=== PATIENT | female | born 1940 | race Hispanic/Latino ===

== ENCOUNTER 2023-05-28 09:46 | Observation (INO) | payer OTHER ==
--- OUTSIDE RECORDS SUMMARY | 2023-05-28 10:02 | XMS REPORT | Continuity of Care Document ---
:1940 Author Organization [facility] t Address [address] [place] [address] Care Team Providers Name Role Phone ALYSON SAM Primary Care Physician Unavailable RADHA TIDWELL Attending Clinician Unavailable MARTA NOBLES Attending Clinician Unavailable CONSTANCE HERRERA Attending Clinician Unavailable ERNESTO HONG Attending Clinician Unavailable ALYSON SAM Attending Clinician Unavailable Marta Bales Attending Clinician Alyson Sam MD Attending Clinician Doctor Unassigned, [place] Attending Clinician Unavailable NAMITA CLINTON Attending Clinician Unavailable Namita Clinton DO Attending Clinician Lab, Ang - Db Attending Clinician Unavailable Neto Matute MD Attending Clinician NETO MATUTE Attending Clinician Unavailable Constance Herrera MD Attending Clinician Radha Tidwell MD Attending Clinician Ernesto Hong MD Attending Clinician Alina RUCKER, Tessy Flood Attending Clinician Unavailable Only, Ang Db Test Attending Clinician Unavailable Bob FRANCISCO, Bailey Attending Clinician BAILEY ROJAS Attending Clinician Unavailable Molly RUCKER, Joyce Macdonald Attending Clinician Unavailable Jameel LEMONS, Antinoette Narayan Attending Clinician ANTIONETTE JORGENSEN Attending Clinician Unavailable EH SAVAGE Attending Clinician Unavailable Eh Savage MD Attending Clinician Christianson [facility], Sheila F Attending Clinician Unavailable Franky Stern MD Attending Clinician FRANKY STERN Attending Clinician Unavailable FRANKY STERN Attending Clinician Unavailable CIELO VILLANUEVA Attending Clinician Unavailable Lm Carrion DO Attending Clinician Cielo Villanueva MD Attending Clinician Karissa RUCKER, Yang Lester Attending Clinician Unavailable JOSE ROCK Attending Clinician Unavailable Wellington Burgos MD Attending Clinician Jose Rock MD Attending Clinician LAURA TAYLOR Attending Clinician Unavailable Laura Taylor MD Attending Clinician ROMINA GOMEZ Attending Clinician Unavailable Pcp-Lab Attending Clinician Unavailable Hay Whitehead MD Attending Clinician HAY WHITEHEAD Attending Clinician Unavailable [facility], [facility] Lab Main Attending Clinician Unavailable Maximino Mccabe DO Attending Clinician , Adc Vascular Room 1 - Attending Clinician Unavailable Susi FRANCISCO, Sendsavannah K.H. Attending Clinician DARY GOLDMAN K.H. Attending Clinician Unavailable Mega Bryant DO Attending Clinician OG ORELLANA Attending Clinician Unavailable Joyce Low Attending Clinician Gabino La MD Attending Clinician RADHA TIDWELL Admitting Clinician Unavailable WELLINGTON BURGOS Admitting Clinician Unavailable Wellington Burgos MD Admitting Clinician Payers Payer Name Policy Type Policy Number Effective Date Expiration Date Taras jimenez MEDICARE PART A [id number] 2006 \\T\\ B 00:00:00 [employer] [id number] 2023 MEDICARE ADVANTAGE 00:00:00 Problems Condition Condition Condition Status Onset Resolution Last Treating Co mments Source Name Details Category Date Date Treatment Clinician Date 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 05-27 ity of diabetes diabetes 00:00: [place] mellitus mellitus 00 Medica l with with Branch hyperglyce hyperglyce bernie bernie End-stage End-stage Disease Active Uni vers renal renal 05-24 ity of disease disease 00:00: [place] 00 Medical Branch At risk At risk Disease Active Univers for falls for falls 02-27 ity of 00:00: [place] [facility] Unspecifie Unspecifie Disease Active U rommelers d d 607 ity of abnormalit abnormalit 00:00[place] ies of ies of 00 Medical gait and gait and Branch mobility mobility Pulmonary Pulmonary Disease Active Uni vers hypertensi hypertensi 3-06 it y of on on 00:00: [place] 00 Medical Branch Chronic Chronic Disease Active Univers heart heart 5-06 ity of failure failure 00:00: [place] with with 00 Medical preserved preserved Bran ch ejection ejection fraction fraction Stroke Stroke Disease Active Univers determined determined 3-17 it y of by by 00:00: [place] clinical clinical 00 Medica l assessment assessment Br anch Proliferat Proliferat Disease Active U kerrie brittney brittney 1-15 ity of diabetic diabetic 00:00: [place] retinopath retinopath 00 Me dical y of both y of both Bran ch eyes eyes without without macular macular edema edema associated associated with with diabetes diabetes mellitus mellitus due to due to underlying underlying condition condition Cardiomyop Cardiomyop Disease Active U kerrie athy, athy, 7 ity of unspecifie unspecifie 00:00[place] d type d type 00 Medical Branch Bilateral Bilateral Disease Active Uni vers carotid carotid 7-01 ity of artery artery 00:00: [place] stenosis stenosis 00 Medica l Branch Malfunctio Malfunctio Disease Active U nivers n of n of 12-22 ity of arterioven arterioven 00:00[place] ous ous 00 Medical dialysis dialysis Branch fistula fistula Complicati Complicati Disease Active Overview : Univers on of on of 12-21 Formattin ity of arterioven arterioven 00:00: g of this ous ous 00 note Medical dialysis dialysis might be Bran ch fistula, fistula, different initial initial from the encounter encounter original. Added automatic ally from request for surgery [id number] Malfunctio Malfunctio Disease Active Overview : Univers n of n of 12-21 Formattin ity of arterioven arterioven 00:00: g of this ous ous 00 note Medical dialysis dialysis might be Bran ch fistula, fistula, different initial initial from the encounter encounter original. Added automatic ally from request for surgery [id number] Bone Bone Disease Recurre Univers disease, disease, nce 09-24 ity of metabolic metabolic 00:00[place] Hyperparat Hyperparat Disease Recurre Univers hyroidism, hyroidism, nce 09-24 it y of secondary secondary 00:[place] renal renal 00 [place] ESRD (end ESRD (end Disease Active Uni vers stage stage 1-02 ity of renal renal 00:00: [place] disease) disease) 00 Medica l Branch Obesity Obesity Disease Recurre 2015-09 Univer s (BMI (BMI nce 2-29 ity of 30-39.9) 30-39.9) 00:00: [place] 00 Medical Branch Depression Depression Disease Recurre Univers nce 6-28 ity of 00:00: [place] [facility] 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 nce 2-14 it y of athy athy 00:00: [place] [facility] Senile Senile Disease Recurre 2014-09 Univers osteoporos osteoporos nce 1-30 it y of is is 00:00: [place] [facility] 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, glaucoma, 00:00[place] left, left, 00 Medical severe severe Branch stage stage Corneal Corneal Disease Recurre Univer s scar, OS scar, OS nce 7- ity of 00:00: [place] 00 Medical Branch Pseudophak Pseudophak Disease Recurre Univers ia of both ia of both nce 7- it y of eyes eyes 00:00: [place] [facility] Dry eyes, Dry eyes, Disease Recurre Un taylor bilateral bilateral nce 6-17 ity of 00:00: [place] 00 Medical Branch Keloid Keloid Disease Recurre Univers scar scar nce 4-09 ity of 00:00: [place] [facility] Proliferat Proliferat Disease Recurre Univers brittney brittney nce 2-18 ity of diabetic diabetic 00:00: [place] retinopath retinopath 00 Me dical y of both y of both Bran ch eyes eyes Anxiety Anxiety Disease Recurre Univer s state state nce 3-17 ity of 00:00: [place] [facility] Allergic Allergic Disease Recurre 2006-09 Univ ers rhinitis rhinitis nce 1-11 ity of 00:00: [place] 00 Medical Branch Essential Essential Disease Recurre 2005-09 Un taylor hypertensi hypertensi nce 1-17 it y of on, benign on, benign 00:00: [place] [facility] [place] HLD HLD Disease Recurre 2005-09 Univers (hyperlipi (hyperlipi nce 1-17 it y of demia) demia) 00:00: [place] 00 Medical Branch Postsurgic Postsurgic Disease Recurre Overvie w: Univers al al nce 4-17 Formattin ity of aortocoron aortocoron 00:00: g of this [place] beatrice bypass beatrice bypass 00 note Me dical status status might be Branch different from the original. 2004 Diabetes Diabetes Disease Recurre 1989-09 Overview: U nivers mellitus mellitus nce -17 Formattin ity of Type 2 Type 2 00:00: g of this [place] with with 00 note Medical complicati complicati might be Branch on, with on, with different long-term long-term from the current current original. use of use of 1990 insulin insulin Diabetes Diabetes Disease Recurre 1989-09 Overview: U nivers mellitus mellitus nce 1-17 Formattin ity of Type 2 Type 2 00:00: g of this [place] with with 00 note Medical complicati complicati might be Branch on, with on, with different long-term long-term from the current current original. use of use of 1989 insulin insulin Coronary Coronary Disease Recurre Overview: U nivers artery artery nce Formattin ity of disease disease g of this [place] involving involving note Medi alo salamatof salamatof might be Branch coronary coronary different artery of artery of from the salamatof salamatof original. heart with heart with CABG angina angina Kiara pectoris pectoris 2004 Coronary Coronary Disease Recurre Overview: U nivers artery artery nce Formattin ity of disease disease g of this [place] involving involving note Medi alo salam[place] salamatof might be Branch coronary coronary different artery of artery of from the [place]am[place] salam[place]of original. heart with heart with CABG angina angina Kiara pectoris pectoris 2003 Allergies, Adverse Reactions, Alerts Allergy Allergy Status Severity Reaction(s) Onset Inactive Treating Comm ents Source Name Type Date Date Clinician BUPROPIO DRUG Active N/V Univers N INGREDI 04-15 ity of 00:00: [place] 00 Medical Branch Bupropio Propensi Active Nausea Univer s n ty to and/or 04-15 ity of adverse Vomiting 00:00: [place] reaction 00 Medical s Branch EXENATID DRUG Active Med N/V Univers E INGREDI 02-21 ity of 00:00: [place] 00 Medical Branch Exenatid Propensi Active Nausea Univer s e ty to and/or 02-21 ity of adverse Vomiting 00:00: [place] reaction 00 Medical s to Branch drug Social History Social Habit Start Date Stop Date Quantity Comments Source History [facility] o f Alcohol Frequency [facility] edical Branch History [facility] o f Alcohol Std Drinks [place] [facility] History [facility] o f Alcohol Binge [place] [facility] al [facility] Gender identity Universit y of [facility] Sexual orientation Univer sity of [facility] Alcohol intake 2023-05-24 2023-05-24 0 /d University of 00:00:00 00:00:00 [facility] History of Social 2023-05-24 2023-05-24 Univers ity of function 00:00:00 00:00:00 [facility] Exposure to 2023-02-05 2023-02-15 Not sure University of SARS-CoV-2 (event) 00:00:00 11:17:00 [facility] Tobacco use and 2022-04-09 2022-04-09 Smokeless Universit y of exposure 00:00:00 00:00:[address] tobacco non-[address] [facility] dical [place] Alcohol Comment 2016-09-24 2016-09-24 every third year Uni versity of 00:00:00 00:00:00 [facility] Sex [birth year] At [birth year] Universit y of 00:00:00 00:00:00 [facility] Smoking Status Start Date Stop Date Source Never smoked tobacco [facility] Medications Ordered Filled Start Stop Current Ordering Indication Dosage Frequency Signature Comments Components Source Medication Medication Date Date Medication? Clinician (SIG) Name Name B,C/folic/z Yes Take by Uni vers inc/selenom 05-24 mouth. ity of eth/D3/E 10:39: [place] (RENAPLEX-D 06 Medical ORAL) Branch B,C/folic/z Yes Take by Uni vers inc/selenom 05-24 mouth. ity of eth/D3/E 10:39: [place] (RENAPLEX-D 06 Medical ORAL) Branch semaglutide 0 Yes [id number] Start 0.25 Univers (OZEMPIC) 9-01 mg ity of 0.25 mg or 00:00: [place] 0.5 mg (2 00 for 4 Medical mg/3 mL) weeks. Branch PnIj Afterwards , progress to 0.5 mg injection semaglutide 2022-0 Yes [id number] Start 0.25 Univers (OZEMPIC) 9-01 mg ity of 0.25 mg or 00:00: [place] 0.5 mg (2 00 for 4 Medical mg/3 mL) weeks. Branch PnIj Afterwards , progress to 0.5 mg injection metoprolol 2022-0 Yes [id number] TAKE Uni vers tartrate 50 7-20 ONE-HALF ity of mg tablet 00:00: (2) TABLET(S) Medical BY MOUTH Branch TWICE A DAY. metoprolol 2023-0 Yes [id number] TAKE Uni vers tartrate 50 7-20 ONE-HALF ity of mg tablet 00:00: (2) TABLET(S) Medical BY MOUTH Branch TWICE A DAY. metoprolol 2023-0 Yes [id number] TAKE Uni vers tartrate 50 7-20 ONE-HALF ity of mg tablet 00:00: (2) [place] 00 TABLET(S) Medical BY MOUTH Branch TWICE A DAY. metoprolol 2023-0 Yes [id number] TAKE Uni vers tartrate 50 7-20 ONE-HALF ity of mg tablet 00:00: (2) [place] 00 TABLET(S) Medical BY MOUTH Branch TWICE A DAY. metoprolol 2023-0 Yes [id number] TAKE Uni vers tartrate 50 7-20 ONE-HALF ity of mg tablet 00:00: (2) [place] 00 TABLET(S) Medical BY MOUTH Branch TWICE A DAY. metoprolol 2023-0 Yes [id number] TAKE Uni vers tartrate 50 7-20 ONE-HALF ity of mg tablet 00:00: (2) [place] 00 TABLET(S) Medical BY MOUTH Branch TWICE A DAY. metoprolol 2023-0 Yes [id number] TAKE Uni vers tartrate 50 7-20 ONE-HALF ity of mg tablet 00:00: (09/24) 00 TABLET(S) Medical BY MOUTH Branch TWICE A DAY. metoprolol 2023-0 Yes [id number] TAKE Uni vers tartrate 50 7-20 ONE-HALF ity of mg tablet 00:00: (2) [place] 00 TABLET(S) Medical BY MOUTH Branch TWICE A DAY. metoprolol 2023-0 Yes [id number] TAKE Uni vers tartrate 50 7-20 ONE-HALF ity of mg tablet 00:00: (09/24) [place] 00 TABLET(S) Medical BY MOUTH Branch TWICE A DAY. metoprolol 2023-0 Yes [id number] TAKE Uni vers tartrate 50 7-20 ONE-HALF ity of mg tablet 00:00: (2) [place] 00 TABLET(S) Medical BY MOUTH Branch TWICE A DAY. metoprolol 2023-0 Yes [id number] TAKE Uni vers tartrate 50 7-20 ONE-HALF ity of mg tablet 00:00: (2) [place] 00 TABLET(S) Medical BY MOUTH Branch TWICE A DAY. metoprolol 2023-0 Yes [id number] TAKE Uni vers tartrate 50 7-20 ONE-HALF ity of mg tablet 00:00: (09/24) 00 TABLET(S) Medical BY MOUTH Branch TWICE A DAY. metoprolol 2023-0 Yes [id number] TAKE Uni vers tartrate 50 7-20 ONE-HALF ity of mg tablet 00:00: (09/24) [place] 00 TABLET(S) Medical BY MOUTH Branch TWICE A DAY. clopidogreL 3-0 Yes [id number] 75mg Take 1 Univers 75 mg 6-07 tablet by ity of tablet 00:00: mouth [place] 00 daily. Medical Branch clopidogreL 2023-0 Yes [id number] 75mg Take 1 Univers 75 mg 6-07 tablet by ity of tablet 00:00: mouth [place] 00 daily. Medical Branch hydrALAZINE 2022-0 Yes [id number] 25mg Take 1 U nivers 25 mg 6-07 tablet by ity of tablet 00:00: mouth [place] 00 every 8 Medical (eight) Branch hours. clopidogreL 2022-0 Yes [id number] 75mg Take 1 Univers 75 mg 6-07 tablet by ity of tablet 00:00: mouth [place] 00 daily. Medical Branch hydrALAZINE 2022-0 Yes [id number] 25mg Take 1 U nivers 25 mg 6-07 tablet by ity of tablet 00:00: mouth [place] 00 every 8 Medical (eight) Branch hours. clopidogreL 2022-0 Yes [id number] 75mg Take 1 Univers 75 mg 6-07 tablet by ity of tablet 00:00: mouth [place] 00 daily. Medical Branch hydrALAZINE 2022-0 Yes [id number] 25mg Take 1 U nivers 25 mg 6-07 tablet by ity of tablet 00:00: mouth [place] 00 every 8 Medical (eight) Branch hours. clopidogreL 3-0 Yes [id number] 75mg Take 1 Univers 75 mg 6-07 tablet by ity of tablet 00:00: mouth [place] 00 daily. Medical Branch hydrALAZINE 3-0 Yes [id number] 25mg Take 1 U nivers 25 mg 6-07 tablet by ity of tablet 00:00: mouth [place] 00 every 8 Medical (eight) Branch hours. clopidogreL 3-0 Yes [id number] 75mg Take 1 Univers 75 mg 6-07 tablet by ity of tablet 00:00: mouth [place] 00 daily. Medical Branch hydrALAZINE 3-0 Yes [id number] 25mg Take 1 U nivers 25 mg 6-07 tablet by ity of tablet 00:00: mouth [place] 00 every 8 Medical (eight) Branch hours. clopidogreL 2023-0 Yes [id number] 75mg Take 1 Univers 75 mg 6-07 tablet by ity of tablet 00:00: mouth [place] 00 daily. Medical Branch hydrALAZINE 3-0 Yes [id number] 25mg Take 1 U nivers 25 mg 6-07 tablet by ity of tablet 00:00: mouth [place] 00 every 8 Medical (eight) Branch hours. clopidogreL 2023-0 Yes [id number] 75mg Take 1 Univers 75 mg 6-07 tablet by ity of tablet 00:00: mouth [place] 00 daily. Medical Branch hydrALAZINE 3-0 Yes [id number] 25mg Take 1 U nivers 25 mg 6-07 tablet by ity of tablet 00:00: mouth [place] 00 every 8 Medical (eight) Branch hours. clopidogreL 2023-0 Yes [id number] 75mg Take 1 Univers 75 mg 6-07 tablet by ity of tablet 00:00: mouth [place] 00 daily. Medical Branch hydrALAZINE 3-0 Yes [id number] 25mg Take 1 U nivers 25 mg 6-07 tablet by ity of tablet 00:00: mouth [place] 00 every 8 Medical (eight) Branch hours. clopidogreL 3-0 Yes [id number] 75mg Take 1 Univers 75 mg 6-07 tablet by ity of tablet 00:00: mouth [place] 00 daily. Medical Branch hydrALAZINE 3-0 Yes [id number] 25mg Take 1 U nivers 25 mg 6-07 tablet by ity of tablet 00:00: mouth [place] 00 every 8 Medical (eight) Branch hours. clopidogreL 2023-0 Yes [id number] 75mg Take 1 Univers 75 mg 6-07 tablet by ity of tablet 00:00: mouth [place] 00 daily. Medical Branch hydrALAZINE 2023-0 Yes [id number] 25mg Take 1 U nivers 25 mg 6-07 tablet by ity of tablet 00:00: mouth [place] 00 every 8 Medical (eight) Branch hours. clopidogreL 2023-0 Yes [id number] 75mg Take 1 Univers 75 mg 6-07 tablet by ity of tablet 00:00: mouth [place] 00 daily. Medical Branch hydrALAZINE 2023-0 Yes [id number] 25mg Take 1 U nivers 25 mg 6-07 tablet by ity of tablet 00:00: mouth [place] 00 every 8 Medical (eight) Branch hours. clopidogreL 2023-0 Yes [id number] 75mg Take 1 Univers 75 mg 6-07 tablet by ity of tablet 00:00: mouth [place] 00 daily. Medical Branch hydrALAZINE 2023-0 Yes [id number] 25mg Take 1 U nivers 25 mg 6-07 tablet by ity of tablet 00:00: mouth [place] 00 every 8 Medical (eight) Branch hours. clopidogreL 2023-0 Yes [id number] 75mg Take 1 Univers 75 mg 6-07 tablet by ity of tablet 00:00: mouth [place] 00 daily. Medical Branch hydrALAZINE 2023-0 Yes [id number] 25mg Take 1 U nivers 25 mg 6-07 tablet by ity of tablet 00:00: mouth [place] 00 every 8 Medical (eight) Branch hours. clopidogreL 2023-0 Yes [id number] 75mg Take 1 Univers 75 mg 6-07 tablet by ity of tablet 00:00: mouth [place] 00 daily. Medical Branch hydrALAZINE 3-0 Yes [id number] 25mg Take 1 U nivers 25 mg 6-07 tablet by ity of tablet 00:00: mouth [place] 00 every 8 Medical (eight) Branch hours. clopidogreL 2023-0 Yes [id number] 75mg Take 1 Univers 75 mg 6-07 tablet by ity of tablet 00:00: mouth [place] 00 daily. Medical Branch hydrALAZINE 2023-0 Yes [id number] 25mg Take 1 U nivers 25 mg 6-07 tablet by ity of tablet 00:00: mouth [place] 00 every 8 Medical (eight) Branch hours. clopidogreL 2023-0 Yes [id number] 75mg Take 1 Univers 75 mg 6-07 tablet by ity of tablet 00:00: mouth [place] 00 daily. Medical Branch hydrALAZINE 2023-0 Yes [id number] 25mg Take 1 U nivers 25 mg 6-07 tablet by ity of tablet 00:00: mouth [place] 00 every 8 Medical (eight) Branch hours. clopidogreL 2023-0 Yes [id number] 75mg Take 1 Univers 75 mg 6-07 tablet by ity of tablet 00:00: mouth [place] 00 daily. Medical Branch hydrALAZINE 2023-0 Yes [id number] 25mg Take 1 U nivers 25 mg 6-07 tablet by ity of tablet 00:00: mouth [place] 00 every 8 Medical (eight) Branch hours. B,C/folic/z 2023-0 Yes Take by Uni vers inc/selenom 5-26 mouth. ity of eth/D3/E 12:08: [place] (RENAPLEX-D 08 Medical ORAL) Branch B,C/folic/z 3-0 Yes Take by Uni vers inc/selenom 5-26 mouth. ity of eth/D3/E 12:08: [place] (RENAPLEX-D 08 Medical ORAL) Branch B,C/folic/z 3-0 Yes Take by Uni vers inc/selenom 5-26 mouth. ity of eth/D3/E 12:08: [place] (RENAPLEX-D 08 Medical ORAL) Branch B,C/folic/z 3-0 Yes Take by Uni vers inc/selenom 5-26 mouth. ity of eth/D3/E 12:08: [place] (RENAPLEX-D 08 Medical ORAL) Branch B,C/folic/z 3-0 Yes Take by Uni vers inc/selenom 5-26 mouth. ity of eth/D3/E 12:08: [place] (RENAPLEX-D 08 Medical ORAL) Branch B,C/folic/z 3-0 Yes Take by Uni vers inc/selenom 5-26 mouth. ity of eth/D3/E 12:08: [place] (RENAPLEX-D 08 Medical ORAL) Branch B,C/folic/z 3-0 Yes Take by Uni vers inc/selenom 5-26 mouth. ity of eth/D3/E 12:08: [place] (RENAPLEX-D 08 Medical ORAL) Branch B,C/folic/z 3-0 Yes Take by Uni vers inc/selenom 5-26 mouth. ity of eth/D3/E 12:08: [place] (RENAPLEX-D 08 Medical ORAL) Branch B,C/folic/z 3-0 Yes Take by Uni vers inc/selenom 5-26 mouth. ity of eth/D3/E 12:08: [place] (RENAPLEX-D 08 Medical ORAL) Branch B,C/folic/z 3-0 Yes Take by Uni vers inc/selenom 5-26 mouth. ity of eth/D3/E 12:08: [place] (RENAPLEX-D 08 Medical ORAL) Branch B,C/folic/z 0 Yes Take by Uni vers inc/selenom 5-26 mouth. ity of eth/D3/E 12:08: [place] (RENAPLEX-D 08 Medical ORAL) Branch B,C/folic/z 0 Yes Take by Uni vers inc/selenom 5-26 mouth. ity of eth/D3/E 12:08: [place] (RENAPLEX-D 08 Medical ORAL) Branch B,C/folic/z 0 Yes Take by Uni vers inc/selenom 5-26 mouth. ity of eth/D3/E 12:08: [place] (RENAPLEX-D 08 Medical ORAL) Branch B,C/folic/z 0 Yes Take by Uni vers inc/selenom 5-26 mouth. ity of eth/D3/E 12:08: [place] (RENAPLEX-D 08 Medical ORAL) Branch B,C/folic/z 0 Yes Take by Uni vers inc/selenom 5-26 mouth. ity of eth/D3/E 12:08: [place] (RENAPLEX-D 08 Medical ORAL) Branch B,C/folic/z 0 Yes Take by Uni vers inc/selenom 5-26 mouth. ity of eth/D3/E 12:08: [place] (RENAPLEX-D 08 Medical ORAL) Branch B,C/folic/z 0 Yes Take by Uni vers inc/selenom 5-26 mouth. ity of eth/D3/E 12:08: [place] (RENAPLEX-D 08 Medical ORAL) Branch B,C/folic/z 0 Yes Take by Uni vers inc/selenom 5-26 mouth. ity of eth/D3/E 12:08: [place] (RENAPLEX-D 08 Medical ORAL) Branch B,C/folic/z 0 Yes Take by Uni vers inc/selenom 5-26 mouth. ity of eth/D3/E 12:08: [place] (RENAPLEX-D 08 Medical ORAL) Branch B,C/folic/z 0 Yes Take by Uni vers inc/selenom 5-26 mouth. ity of eth/D3/E 12:08: [place] (RENAPLEX-D 08 Medical ORAL) Branch Insulin Yes [id number] 17U inject 17 Univers Glargine 5-26 Units ity of (LANTUS 00:00: under the [place] SOLOSTAR 00 skin Medical U-100 daily. Branch INSULIN) 100 unit/mL (3 mL) injection Insulin 0 Yes [id number] 17U inject 17 Univers Glargine 5-26 Units ity of (LANTUS 00:00: under the [place] SOLOSTAR 00 skin Medical U-100 daily. Branch INSULIN) 100 unit/mL (3 mL) injection Insulin Yes [id number] 17U inject 17 Univers Glargine 5-26 Units ity of (LANTUS 00:00: under the [place] SOLOSTAR 00 skin Medical U-100 daily. Branch INSULIN) 100 unit/mL (3 mL) injection Insulin Yes [id number] 17U inject 17 Univers Glargine 5-26 Units ity of (LANTUS 00:00: under the [place] SOLOSTAR 00 skin Medical U-100 daily. Branch INSULIN) 100 unit/mL (3 mL) injection Insulin Yes [id number] 17U inject 17 Univers Glargine 5-26 Units ity of (LANTUS 00:00: under the [place] SOLOSTAR 00 skin Medical U-100 daily. Branch INSULIN) 100 unit/mL (3 mL) injection Insulin Yes [id number] 17U inject 17 Univers Glargine 5-26 Units ity of (LANTUS 00:00: under the [place] SOLOSTAR 00 skin Medical U-100 daily. Branch INSULIN) 100 unit/mL (3 mL) injection Insulin Yes [id number] 17U inject 17 Univers Glargine 5-26 Units ity of (LANTUS 00:00: under the [place] SOLOSTAR 00 skin Medical U-100 daily. Branch INSULIN) 100 unit/mL (3 mL) injection Insulin 0 Yes [id number] 17U inject 17 Univers Glargine 5-26 Units ity of (LANTUS 00:00: under the [place] SOLOSTAR 00 skin Medical U-100 daily. Branch INSULIN) 100 unit/mL (3 mL) injection Insulin 0 Yes [id number] 17U inject 17 Univers Glargine 5-26 Units ity of (LANTUS 00:00: under the [place] SOLOSTAR 00 skin Medical U-100 daily. Branch INSULIN) 100 unit/mL (3 mL) injection Insulin 2022-0 Yes [id number] 17U inject 17 Univers Glargine 5-26 Units ity of (LANTUS 00:00: under the [place] SOLOSTAR 00 skin Medical U-100 daily. Branch INSULIN) 100 unit/mL (3 mL) injection Insulin 2022-0 Yes [id number] 17U inject 17 Univers Glargine 5-26 Units ity of (LANTUS 00:00: under the [place] SOLOSTAR 00 skin Medical U-100 daily. Branch INSULIN) 100 unit/mL (3 mL) injection Insulin 2022-0 Yes [id number] 17U inject 17 Univers Glargine 5-26 Units ity of (LANTUS 00:00: under the [place] SOLOSTAR 00 skin Medical U-100 daily. Branch INSULIN) 100 unit/mL (3 mL) injection Insulin 2022-0 Yes [id number] 17U inject 17 Univers Glargine 5-26 Units ity of (LANTUS 00:00: under the [place] SOLOSTAR 00 skin Medical U-100 daily. Branch INSULIN) 100 unit/mL (3 mL) injection Insulin 2022-0 Yes [id number] 17U inject 17 Univers Glargine 5-26 Units ity of (LANTUS 00:00: under the [place] SOLOSTAR 00 skin Medical U-100 daily. Branch INSULIN) 100 unit/mL (3 mL) injection Insulin 2022-0 Yes [id number] 17U inject 17 [facility] Glargine 5-26 Units ity of ([facility]US 00:00: under the [place] SOLOSTAR 00 skin Medical U-100 daily. Branch INSULIN) 100 unit/mL (3 mL) injection Insulin 2022-0 Yes [id number] 17U inject 17 [facility] Glargine 5-26 Units ity of ([place] 00:00: under the [place] SOL[facility] 00 skin Medical U-100 daily. Branch INSULIN) 100 unit/mL (3 mL) injection Insulin 3-0 Yes [id number] 17U inject 17 [facility] Glargine 5-26 Units ity of ([place] 00:00: under the [place] SOLOST[facility] 00 skin Medical U-100 daily. Branch INSULIN) 100 unit/mL (3 mL) injection Insulin 3-0 Yes [id number] 17U inject 17 [facility] Glargine 5-26 Units ity of ([place] 00:00: under the [place] [address] skin Medical U-100 daily. Branch INSULIN) 100 unit/mL (3 mL) injection Insulin 3-0 Yes [id number] 17U inject 17 [facility] Glargine 5-26 Units ity of ([place] 00:00: under the [place] [address] skin Medical U-100 daily. Branch INSULIN) 100 unit/mL (3 mL) injection LISINOPRIL 2023-0 Yes [id number] TAKE ONE [facility] 40 mg 5-19 (1) ity of tablet 00:00: TABLET(S) [place] 00 BY MOUTH Medical ONCE A Branch DAY. LISINOPRIL 2023-0 Yes [id number] TAKE ONE [facility] 40 mg 5-19 (1) ity of tablet 00:00: TABLET(S) [place] 00 BY MOUTH Medical ONCE A Branch DAY. LISINOPRIL 2023-0 Yes [id number] TAKE ONE [facility] 40 mg 5-19 (1) ity of tablet 00:00: TABLET(S) [place] 00 BY MOUTH Medical ONCE A Branch DAY. LISINOPRIL 2023-0 Yes [id number] TAKE ONE [facility] 40 mg 5-19 (1) ity of tablet 00:00: TABLET(S) [place] 00 BY MOUTH Medical ONCE A Branch DAY. LISINOPRIL 2023-0 Yes [id number] TAKE ONE [facility] 40 mg 5-19 (1) ity of tablet 00:00: TABLET(S) [place] 00 BY MOUTH Medical ONCE A Branch DAY. LISINOPRIL 2023-0 Yes [id number] TAKE ONE [facility] 40 mg 5-19 (1) ity of tablet 00:00: TABLET(S) [place] 00 BY MOUTH Medical ONCE A Branch DAY. LISINOPRIL 2023-0 Yes [id number] TAKE ONE [facility] 40 mg 5-19 (1) ity of tablet 00:00: TABLET(S) [place] 00 BY MOUTH Medical ONCE A Branch DAY. LISINOPRIL 2023-0 Yes [id number] TAKE ONE [facility] 40 mg 5-19 (1) ity of tablet 00:00: TABLET(S) [place] 00 BY MOUTH Medical ONCE A Branch DAY. LISINOPRIL 2023-0 Yes [id number] TAKE ONE [facility] 40 mg 5-19 (1) ity of tablet 00:00: TABLET(S) [place] 00 BY MOUTH Medical ONCE A Branch DAY. LISINOPRIL 2023-0 Yes [id number] TAKE ONE [facility] 40 mg 5-19 (1) ity of tablet 00:00: TABLET(S) [place] 00 BY MOUTH Medical ONCE A Branch DAY. LISINOPRIL 2023-0 Yes [id number] TAKE ONE [facility] 40 mg 5-19 (1) ity of tablet 00:00: TABLET(S) [place] 00 BY MOUTH Medical ONCE A Branch DAY. LISINOPRIL 2023-0 Yes [id number] TAKE ONE [facility] 40 mg 5-19 (1) ity of tablet 00:00: TABLET(S) [place] 00 BY MOUTH Medical ONCE A Branch DAY. LISINOPRIL 2023-0 Yes [id number] TAKE ONE [facility] 40 mg 5-19 (1) ity of tablet 00:00: TABLET(S) [place] 00 BY MOUTH Medical ONCE A Branch DAY. LISINOPRIL 2023-0 Yes [id number] TAKE ONE [facility] 40 mg 5-19 (1) ity of tablet 00:00: TABLET(S) [place] 00 BY MOUTH Medical ONCE A Branch DAY. LISINOPRIL 2023-0 Yes [id number] TAKE ONE [facility] 40 mg 5-19 (1) ity of tablet 00:00: TABLET(S) [place] 00 BY MOUTH Medical ONCE A Branch DAY. LISINOPRIL 2023-0 Yes [id number] TAKE ONE [facility] 40 mg 5-19 (1) ity of tablet 00:00: TABLET(S) [place] 00 BY MOUTH Medical ONCE A Branch DAY. LISINOPRIL 2023-0 Yes [id number] TAKE ONE [facility] 40 mg 5-19 (1) ity of tablet 00:00: TABLET(S) [place] 00 BY MOUTH Medical ONCE A Branch DAY. LISINOPRIL 2023-0 Yes [id number] TAKE ONE [facility] 40 mg 5-19 (1) ity of tablet 00:00: TABLET(S) [place] 00 BY MOUTH Medical ONCE A Branch DAY. LISINOPRIL 2023-0 Yes [id number] TAKE ONE [facility] 40 mg 5-19 (1) ity of tablet 00:00: TABLET(S) [place] 00 BY MOUTH Medical ONCE A Branch DAY. LISINOPRIL 2023-0 Yes [id number] TAKE ONE [facility] 40 mg 5-19 (1) ity of tablet 00:00: TABLET(S) 00 BY MOUTH Medical ONCE A Branch DAY. LISINOPRIL 2023-0 Yes [id number] TAKE ONE [facility] 40 mg 5-19 (1) ity of tablet 00:00: TABLET(S) 00 BY MOUTH Medical ONCE A Branch DAY. LISINOPRIL 2023-0 Yes [id number] TAKE ONE [facility] 40 mg 5-19 (1) ity of tablet 00:00: TABLET(S) 00 BY MOUTH Medical ONCE A Branch DAY. LISINOPRIL 2023-0 Yes [id number] TAKE ONE [facility] 40 mg 5-19 (1) ity of tablet 00:00: TABLET(S) 00 BY MOUTH Medical ONCE A Branch DAY. LISINOPRIL 2023-0 Yes [id number] TAKE ONE [facility] 40 mg 5-19 (1) ity of tablet 00:00: TABLET(S) 00 BY MOUTH Medical ONCE A Branch DAY. metoprolol 3-0 Yes [id number] 25mg Take 0.5 [facility] tartrate 50 4-24 tablets by it y of mg tablet 00:00: [facility] ([facility]) Medical times Branch daily. metoprolol 2023-0 Yes [id number] 25mg Take 0.5 [facility] tartrate 50 4-24 tablets by it y of mg tablet 00:00: [facility] [place] ([facility]) Medical times Branch daily. metoprolol 2023-0 Yes [id number] 25mg Take 0.5 [facility] tartrate 50 4-24 tablets by it y of mg tablet 00:00: [facility] [place] ([facility]) Medical times Branch daily. metoprolol 2023-0 Yes [id number] 25mg Take 0.5 [facility] tartrate 50 4-24 tablets by it y of mg tablet 00:00: [facility] [place] ([facility]) Medical times Branch daily. metoprolol 2023-0 Yes [id number] 25mg Take 0.5 [facility] tartrate 50 4-24 tablets by it y of mg tablet 00:00: [facility] [place] (two) Medical times Branch daily. metoprolol 2023-0 Yes [id number] 25mg Take 0.5 [facility] tartrate 50 4-24 tablets by it y of mg tablet 00:00: [facility] [place] ([facility]) Medical times Branch daily. metoprolol 2023-0 Yes [id number] 25mg Take 0.5 [facility] tartrate 50 4-24 tablets by it y of mg tablet 00:00: mouth (two) Medical times Branch daily. metoprolol 2022-0 Yes [id number] 25mg Take 0.5 [facility] tartrate 50 4-24 tablets by it y of mg tablet 00:00: mouth (two) Medical times Branch daily. metoprolol 2022-0 Yes [id number] 25mg Take 0.5 [facility] tartrate 50 4-24 tablets by it y of mg tablet 00:00: mouth (two) Medical times Branch daily. metoprolol 2022-0 Yes [id number] 25mg Take 0.5 [facility] tartrate 50 4-24 tablets by it y of mg tablet 00:00: mouth (two) Medical times Branch daily. metoprolol 2022-0 Yes [id number] 25mg Take 0.5 [facility] tartrate 50 4-24 tablets by it y of mg tablet 00:00: mouth (two) Medical times Branch daily. metoprolol 2022-0 Yes [id number] 25mg Take 0.5 [facility] tartrate 50 4-24 tablets by it y of mg tablet 00:00: mouth (two) Medical times Branch daily. metoprolol 0 Yes [id number] 25mg Take 0.5 [facility] tartrate 50 4-24 tablets by it y of mg tablet 00:00: mouth (two) Medical times Branch daily. metoprolol 0 2022- No [id number] 25mg Take 0.5 [facility] tartrate 50 4-24 07-20 tablets by i ty of mg tablet 00:00: [place] Medical times Branch daily. atorvastati 2022-0 Yes [id number] 40mg Take 1 [facility] n 40 mg 4-07 tablet by ity of tablet 00:00: mouth at [place] [address] bedtime. Medical Branch atorvastati 2022-0 Yes [id number] 40mg Take 1 [facility] n 40 mg 4-07 tablet by ity of tablet 00:00: mouth at [place] [address] bedtime. Medical Branch atorvastati 2022-0 Yes [id number] 40mg Take 1 [facility] n 40 mg 4-07 tablet by ity of tablet 00:00: mouth at [place] bedtime. Medical Branch atorvastati 2022-0 Yes [id number] 40mg Take 1 [facility] n 40 mg 4-07 tablet by ity of tablet 00:00: mouth at [place] bedtime. Medical Branch atorvastati 2022-0 Yes [id number] 40mg Take 1 [facility] n 40 mg 4-07 tablet by ity of tablet 00:00: mouth at [place] bedtime. Medical Branch atorvastati 2022-0 Yes [id number] 40mg Take 1 [facility] n 40 mg 4-07 tablet by ity of tablet 00:00: mouth at [place] bedtime. Medical Branch atorvasta 2022-0 Yes [id number] 40mg Take 1 [facility] n 40 mg 4-07 tablet by ity of tablet 00:00: mouth at [place] bedtime. Medical Branch atorvasta 2022-0 Yes [id number] 40mg Take 1 [facility] n 40 mg 4-07 tablet by ity of tablet 00:00: mouth at [place] [address] bedtime. Medical Branch atorvasta 0 Yes [id number] 40mg Take 1 [facility] n 40 mg 4-07 tablet by ity of tablet 00:00: mouth at [place] bedtime. Medical Branch atorvasta 0 Yes [id number] 40mg Take 1 [facility] n 40 mg 4-07 tablet by ity of tablet 00:00: mouth at [place] [address] bedtime. Medical Branch atorvasta 0 Yes [id number] 40mg Take 1 [facility] n 40 mg 4-07 tablet by ity of tablet 00:00: mouth at [place] [address] bedtime. Medical Branch atorvastati 2022-0 Yes [id number] 40mg Take 1 [facility] n 40 mg 4-07 tablet by ity of tablet 00:00: mouth at [place] [address] bedtime. Medical Branch atorvastati 2022-0 Yes [id number] 40mg Take 1 Univers n 40 mg 4-07 tablet by ity of tablet 00:00: mouth at [place] [address] bedtime. Medical Branch atorvastati 2022-0 Yes [id number] 40mg Take 1 Univers n 40 mg 4-07 tablet by ity of tablet 00:00: mouth at [place] [address] bedtime. Medical Branch atorvasta 2022-0 Yes [id number] 40mg Take 1 Univers n 40 mg 4-07 tablet by ity of tablet 00:00: mouth at [place] [address] bedtime. Medical Branch atorvasta 2022-0 Yes [id number] 40mg Take 1 Univers n 40 mg 4-07 tablet by ity of tablet 00:00: mouth at [place] [address] bedtime. Medical Branch atorvastati 0 Yes [id number] 40mg Take 1 Univers n 40 mg 4-07 tablet by ity of tablet 00:00: mouth at [place] [address] bedtime. Medical Branch atorvasta 2022-0 Yes [id number] 40mg Take 1 [facility] n 40 mg 4-07 tablet by ity of tablet 00:00: mouth at [place] [address] bedtime. Medical Branch atorvasta 0 Yes [id number] 40mg Take 1 [facility] n 40 mg 4-07 tablet by ity of tablet 00:00: mouth at [place] [address] bedtime. Medical Branch atorvasta 0 Yes [id number] 40mg Take 1 [facility] n 40 mg 4-07 tablet by ity of tablet 00:00: mouth at [place] [address] bedtime. Medical Branch atorvasta 0 Yes [id number] 40mg Take 1 [facility] n 40 mg 4-07 tablet by ity of tablet 00:00: mouth at [place] [address] bedtime. Medical Branch atorvasta 0 Yes [id number] 40mg Take 1 [facility] n 40 mg 4-07 tablet by ity of tablet 00:00: mouth at [place] [address] bedtime. Medical Branch atorvasta 2022-0 Yes [id number] 40mg Take 1 [facility] n 40 mg 4-07 tablet by ity of tablet 00:00: mouth at [place] [address] bedtime. Medical Branch atorvasta 2022-0 Yes [id number] 40mg Take 1 [facility] n 40 mg 4-07 tablet by ity of tablet 00:00: mouth at [place] [address] bedtime. Medical Branch atorvasta 2022-0 Yes [id number] 40mg Take 1 [facility] n 40 mg 4-07 tablet by ity of tablet 00:00: mouth at [place] [address] bedtime. Medical Branch atorvasta 0 Yes [id number] 40mg Take 1 [facility] n 40 mg 4-07 tablet by ity of tablet 00:00: mouth at [place] [address] bedtime. Medical Branch atorvasta 2022-0 Yes [id number] 40mg Take 1 [facility] n 40 mg 4-07 tablet by ity of tablet 00:00: mouth at [place] 00 bedtime. Medical Branch atorvastati 2022-0 Yes [id number] 40mg Take 1 [facility] n 40 mg 4-07 tablet by ity of tablet 00:00: mouth at [place] 00 bedtime. Medical Branch atorvastati 2022-0 Yes [id number] 40mg Take 1 [facility] n 40 mg 4-07 tablet by ity of tablet 00:00: mouth at [place] 00 bedtime. Medical Branch atorvastati 2022-0 Yes [id number] 40mg Take 1 [facility] n 40 mg 4-07 tablet by ity of tablet 00:00: mouth at [place] 00 bedtime. Medical Branch atorvastati 0 Yes [id number] 40mg Take 1 [facility] n 40 mg 4-07 tablet by ity of tablet 00:00: mouth at [place] 00 bedtime. Medical Branch B,C/folic/z 0 Yes Take by Uni vers inc/selenom 3-06 mouth. ity of eth/D3/E 11:03: [place] (RENAPLEX-D 01 Medical ORAL) Branch B,C/folic/z 0 Yes Take by Uni vers inc/selenom 3-06 mouth. ity of eth/D3/E 11:03: [place] (RENAPLEX-D 01 Medical ORAL) Branch B,C/folic/z 0 Yes Take by [facility] vers inc/selenom 3-06 mouth. ity of eth/D3/E 11:03: [place] (RENAPLEX-D 01 Medical ORAL) Branch B,C/folic/z 0 Yes Take by [facility] vers inc/selenom 3-06 mouth. ity of eth/D3/E 11:03: [place] (RENAPLEX-D 01 Medical ORAL) Branch B,C/folic/z 0 Yes Take by [facility] vers inc/selenom 3-06 mouth. ity of eth/D3/E 11:03: [place] (RENAPLEX-D 01 Medical ORAL) Branch B,C/folic/z Yes Take by [facility] vers inc/selenom 3-06 mouth. ity of eth/D3/E 11:03: [place] (RENAPLEX-D 01 Medical ORAL) Branch B,C/folic/z 2023-0 Yes Take by [facility] vers inc/selenom 3-06 mouth. ity of eth/D3/E 11:03: [place] (RENAPLEX-D 01 Medical ORAL) Branch B,C/folic/z 2022-0 Yes Take by Uni vers inc/selenom 3-06 mouth. ity of eth/D3/E 11:03: [place] (RENAPLEX-D 01 Medical ORAL) Branch B,C/folic/z 2022-0 Yes Take by [facility] vers inc/selenom 3-06 mouth. ity of eth/D3/E 11:03: [place] (RENAPLEX-D 01 Medical ORAL) Branch B,C/folic/z 2022-0 Yes Take by [facility] vers inc/selenom 3-06 mouth. ity of eth/D3/E 11:03: [place] (RENAPLEX-D 01 Medical ORAL) Branch B,C/folic/z 2022-0 Yes Take by [facility] vers inc/selenom 3-06 mouth. ity of eth/D3/E 11:03: [place] (RENAPLEX-D 01 Medical ORAL) Branch B,C/folic/z 2022-0 Yes Take by [facility] vers inc/selenom 3-06 mouth. ity of eth/D3/E 11:03: [place] (RENAPLEX-D 01 Medical ORAL) Branch B,C/folic/z 2022-0 Yes Take by [facility] vers inc/selenom 3-06 mouth. ity of eth/D3/E 11:03: [place] (RENAPLEX-D 01 Medical ORAL) Branch B,C/folic/z 2022-0 Yes Take by [facility] vers inc/selenom 3-06 mouth. ity of eth/D3/E 11:03: [place] (RENAPLEX-D 01 Medical ORAL) Branch B,C/folic/z 2022-0 Yes Take by [facility] vers inc/selenom 3-06 mouth. ity of eth/D3/E 11:03: [place] (RENAPLEX-D 01 Medical ORAL) Branch B,C/folic/z 2022-0 Yes Take by Uni vers inc/selenom 3-06 mouth. ity of eth/D3/E 11:03: [place] (RENAPLEX-D 01 Medical ORAL) Branch B,C/folic/z 2022-0 Yes Take by [facility] vers inc/selenom 3-06 mouth. ity of eth/D3/E 11:03: [place] (RENAPLEX-D 01 Medical ORAL) Branch B,C/folic/z Yes Take by Uni vers inc/selenom 3-06 mouth. ity of eth/D3/E 11:03: [place] (RENAPLEX-D 01 Medical ORAL) Branch FUROSEMIDE 2021-09 Yes [id number] TAKE TWO Univers 20 mg 2-19 (2) ity of tablet 00:00: TABLET(S) [place] 00 BY MOUTH Medical EVERY Branch MORNING AND ONE (1) TABLET BY MOUTH EVERY EVENING. FUROSEMIDE 2021-09 Yes [id number] TAKE TWO [facility] 20 mg 2-19 (2) ity of tablet 00:00: TABLET(S) [place] 00 BY MOUTH Medical EVERY Branch MORNING AND ONE (1) TABLET BY MOUTH EVERY EVENING. FUROSEMIDE 2021-09 Yes [id number] TAKE TWO [facility] 20 mg 2-19 (2) ity of tablet 00:00: TABLET(S) [place] 00 BY MOUTH Medical EVERY Branch MORNING AND ONE (1) TABLET BY MOUTH EVERY EVENING. FUROSEMIDE 2021-09 Yes [id number] TAKE TWO [facility] 20 mg 2-19 (2) ity of tablet 00:00: TABLET(S) [place] 00 BY MOUTH Medical EVERY Branch MORNING AND ONE (1) TABLET BY MOUTH EVERY EVENING. FUROSEMIDE 2021-09 Yes [id number] TAKE TWO [facility] 20 mg 2-19 (2) ity of tablet 00:00: TABLET(S) [place] 00 BY MOUTH Medical EVERY Branch MORNING AND ONE (1) TABLET BY MOUTH EVERY EVENING. FUROSEMIDE 2021-09 Yes [id number] TAKE TWO [facility] 20 mg 2-19 (2) ity of tablet 00:00: TABLET(S) [place] 00 BY MOUTH Medical EVERY Branch MORNING AND ONE (1) TABLET BY MOUTH EVERY EVENING. FUROSEMIDE 2021-09 Yes [id number] TAKE TWO [facility] 20 mg 2-19 (2) ity of tablet 00:00: TABLET(S) [place] 00 BY MOUTH Medical EVERY Branch MORNING AND ONE (1) TABLET BY MOUTH EVERY EVENING. FUROSEMIDE 2021-09 Yes [id number] TAKE TWO [facility] 20 mg 2-19 (2) ity of tablet 00:00: TABLET(S) [place] 00 BY MOUTH Medical EVERY Branch MORNING AND ONE (1) TABLET BY MOUTH EVERY EVENING. FUROSEMIDE 2021-09 Yes [id number] TAKE TWO [facility] 20 mg 2-19 (2) ity of tablet 00:00: TABLET(S) [place] 00 BY MOUTH Medical EVERY Branch MORNING AND ONE (1) TABLET BY MOUTH EVERY EVENING. FUROSEMIDE 2021-09 Yes [id number] TAKE TWO [facility] 20 mg 2-19 (2) ity of tablet 00:00: TABLET(S) [place] 00 BY MOUTH Medical EVERY Branch MORNING AND ONE (1) TABLET BY MOUTH EVERY EVENING. FUROSEMIDE 2021-09 Yes [id number] TAKE TWO [facility] 20 mg 2-19 (2) ity of tablet 00:00: TABLET(S) [place] 00 BY MOUTH Medical EVERY Branch MORNING AND ONE (1) TABLET BY MOUTH EVERY EVENING. FUROSEMIDE 2021-09 Yes [id number] TAKE TWO [facility] 20 mg 2-19 (2) ity of tablet 00:00: TABLET(S) [place] 00 BY MOUTH Medical EVERY Branch MORNING AND ONE (1) TABLET BY MOUTH EVERY EVENING. FUROSEMIDE 2021-09 Yes [id number] TAKE TWO [facility] 20 mg 2-19 (2) ity of tablet 00:00: TABLET(S) [place] 00 BY MOUTH Medical EVERY Branch MORNING AND ONE (1) TABLET BY MOUTH EVERY EVENING. FUROSEMIDE 2021-09 Yes [id number] TAKE TWO [facility] 20 mg 2-19 (2) ity of tablet 00:00: TABLET(S) [place] 00 BY MOUTH Medical EVERY Branch MORNING AND ONE (1) TABLET BY MOUTH EVERY EVENING. FUROSEMIDE 2021-09 Yes [id number] TAKE TWO [facility] 20 mg 2-19 (2) ity of tablet 00:00: TABLET(S) [place] 00 BY MOUTH Medical EVERY Branch MORNING AND ONE (1) TABLET BY MOUTH EVERY EVENING. FUROSEMIDE 2021-09 Yes [id number] TAKE TWO [facility] 20 mg 2-19 (2) ity of tablet 00:00: TABLET(S) [place] 00 BY MOUTH Medical EVERY Branch MORNING AND ONE (1) TABLET BY MOUTH EVERY EVENING. FUROSEMIDE 2021-09 Yes [id number] TAKE TWO [facility] 20 mg 2-19 (2) ity of tablet 00:00: TABLET(S) [place] 00 BY MOUTH Medical EVERY Branch MORNING AND ONE (1) TABLET BY MOUTH EVERY EVENING. FUROSEMIDE 2021-09 Yes [id number] TAKE TWO [facility] 20 mg 2-19 (2) ity of tablet 00:00: TABLET(S) [place] 00 BY MOUTH Medical EVERY Branch MORNING AND ONE (1) TABLET BY MOUTH EVERY EVENING. FUROSEMIDE 2021-09 Yes [id number] TAKE TWO [facility] 20 mg 2-19 (2) ity of tablet 00:00: TABLET(S) [place] 00 BY MOUTH Medical EVERY Branch MORNING AND ONE (1) TABLET BY MOUTH EVERY EVENING. FUROSEMIDE 2021-09 Yes [id number] TAKE TWO [facility] 20 mg 2-19 (2) ity of tablet 00:00: TABLET(S) [place] 00 BY MOUTH Medical EVERY Branch MORNING AND ONE (1) TABLET BY MOUTH EVERY EVENING. FUROSEMIDE 2021-09 Yes [id number] TAKE TWO [facility] 20 mg 2-19 (2) ity of tablet 00:00: TABLET(S) [place] 00 BY MOUTH Medical EVERY Branch MORNING AND ONE (1) TABLET BY MOUTH EVERY EVENING. FUROSEMIDE 2021-09 Yes [id number] TAKE TWO [facility] 20 mg 2-19 (2) ity of tablet 00:00: TABLET(S) [place] 00 BY MOUTH Medical EVERY Branch MORNING AND ONE (1) TABLET BY MOUTH EVERY EVENING. FUROSEMIDE 2021-09 Yes [id number] TAKE TWO [facility] 20 mg 2-19 (2) ity of tablet 00:00: TABLET(S) [place] 00 BY MOUTH Medical EVERY Branch MORNING AND ONE (1) TABLET BY MOUTH EVERY EVENING. FUROSEMIDE 2021-09 Yes [id number] TAKE TWO [facility] 20 mg 2-19 (2) ity of tablet 00:00: TABLET(S) [place] 00 BY MOUTH Medical EVERY Branch MORNING AND ONE (1) TABLET BY MOUTH EVERY EVENING. FUROSEMIDE 2021-09 Yes [id number] TAKE TWO [facility] 20 mg 2-19 (2) ity of tablet 00:00: TABLET(S) [place] 00 BY MOUTH Medical EVERY Branch MORNING AND ONE (1) TABLET BY MOUTH EVERY EVENING. FUROSEMIDE 2021-09 Yes [id number] TAKE TWO [facility] 20 mg 2-19 (2) ity of tablet 00:00: TABLET(S) [place] 00 BY MOUTH Medical EVERY Branch MORNING AND ONE (1) TABLET BY MOUTH EVERY EVENING. FUROSEMIDE 2021-09 Yes [id number] TAKE TWO [facility] 20 mg 2-19 (2) ity of tablet 00:00: TABLET(S) [place] 00 BY MOUTH Medical EVERY Branch MORNING AND ONE (1) TABLET BY MOUTH EVERY EVENING. FUROSEMIDE 2021-09 Yes [id number] TAKE TWO [facility] 20 mg 2-19 (2) ity of tablet 00:00: TABLET(S) [place] 00 BY MOUTH Medical EVERY Branch MORNING AND ONE (1) TABLET BY MOUTH EVERY EVENING. FUROSEMIDE 2021-09 Yes [id number] TAKE TWO [facility] 20 mg 2-19 (2) ity of tablet 00:00: TABLET(S) [place] 00 BY MOUTH Medical EVERY Branch MORNING AND ONE (1) TABLET BY MOUTH EVERY EVENING. FUROSEMIDE 2021-09 Yes [id number] TAKE TWO [facility] 20 mg 2-19 (2) ity of tablet 00:00: TABLET(S) [place] 00 BY MOUTH Medical EVERY Branch MORNING AND ONE (1) TABLET BY MOUTH EVERY EVENING. FUROSEMIDE 2021-09 Yes [id number] TAKE TWO [facility] 20 mg 2-19 (2) ity of tablet 00:00: TABLET(S) [place] 00 BY MOUTH Medical EVERY Branch MORNING AND ONE (1) TABLET BY MOUTH EVERY EVENING. FUROSEMIDE 2021-09 Yes [id number] TAKE TWO [facility] 20 mg 2-19 (2) ity of tablet 00:00: TABLET(S) [place] 00 BY MOUTH Medical EVERY Branch MORNING AND ONE (1) TABLET BY MOUTH EVERY EVENING. FUROSEMIDE 2021-09 Yes [id number] TAKE TWO [facility] 20 mg 2-19 (2) ity of tablet 00:00: TABLET(S) [place] 00 BY MOUTH Medical EVERY Branch MORNING AND ONE (1) TABLET BY MOUTH EVERY EVENING. FUROSEMIDE 2021-09 Yes [id number] TAKE TWO [facility] 20 mg 2-19 (2) ity of tablet 00:00: TABLET(S) [place] 00 BY MOUTH Medical EVERY Branch MORNING AND ONE (1) TABLET BY MOUTH EVERY EVENING. FUROSEMIDE 2021-09 Yes [id number] TAKE TWO [facility] 20 mg 2-19 (2) ity of tablet 00:00: TABLET(S) [place] 00 BY MOUTH Medical EVERY Branch MORNING AND ONE (1) TABLET BY MOUTH EVERY EVENING. FUROSEMIDE 2021-09 Yes [id number] TAKE TWO [facility] 20 mg 2-19 (2) ity of tablet 00:00: TABLET(S) [place] 00 BY MOUTH Medical EVERY Branch MORNING AND ONE (1) TABLET BY MOUTH EVERY EVENING. FUROSEMIDE 2021-09 Yes [id number] TAKE TWO [facility] 20 mg 2-19 (2) ity of tablet 00:00: TABLET(S) [place] 00 BY MOUTH Medical EVERY Branch MORNING AND ONE (1) TABLET BY MOUTH EVERY EVENING. FUROSEMIDE 2021-09 Yes [id number] TAKE TWO [facility] 20 mg 2-19 (2) ity of tablet 00:00: TABLET(S) [place] 00 BY MOUTH Medical EVERY Branch MORNING AND ONE (1) TABLET BY MOUTH EVERY EVENING. FUROSEMIDE 2021-09 Yes [id number] TAKE TWO [facility] 20 mg 2-19 (2) ity of tablet 00:00: TABLET(S) [place] 00 BY MOUTH Medical EVERY Branch MORNING AND ONE (1) TABLET BY MOUTH EVERY EVENING. FUROSEMIDE 2021-09 Yes [id number] TAKE TWO [facility] 20 mg 2-19 (2) ity of tablet 00:00: TABLET(S) [place] 00 BY MOUTH Medical EVERY Branch MORNING AND ONE (1) TABLET BY MOUTH EVERY EVENING. FUROSEMIDE 2021-09 Yes [id number] TAKE TWO [facility] 20 mg 2-19 (2) ity of tablet 00:00: TABLET(S) [place] 00 BY MOUTH Medical EVERY Branch MORNING AND ONE (1) TABLET BY MOUTH EVERY EVENING. FUROSEMIDE 2021-09 Yes [id number] TAKE TWO [facility] 20 mg 2-19 (2) ity of tablet 00:00: TABLET(S) [place] 00 BY MOUTH Medical EVERY Branch MORNING AND ONE (1) TABLET BY MOUTH EVERY EVENING. FUROSEMIDE 2021-09 Yes [id number] TAKE TWO [facility] 20 mg 2-19 (2) ity of tablet 00:00: TABLET(S) [place] 00 BY MOUTH Medical EVERY Branch MORNING AND ONE (1) TABLET BY MOUTH EVERY EVENING. FUROSEMIDE 2021-09 Yes [id number] TAKE TWO [facility] 20 mg 2-19 (2) ity of tablet 00:00: TABLET(S) [place] 00 BY MOUTH Medical EVERY Branch MORNING AND ONE (1) TABLET BY MOUTH EVERY EVENING. FUROSEMIDE 2021-09 Yes [id number] TAKE TWO [facility] 20 mg 2-19 (2) ity of tablet 00:00: TABLET(S) [place] 00 BY MOUTH Medical EVERY Branch MORNING AND ONE (1) TABLET BY MOUTH EVERY EVENING. FUROSEMIDE 2021-09 Yes [id number] TAKE TWO [facility] 20 mg 2-19 (2) ity of tablet 00:00: TABLET(S) [place] 00 BY MOUTH Medical EVERY Branch MORNING AND ONE (1) TABLET BY MOUTH EVERY EVENING. FUROSEMIDE 2021-09 Yes [id number] TAKE TWO [facility] 20 mg 2-19 (2) ity of tablet 00:00: TABLET(S) [place] 00 BY MOUTH Medical EVERY Branch MORNING AND ONE (1) TABLET BY MOUTH EVERY EVENING. FUROSEMIDE 2021-09 Yes [id number] TAKE TWO [facility] 20 mg 2-19 (2) ity of tablet 00:00: TABLET(S) [place] 00 BY MOUTH Medical EVERY Branch MORNING AND ONE (1) TABLET BY MOUTH EVERY EVENING. FUROSEMIDE 2021-09 Yes [id number] TAKE TWO Univers 20 mg 2-19 (2) ity of tablet 00:00: TABLET(S) [place] 00 BY MOUTH Medical EVERY Branch MORNING AND ONE (1) TABLET BY MOUTH EVERY EVENING. lisinopriL 2021-09 Yes [id number] 40mg Take 1 U nivers 40 mg 1-04 tablet by ity of tablet 00:00: mouth [place] 00 daily. [facility] Branch lisinopriL 2021-09 Yes [id number] 40mg Take 1 U nivers 40 mg 1-04 tablet by ity of tablet 00:00: mouth [place] 00 daily. [facility] Branch lisinopriL 2021-09 Yes [id number] 40mg Take 1 U nivers 40 mg 1-04 tablet by ity of tablet 00:00: mouth [place] 00 daily. [facility] Branch lisinopriL 2021-09 Yes [id number] 40mg Take 1 U nivers 40 mg 1-04 tablet by ity of tablet 00:00: mouth [place] 00 daily. [facility] Branch lisinopriL 2021-09 Yes [id number] 40mg Take 1 U nivers 40 mg 1-04 tablet by ity of tablet 00:00: mouth [place] 00 daily. [facility] Branch lisinopriL 2021-09 Yes [id number] 40mg Take 1 U nivers 40 mg 1-04 tablet by ity of tablet 00:00: mouth [place] 00 daily. [facility] Branch lisinopriL 2021-09 Yes [id number] 40mg Take 1 U nivers 40 mg 1-04 tablet by ity of tablet 00:00: mouth [place] 00 daily. [facility] Branch lisinopriL 2021-09 Yes [id number] 40mg Take 1 [facility] nivers 40 mg 1-04 tablet by [facility] of tablet 00:00: mouth [place] 00 daily. [facility] lisinopriL 2021-09 Yes [id number] 40mg Take 1 [facility] nivers 40 mg 1-04 tablet by [facility] of tablet 00:00: mouth [place] 00 daily. [facility] lisinopriL 2021-09 Yes [id number] 40mg Take 1 [facility] nivers 40 mg 1-04 tablet by [facility] of tablet 00:00: mouth [place] 00 daily. [facility] lisinopriL 2021-09 Yes [id number] 40mg Take 1 U nivers 40 mg 1-04 tablet by [facility] of tablet 00:00: mouth [place] 00 daily. [facility]L 2021-09 Yes [id number] 40mg Take 1 [facility] 40 mg 1-04 tablet by [facility] tablet 00:00: mouth [place] 00 daily. [facility] lisinopriL 2021-09 Yes [id number] 40mg Take 1 [facility] 40 mg 1-04 tablet by [facility] of tablet 00:00: mouth [place] 00 daily. [facility] lisinopriL 2021-09 Yes [id number] 40mg Take 1 [facility] 40 mg 1-04 tablet by [facility] tablet 00:00: mouth [place] 00 daily. [facility] lisinopriL 2021-09 Yes [id number] 40mg Take 1 [facility] 40 mg 1-04 tablet by [facility] tablet 00:00: mouth [place] 00 daily. [facility] lisinopriL 2021-09 Yes [id number] 40mg Take 1 [facility] 40 mg 1-04 tablet by [facility] of tablet 00:00: mouth [place] 00 daily. [facility] lisinopriL 2021-09 Yes [id number] 40mg Take 1 [facility] 40 mg 1-04 tablet by [facility] tablet 00:00: mouth [place] 00 daily. [facility] lisinopriL 2021-09 Yes [id number] 40mg Take 1 [facility] 40 mg 1-04 tablet by [facility] of tablet 00:00: mouth [place] 00 daily. [facility] lisinopriL 2021-09 Yes [id number] 40mg Take 1 [facility] 40 mg 1-04 tablet by [facility] of tablet 00:00: mouth [place] 00 daily. [facility] lisinopriL 2021-09 Yes [id number] 40mg Take 1 [facility] 40 mg 1-04 tablet by [facility] tablet 00:00: mouth [place] 00 daily. [facility] lisinopriL 2021-09 Yes [id number] 40mg Take 1 [facility] 40 mg 1-04 tablet by [facility] tablet 00:00: mouth [place] 00 daily. [facility] lisinopriL 2021-09 Yes [id number] 40mg Take 1 [facility] 40 mg 1-04 tablet by [facility] of tablet 00:00: mouth [place] 00 daily. [facility] lisinopriL 2021-09 Yes [id number] 40mg Take 1 [facility] 40 mg 1-04 tablet by [facility] of tablet 00:00: mouth [place] 00 daily. [facility] lisinopriL 2021-09 Yes [id number] 40mg Take 1 [facility] 40 mg 1-04 tablet by [facility] of tablet 00:00: mouth [place] 00 daily. [facility] lisinopriL 2021-09 Yes [id number] 40mg Take 1 [facility] 40 mg 1-04 tablet by [facility] tablet 00:00: mouth [place] 00 daily. [facility] lisinopriL 2021-09 Yes [id number] 40mg Take 1 [facility] 40 mg 1-04 tablet by [facility] of tablet 00:00: mouth [place] 00 daily. [facility] lisinopriL 2021-09 Yes [id number] 40mg Take 1 [facility] 40 mg 1-04 tablet by [facility] of tablet 00:00: mouth [place] 00 daily. [facility] lisinopriL 2021-09 Yes [id number] 40mg Take 1 [facility] 40 mg 1-04 tablet by [facility] of tablet 00:00: mouth [place] 00 daily. [facility] lisinopriL 2021-09 Yes [id number] 40mg Take 1 [facility] 40 mg 1-04 tablet by [facility] of tablet 00:00: mouth [place] 00 daily. [facility] lisinopriL 2021-09 Yes [id number] 40mg Take 1 [facility] 40 mg 1-04 tablet by [facility] tablet 00:00: mouth [place] 00 daily. [facility] lisinopriL 2021-09 Yes [id number] 40mg Take 1 [facility] 40 mg 1-04 tablet by [facility] of tablet 00:00: mouth [place] 00 daily. [facility] lisinopriL 2021-09 Yes [id number] 40mg Take 1 [facility] 40 mg 1-04 tablet by [facility] of tablet 00:00: mouth [place] 00 daily. [facility] lisinopriL 2021-09 Yes [id number] 40mg Take 1 [facility] 40 mg 1-04 tablet by [facility] of tablet 00:00: mouth [place] 00 daily. [facility] lisinopriL 2021-09 Yes [id number] 40mg Take 1 [facility] 40 mg 1-04 tablet by [facility] of tablet 00:00: mouth [place] 00 daily. [facility] lisinopriL 2021-09 Yes [id number] 40mg Take 1 [facility] 40 mg 1-04 tablet by [facility] of tablet 00:00: mouth [place] 00 daily. [facility] lisinopriL 2021-09 Yes [id number] 40mg Take 1 [facility] 40 mg 1-04 tablet by [facility] of tablet 00:00: mouth [place] 00 daily. [facility] lisinopriL 2021-09 Yes [id number] 40mg Take 1 [facility] 40 mg 1-04 tablet by [facility] of tablet 00:00: mouth [place] 00 daily. [facility] lisinopriL 2021-093- No [id number] 40mg Take 1 [facility] 40 mg 1-04 05-19 tablet by [facility] tablet 00:00: 00:00 mouth [place] 00 :00 daily. [facility] pioglitazon Yes [id number] 15mg Take 1 [facility] (ACTOS) 9-12 tablet by ity o f 15 mg 00:00: mouth [place] tablet 00 daily. [facility] Insulin Yes [id number] 20U inject 20 U nivers Glargine 9-12 Units ity of (LANTUS 00:00: under the [place] SOL[facility] 00 skin Medical U-100 daily. Branch INSULIN) 100 unit/mL (3 mL) injection pioglitazon Yes [id number] 15mg Take 1 [facility] e (ACTOS) 9-12 tablet by ity o f 15 mg 00:00: mouth [place] tablet 00 daily. [facility] Insulin Yes [id number] 20U inject 20 [facility] n[facility] Glargine 9-12 Units ity of (LANTUS 00:00: under the [place] [facility] 00 skin Medical U-100 daily. Branch INSULIN) 100 unit/mL (3 mL) injection pioglitazon Yes [id number] 15mg Take 1 [facility] e (ACTOS) 9-12 tablet by ity o f 15 mg 00:00: mouth [place] tablet 00 daily. [facility] Insulin Yes [id number] 20U inject 20 [facility] n[facility] Glargine 9-12 Units ity of (LANTUS 00:00: under the [place] [facility] 00 skin Medical U-100 daily. Branch INSULIN) 100 unit/mL (3 mL) injection pioglitazon Yes [id number] 15mg Take 1 [facility] e (ACTOS) 9-12 tablet by ity o f 15 mg 00:00: mouth [place] tablet 00 daily. [facility] Insulin Yes [id number] 20U inject 20 [facility] n[facility] Glargine 9-12 Units ity of (LANTUS 00:00: under the [place] [facility] 00 skin Medical U-100 daily. Branch INSULIN) 100 unit/mL (3 mL) injection pioglitazon 0 Yes [id number] 15mg Take 1 [facility] e (ACTOS) 9-12 tablet by ity o f 15 mg 00:00: mouth [place] tablet 00 daily. [facility] Insulin Yes [id number] 20U inject 20 U n[facility] Glargine 9-12 Units ity of (LANTUS 00:00: under the [place] [facility] 00 skin Medical U-100 daily. Branch INSULIN) 100 unit/mL (3 mL) injection pioglitazon 0 Yes [id number] 15mg Take 1 [facility] e (ACTOS) 9-12 tablet by ity o f 15 mg 00:00: mouth [place] tablet 00 daily. [facility] Insulin Yes [id number] 20U inject 20 [facility] n[facility] Glargine 9-12 Units ity of (LANTUS 00:00: under the [place] [facility] 00 skin Medical U-100 daily. Branch INSULIN) 100 unit/mL (3 mL) injection pioglitazon Yes [id number] 15mg Take 1 [facility] e (ACTOS) 9-12 tablet by ity o f 15 mg 00:00: mouth [place] tablet 00 daily. [facility] Insulin Yes [id number] 20U inject 20 U nivers Glargine 9-12 Units ity of (LANTUS 00:00: under the [place] [facility] 00 skin Medical U-100 daily. Branch INSULIN) 100 unit/mL (3 mL) injection pioglitazon 0 Yes [id number] 15mg Take 1 [facility] e (ACTOS) 9-12 tablet by ity o f 15 mg 00:00: mouth [place] tablet 00 daily. [facility] Insulin 0 Yes [id number] 20U inject 20 U nivers Glargine 9-12 Units ity of (LANTUS 00:00: under the [place] [facility] 00 skin Medical U-100 daily. Branch INSULIN) 100 unit/mL (3 mL) injection pioglitazon Yes [id number] 15mg Take 1 [facility] e (ACTOS) 9-12 tablet by ity o f 15 mg 00:00: mouth [place] tablet 00 daily. [facility] Insulin Yes [id number] 20U inject 20 U nivers Glargine 9-12 Units ity of (LANTUS 00:00: under the [place] [facility] 00 skin Medical U-100 daily. Branch INSULIN) 100 unit/mL (3 mL) injection pioglitazon Yes [id number] 15mg Take 1 [facility] e (ACTOS) 9-12 tablet by ity o f 15 mg 00:00: mouth [place] tablet 00 daily. [facility] Insulin Yes [id number] 20U inject 20 [facility] nivers Glargine 9-12 Units ity of (LANTUS 00:00: under the [place] [facility] 00 skin Medical U-100 daily. Branch INSULIN) 100 unit/mL (3 mL) injection pioglitazon Yes [id number] 15mg Take 1 [facility] e (ACTOS) 9-12 tablet by ity o f 15 mg 00:00: mouth [place] tablet 00 daily. [facility] pioglitazon Yes [id number] 15mg Take 1 [facility] e (ACTOS) 9-12 tablet by ity o f 15 mg 00:00: mouth [place] tablet 00 daily. [facility] pioglitazon Yes [id number] 15mg Take 1 [facility] e (ACTOS) 9-12 tablet by ity o f 15 mg 00:00: mouth [place] tablet 00 daily. [facility] pioglitazon Yes [id number] 15mg Take 1 [facility] e (ACTOS) 9-12 tablet by ity o f 15 mg 00:00: mouth [place] tablet 00 daily. [facility] pioglitazon Yes [id number] 15mg Take 1 [facility] e (ACTOS) 9-12 tablet by ity o f 15 mg 00:00: mouth [place] tablet 00 daily. [facility] pioglitazon Yes [id number] 15mg Take 1 [facility] e (ACTOS) 9-12 tablet by ity o f 15 mg 00:00: mouth [place] tablet 00 daily. [facility] pioglitazon Yes [id number] 15mg Take 1 [facility] e (ACTOS) 9-12 tablet by ity o f 15 mg 00:00: mouth [place] tablet 00 daily. [facility] pioglitazon Yes [id number] 15mg Take 1 [facility] e (ACTOS) 9-12 tablet by ity o f 15 mg 00:00: mouth [place] tablet 00 daily. [facility] pioglitazon Yes [id number] 15mg Take 1 Univers e (ACTOS) 9-12 tablet by ity o f 15 mg 00:00: mouth [place] tablet 00 daily. [facility] pioglitazon Yes [id number] 15mg Take 1 [facility] e (ACTOS) 9-12 tablet by ity o f 15 mg 00:00: mouth [place] tablet 00 daily. [facility] pioglitazon Yes [id number] 15mg Take 1 [facility] e (ACTOS) 9-12 tablet by ity o f 15 mg 00:00: mouth [place] tablet 00 daily. [facility] pioglitazon Yes [id number] 15mg Take 1 [facility] e (ACTOS) 9-12 tablet by ity o f 15 mg 00:00: mouth [place] tablet 00 daily. [facility] pioglitazon Yes [id number] 15mg Take 1 [facility] e (ACTOS) 9-12 tablet by ity o f 15 mg 00:00: mouth [place] tablet 00 daily. [facility] pioglitazon Yes [id number] 15mg Take 1 [facility] e (ACTOS) 9-12 tablet by ity o f 15 mg 00:00: mouth [place] tablet 00 daily. [facility] pioglitazon Yes [id number] 15mg Take 1 [facility] e (ACTOS) 9-12 tablet by ity o f 15 mg 00:00: mouth [place] tablet 00 daily. [facility] pioglitazon Yes [id number] 15mg Take 1 [facility] e (ACTOS) 9-12 tablet by ity o f 15 mg 00:00: mouth [place] tablet 00 daily. [facility] pioglitazon Yes [id number] 15mg Take 1 [facility] e (ACTOS) 9-12 tablet by ity o f 15 mg 00:00: mouth [place] tablet 00 daily. [facility] pioglitazon Yes [id number] 15mg Take 1 [facility] e (ACTOS) 9-12 tablet by ity o f 15 mg 00:00: mouth [place] tablet 00 daily. [facility] pioglitazon Yes [id number] 15mg Take 1 [facility] e (ACTOS) 9-12 tablet by ity o f 15 mg 00:00: mouth [place] tablet 00 daily. [facility] pioglitazon Yes [id number] 15mg Take 1 [facility] e (ACTOS) 9-12 tablet by ity o f 15 mg 00:00: mouth [place] tablet 00 daily. [facility] pioglitazon Yes [id number] 15mg Take 1 [facility] e (ACTOS) 9-12 tablet by ity o f 15 mg 00:00: mouth [place] tablet 00 daily. [facility] pioglitazon Yes [id number] 15mg Take 1 [facility] e (ACTOS) 9-12 tablet by ity o f 15 mg 00:00: mouth [place] tablet 00 daily. [facility] pioglitazon Yes [id number] 15mg Take 1 [facility] e (ACTOS) 9-12 tablet by ity o f 15 mg 00:00: mouth [place] tablet 00 daily. [facility] Insulin Yes [id number] 20U inject 20 U nivers Glargine 9-12 Units ity of (LANTUS 00:00: under the [place] [facility] 00 skin Medical U-100 daily. Branch INSULIN) 100 unit/mL (3 mL) injection pioglitazon Yes [id number] 15mg Take 1 [facility] e (ACTOS) 9-12 tablet by ity o f 15 mg 00:00: mouth [place] tablet 00 daily. [facility] Insulin Yes [id number] 20U inject 20 U nivers Glargine 9-12 Units ity of (LANTUS 00:00: under the [place] [facility] 00 skin Medical U-100 daily. Branch INSULIN) 100 unit/mL (3 mL) injection pioglitazon Yes [id number] 15mg Take 1 [facility] e (ACTOS) 9-12 tablet by ity o f 15 mg 00:00: mouth [place] tablet 00 daily. [facility] Insulin Yes [id number] 20U inject 20 U nivers Glargine 9-12 Units ity of (LANTUS 00:00: under the [place] [facility] 00 skin Medical U-100 daily. Branch INSULIN) 100 unit/mL (3 mL) injection pioglitazon Yes [id number] 15mg Take 1 [facility] e (ACTOS) 9-12 tablet by ity o f 15 mg 00:00: mouth [place] tablet 00 daily. [facility] Insulin Yes [id number] 20U inject 20 U nivers Glargine 9-12 Units ity of (LANTUS 00:00: under the [place] [facility] 00 skin Medical U-100 daily. Branch INSULIN) 100 unit/mL (3 mL) injection pioglitazon Yes [id number] 15mg Take 1 [facility] e (ACTOS) 9-12 tablet by ity o f 15 mg 00:00: mouth [place] tablet 00 daily. [facility] Insulin Yes [id number] 20U inject 20 U nivers Glargine 9-12 Units ity of (LANTUS 00:00: under the [place] [facility] 00 skin Medical U-100 daily. Branch INSULIN) 100 unit/mL (3 mL) injection pioglitazon Yes [id number] 15mg Take 1 [facility] e (ACTOS) 9-12 tablet by ity o f 15 mg 00:00: mouth [place] tablet 00 daily. [facility] Insulin Yes [id number] 20U inject 20 U nivers Glargine 9-12 Units ity of (LANTUS 00:00: under the [place] [facility] 00 skin Medical U-100 daily. Branch INSULIN) 100 unit/mL (3 mL) injection pioglitazon Yes [id number] 15mg Take 1 [facility] e (ACTOS) 9-12 tablet by ity o f 15 mg 00:00: mouth [place] tablet 00 daily. [facility] Insulin Yes [id number] 20U inject 20 U nivers Glargine 9-12 Units ity of (LANTUS 00:00: under the [place] [facility] 00 skin Medical U-100 daily. Branch INSULIN) 100 unit/mL (3 mL) injection pioglitazon Yes [id number] 15mg Take 1 [facility] e (ACTOS) 9-12 tablet by ity o f 15 mg 00:00: mouth [place] tablet 00 daily. [facility] Insulin Yes [id number] 20U inject 20 U nivers Glargine 9-12 Units ity of (LANTUS 00:00: under the [place] [facility] 00 skin Medical U-100 daily. Branch INSULIN) 100 unit/mL (3 mL) injection pioglitazon Yes [id number] 15mg Take 1 [facility] e (ACTOS) 9-12 tablet by ity o f 15 mg 00:00: mouth [place] tablet 00 daily. [facility] Insulin Yes [id number] 20U inject 20 U nivers Glargine 9-12 Units ity of (LANTUS 00:00: under the [place] [facility] 00 skin Medical U-100 daily. Branch INSULIN) 100 unit/mL (3 mL) injection pioglitazon Yes [id number] 15mg Take 1 [facility] e (ACTOS) 9-12 tablet by ity o f 15 mg 00:00: mouth [place] tablet 00 daily. [facility] Insulin Yes [id number] 20U inject 20 U nivers Glargine 9-12 Units ity of (LANTUS 00:00: under the [place] [facility] 00 skin Medical U-100 daily. Branch INSULIN) 100 unit/mL (3 mL) injection pioglitazon Yes [id number] 15mg Take 1 [facility] e (ACTOS) 9-12 tablet by ity o f 15 mg 00:00: mouth [place] tablet 00 daily. [facility] Insulin Yes [id number] 20U inject 20 U nivers Glargine 9-12 Units ity of (LANTUS 00:00: under the [place] [facility] 00 skin Medical U-100 daily. Branch INSULIN) 100 unit/mL (3 mL) injection pioglitazon 0 Yes [id number] 15mg Take 1 [facility] e (ACTOS) 9-12 tablet by ity o f 15 mg 00:00: mouth [place] tablet 00 daily. [facility] Insulin Yes [id number] 20U inject 20 U nivers Glargine 9-12 Units ity of (LANTUS 00:00: under the [place] [facility] 00 skin Medical U-100 daily. Branch INSULIN) 100 unit/mL (3 mL) injection pioglitazon Yes [id number] 15mg Take 1 [facility] e (ACTOS) 9-12 tablet by ity o f 15 mg 00:00: mouth [place] tablet 00 daily. [facility] Insulin Yes [id number] 20U inject 20 U nivers Glargine 9-12 Units ity of (LANTUS 00:00: under the [place] [facility] 00 skin Medical U-100 daily. Branch INSULIN) 100 unit/mL (3 mL) injection pioglitazon Yes [id number] 15mg Take 1 [facility] e (ACTOS) 9-12 tablet by ity o f 15 mg 00:00: mouth [place] tablet 00 daily. [facility] Insulin Yes [id number] 20U inject 20 U nivers Glargine 9-12 Units ity of (LANTUS 00:00: under the [place] [facility] 00 skin Medical U-100 daily. Branch INSULIN) 100 unit/mL (3 mL) injection pioglitazon Yes [id number] 15mg Take 1 [facility] e (ACTOS) 9-12 tablet by ity o f 15 mg 00:00: mouth [place] tablet 00 daily. [facility] Insulin Yes [id number] 20U inject 20 U nivers Glargine 9-12 Units ity of (LANTUS 00:00: under the [place] [facility] 00 skin Medical U-100 daily. Branch INSULIN) 100 unit/mL (3 mL) injection pioglitazon Yes [id number] 15mg Take 1 [facility] e (ACTOS) 9-12 tablet by ity o f 15 mg 00:00: mouth [place] tablet 00 daily. [facility] Insulin Yes [id number] 20U inject 20 U nivers Glargine 9-12 Units ity of (LANTUS 00:00: under the [place] [facility] 00 skin Medical U-100 daily. Branch INSULIN) 100 unit/mL (3 mL) injection pioglitazon Yes [id number] 15mg Take 1 [facility] e (ACTOS) 9-12 tablet by ity o f 15 mg 00:00: mouth [place] tablet 00 daily. [facility] Insulin Yes [id number] 20U inject 20 U nivers Glargine 9-12 Units ity of (LANTUS 00:00: under the [place] [facility] 00 skin Medical U-100 daily. Branch INSULIN) 100 unit/mL (3 mL) injection pioglitazon Yes [id number] 15mg Take 1 [facility] e (ACTOS) 9-12 tablet by ity o f 15 mg 00:00: mouth [place] tablet 00 daily. [facility] Insulin Yes [id number] 20U inject 20 U nivers Glargine 9-12 Units ity of (LANTUS 00:00: under the [place] [facility] 00 skin Medical U-100 daily. Branch INSULIN) 100 unit/mL (3 mL) injection pioglitazon Yes [id number] 15mg Take 1 [facility] e (ACTOS) 9-12 tablet by ity o f 15 mg 00:00: mouth [place] tablet 00 daily. [facility] Insulin Yes [id number] 20U inject 20 U nivers Glargine 9-12 Units ity of (LANTUS 00:00: under the [place] [facility] 00 skin Medical U-100 daily. Branch INSULIN) 100 unit/mL (3 mL) injection pioglitazon Yes [id number] 15mg Take 1 [facility] e (ACTOS) 9-12 tablet by ity o f 15 mg 00:00: mouth [place] tablet 00 daily. [facility] Insulin Yes [id number] 20U inject 20 U nivers Glargine 9-12 Units ity of (LANTUS 00:00: under the [place] [facility] 00 skin Medical U-100 daily. Branch INSULIN) 100 unit/mL (3 mL) injection pioglitazon Yes [id number] 15mg Take 1 [facility] e (ACTOS) 9-12 tablet by ity o f 15 mg 00:00: mouth [place] tablet 00 daily. [facility] Insulin Yes [id number] 20U inject 20 U nivers Glargine 9-12 Units ity of (LANTUS 00:00: under the [place] [facility] 00 skin Medical U-100 daily. Branch INSULIN) 100 unit/mL (3 mL) injection pioglitazon Yes [id number] 15mg Take 1 [facility] e (ACTOS) 9-12 tablet by ity o f 15 mg 00:00: mouth [place] tablet 00 daily. [facility] Insulin Yes [id number] 20U inject 20 U nivers Glargine 9-12 Units ity of (LANTUS 00:00: under the [place] [facility] 00 skin Medical U-100 daily. Branch INSULIN) 100 unit/mL (3 mL) injection pioglitazon Yes [id number] 15mg Take 1 [facility] e (ACTOS) 9-12 tablet by ity o f 15 mg 00:00: mouth [place] tablet 00 daily. [facility] Branch Insulin Yes [id number] 20U inject 20 U nivers Glargine 9-12 Units ity of (LANTUS 00:00: under the [place] [facility] 00 skin Medical U-100 daily. Branch INSULIN) 100 unit/mL (3 mL) injection pioglitazon Yes [id number] 15mg Take 1 [facility] e (ACTOS) 9-12 tablet by ity o f 15 mg 00:00: mouth [place] tablet 00 daily. [facility] Insulin Yes [id number] 20U inject 20 U nivers Glargine 9-12 Units ity of (LANTUS 00:00: under the [place] [facility] 00 skin Medical U-100 daily. Branch INSULIN) 100 unit/mL (3 mL) injection pioglitazon Yes [id number] 15mg Take 1 [facility] e (ACTOS) 9-12 tablet by ity o f 15 mg 00:00: mouth [place] tablet 00 daily. [facility] Insulin Yes [id number] 20U inject 20 U nivers Glargine 9-12 Units ity of (LANTUS 00:00: under the [place] [facility] 00 skin Medical U-100 daily. Branch INSULIN) 100 unit/mL (3 mL) injection pioglitazon 0 Yes [id number] 15mg Take 1 [facility] e (ACTOS) 9-12 tablet by ity o f 15 mg 00:00: mouth [place] tablet 00 daily. [facility] Insulin Yes [id number] 20U inject 20 U nivers Glargine 9-12 Units ity of (LANTUS 00:00: under the [place] [facility] 00 skin Medical U-100 daily. Branch INSULIN) 100 unit/mL (3 mL) injection pioglitazon Yes [id number] 15mg Take 1 [facility] e (ACTOS) 9-12 tablet by ity o f 15 mg 00:00: mouth [place] tablet 00 daily. [facility] Insulin Yes [id number] 20U inject 20 U nivers Glargine 9-12 Units ity of (LANTUS 00:00: under the [place] [facility] 00 skin Medical U-100 daily. Branch INSULIN) 100 unit/mL (3 mL) injection pioglitazon Yes [id number] 15mg Take 1 [facility] e (ACTOS) 9-12 tablet by ity o f 15 mg 00:00: mouth [place] tablet 00 daily. [facility] Branch Insulin Yes [id number] 20U inject 20 U nivers Glargine 9-12 Units ity of (LANTUS 00:00: under the [place] [facility] 00 skin Medical U-100 daily. Branch INSULIN) 100 unit/mL (3 mL) injection pioglitazon Yes [id number] 15mg Take 1 [facility] e (ACTOS) 9-12 tablet by ity o f 15 mg 00:00: mouth [place] tablet 00 daily. [facility] Branch Insulin Yes [id number] 20U inject 20 U nivers Glargine 9-12 Units ity of (LANTUS 00:00: under the [place] [facility] 00 skin Medical U-100 daily. Branch INSULIN) 100 unit/mL (3 mL) injection pioglitazon Yes [id number] 15mg Take 1 [facility] e (ACTOS) 9-12 tablet by ity o f 15 mg 00:00: mouth [place] tablet 00 daily. [facility] Insulin Yes [id number] 20U inject 20 U nivers Glargine 9-12 Units ity of (LANTUS 00:00: under the [place] [facility] 00 skin Medical U-100 daily. Branch INSULIN) 100 unit/mL (3 mL) injection pioglitazon Yes [id number] 15mg Take 1 [facility] e (ACTOS) 9-12 tablet by ity o f 15 mg 00:00: mouth [place] tablet 00 daily. [facility] Branch Insulin Yes [id number] 20U inject 20 U nivers Glargine 9-12 Units ity of (LANTUS 00:00: under the [place] [facility] 00 skin Medical U-100 daily. Branch INSULIN) 100 unit/mL (3 mL) injection pioglitazon Yes [id number] 15mg Take 1 [facility] e (ACTOS) 9-12 tablet by ity o f 15 mg 00:00: mouth [place] tablet 00 daily. [facility] Insulin Yes [id number] 20U inject 20 U nivers Glargine 9-12 Units ity of (LANTUS 00:00: under the [place] [facility] 00 skin Medical U-100 daily. Branch INSULIN) 100 unit/mL (3 mL) injection pioglitazon Yes [id number] 15mg Take 1 [facility] e (ACTOS) 9-12 tablet by ity o f 15 mg 00:00: mouth [place] tablet 00 daily. [facility] Branch Insulin Yes [id number] 20U inject 20 U nivers Glargine 9-12 Units ity of (LANTUS 00:00: under the [place] [facility] 00 skin Medical U-100 daily. Branch INSULIN) 100 unit/mL (3 mL) injection pioglitazon Yes [id number] 15mg Take 1 [facility] e (ACTOS) 9-12 tablet by ity o f 15 mg 00:00: mouth [place] tablet 00 daily. [facility] Branch Insulin Yes [id number] 20U inject 20 U nivers Glargine 9-12 Units ity of (LANTUS 00:00: under the [place] [facility]OST[facility] 00 skin Medical U-100 daily. Branch INSULIN) 100 unit/mL (3 mL) injection pioglitazon Yes [id number] 15mg Take 1 [facility] e (ACTOS) 9-12 tablet by ity o f 15 mg 00:00: mouth [place] tablet 00 daily. [facility] Branch Insulin Yes [id number] 20U inject 20 U nivers Glargine 9-12 Units ity of (LANTUS 00:00: under the [place] [facility]OST[facility] 00 skin Medical U-100 daily. Branch INSULIN) 100 unit/mL (3 mL) injection pioglitazon 0 Yes [id number] 15mg Take 1 [facility] e (ACTOS) 9-12 tablet by ity o f 15 mg 00:00: mouth [place] tablet 00 daily. [facility] Branch Insulin Yes [id number] 20U inject 20 U nivers Glargine 9-12 Units ity of (LANTUS 00:00: under the [place] SOLOSTAR 00 skin Medical U-100 daily. Branch INSULIN) 100 unit/mL (3 mL) injection Insulin 2022- No [id number] 20U inject 20 [facility] Glargine 9 05-26 Units [facility] Branch INSULIN) 100 unit/mL (3 mL) injection Insulin 2022- No [id number] 20U inject 20 [facility] Glargine 9 05-26 Units ity of (LANTUS 00:00: 00:00 under the [place] [facility] 00 :00 skin Medical U-100 daily. Branch INSULIN) 100 unit/mL (3 mL) injection latanoprost Yes [id number] 1[drp] Place 1 [facility] 0.005 % 5-18 Drop in ity of ophthalmic 00:00: both eyes [place] drops 00 at Medical bedtime. Branch latanoprost Yes [id number] 1[drp] Place 1 [facility] 0.005 % 5-18 Drop in [facility]y of ophthalmic 00:00: both eyes [place] drops 00 at Medical bedtime. Branch latanoprost Yes [id number] 1[drp] Place 1 [facility] 0.005 % 5-18 Drop in [facility]y of ophthalmic 00:00: both eyes [place] drops 00 at Medical bedtime. Branch latanoprost Yes [id number] 1[drp] Place 1 [facility] 0.005 % 5-18 Drop in ity of ophthalmic 00:00: both eyes [place] drops 00 at Medical bedtime. Branch latanoprost Yes [id number] 1[drp] Place 1 [facility] 0.005 % 5-18 Drop in ity of ophthalmic 00:00: both eyes [place] drops 00 at Medical bedtime. Branch latanoprost Yes [id number] 1[drp] Place 1 [facility] 0.005 % 5-18 Drop in [facility]y of ophthalmic 00:00: both eyes [place] drops 00 at Medical bedtime. Branch latanoprost Yes [id number] 1[drp] Place 1 [facility] 0.005 % 5-18 Drop in ity of ophthalmic 00:00: both eyes [place] drops 00 at Medical bedtime. Branch latanoprost Yes [id number] 1[drp] Place 1 [facility] 0.005 % 5-18 Drop in ity of ophthalmic 00:00: both eyes [place] drops 00 at Medical bedtime. Branch latanoprost Yes [id number] 1[drp] Place 1 [facility] 0.005 % 5-18 Drop in [facility]y of ophthalmic 00:00: both eyes [place] drops 00 at Medical bedtime. Branch latanoprost Yes [id number] 1[drp] Place 1 [facility] 0.005 % 5-18 Drop in ity of ophthalmic 00:00: both eyes [place] drops 00 at Medical bedtime. Branch latanoprost Yes [id number] 1[drp] Place 1 [facility] 0.005 % 5-18 Drop in ity of ophthalmic 00:00: both eyes [place] drops 00 at Medical bedtime. Branch latanoprost Yes [id number] 1[drp] Place 1 [facility] 0.005 % 5-18 Drop in [facility]y of ophthalmic 00:00: both eyes [place] drops 00 at Medical bedtime. Branch latanoprost Yes [id number] 1[drp] Place 1 [facility] 0.005 % 5-18 Drop in [facility]y of ophthalmic 00:00: both eyes [place] drops 00 at Medical bedtime. Branch latanoprost Yes [id number] 1[drp] Place 1 [facility] 0.005 % 5-18 Drop in ity of ophthalmic 00:00: both eyes [place] drops 00 at Medical bedtime. Branch latanoprost Yes [id number] 1[drp] Place 1 [facility] 0.005 % 5-18 Drop in ity of ophthalmic 00:00: both eyes [place] drops 00 at Medical bedtime. Branch latanoprost Yes [id number] 1[drp] Place 1 [facility] 0.005 % 5-18 Drop in [facility] of ophthalmic 00:00: both eyes [place] drops 00 at Medical bedtime. Branch latanoprost Yes [id number] 1[drp] Place 1 [facility] 0.005 % 5-18 Drop in [facility] of ophthalmic 00:00: both eyes [place] drops 00 at Medical bedtime. Branch latanoprost Yes [id number] 1[drp] Place 1 [facility] 0.005 % 5-18 Drop in [facility] of ophthalmic 00:00: both eyes [place] drops 00 at Medical bedtime. Branch latanoprost Yes [id number] 1[drp] Place 1 [facility] 0.005 % 5-18 Drop in [facility] of ophthalmic 00:00: both eyes [place] drops 00 at Medical bedtime. Branch latanoprost Yes [id number] 1[drp] Place 1 [facility] 0.005 % 5-18 Drop in [facility] of ophthalmic 00:00: both eyes [place] drops 00 at Medical bedtime. Branch latanoprost Yes [id number] 1[drp] Place 1 [facility] 0.005 % 5-18 Drop in [facility] of ophthalmic 00:00: both eyes [place] drops 00 at Medical bedtime. Branch latanoprost Yes [id number] 1[drp] Place 1 [facility] 0.005 % 5-18 Drop in [facility] of ophthalmic 00:00: both eyes [place] drops 00 at Medical bedtime. Branch latanoprost Yes [id number] 1[drp] Place 1 [facility] 0.005 % 5-18 Drop in [facility] of ophthalmic 00:00: both eyes [place] drops 00 at Medical bedtime. Branch latanoprost Yes [id number] 1[drp] Place 1 [facility] 0.005 % 5-18 Drop in [facility] of ophthalmic 00:00: both eyes [place] drops 00 at Medical bedtime. Branch latanoprost Yes [id number] 1[drp] Place 1 [facility] 0.005 % 5-18 Drop in [facility] of ophthalmic 00:00: both eyes [place] drops 00 at Medical bedtime. Branch latanoprost Yes [id number] 1[drp] Place 1 [facility] 0.005 % 5-18 Drop in [facility] of ophthalmic 00:00: both eyes [place] drops 00 at Medical bedtime. Branch latanoprost Yes [id number] 1[drp] Place 1 [facility] 0.005 % 5-18 Drop in [facility] of ophthalmic 00:00: both eyes [place] drops 00 at Medical bedtime. Branch latanoprost Yes [id number] 1[drp] Place 1 [facility] 0.005 % 5-18 Drop in [facility] of ophthalmic 00:00: both eyes [place] drops 00 at Medical bedtime. Branch latanoprost Yes [id number] 1[drp] Place 1 [facility] 0.005 % 5-18 Drop in [facility] of ophthalmic 00:00: both eyes [place] drops 00 at Medical bedtime. Branch latanoprost Yes [id number] 1[drp] Place 1 [facility] 0.005 % 5-18 Drop in [facility] of ophthalmic 00:00: both eyes [place] drops 00 at Medical bedtime. Branch latanoprost Yes [id number] 1[drp] Place 1 [facility] 0.005 % 5-18 Drop in [facility] of ophthalmic 00:00: both eyes [place] drops 00 at Medical bedtime. Branch latanoprost Yes [id number] 1[drp] Place 1 [facility] 0.005 % 5-18 Drop in [facility] of ophthalmic 00:00: both eyes [place] drops 00 at Medical bedtime. Branch latanoprost Yes [id number] 1[drp] Place 1 [facility] 0.005 % 5-18 Drop in [facility] of ophthalmic 00:00: both eyes [place] drops 00 at Medical bedtime. Branch latanoprost Yes [id number] 1[drp] Place 1 [facility] 0.005 % 5-18 Drop in [facility] of ophthalmic 00:00: both eyes [place] drops 00 at Medical bedtime. Branch latanoprost Yes [id number] 1[drp] Place 1 [facility] 0.005 % 5-18 Drop in [facility] of ophthalmic 00:00: both eyes [place] drops 00 at Medical bedtime. Branch latanoprost Yes [id number] 1[drp] Place 1 [facility] 0.005 % 5-18 Drop in [facility] of ophthalmic 00:00: both eyes [place] drops 00 at Medical bedtime. Branch latanoprost Yes [id number] 1[drp] Place 1 [facility] 0.005 % 5-18 Drop in [facility] of ophthalmic 00:00: both eyes [place] drops 00 at Medical bedtime. Branch latanoprost Yes [id number] 1[drp] Place 1 [facility] 0.005 % 5-18 Drop in [facility] of ophthalmic 00:00: both eyes [place] drops 00 at Medical bedtime. Branch latanoprost Yes [id number] 1[drp] Place 1 [facility] 0.005 % 5-18 Drop in [facility] of ophthalmic 00:00: both eyes [place] drops 00 at Medical bedtime. Branch latanoprost Yes [id number] 1[drp] Place 1 [facility] 0.005 % 5-18 Drop in [facility] of ophthalmic 00:00: both eyes [place] drops 00 at Medical bedtime. Branch latanoprost Yes [id number] 1[drp] Place 1 [facility] 0.005 % 5-18 Drop in [facility] of ophthalmic 00:00: both eyes [place] drops 00 at Medical bedtime. Branch latanoprost Yes [id number] 1[drp] Place 1 [facility] 0.005 % 5-18 Drop in [facility] of ophthalmic 00:00: both eyes [place] drops 00 at Medical bedtime. Branch latanoprost Yes [id number] 1[drp] Place 1 [facility] 0.005 % 5-18 Drop in [facility] of ophthalmic 00:00: both eyes [place] drops 00 at Medical bedtime. Branch latanoprost Yes [id number] 1[drp] Place 1 [facility] 0.005 % 5-18 Drop in [facility] of ophthalmic 00:00: both eyes [place] drops 00 at Medical bedtime. Branch latanoprost Yes [id number] 1[drp] Place 1 [facility] 0.005 % 5-18 Drop in [facility] of ophthalmic 00:00: both eyes [place] drops 00 at Medical bedtime. Branch latanoprost Yes [id number] 1[drp] Place 1 [facility] 0.005 % 5-18 Drop in [facility] of ophthalmic 00:00: both eyes [place] drops 00 at Medical bedtime. Branch latanoprost 2022- No [id number] 1[drp] Place 1 [facility] 0.005 % 5-18 05-26 Drop in ity of ophthalmic 00:00: 00:00 both eyes [place] drops 00 :00 at Medical bedtime. Branch latanoprost 2022- No [id number] 1[drp] Place 1 [facility] 0.005 % 5-18 05-26 Drop in ity of ophthalmic 00:00: 00:00 both eyes [place] drops 00 :00 at Medical bedtime. Branch metoprolol Yes [id number] 25mg Take 0.5 [facility] tartrate 50 4-25 tablets by it y of mg tablet 00:00: mouth [place] (two) Medical times Branch daily. metoprolol 0 Yes [id number] 25mg Take 0.5 [facility] tartrate 50 4-25 tablets by it y of mg tablet 00:00: mouth [place] (two) Medical times Branch daily. metoprolol 0 Yes [id number] 25mg Take 0.5 [facility] tartrate 50 4-25 tablets by it y of mg tablet 00:00: mouth [place] (two) Medical times Branch daily. metoprolol 0 Yes [id number] 25mg Take 0.5 [facility] tartrate 50 4-25 tablets by it y of mg tablet 00:00: mouth [place] (two) Medical times Branch daily. metoprolol 2021-0 Yes [id number] 25mg Take 0.5 [facility] tartrate 50 4-25 tablets by it y of mg tablet 00:00: mouth [place] (two) Medical times Branch daily. metoprolol 2021-0 Yes [id number] 25mg Take 0.5 [facility] tartrate 50 4-25 tablets by it y of mg tablet 00:00: mouth [place] (two) Medical times Branch daily. metoprolol 2021-0 Yes [id number] 25mg Take 0.5 [facility] tartrate 50 4-25 tablets by it y of mg tablet 00:00: mouth (two) Medical times Branch daily. metoprolol 2-0 Yes [id number] 25mg Take 0.5 [facility] tartrate 50 4-25 tablets by it y of mg tablet 00:00: mouth (two) Medical times Branch daily. metoprolol 2021-0 Yes [id number] 25mg Take 0.5 [facility] tartrate 50 4-25 tablets by it y of mg tablet 00:00: mouth (two) Medical times Branch daily. metoprolol 2021-0 Yes [id number] 25mg Take 0.5 [facility] tartrate 50 4-25 tablets by it y of mg tablet 00:00: mouth (two) Medical times Branch daily. metoprolol 2021-0 Yes [id number] 25mg Take 0.5 [facility] tartrate 50 4-25 tablets by it y of mg tablet 00:00: mouth (two) Medical times Branch daily. metoprolol 2021-0 Yes [id number] 25mg Take 0.5 [facility] tartrate 50 4-25 tablets by it y of mg tablet 00:00: mouth (two) Medical times Branch daily. metoprolol 2021-0 Yes [id number] 25mg Take 0.5 [facility] tartrate 50 4-25 tablets by it y of mg tablet 00:00: [facility] (two) Medical times Branch daily. metoprolol 2021-0 Yes [id number] 25mg Take 0.5 [facility] tartrate 50 4-25 tablets by it y of mg tablet 00:00: mouth (two) Medical times Branch daily. metoprolol 2021-0 Yes [id number] 25mg Take 0.5 [facility] tartrate 50 4-25 tablets by it y of mg tablet 00:00: mouth (two) Medical times Branch daily. metoprolol 2-0 Yes [id number] 25mg Take 0.5 [facility] tartrate 50 4-25 tablets by it y of mg tablet 00:00: mouth (two) Medical times Branch daily. metoprolol 2-0 Yes [id number] 25mg Take 0.5 [facility] tartrate 50 4-25 tablets by it y of mg tablet 00:00: mouth (two) Medical times Branch daily. metoprolol 2-0 Yes [id number] 25mg Take 0.5 [facility] tartrate 50 4-25 tablets by it y of mg tablet 00:00: [facility] (two) Medical times Branch daily. metoprolol 2021-0 Yes [id number] 25mg Take 0.5 [facility] tartrate 50 4-25 tablets by it y of mg tablet 00:00: [facility] (two) Medical times Branch daily. metoprolol 2021-0 Yes [id number] 25mg Take 0.5 [facility] tartrate 50 4-25 tablets by it y of mg tablet 00:00: mouth (two) Medical times Branch daily. metoprolol 2021-0 Yes [id number] 25mg Take 0.5 [facility] tartrate 50 4-25 tablets by it y of mg tablet 00:00: [facility] (two) Medical times Branch daily. metoprolol 2021-0 Yes [id number] 25mg Take 0.5 [facility] tartrate 50 4-25 tablets by it y of mg tablet 00:00: [facility] (two) Medical times Branch daily. metoprolol 2021-0 Yes [id number] 25mg Take 0.5 [facility] tartrate 50 4-25 tablets by it y of mg tablet 00:00: [facility] (two) Medical times Branch daily. metoprolol 2021-0 Yes [id number] 25mg Take 0.5 [facility] tartrate 50 4-25 tablets by it y of mg tablet 00:00: [facility] (two) Medical times Branch daily. metoprolol 2021-0 Yes [id number] 25mg Take 0.5 [facility] tartrate 50 4-25 tablets by it y of mg tablet 00:00: [facility] (two) Medical times Branch daily. metoprolol 2-0 Yes [id number] 25mg Take 0.5 [facility] tartrate 50 4-25 tablets by it y of mg tablet 00:00: [facility] [place] (two) Medical times Branch daily. metoprolol 2-0 Yes [id number] 25mg Take 0.5 [facility] tartrate 50 4-25 tablets by it y of mg tablet 00:00: [facility] [place] (two) Medical times Branch daily. metoprolol 2-0 Yes [id number] 25mg Take 0.5 [facility] tartrate 50 4-25 tablets by it y of mg tablet 00:00: mouth (two) Medical times Branch daily. metoprolol 2021-0 Yes [id number] 25mg Take 0.5 [facility] tartrate 50 4-25 tablets by it y of mg tablet 00:00: mouth (two) Medical times Branch daily. metoprolol 2021-0 Yes [id number] 25mg Take 0.5 [facility] tartrate 50 4-25 tablets by it y of mg tablet 00:00: mouth (two) Medical times Branch daily. metoprolol 2021-0 Yes [id number] 25mg Take 0.5 [facility] tartrate 50 4-25 tablets by it y of mg tablet 00:00: [facility] (two) Medical times Branch daily. metoprolol 2021-0 Yes [id number] 25mg Take 0.5 [facility] tartrate 50 4-25 tablets by it y of mg tablet 00:00: [facility] (two) Medical times Branch daily. metoprolol 2021-0 Yes [id number] 25mg Take 0.5 [facility] tartrate 50 4-25 tablets by it y of mg tablet 00:00: mouth (two) Medical times Branch daily. metoprolol 2021-0 Yes [id number] 25mg Take 0.5 [facility] tartrate 50 4-25 tablets by it y of mg tablet 00:00: [facility] (two) Medical times Branch daily. metoprolol 2021-0 Yes [id number] 25mg Take 0.5 [facility] tartrate 50 4-25 tablets by it y of mg tablet 00:00: mouth (two) Medical times Branch daily. metoprolol 2021-0 Yes [id number] 25mg Take 0.5 [facility] tartrate 50 4-25 tablets by it y of mg tablet 00:00: mouth (two) Medical times Branch daily. metoprolol 2-0 Yes [id number] 25mg Take 0.5 [facility] tartrate 50 4-25 tablets by it y of mg tablet 00:00: mouth (two) Medical times Branch daily. metoprolol 2-0 Yes [id number] 25mg Take 0.5 [facility] tartrate 50 4-25 tablets by it y of mg tablet 00:00: mouth (two) Medical times Branch daily. metoprolol 2-0 Yes [id number] 25mg Take 0.5 [facility] tartrate 50 4-25 tablets by it y of mg tablet 00:00: mouth 2 (two) Medical times Branch daily. metoprolol 2-0 Yes [id number] 25mg Take 0.5 [facility] tartrate 50 4-25 tablets by it y of mg tablet 00:00: mouth 2 (two) Medical times Branch daily. metoprolol 2-0 Yes [id number] 25mg Take 0.5 [facility] tartrate 50 4-25 tablets by it y of mg tablet 00:00: mouth 2 [place] (two) Medical times Branch daily. metoprolol 2021-0 2023- No [id number] 25mg Take 0.5 [facility] tartrate 50 4-25 04-22 tablets by i ty of mg tablet 00:00: 00:[place] mouth [place]two) Medical times Branch daily. B,C/folic/z 0 Yes Take by [facility] inc/selenom 3-25 mouth. ity of eth/D3/E 10:29: [place] (RENAPLEX-D 12 Medical ORAL) Branch B,C/folic/z 2021-0 Yes Take by [facility] vers inc/selenom 3-25 mouth. ity of eth/D3/E 10:29: [place] (RENAPLEX-D 12 Medical ORAL) Branch B,C/folic/z 2021-0 Yes Take by [facility] inc/selenom 3-25 mouth. ity of eth/D3/E 10:29: [place] (RENAPLEX-D 12 Medical ORAL) Branch B,C/folic/z 2021-0 Yes Take by [facility] inc/selenom 3-25 mouth. ity of eth/D3/E 10:29: [place] (RENAPLEX-D 12 Medical ORAL) Branch B,C/folic/z 2021-0 Yes Take by [facility] inc/selenom 3-25 mouth. ity of eth/D3/E 10:29: [place] (RENAPLEX-D 12 Medical ORAL) Branch B,C/folic/z 2021-0 Yes Take by [facility] inc/selenom 3-25 mouth. ity of eth/D3/E 10:29: [place] (RENAPLEX-D 12 Medical ORAL) Branch B,C/folic/z 2021-0 Yes Take by [facility] inc/selenom 3-25 mouth. ity of eth/D3/E 10:29: [place] (RENAPLEX-D 12 Medical ORAL) Branch B,C/folic/z 2021-0 Yes Take by [facility] inc/selenom 3-25 mouth. ity of eth/D3/E 10:29: [place] (RENAPLEX-D 12 Medical ORAL) Branch B,C/folic/z 2021-0 Yes Take by [facility] inc/selenom 3-25 mouth. ity of eth/D3/E 10:29: [place] (RENAPLEX-D 12 Medical ORAL) Branch B,C/folic/z 2021-0 Yes Take by [facility] inc/selenom 3-25 mouth. ity of eth/D3/E 10:29: [place] (RENAPLEX-D 12 Medical ORAL) Branch B,C/folic/z 2021-0 Yes Take by [facility] inc/selenom 3-25 mouth. ity of eth/D3/E 10:29: [place] (RENAPLEX-D 12 Medical ORAL) Branch B,C/folic/z 2021-0 Yes Take by [facility] vers inc/selenom 3-25 mouth. ity of eth/D3/E 10:29: [place] (RENAPLEX-D 12 Medical ORAL) Branch B,C/folic/z 2021-0 Yes Take by [facility] inc/selenom 3-25 mouth. ity of eth/D3/E 10:29: [place] (RENAPLEX-D 12 Medical ORAL) Branch B,C/folic/z 2021-0 Yes Take by [facility] inc/selenom 3-25 mouth. ity of eth/D3/E 10:29: [place] (RENAPLEX-D 12 Medical ORAL) Branch B,C/folic/z 2021-0 Yes Take by [facility] inc/selenom 3-25 mouth. ity of eth/D3/E 10:29: [place] (RENAPLEX-D 12 Medical ORAL) Branch B,C/folic/z 2021-0 Yes Take by [facility] inc/selenom 3-25 mouth. ity of eth/D3/E 10:29: [place] (RENAPLEX-D 12 Medical ORAL) Branch B,C/folic/z 2021-0 Yes Take by [facility] inc/selenom 3-25 mouth. ity of eth/D3/E 10:29: [place] (RENAPLEX-D 12 Medical ORAL) Branch B,C/folic/z 2021-0 Yes Take by [facility] inc/selenom 3-25 mouth. ity of eth/D3/E 10:29: [place] (RENAPLEX-D 12 Medical ORAL) Branch B,C/folic/z 2021-0 Yes Take by [facility] vers inc/selenom 3-25 mouth. ity of eth/D3/E 10:29: [place] (RENAPLEX-D 12 Medical ORAL) Branch B,C/folic/z 2021-0 Yes Take by [facility] vers inc/selenom 3-25 mouth. ity of eth/D3/E 10:29: [place] (RENAPLEX-D 12 Medical ORAL) Branch B,C/folic/z 0 Yes Take by [facility] inc/selenom 3-25 mouth. ity of eth/D3/E 10:29: [place] (RENAPLEX-D 12 Medical ORAL) Branch B,C/folic/z 2021-0 Yes Take by [facility] vers inc/selenom 3-25 mouth. ity of eth/D3/E 10:29: [place] (RENAPLEX-D 12 Medical ORAL) Branch B,C/folic/z 2021-0 Yes Take by [facility] vers inc/selenom 3-25 mouth. ity of eth/D3/E 10:29: [place] (RENAPLEX-D 12 Medical ORAL) Branch B,C/folic/z 2021-0 Yes Take by [facility] vers inc/selenom 3-25 mouth. ity of eth/D3/E 10:29: [place] (RENAPLEX-D 12 Medical ORAL) Branch B,C/folic/z 2021-0 Yes Take by [facility] vers inc/selenom 3-25 mouth. ity of eth/D3/E 10:29: [place] (RENAPLEX-D 12 Medical ORAL) Branch B,C/folic/z 2021-0 Yes Take by [facility] vers inc/selenom 3-25 mouth. ity of eth/D3/E 10:29: [place] (RENAPLEX-D 12 Medical ORAL) Branch B,C/folic/z Yes Take by [facility] vers inc/selenom 3-25 mouth. ity of eth/D3/E 10:29: [place] (RENAPLEX-D 12 Medical ORAL) Branch B,C/folic/z Yes Take by [facility] vers inc/selenom 3-25 mouth. ity of eth/D3/E 10:29: [place] (RENAPLEX-D 12 Medical ORAL) Branch lisinopriL Yes [id number] 40mg Take 1 U nivers 40 mg 3-20 tablet by ity of tablet 00:00: mouth [place] 00 daily. Medical Branch lisinopriL Yes [id number] 40mg Take 1 U nivers 40 mg 3-20 tablet by ity of tablet 00:00: mouth [place] 00 daily. Medical Branch lisinopriL Yes [id number] 40mg Take 1 U nivers 40 mg 3-20 tablet by ity of tablet 00:00: mouth [place] 00 daily. Medical Branch lisinopriL Yes [id number] 40mg Take 1 U nivers 40 mg 3-20 tablet by ity of tablet 00:00: mouth [place] 00 daily. Medical Branch lisinopriL Yes [id number] 40mg Take 1 U nivers 40 mg 3-20 tablet by ity of tablet 00:00: mouth [place] 00 daily. Medical Branch lisinopriL 2021- No [id number] 40mg Take 1 [facility] 40 mg 3-20 10-31 tablet by ity of tablet 00:00: 00:00 mouth [place] 00 :00 daily. Medical Branch lisinopriL 2021- No [id number] 40mg Take 1 [facility] 40 mg 3-20 10-31 tablet by ity of tablet 00:00: 00:00 mouth [place] 00 :00 daily. Medical Branch aspirin 81 0 Yes [id number] 81mg Take 1 U nivers mg chewable 3-19 tablet by ity of tablet 00:00: mouth [place] 00 daily. Medical Branch clopidogreL 0 Yes [id number] 75mg Take 1 [facility] 75 mg 3-19 tablet by ity of tablet 00:00: mouth [place] 00 daily. Medical Branch atorvastati 0 Yes [id number] 40mg Take 1 [facility] n 40 mg 3-19 tablet by ity of tablet 00:00: mouth at [place] 00 bedtime. Medical Branch aspirin 81 2021-0 Yes [id number] 81mg Take 1 U nivers mg chewable 3-19 tablet by ity of tablet 00:00: mouth [place] 00 daily. Medical Branch clopidogreL 2021-0 Yes [id number] 75mg Take 1 [facility] 75 mg 3-19 tablet by ity of tablet 00:00: mouth [place] 00 daily. Medical Branch atorvastati 0 Yes [id number] 40mg Take 1 [facility] n 40 mg 3-19 tablet by ity of tablet 00:00: mouth at [place] 00 bedtime. Medical Branch aspirin 81 2021-0 Yes [id number] 81mg Take 1 U nivers mg chewable 3-19 tablet by ity of tablet 00:00: mouth [place] 00 daily. Medical Branch clopidogreL 2021-0 Yes [id number] 75mg Take 1 [facility] 75 mg 3-19 tablet by ity of tablet 00:00: mouth [place] 00 daily. Medical Branch atorvastati 0 Yes [id number] 40mg Take 1 [facility] n 40 mg 3-19 tablet by ity of tablet 00:00: mouth at [place] 00 bedtime. Medical Branch aspirin 81 0 Yes [id number] 81mg Take 1 U nivers mg chewable 3-19 tablet by ity of tablet 00:00: mouth [place] 00 daily. Medical Branch clopidogreL 2021-0 Yes [id number] 75mg Take 1 [facility] 75 mg 3-19 tablet by ity of tablet 00:00: mouth [place] 00 daily. Medical Branch atorvastati 2021-0 Yes [id number] 40mg Take 1 [facility] n 40 mg 3-19 tablet by ity of tablet 00:00: mouth at [place] 00 bedtime. Medical Branch aspirin 81 2021-0 Yes [id number] 81mg Take 1 U nivers mg chewable 3-19 tablet by ity of tablet 00:00: mouth [place] 00 daily. Medical Branch clopidogreL 2021-0 Yes [id number] 75mg Take 1 [facility] 75 mg 3-19 tablet by ity of tablet 00:00: mouth [place] 00 daily. Medical Branch atorvastati 2021-0 Yes [id number] 40mg Take 1 [facility] n 40 mg 3-19 tablet by ity of tablet 00:00: mouth at [place] 00 bedtime. Medical Branch aspirin 81 2021-0 Yes [id number] 81mg Take 1 U nivers mg chewable 3-19 tablet by ity of tablet 00:00: mouth [place] 00 daily. Medical Branch clopidogreL 2021-0 Yes [id number] 75mg Take 1 [facility] 75 mg 3-19 tablet by ity of tablet 00:00: mouth [place] 00 daily. Medical Branch atorvastati 2021-0 Yes [id number] 40mg Take 1 [facility] n 40 mg 3-19 tablet by ity of tablet 00:00: mouth at [place] 00 bedtime. Medical Branch aspirin 81 2021-0 Yes [id number] 81mg Take 1 U nivers mg chewable 3-19 tablet by ity of tablet 00:00: mouth [place] 00 daily. Medical Branch clopidogreL 2021-0 Yes [id number] 75mg Take 1 [facility] 75 mg 3-19 tablet by ity of tablet 00:00: mouth [place] 00 daily. Medical Branch atorvastati 2021-0 Yes [id number] 40mg Take 1 [facility] n 40 mg 3-19 tablet by ity of tablet 00:00: mouth at [place] 00 bedtime. Medical Branch aspirin 81 2021-0 Yes [id number] 81mg Take 1 U nivers mg chewable 3-19 tablet by ity of tablet 00:00: mouth [place] 00 daily. Medical Branch clopidogreL 2021-0 Yes [id number] 75mg Take 1 [facility] 75 mg 3-19 tablet by ity of tablet 00:00: mouth [place] 00 daily. Medical Branch atorvastati 2021-0 Yes [id number] 40mg Take 1 [facility] n 40 mg 3-19 tablet by ity of tablet 00:00: mouth at [place] 00 bedtime. Medical Branch aspirin 81 2021-0 Yes [id number] 81mg Take 1 U nivers mg chewable 3-19 tablet by ity of tablet 00:00: mouth [place] 00 daily. Medical Branch clopidogreL 2021-0 Yes [id number] 75mg Take 1 [facility] 75 mg 3-19 tablet by ity of tablet 00:00: mouth [place] 00 daily. Medical Branch atorvastati 2021-0 Yes [id number] 40mg Take 1 [facility] n 40 mg 3-19 tablet by ity of tablet 00:00: mouth at [place] 00 bedtime. Medical Branch aspirin 81 2021-0 Yes [id number] 81mg Take 1 U nivers mg chewable 3-19 tablet by ity of tablet 00:00: mouth [place] 00 daily. Medical Branch clopidogreL 2022-0 Yes [id number] 75mg Take 1 [facility] 75 mg 3-19 tablet by ity of tablet 00:00: mouth [place] 00 daily. Medical Branch atorvastati 2021-0 Yes [id number] 40mg Take 1 [facility] n 40 mg 3-19 tablet by ity of tablet 00:00: mouth at [place] 00 bedtime. Medical Branch aspirin 81 2021-0 Yes [id number] 81mg Take 1 U nivers mg chewable 3-19 tablet by ity of tablet 00:00: mouth [place] 00 daily. Medical Branch clopidogreL 2021-0 Yes [id number] 75mg Take 1 [facility] 75 mg 3-19 tablet by ity of tablet 00:00: mouth [place] 00 daily. Medical Branch atorvastati 0 Yes [id number] 40mg Take 1 [facility] n 40 mg 3-19 tablet by ity of tablet 00:00: mouth at [place] 00 bedtime. Medical Branch aspirin 81 2021-0 Yes [id number] 81mg Take 1 U nivers mg chewable 3-19 tablet by ity of tablet 00:00: mouth [place] 00 daily. Medical Branch clopidogreL 2021-0 Yes [id number] 75mg Take 1 [facility] 75 mg 3-19 tablet by ity of tablet 00:00: mouth [place] 00 daily. Medical Branch atorvastati 0 Yes [id number] 40mg Take 1 [facility] n 40 mg 3-19 tablet by ity of tablet 00:00: mouth at [place] 00 bedtime. Medical Branch aspirin 81 2021-0 Yes [id number] 81mg Take 1 [facility] nivers mg chewable 3-19 tablet by ity of tablet 00:00: mouth [place] 00 daily. Medical Branch clopidogreL 2021-0 Yes [id number] 75mg Take 1 [facility] 75 mg 3-19 tablet by ity of tablet 00:00: mouth [place] 00 daily. Medical Branch atorvastati 2021-0 Yes [id number] 40mg Take 1 [facility] n 40 mg 3-19 tablet by ity of tablet 00:00: mouth at [place] 00 bedtime. Medical Branch aspirin 81 2021-0 Yes [id number] 81mg Take 1 [facility] nivers mg chewable 3-19 tablet by ity of tablet 00:00: mouth [place] 00 daily. Medical Branch clopidogreL 2021-0 Yes [id number] 75mg Take 1 [facility] 75 mg 3-19 tablet by ity of tablet 00:00: mouth [place] 00 daily. Medical Branch atorvastati 0 Yes [id number] 40mg Take 1 [facility] n 40 mg 3-19 tablet by ity of tablet 00:00: mouth at [place] 00 bedtime. Medical Branch aspirin 81 2021-0 Yes [id number] 81mg Take 1 [facility] nivers mg chewable 3-19 tablet by ity of tablet 00:00: mouth [place] 00 daily. Medical Branch clopidogreL 2021-0 Yes [id number] 75mg Take 1 [facility] 75 mg 3-19 tablet by ity of tablet 00:00: mouth [place] 00 daily. Medical Branch atorvastati 0 Yes [id number] 40mg Take 1 [facility] n 40 mg 3-19 tablet by ity of tablet 00:00: mouth at [place] 00 bedtime. Medical Branch aspirin 81 0 Yes [id number] 81mg Take 1 [facility] nivers mg chewable 3-19 tablet by ity of tablet 00:00: mouth [place] 00 daily. Medical Branch clopidogreL 2021-0 Yes [id number] 75mg Take 1 [facility] 75 mg 3-19 tablet by ity of tablet 00:00: mouth [place] 00 daily. Medical Branch atorvastati 0 Yes [id number] 40mg Take 1 [facility] n 40 mg 3-19 tablet by ity of tablet 00:00: mouth at [place] 00 bedtime. Medical Branch aspirin 81 2021-0 Yes [id number] 81mg Take 1 [facility] nivers mg chewable 3-19 tablet by ity of tablet 00:00: mouth [place] 00 daily. Medical Branch clopidogreL 2021-0 Yes [id number] 75mg Take 1 [facility] 75 mg 3-19 tablet by ity of tablet 00:00: mouth [place] 00 daily. Medical Branch atorvastati 2021-0 Yes [id number] 40mg Take 1 [facility] n 40 mg 3-19 tablet by ity of tablet 00:00: mouth at [place] 00 bedtime. Medical Branch aspirin 81 2021-0 Yes [id number] 81mg Take 1 [facility] nivers mg chewable 3-19 tablet by ity of tablet 00:00: mouth [place] 00 daily. Medical Branch clopidogreL 2021-0 Yes [id number] 75mg Take 1 [facility] 75 mg 3-19 tablet by ity of tablet 00:00: mouth [place] 00 daily. Medical Branch atorvastati 2021-0 Yes [id number] 40mg Take 1 [facility] n 40 mg 3-19 tablet by ity of tablet 00:00: mouth at [place] 00 bedtime. Medical Branch aspirin 81 2021-0 Yes [id number] 81mg Take 1 [facility] nivers mg chewable 3-19 tablet by ity of tablet 00:00: mouth [place] 00 daily. Medical Branch clopidogreL 2021-0 Yes [id number] 75mg Take 1 [facility] 75 mg 3-19 tablet by ity of tablet 00:00: mouth [place] 00 daily. Medical Branch atorvastati 0 Yes [id number] 40mg Take 1 [facility] n 40 mg 3-19 tablet by ity of tablet 00:00: mouth at [place] 00 bedtime. Medical Branch aspirin 81 2021-0 Yes [id number] 81mg Take 1 [facility] nivers mg chewable 3-19 tablet by ity of tablet 00:00: mouth [place] 00 daily. Medical Branch clopidogreL 2021-0 Yes [id number] 75mg Take 1 [facility] 75 mg 3-19 tablet by ity of tablet 00:00: mouth [place] 00 daily. Medical Branch atorvastati 0 Yes [id number] 40mg Take 1 [facility] n 40 mg 3-19 tablet by [facility] tablet 00:00: mouth at [place] 00 bedtime. [facility] aspirin 81 0 Yes [id number] 81mg Take 1 [facility] mg chewable 3-19 tablet by [facility] tablet 00:00: mouth [place] 00 daily. [facility] clopidogreL 2021-0 Yes [id number] 75mg Take 1 [facility] 75 mg 3-19 tablet by [facility] tablet 00:00: mouth [place] 00 daily. [facility] atorvastati 2021-0 Yes [id number] 40mg Take 1 [facility] n 40 mg 3-19 tablet by [facility] tablet 00:00: mouth at [place] 00 bedtime. [facility] aspirin 81 2021-0 Yes [id number] 81mg Take 1 [facility] mg chewable 3-19 tablet by [facility] tablet 00:00: mouth [place] 00 daily. [facility] clopidogreL 2021-0 Yes [id number] 75mg Take 1 [facility] 75 mg 3-19 tablet by [facility] tablet 00:00: mouth [place] 00 daily. [facility] atorvastati 2021-0 Yes [id number] 40mg Take 1 [facility] n 40 mg 3-19 tablet by [facility] tablet 00:00: mouth at [place] 00 bedtime. [facility] aspirin 81 2021-0 Yes [id number] 81mg Take 1 [facility] mg chewable 3-19 tablet by [facility] tablet 00:00: mouth [place] 00 daily. [facility] clopidogreL 2021-0 Yes [id number] 75mg Take 1 [facility] 75 mg 3-19 tablet by [facility] tablet 00:00: mouth [place] 00 daily. [facility] atorvastati 2021-0 Yes [id number] 40mg Take 1 [facility] n 40 mg 3-19 tablet by [facility] tablet 00:00: mouth at [place] 00 bedtime. [facility] aspirin 81 2021-0 Yes [id number] 81mg Take 1 [facility] mg chewable 3-19 tablet by [facility] tablet 00:00: mouth [place] 00 daily. [facility] clopidogreL 2021-0 Yes [id number] 75mg Take 1 [facility] 75 mg 3-19 tablet by [facility] tablet 00:00: mouth [place] 00 daily. [facility] atorvastati 0 Yes [id number] 40mg Take 1 [facility] n 40 mg 3-19 tablet by [facility] tablet 00:00: mouth at [place] 00 bedtime. [facility] aspirin 81 2021-0 Yes [id number] 81mg Take 1 [facility] mg chewable 3-19 tablet by [facility] tablet 00:00: mouth [place] 00 daily. [facility] clopidogreL 2021-0 Yes [id number] 75mg Take 1 [facility] 75 mg 3-19 tablet by [facility] tablet 00:00: mouth [place] 00 daily. [facility] atorvastati 0 Yes [id number] 40mg Take 1 [facility] n 40 mg 3-19 tablet by [facility] tablet 00:00: mouth at [place] 00 bedtime. [facility] aspirin 81 2021-0 Yes [id number] 81mg Take 1 [facility] mg chewable 3-19 tablet by [facility] tablet 00:00: mouth [place] 00 daily. [facility] clopidogreL 2021-0 Yes [id number] 75mg Take 1 [facility] 75 mg 3-19 tablet by [facility] tablet 00:00: mouth [place] 00 daily. [facility] atorvastati 2021-0 Yes [id number] 40mg Take 1 [facility] n 40 mg 3-19 tablet by [facility] tablet 00:00: mouth at [place] 00 bedtime. [facility] aspirin 81 2021-0 Yes [id number] 81mg Take 1 [facility] mg chewable 3-19 tablet by [facility] tablet 00:00: mouth [place] 00 daily. [facility] clopidogreL 2021-0 Yes [id number] 75mg Take 1 [facility] 75 mg 3-19 tablet by [facility] tablet 00:00: mouth [place] 00 daily. [facility] atorvastati 2021-0 Yes [id number] 40mg Take 1 [facility] n 40 mg 3-19 tablet by [facility] tablet 00:00: mouth at [place] 00 bedtime. [facility] aspirin 81 2021-0 Yes [id number] 81mg Take 1 [facility] mg chewable 3-19 tablet by [facility] tablet 00:00: mouth [place] 00 daily. [facility] clopidogreL 2021-0 Yes [id number] 75mg Take 1 [facility] 75 mg 3-19 tablet by [facility] tablet 00:00: mouth [place] 00 daily. [facility] atorvastati 2021-0 Yes [id number] 40mg Take 1 [facility] n 40 mg 3-19 tablet by [facility] tablet 00:00: mouth at [place] 00 bedtime. [facility] aspirin 81 2021-0 Yes [id number] 81mg Take 1 [facility] mg chewable 3-19 tablet by [facility] tablet 00:00: mouth [place] 00 daily. [facility] clopidogreL 2021-0 Yes [id number] 75mg Take 1 [facility] 75 mg 3-19 tablet by [facility] tablet 00:00: mouth [place] 00 daily. [facility] atorvastati 2021-0 Yes [id number] 40mg Take 1 [facility] n 40 mg 3-19 tablet by [facility] tablet 00:00: mouth at [place] 00 bedtime. [facility] aspirin 81 2021-0 Yes [id number] 81mg Take 1 [facility] mg chewable 3-19 tablet by [facility] tablet 00:00: mouth [place] 00 daily. [facility] clopidogreL 2021-0 Yes [id number] 75mg Take 1 [facility] 75 mg 3-19 tablet by [facility] tablet 00:00: mouth [place] 00 daily. [facility] atorvastati 2021-0 Yes [id number] 40mg Take 1 [facility] n 40 mg 3-19 tablet by [facility] tablet 00:00: mouth at [place] 00 bedtime. [facility] aspirin 81 2021-0 Yes [id number] 81mg Take 1 [facility] mg chewable 3-19 tablet by [facility] tablet 00:00: mouth [place] 00 daily. [facility] clopidogreL 2021-0 Yes [id number] 75mg Take 1 [facility] 75 mg 3-19 tablet by [facility] tablet 00:00: mouth [place] 00 daily. [facility] atorvastati 2021-0 Yes [id number] 40mg Take 1 [facility] n 40 mg 3-19 tablet by [facility] tablet 00:00: mouth at [place] 00 bedtime. [facility] aspirin 81 2021-0 Yes [id number] 81mg Take 1 [facility] mg chewable 3-19 tablet by [facility] tablet 00:00: mouth [place] 00 daily. [facility] clopidogreL 2021-0 Yes [id number] 75mg Take 1 [facility] 75 mg 3-19 tablet by [facility] tablet 00:00: mouth [place] 00 daily. [facility] atorvastati 2021-0 Yes [id number] 40mg Take 1 [facility] n 40 mg 3-19 tablet by [facility] tablet 00:00: mouth at [place] 00 bedtime. [facility] aspirin 81 2021-0 Yes [id number] 81mg Take 1 [facility] mg chewable 3-19 tablet by [facility] tablet 00:00: mouth [place] 00 daily. [facility] clopidogreL 2021-0 Yes [id number] 75mg Take 1 [facility] 75 mg 3-19 tablet by [facility] tablet 00:00: mouth [place] 00 daily. [facility] atorvastati 0 Yes [id number] 40mg Take 1 [facility] n 40 mg 3-19 tablet by [facility] tablet 00:00: mouth at [place] 00 bedtime. [facility] aspirin 81 2021-0 Yes [id number] 81mg Take 1 [facility] mg chewable 3-19 tablet by [facility] tablet 00:00: mouth [place] 00 daily. [facility] clopidogreL 2021-0 Yes [id number] 75mg Take 1 [facility] 75 mg 3-19 tablet by [facility] tablet 00:00: mouth [place] 00 daily. [facility] atorvastati 2021-0 Yes [id number] 40mg Take 1 [facility] n 40 mg 3-19 tablet by [facility] tablet 00:00: mouth at [place] 00 bedtime. [facility] aspirin 81 2021-0 Yes [id number] 81mg Take 1 [facility] mg chewable 3-19 tablet by [facility] tablet 00:00: mouth [place] 00 daily. [facility] clopidogreL 2021-0 Yes [id number] 75mg Take 1 [facility] 75 mg 3-19 tablet by [facility] tablet 00:00: mouth [place] 00 daily. [facility] atorvastati 2021-0 Yes [id number] 40mg Take 1 [facility] n 40 mg 3-19 tablet by [facility] tablet 00:00: mouth at [place] 00 bedtime. [facility] aspirin 81 2021-0 Yes [id number] 81mg Take 1 [facility] mg chewable 3-19 tablet by [facility] tablet 00:00: mouth [place] 00 daily. [facility] clopidogreL 2021-0 Yes [id number] 75mg Take 1 [facility] 75 mg 3-19 tablet by [facility] tablet 00:00: mouth [place] 00 daily. [facility] atorvastati 2021-0 Yes [id number] 40mg Take 1 [facility] n 40 mg 3-19 tablet by [facility] tablet 00:00: mouth at [place] 00 bedtime. [facility] aspirin 81 2021-0 Yes [id number] 81mg Take 1 [facility] mg chewable 3-19 tablet by [facility] tablet 00:00: mouth [place] 00 daily. [facility] clopidogreL 2021-0 Yes [id number] 75mg Take 1 [facility] 75 mg 3-19 tablet by [facility] tablet 00:00: mouth [place] 00 daily. [facility] aspirin 81 2021-0 Yes [id number] 81mg Take 1 [facility] mg chewable 3-19 tablet by [facility] tablet 00:00: mouth [place] 00 daily. [facility] clopidogreL 2021-0 Yes [id number] 75mg Take 1 [facility] 75 mg 3-19 tablet by [facility] tablet 00:00: mouth [place] 00 daily. [facility] aspirin 81 2021-0 Yes [id number] 81mg Take 1 [facility] mg chewable 3-19 tablet by [facility] tablet 00:00: mouth [place] 00 daily. [facility] clopidogreL 2021-0 Yes [id number] 75mg Take 1 [facility] 75 mg 3-19 tablet by [facility] tablet 00:00: mouth [place] 00 daily. [facility] aspirin 81 2021-0 Yes [id number] 81mg Take 1 [facility] mg chewable 3-19 tablet by [facility] tablet 00:00: mouth [place] 00 daily. [facility] clopidogreL 2-0 Yes [id number] 75mg Take 1 [facility] 75 mg 3-19 tablet by [facility] tablet 00:00: mouth [place] 00 daily. [facility] aspirin 81 2021-0 Yes [id number] 81mg Take 1 [facility] mg chewable 3-19 tablet by [facility] tablet 00:00: mouth [place] 00 daily. [facility] clopidogreL 2021-0 Yes [id number] 75mg Take 1 [facility] 75 mg 3-19 tablet by [facility] tablet 00:00: mouth [place] 00 daily. [facility] aspirin 81 2-0 Yes [id number] 81mg Take 1 [facility] mg chewable 3-19 tablet by [facility] tablet 00:00: mouth [place] 00 daily. [facility] clopidogreL 2022-0 Yes [id number] 75mg Take 1 [facility] 75 mg 3-19 tablet by [facility] tablet 00:00: mouth [place] 00 daily. [facility] aspirin 81 2-0 Yes [id number] 81mg Take 1 [facility] mg chewable 3-19 tablet by [facility] tablet 00:00: mouth [place] 00 daily. [facility] clopidogreL 2022-0 Yes [id number] 75mg Take 1 [facility] 75 mg 3-19 tablet by [facility] tablet 00:00: mouth [place] 00 daily. [facility] aspirin 81 2021-0 Yes [id number] 81mg Take 1 [facility] mg chewable 3-19 tablet by [facility] tablet 00:00: mouth [place] 00 daily. [facility] clopidogreL 2-0 Yes [id number] 75mg Take 1 [facility] 75 mg 3-19 tablet by [facility] tablet 00:00: mouth [place] 00 daily. [facility] aspirin 81 2021-0 Yes [id number] 81mg Take 1 [facility] mg chewable 3-19 tablet by [facility] tablet 00:00: mouth [place] 00 daily. [facility] clopidogreL 2-0 Yes [id number] 75mg Take 1 [facility] 75 mg 3-19 tablet by [facility] tablet 00:00: mouth [place] 00 daily. [facility] aspirin 81 2-0 Yes [id number] 81mg Take 1 [facility] mg chewable 3-19 tablet by [facility] tablet 00:00: mouth [place] 00 daily. [facility] clopidogreL 2022-0 Yes [id number] 75mg Take 1 [facility] 75 mg 3-19 tablet by [facility] tablet 00:00: mouth [place] 00 daily. [facility] aspirin 81 2-0 Yes [id number] 81mg Take 1 [facility] mg chewable 3-19 tablet by [facility] tablet 00:00: mouth [place] 00 daily. [facility] clopidogreL 2022-0 Yes [id number] 75mg Take 1 [facility] 75 mg 3-19 tablet by [facility] tablet 00:00: mouth [place] 00 daily. [facility] aspirin 81 2-0 Yes [id number] 81mg Take 1 [facility] mg chewable 3-19 tablet by [facility] tablet 00:00: mouth [place] 00 daily. [facility] clopidogreL 2-0 Yes [id number] 75mg Take 1 [facility] 75 mg 3-19 tablet by [facility] tablet 00:00: mouth [place] 00 daily. [facility] aspirin 81 2021-0 Yes [id number] 81mg Take 1 [facility] mg chewable 3-19 tablet by [facility] tablet 00:00: mouth [place] 00 daily. [facility] clopidogreL 2-0 Yes [id number] 75mg Take 1 [facility] 75 mg 3-19 tablet by [facility] tablet 00:00: mouth [place] 00 daily. [facility] aspirin 81 2021-0 Yes [id number] 81mg Take 1 [facility] mg chewable 3-19 tablet by [facility] tablet 00:00: mouth [place] 00 daily. [facility] clopidogreL 2-0 Yes [id number] 75mg Take 1 [facility] 75 mg 3-19 tablet by [facility] tablet 00:00: mouth [place] 00 daily. [facility] aspirin 81 2021-0 Yes [id number] 81mg Take 1 [facility] mg chewable 3-19 tablet by [facility] tablet 00:00: mouth [place] 00 daily. [facility] aspirin 81 2021-0 Yes [id number] 81mg Take 1 [facility] mg chewable 3-19 tablet by [facility] tablet 00:00: mouth [place] 00 daily. [facility] aspirin 81 2021-0 Yes [id number] 81mg Take 1 [facility] mg chewable 3-19 tablet by [facility] tablet 00:00: mouth [place] 00 daily. [facility] aspirin 81 2021-0 Yes [id number] 81mg Take 1 [facility] mg chewable 3-19 tablet by [facility] tablet 00:00: mouth [place] 00 daily. [facility] aspirin 81 2021-0 Yes [id number] 81mg Take 1 [facility] mg chewable 3-19 tablet by [facility] tablet 00:00: mouth [place] 00 daily. [facility] aspirin 81 2-0 Yes [id number] 81mg Take 1 [facility] mg chewable 3-19 tablet by [facility] tablet 00:00: mouth [place] 00 daily. [facility] aspirin 81 2-0 Yes [id number] 81mg Take 1 [facility] mg chewable 3-19 tablet by [facility] tablet 00:00: mouth [place] 00 daily. [facility] aspirin 81 2021-0 Yes [id number] 81mg Take 1 [facility] mg chewable 3-19 tablet by [facility] tablet 00:00: mouth [place] 00 daily. [facility] aspirin 81 2021-0 Yes [id number] 81mg Take 1 [facility] mg chewable 3-19 tablet by [facility] tablet 00:00: mouth [place] 00 daily. [facility] aspirin 81 2021-0 Yes [id number] 81mg Take 1 [facility] mg chewable 3-19 tablet by [facility] tablet 00:00: mouth [place] 00 daily. [facility] aspirin 81 2021-0 Yes [id number] 81mg Take 1 [facility] mg chewable 3-19 tablet by [facility] tablet 00:00: mouth [place] 00 daily. [facility] aspirin 81 2021-0 Yes [id number] 81mg Take 1 [facility] mg chewable 3-19 tablet by [facility] tablet 00:00: mouth [place] 00 daily. [facility] aspirin 81 2021-0 Yes [id number] 81mg Take 1 [facility] mg chewable 3-19 tablet by [facility] tablet 00:00: mouth [place] 00 daily. [facility] aspirin 81 0 Yes [id number] 81mg Take 1 [facility] mg chewable 3-19 tablet by [facility] tablet 00:00: mouth [place] 00 daily. [facility] aspirin 81 2021-0 Yes [id number] 81mg Take 1 [facility] mg chewable 3-19 tablet by [facility] tablet 00:00: mouth [place] 00 daily. [facility] aspirin 81 2021-0 Yes [id number] 81mg Take 1 [facility] mg chewable 3-19 tablet by [facility] tablet 00:00: mouth [place] 00 daily. [facility] aspirin 81 2021-0 Yes [id number] 81mg Take 1 [facility] mg chewable 3-19 tablet by [facility] tablet 00:00: mouth [place] 00 daily. [facility] aspirin 81 2021-0 Yes [id number] 81mg Take 1 [facility] mg chewable 3-19 tablet by [facility] tablet 00:00: mouth [place] 00 daily. [facility] clopidogreL 2021-0 2022- No [id number] 75mg Take 1 [facility] 75 mg 3-19 - tablet by [facility] tablet 00:00: 00:00 mouth [place] 00 :00 daily. [facility] atorvastati 2021-0 2022- No [id number] 40mg Take 1 [facility] n 40 mg 3-19 -05 tablet by [facility] tablet 00:00: 00:00 mouth at [place] 00 :00 bedtime. [facility] Insulin 2021- No [id number] 5U inject 5 [facility] Regular 12-09-12 Units [facility] Human 100 00:00: 00:00 under the [place] unit/mL (3 00 :00 skin 3 Medical mL) InPn (three) Branch times daily before meals. Take 3 units prior to meal if eating small meal, if eating large meal take 4 units prior to meal instead Insulin 2021- No [id number] 15U inject 15 [facility] Glargine 12-09-12 Units [facility] of (LANTUS 00:00: 00:[place] [facility] [place] SOLOSTAR 00 :00 skin Medical U-100 daily. Branch INSULIN) 100 unit/mL (3 mL) injection nitroglycer 2020- Yes .4mg Place 1 [facility] vers in 0.4 mg 0-14 tablet [facility] of sublingual 00:00: under the [place] tablet 00 tongue Medical every 5 Branch (five) minutes as needed for Chest pain. nitroglycer 2020-[address] 1 [facility] vers in 0.4 mg 0-14 tablet [facility] of sublingual 00:00: under the [place] tablet 00 tongue Medical every 5 Branch (five) minutes as needed for Chest pain. nitroglycer 2020-[address] 1 [facility] vers in 0.4 mg 0-14 tablet [facility] of sublingual 00:00: under the [place] tablet 00 tongue Medical every 5 Branch (five) minutes as needed for Chest pain. nitroglycer 2020-[address] 1 [facility] vers in 0.4 mg 0-14 tablet [facility] of sublingual 00:00: under the [place] tablet 00 tongue Medical every 5 Branch (five) minutes as needed for Chest pain. nitroglycer 2020-[address] 1 [facility] vers in 0.4 mg 0-14 tablet [facility] of sublingual 00:00: under the [place] tablet 00 tongue Medical every 5 Branch (five) minutes as needed for Chest pain. nitroglycer 2020-[address] 1 [facility] vers in 0.4 mg 0-14 tablet [facility] of sublingual 00:00: under the [place] tablet 00 tongue Medical every 5 Branch (five) minutes as needed for Chest pain. nitroglycer 2020-[address] 1 [facility] vers in 0.4 mg 0-14 tablet [facility] of sublingual 00:00: under the [place] tablet 00 tongue Medical every 5 Branch (five) minutes as needed for Chest pain. nitroglycer 2020-[address] 1 [facility] vers in 0.4 mg 0-14 tablet [facility] of sublingual 00:00: under the [place] tablet 00 tongue Medical every 5 Branch (five) minutes as needed for Chest pain. nitroglycer 2020-[address] 1 [facility] vers in 0.4 mg 0-14 tablet [facility] of sublingual 00:00: under the [place] tablet 00 tongue Medical every 5 Branch (five) minutes as needed for Chest pain. nitroglycer 2020-[address] 1 [facility] vers in 0.4 mg 0-14 tablet [facility] of sublingual 00:00: under the [place] tablet 00 tongue Medical every 5 Branch (five) minutes as needed for Chest pain. nitroglycer 2020-[address] 1 [facility] vers in 0.4 mg 0-14 tablet [facility] of sublingual 00:00: under the [place] tablet 00 tongue Medical every 5 Branch (five) minutes as needed for Chest pain. nitroglycer 2020-[address] 1 [facility] vers in 0.4 mg 0-14 tablet [facility] of sublingual 00:00: under the [place] tablet 00 tongue Medical every 5 Branch (five) minutes as needed for Chest pain. nitroglycer 2020-[address] 1 [facility] vers in 0.4 mg 0-14 tablet [facility] of sublingual 00:00: under the [place] tablet 00 tongue Medical every 5 Branch (five) minutes as needed for Chest pain. nitroglycer 2020-[address] 1 [facility] vers in 0.4 mg 0-14 tablet [facility] of sublingual 00:00: under the [place] tablet 00 tongue Medical every 5 Branch (five) minutes as needed for Chest pain. nitroglycer 2020-[address] 1 [facility] vers in 0.4 mg 0-14 tablet [facility] of sublingual 00:00: under the [place] tablet 00 tongue Medical every 5 Branch (five) minutes as needed for Chest pain. nitroglycer 2020-[address] 1 [facility] vers in 0.4 mg 0-14 tablet [facility] of sublingual 00:00: under the [place] tablet 00 tongue Medical every 5 Branch (five) minutes as needed for Chest pain. nitroglycer 2020-[address] 1 [facility] vers in 0.4 mg 0-14 tablet [facility] of sublingual 00:00: under the [place] tablet 00 tongue Medical every 5 Branch (five) minutes as needed for Chest pain. nitroglycer 2020-[address] 1 [facility] vers in 0.4 mg 0-14 tablet [facility] of sublingual 00:00: under the [place] tablet 00 tongue Medical every 5 Branch (five) minutes as needed for Chest pain. nitroglycer 2020-[address] 1 [facility] vers in 0.4 mg 0-14 tablet [facility] of sublingual 00:00: under the [place] tablet 00 tongue Medical every 5 Branch (five) minutes as needed for Chest pain. nitroglycer 2020-[address] 1 [facility] vers in 0.4 mg 0-14 tablet [facility] of sublingual 00:00: under the [place] tablet 00 tongue Medical every 5 Branch (five) minutes as needed for Chest pain. nitroglycer 2020-[address] 1 [facility] vers in 0.4 mg 0-14 tablet [facility] of sublingual 00:00: under the [place] tablet 00 tongue Medical every 5 Branch (five) minutes as needed for Chest pain. nitroglycer 2020-[address] 1 [facility] vers in 0.4 mg 0-14 tablet [facility] of sublingual 00:00: under the [place] tablet 00 tongue Medical every 5 Branch (five) minutes as needed for Chest pain. nitroglycer 2020-[address] 1 [facility] vers in 0.4 mg 0-14 tablet [facility] of sublingual 00:00: under the [place] tablet 00 tongue Medical every 5 Branch (five) minutes as needed for Chest pain. nitroglycer 2020-[address] 1 [facility] vers in 0.4 mg 0-14 tablet [facility] of sublingual 00:00: under the [place] tablet 00 tongue Medical every 5 Branch (five) minutes as needed for Chest pain. nitroglycer 2020-[address] 1 [facility] vers in 0.4 mg 0-14 tablet [facility] of sublingual 00:00: under the [place] tablet 00 tongue Medical every 5 Branch (five) minutes as needed for Chest pain. nitroglycer 2020-[address] 1 [facility] vers in 0.4 mg 0-14 tablet [facility] of sublingual 00:00: under the [place] tablet 00 tongue Medical every 5 Branch (five) minutes as needed for Chest pain. nitroglycer 2020-[address] 1 [facility] vers in 0.4 mg 0-14 tablet [facility] of sublingual 00:00: under the [place] tablet 00 tongue Medical every 5 Branch (five) minutes as needed for Chest pain. nitroglycer 2020-[address] 1 [facility] vers in 0.4 mg 0-14 tablet [facility] of sublingual 00:00: under the [place] tablet 00 tongue Medical every 5 Branch (five) minutes as needed for Chest pain. nitroglycer 2020-[address] 1 [facility] vers in 0.4 mg 0-14 tablet [facility] of sublingual 00:00: under the [place] tablet 00 tongue Medical every 5 Branch (five) minutes as needed for Chest pain. nitroglycer 2020-[address] 1 [facility] vers in 0.4 mg 0-14 tablet [facility] of sublingual 00:00: under the [place] tablet 00 tongue Medical every 5 Branch (five) minutes as needed for Chest pain. nitroglycer 2020-[address] 1 [facility] vers in 0.4 mg 0-14 tablet [facility] of sublingual 00:00: under the [place] tablet 00 tongue Medical every 5 Branch (five) minutes as needed for Chest pain. nitroglycer 2020-[address] 1 [facility] vers in 0.4 mg 0-14 tablet [facility] of sublingual 00:00: under the [place] tablet 00 tongue Medical every 5 Branch (five) minutes as needed for Chest pain. nitroglycer 2020-[address] 1 [facility] vers in 0.4 mg 0-14 tablet [facility] of sublingual 00:00: under the [place] tablet 00 tongue Medical every 5 Branch (five) minutes as needed for Chest pain. nitroglycer 2020-[address] 1 [facility] vers in 0.4 mg 0-14 tablet [facility] of sublingual 00:00: under the [place] tablet 00 tongue Medical every 5 Branch (five) minutes as needed for Chest pain. nitroglycer 2020-[address] 1 [facility] vers in 0.4 mg 0-14 tablet [facility] of sublingual 00:00: under the [place] tablet 00 tongue Medical every 5 Branch (five) minutes as needed for Chest pain. nitroglycer 2020-[address] 1 [facility] vers in 0.4 mg 0-14 tablet [facility] of sublingual 00:00: under the [place] tablet 00 tongue Medical every 5 Branch (five) minutes as needed for Chest pain. nitroglycer 2020-[address] 1 [facility] vers in 0.4 mg 0-14 tablet [facility] of sublingual 00:00: under the [place] tablet 00 tongue Medical every 5 Branch (five) minutes as needed for Chest pain. nitroglycer 2020-[address] 1 [facility] vers in 0.4 mg 0-14 tablet [facility] of sublingual 00:00: under the [place] tablet 00 tongue Medical every 5 Branch (five) minutes as needed for Chest pain. nitroglycer 2020-[address] 1 [facility] vers in 0.4 mg 0-14 tablet [facility] of sublingual 00:00: under the [place] tablet 00 tongue Medical every 5 Branch (five) minutes as needed for Chest pain. nitroglycer 2020-[address] 1 [facility] vers in 0.4 mg 0-14 tablet [facility] of sublingual 00:00: under the [place] tablet 00 tongue Medical every 5 Branch (five) minutes as needed for Chest pain. nitroglycer 2020-[address] 1 [facility] vers in 0.4 mg 0-14 tablet [facility] of sublingual 00:00: under the [place] tablet 00 tongue Medical every 5 Branch (five) minutes as needed for Chest pain. nitroglycer 2020-[address] 1 [facility] vers in 0.4 mg 0-14 tablet ity of sublingual 00:00: under the [place] tablet 00 tongue Medical every 5 Branch (five) minutes as needed for Chest pain. nitroglycer 2020-[address] 1 [facility] vers in 0.4 mg 0-14 tablet ity of sublingual 00:00: under the [place] tablet 00 tongue Medical every 5 Branch (five) minutes as needed for Chest pain. nitroglycer 2020-[address] 1 [facility] vers in 0.4 mg 0-14 tablet ity of sublingual 00:00: under the [place] tablet 00 tongue Medical every 5 Branch (five) minutes as needed for Chest pain. nitroglycer 2020-[address] 1 [facility] vers in 0.4 mg 0-14 tablet [facility]y of sublingual 00:00: under the [place] tablet 00 tongue Medical every 5 Branch (five) minutes as needed for Chest pain. nitroglycer 2020-[address] 1 [facility] vers in 0.4 mg 0-14 tablet ity of sublingual 00:00: under the [place] tablet 00 tongue Medical every 5 Branch (five) minutes as needed for Chest pain. nitroglycer 2020-[address] 1 [facility] vers in 0.4 mg 0-14 tablet ity of sublingual 00:00: under the [place] tablet 00 tongue Medical every 5 Branch (five) minutes as needed for Chest pain. nitroglycer 2020-[address] 1 [facility] vers in 0.4 mg 0-14 tablet ity of sublingual 00:00: under the [place] tablet 00 tongue Medical every 5 Branch (five) minutes as needed for Chest pain. nitroglycer 2020-[address] 1 [facility] vers in 0.4 mg 0-14 tablet ity of sublingual 00:00: under the [place] tablet 00 tongue Medical every 5 Branch (five) minutes as needed for Chest pain. nitroglycer 2020-[address] 1 [facility] vers in 0.4 mg 0-14 tablet ity of sublingual 00:00: under the [place] tablet 00 tongue Medical every 5 Branch (five) minutes as needed for Chest pain. nitroglycer 2020-[address] 1 [facility] vers in 0.4 mg 0-14 tablet [facility]y of sublingual 00:00: under the [place] tablet 00 tongue Medical every 5 Branch (five) minutes as needed for Chest pain. nitroglycer 2020-[address] 1 [facility] vers in 0.4 mg 0-14 tablet [facility]y of sublingual 00:00: under the [place] tablet 00 tongue Medical every 5 Branch (five) minutes as needed for Chest pain. nitroglycer 2020-[address] 1 [facility] vers in 0.4 mg 0-14 tablet ity of sublingual 00:00: under the [place] tablet 00 tongue Medical every 5 Branch (five) minutes as needed for Chest pain. nitroglycer 2020-[address] 1 [facility] vers in 0.4 mg 0-14 tablet [facility]y of sublingual 00:00: under the [place] tablet 00 tongue Medical every 5 Branch (five) minutes as needed for Chest pain. nitroglycer 2020-[address] 1 [facility] vers in 0.4 mg 0-14 tablet [facility] of sublingual 00:00: under the [place] tablet 00 tongue Medical every 5 Branch (five) minutes as needed for Chest pain. nitroglycer 2020-[address] 1 [facility] in 0.4 mg 0-14 tablet ity of sublingual 00:00: [facility] [place] tablet 00 tongue Medical every 5 Branch (five) minutes as needed for Chest pain. nitroglycer 2020-[address] 1 [facility] vers in 0.4 mg 0-14 tablet ity of sublingual 00:00: [facility] [place] tablet 00 tongue Medical every 5 Branch (five) minutes as needed for Chest pain. nitroglycer 2020-[address] 1 Uni vers in 0.4 mg 0-14 tablet ity of sublingual 00:00: [facility] [place] tablet 00 tongue Medical every 5 Branch (five) minutes as needed for Chest pain. nitroglycer 2020-[address] 1 Uni vers in 0.4 mg 0-14 tablet ity of sublingual 00:00: [facility] [place] tablet 00 tongue Medical every 5 Branch (five) minutes as needed for Chest pain. nitroglycer 2020-[address] 1 Uni vers in 0.4 mg 0-14 tablet ity of sublingual 00:00: [facility] [place] tablet 00 tongue Medical every 5 Branch (five) minutes as needed for Chest pain. nitroglycer 2020-[address] 1 Uni vers in 0.4 mg 0-14 tablet ity of sublingual 00:00: [facility] [place] tablet 00 tongue Medical every 5 Branch (five) minutes as needed for Chest pain. nitroglycer 2020-[address] 1 Uni vers in 0.4 mg 0-14 tablet ity of sublingual 00:00: [facility] [place] tablet 00 tongue Medical every 5 Branch (five) minutes as needed for Chest pain. nitroglycer 2020-[address] 1 Uni vers in 0.4 mg 0-14 tablet ity of sublingual 00:00: [facility] [place] tablet 00 tongue Medical every 5 Branch (five) minutes as needed for Chest pain. nitroglycer 2019-[address] 1 Uni vers in 0.4 mg 0-14 tablet ity of sublingual 00:00: [facility] [place] tablet 00 tongue Medical every 5 Branch (five) minutes as needed for Chest pain. nitroglycer 2019-[address] 1 Uni vers in 0.4 mg 0-14 tablet ity of sublingual 00:00: [facility] [place] tablet 00 tongue Medical every 5 Branch (five) minutes as needed for Chest pain. nitroglycer 2019- Yes .4mg Place 1 Uni vers in 0.4 mg 0-14 tablet ity of sublingual 00:00: [facility] [place] tablet 00 tongue Medical every 5 Branch (five) minutes as needed for Chest pain. nitroglycer 2019-09- No .4mg Place 1 [facility] [place] in 0.4 mg 0-14 09- tablet ity of sublingual 00:00: 00:00 [facility] [place] tablet 00 :00 tongue Medical every 5 Branch (five) minutes as needed for Chest pain. nitroglycer 2019-09- No .4mg Place 1 [facility] [place] in 0.4 mg 0-14 09-01 tablet ity of sublingual 00:00: 00:00 [facility] [place] tablet 00 :00 tongue Medical every 5 Branch (five) minutes as needed for Chest pain. Immunizations Ordered Filled Immunization Date Status Comments [facility] e Immunization Name Name SARS-COV-2 COVID-2022-07-25 Completed Unive rsity of VACCINE 12 YRS+, 00:00:00 [place] [facility] BIVALENT 0.5ML, IM, Branc h (MODERNA BOOSTER) SARS-COV-2 COVID-19 2022-07-25 Completed Unive rsity of VACCINE 12 YRS+, 00:00:00 [place] [facility] BIVALENT 0.5ML, IM, Branc h (MODERNA BOOSTER) SARS-COV-2 COVID-19 2022-07-25 Completed Unive rsity of VACCINE 12 YRS+, 00:00:00 [place] [facility] BIVALENT 0.5ML, IM, Branc h (MODERNA BOOSTER) SARS-COV-2 COVID-19 2022-07-25 Completed Unive rsity of VACCINE 12 YRS+, 00:00:00 [place] [facility] BIVALENT 0.5ML, IM, Branc h (MODERNA BOOSTER) SARS-COV-2 COVID-19 2022-07-25 Completed Unive rsity of VACCINE 12 YRS+, 00:00:00 [place] [facility] BIVALENT 0.5ML, IM, Branc h (MODERNA BOOSTER) SARS-COV-2 COVID-19 2022-07-25 Completed Unive rsity of VACCINE 12 YRS+, 00:00:00 [place] [facility] BIVALENT 0.5ML, IM, Branc h (MODERNA BOOSTER) SARS-COV-2 COVID-19 2022-07-25 Completed Unive rsity of VACCINE 12 YRS+, 00:00:00 [place] [facility] BIVALENT 0.5ML, IM, Branc h (MODERNA BOOSTER) SARS-COV-2 COVID-19 2022-07-25 Completed Unive rsity of VACCINE 12 YRS+, 00:00:00 [place] [facility] BIVALENT 0.5ML, IM, Branc h (MODERNA BOOSTER) SARS-COV-2 COVID-19 2022-07-25 Completed Unive rsity of VACCINE 12 YRS+, 00:00:00 [place] [facility] BIVALENT 0.5ML, IM, Branc h (MODERNA BOOSTER) SARS-COV-2 COVID-19 2022-07-25 Completed Unive rsity of VACCINE 12 YRS+, 00:00:00 [place] [facility] BIVALENT 0.5ML, IM, Branc h (MODERNA BOOSTER) SARS-COV-2 COVID-19 2022-07-25 Completed Unive rsity of VACCINE 12 YRS+, 00:00:00 [place] [facility] BIVALENT 0.5ML, IM, Branc h (MODERNA BOOSTER) SARS-COV-2 COVID-19 2022-07-25 Completed Unive rsity of VACCINE 12 YRS+, 00:00:00 [place] [facility] BIVALENT 0.5ML, IM, Branc h (MODERNA BOOSTER) SARS-COV-2 COVID-19 2022-07-25 Completed Unive rsity of VACCINE 12 YRS+, 00:00:00 [place] [facility] BIVALENT 0.5ML, IM, Branc h (MODERNA BOOSTER) SARS-COV-2 COVID-19 2022-07-25 Completed Unive rsity of VACCINE 12 YRS+, 00:00:00 [place] [facility] BIVALENT 0.5ML, IM, Branc h (MODERNA BOOSTER) SARS-COV-2 COVID-19 2022-07-25 Completed Unive rsity of VACCINE 12 YRS+, 00:00:00 [place] [facility] BIVALENT 0.5ML, IM, Branc h (MODERNA BOOSTER) SARS-COV-2 COVID-19 2022-07-25 Completed Unive rsity of VACCINE 12 YRS+, 00:00:00 [place] [facility] BIVALENT 0.5ML, IM, Branc h (MODERNA BOOSTER) SARS-COV-2 COVID-19 2022-07-25 Completed Unive rsity of VACCINE 12 YRS+, 00:00:00 [place] [facility] BIVALENT 0.5ML, IM, Branc h (MODERNA BOOSTER) SARS-COV-2 COVID-19 2022-07-25 Completed Unive rsity of VACCINE 12 YRS+, 00:00:00 [place] [facility] BIVALENT 0.5ML, IM, Branc h (MODERNA BOOSTER) SARS-COV-2 COVID-19 2022-07-25 Completed Unive rsity of VACCINE 12 YRS+, 00:00:00 [place] [facility] BIVALENT 0.5ML, IM, Branc h (MODERNA BOOSTER) SARS-COV-2 COVID-19 2022-07-25 Completed Unive rsity of VACCINE 12 YRS+, 00:00:00 [place] [facility] BIVALENT 0.5ML, IM, Branc h (MODERNA BOOSTER) SARS-COV-2 COVID-19 2022-07-25 Completed Unive rsity of VACCINE 12 YRS+, 00:00:00 [place] [facility] BIVALENT 0.5ML, IM, Branc h (MODERNA BOOSTER) SARS-COV-2 COVID-19 2022-07-25 Completed Unive rsity of VACCINE 12 YRS+, 00:00:00 [place] [facility] BIVALENT 0.5ML, IM, Branc h (MODERNA BOOSTER) SARS-COV-2 COVID-19 2022-07-25 Completed Unive rsity of VACCINE 12 YRS+, 00:00:00 [place] [facility] BIVALENT 0.5ML, IM, Branc h (MODERNA BOOSTER) SARS-COV-2 COVID-19 2022-07-25 Completed Unive rsity of VACCINE 12 YRS+, 00:00:00 [place] [facility] BIVALENT 0.5ML, IM, Branc h (MODERNA BOOSTER) SARS-COV-2 COVID-19 2022-07-25 Completed Unive rsity of VACCINE 12 YRS+, 00:00:00 [place] [facility] BIVALENT 0.5ML, IM, Branc h (MODERNA BOOSTER) SARS-COV-2 COVID-19 2022-07-25 Completed Unive rsity of VACCINE 12 YRS+, 00:00:00 [place] [facility] BIVALENT 0.5ML, IM, Branc h (MODERNA BOOSTER) SARS-COV-2 COVID-19 2022-07-25 Completed Unive rsity of VACCINE 12 YRS+, 00:00:00 [place] [facility] BIVALENT 0.5ML, IM, Branc h (MODERNA BOOSTER) SARS-COV-2 COVID-19 2022-07-25 Completed Unive rsity of VACCINE 12 YRS+, 00:00:00 [place] [facility] BIVALENT 0.5ML, IM, Branc h (MODERNA BOOSTER) SARS-COV-2 COVID-19 2022-07-25 Completed Unive rsity of VACCINE 12 YRS+, 00:00:00 [place] [facility] BIVALENT 0.5ML, IM, Branc h (MODERNA BOOSTER) SARS-COV-2 COVID-19 2022-07-25 Completed Unive rsity of VACCINE 12 YRS+, 00:00:00 [place] [facility] BIVALENT 0.5ML, IM, Branc h (MODERNA BOOSTER) SARS-COV-2 COVID-19 2022-07-25 Completed Unive rsity of VACCINE 12 YRS+, 00:00:00 [place] [facility] BIVALENT 0.5ML, IM, Branc h (MODERNA BOOSTER) SARS-COV-2 COVID-19 2022-07-25 Completed Unive rsity of VACCINE 12 YRS+, 00:00:00 [place] [facility] BIVALENT 0.5ML, IM, Branc h (MODERNA BOOSTER) SARS-COV-2 COVID-19 2022-07-25 Completed Unive rsity of VACCINE 12 YRS+, 00:00:00 [place] [facility] BIVALENT 0.5ML, IM, Branc h (MODERNA BOOSTER) SARS-COV-2 COVID-19 2022-07-25 Completed Unive rsity of VACCINE 12 YRS+, 00:00:00 [place] [facility] BIVALENT 0.5ML, IM, Branc h (MODERNA BOOSTER) SARS-COV-2 COVID-19 2022-07-25 Completed Unive rsity of VACCINE 12 YRS+, 00:00:00 [place] [facility] BIVALENT 0.5ML, IM, Branc h (MODERNA BOOSTER) SARS-COV-2 COVID-19 2022-07-25 Completed Unive rsity of VACCINE 12 YRS+, 00:00:00 [place] [facility] BIVALENT 0.5ML, IM, Branc h (MODERNA BOOSTER) SARS-COV-2 COVID-19 2022-07-25 Completed Unive rsity of VACCINE 12 YRS+, 00:00:00 [place] [facility] BIVALENT 0.5ML, IM, Branc h (MODERNA BOOSTER) SARS-COV-2 COVID-19 2022-07-25 Completed Unive rsity of VACCINE 12 YRS+, 00:00:00 [place] [facility] BIVALENT 0.5ML, IM, Branc h (MODERNA) SARS-COV-2 COVID-19 2022-07-25 Completed Unive rsity of VACCINE 12 YRS+, 00:00:00 [place] [facility] BIVALENT 0.5ML, IM, Branc h (MODERNA) SARS-COV-2 COVID-19 2022-07-25 Completed Unive rsity of VACCINE 12 YRS+, 00:00:00 [place] [facility] BIVALENT 0.5ML, IM, Branc h (MODERNA-BLUE TOP) SARS-COV-2 COVID-19 2022-07-25 Completed Unive rsity of VACCINE 12 YRS+, 00:00:00 [place] [facility] BIVALENT 0.5ML, IM, Branc h (MODERNA-BLUE TOP) SARS-COV-2 COVID-19 2022-07-25 Completed Unive rsity of VACCINE 12 YRS+, 00:00:00 [place] [facility] BIVALENT 0.5ML, IM, Branc h (MODERNA-BLUE TOP) SARS-COV-2 COVID-19 2022-07-25 Completed Unive rsity of VACCINE 12 YRS+, 00:00:00 [place] [facility] BIVALENT 0.5ML, IM, Branc h (MODERNA-BLUE TOP) SARS-COV-2 COVID-19 2022-07-25 Completed Unive rsity of VACCINE 12 YRS+, 00:00:00 [place] [facility] BIVALENT 0.5ML, IM, Branc h (MODERNA-BLUE TOP) SARS-COV-2 COVID-19 2022-07-25 Completed Unive rsity of VACCINE 12 YRS+, 00:00:00 [place] [facility] BIVALENT 0.5ML, IM, Branc h (MODERNA-BLUE TOP) SARS-COV-2 COVID-19 2022-07-25 Completed Unive rsity of VACCINE 12 YRS+, 00:00:00 [place] [facility] BIVALENT 0.5ML, IM, Branc h (MODERNA-BLUE TOP) SARS-COV-2 COVID-19 2022-07-25 Completed Unive rsity of VACCINE 12 YRS+, 00:00:00 [place] [facility] BIVALENT 0.5ML, IM, Branc h (MODERNA-BLUE TOP) SARS-COV-2 COVID-19 2022-07-25 Completed Unive rsity of VACCINE 12 YRS+, 00:00:00 [place] [facility] BIVALENT 0.5ML, IM, Branc h (MODERNA-BLUE TOP) SARS-COV-2 COVID-19 2022-07-25 Completed Unive rsity of VACCINE 12 YRS+, 00:00:00 [place] [facility] BIVALENT 0.5ML, IM, Branc h (MODERNA-BLUE TOP) SARS-COV-2 COVID-19 2022-07-25 Completed Unive rsity of VACCINE 12 YRS+, 00:00:00 [place] [facility] BIVALENT 0.5ML, IM, Branc h (MODERNA-BLUE TOP) SARS-COV-2 COVID-19 2022-07-25 Completed Unive rsity of VACCINE 12 YRS+, 00:00:00 [place] [facility] BIVALENT 0.5ML, IM, Branc h (MODERNA-BLUE TOP) SARS-COV-2 COVID-19 2022-07-25 Completed Unive rsity of VACCINE 12 YRS+, 00:00:00 [place] [facility] BIVALENT 0.5ML, IM, Branc h (MODERNA-BLUE TOP) SARS-COV-2 COVID-19 2022-07-25 Completed Unive rsity of VACCINE 12 YRS+, 00:00:00 [place] [facility] BIVALENT 0.5ML, IM, Branc h (MODERNA-BLUE TOP) SARS-COV-2 COVID-19 2022-07-25 Completed Unive rsity of VACCINE 12 YRS+, 00:00:00 [place] [facility] BIVALENT 0.5ML, IM, Branc h (MODERNA-BLUE TOP) SARS-COV-2 COVID-19 2022-07-25 Completed Unive rsity of VACCINE 12 YRS+, 00:00:00 [place] [facility] BIVALENT 0.5ML, IM, Branc h (MODERNA-BLUE TOP) SARS-COV-2 COVID-19 2022-07-25 Completed Unive rsity of VACCINE 12 YRS+, 00:00:00 [place] [facility] BIVALENT 0.5ML, IM, Branc h (MODERNA-BLUE TOP) SARS-COV-2 COVID-19 2022-07-25 Completed Unive rsity of VACCINE 12 YRS+, 00:00:00 [place] [facility] BIVALENT 0.5ML, IM, Branc h (MODERNA-BLUE TOP) SARS-COV-2 COVID-19 2022-07-25 Completed Unive rsity of VACCINE 12 YRS+, 00:00:00 [place] [facility] BIVALENT 0.5ML, IM, Branc h (MODERNA-BLUE TOP) SARS-COV-2 COVID-19 2022-07-25 Completed Unive rsity of VACCINE 12 YRS+, 00:00:00 [place] [facility] BIVALENT 0.5ML, IM, Branc h (MODERNA-BLUE TOP) SARS-COV-2 COVID-19 2022-07-25 Completed Unive rsity of VACCINE 12 YRS+, 00:00:00 [place] [facility] BIVALENT 0.5ML, IM, Branc h (MODERNA-BLUE TOP) SARS-COV-2 COVID-19 2022-07-25 Completed Unive rsity of VACCINE 12 YRS+, 00:00:00 [place] [facility] BIVALENT 0.5ML, IM, Branc h (MODERNA-BLUE TOP) SARS-COV-2 COVID-19 2022-07-25 Completed Unive rsity of VACCINE 12 YRS+, 00:00:00 [place] [facility] BIVALENT 0.5ML, IM, Branc h (MODERNA-BLUE TOP) SARS-COV-2 COVID-19 2022-07-25 Completed Unive rsity of VACCINE 12 YRS+, 00:00:00 [place] [facility] BIVALENT 0.5ML, IM, Branc h (MODERNA-BLUE TOP) PPD (TB) 2021-10-21 Completed [facility] 00:00:00 [facility] PPD (TB) 2021-10-21 Completed University of 00:00:00 [facility] PPD (TB) 2021-10-21 Completed University of 00:00:00 [facility] PPD (TB) 2021-10-21 Completed [facility] of 00:00:00 [facility] PPD (TB) 2021-10-21 Completed University of 00:00:00 [facility] PPD (TB) 2021-10-21 Completed [facility] of 00:00:00 [facility] PPD (TB) 2021-10-21 Completed [facility] of 00:00:00 [facility] PPD (TB) 2021-10-21 Completed University of 00:00:00 [facility] PPD (TB) 2021-10-21 Completed University of 00:00:00 [facility] PPD (TB) 2021-10-21 Completed University of 00:00:00 [facility] PPD (TB) 2021-10-21 Completed [facility] of 00:00:00 [facility] PPD (TB) 2021-10-21 Completed University of 00:00:00 [facility] PPD (TB) 2021-10-21 Completed University of 00:00:00 [facility] PPD (TB) 2021-10-21 Completed University of 00:00:00 [facility] PPD (TB) 2021-10-21 Completed University of 00:00:00 [facility] PPD (TB) 2021-10-21 Completed University of 00:00:00 [facility] PPD (TB) 2021-10-21 Completed University of 00:00:00 [facility] PPD (TB) 2021-10-21 Completed University of 00:00:00 [facility] PPD (TB) 2021-10-21 Completed University of 00:00:00 [facility] PPD (TB) 2021-10-21 Completed University of 00:00:00 [facility] PPD (TB) 2021-10-21 Completed [facility] 00:00:00 [facility] PPD (TB) 2021-10-21 Completed [facility] 00:00:00 [facility] PPD (TB) 2021-10-21 Completed [facility] of 00:00:00 [facility] PPD (TB) 2021-10-21 Completed University of 00:00:00 [facility] PPD (TB) 2021-10-21 Completed [facility] 00:00:00 [facility] PPD (TB) 2021-10-21 Completed [facility] of 00:00:00 [facility] PPD (TB) 2021-10-21 Completed University of 00:00:00 [facility] PPD (TB) 2021-10-21 Completed University of 00:00:00 [facility] PPD (TB) 2021-10-21 Completed University of 00:00:00 [facility] PPD (TB) 2021-10-21 Completed University of 00:00:00 [facility] PPD (TB) 2021-10-21 Completed [facility] of 00:00:00 [facility] PPD (TB) 2021-10-21 Completed [facility] of 00:00:00 [facility] PPD (TB) 2021-10-21 Completed [facility] of 00:00:00 [facility] PPD (TB) 2021-10-21 Completed University of 00:00:00 [facility] PPD (TB) 2021-10-21 Completed [facility] of 00:00:00 [facility] PPD (TB) 2021-10-21 Completed [facility] of 00:00:00 [facility] PPD (TB) 2021-10-21 Completed [facility] 00:00:00 [facility] PPD (TB) 2021-10-21 Completed [facility] of 00:00:00 [facility] PPD (TB) 2021-10-21 Completed [facility] of 00:00:00 [facility] PPD (TB) 2021-10-21 Completed [facility] of 00:00:00 [facility] PPD (TB) 2021-10-21 Completed [facility] of 00:00:00 [facility] PPD (TB) 2021-10-21 Completed [facility] of 00:00:00 [facility] PPD (TB) 2021-10-21 Completed [facility] of 00:00:00 [facility] PPD (TB) 2021-10-21 Completed [facility] of 00:00:00 [facility] PPD (TB) 2021-10-21 Completed [facility] 00:00:00 [facility] PPD (TB) 2021-10-21 Completed [facility] 00:00:00 [facility] PPD (TB) 2021-10-21 Completed [facility] 00:00:00 [facility] PPD (TB) 2021-10-21 Completed [facility] of 00:00:00 [facility] PPD (TB) 2021-10-21 Completed [facility] 00:00:00 [facility] PPD (TB) 2021-10-21 Completed [facility] of 00:00:00 [facility] PPD (TB) 2021-10-21 Completed [facility] of 00:00:00 [facility] PPD (TB) 2021-10-21 Completed [facility] of 00:00:00 [facility] PPD (TB) 2021-10-21 Completed [facility] of 00:00:00 [facility] PPD (TB) 2021-10-21 Completed [facility] of 00:00:00 [facility] PPD (TB) 2021-10-21 Completed [facility] of 00:00:00 [facility] PPD (TB) 2021-10-21 Completed University of 00:00:00 [facility] PPD (TB) 2021-10-21 Completed University of 00:00:00 [facility] PPD (TB) 2021-10-21 Completed [facility] of 00:00:00 [facility] PPD (TB) 2021-10-21 Completed [facility] of 00:00:00 [facility] PPD (TB) 2021-10-21 Completed [facility] of 00:00:00 [facility] PPD (TB) 2021-10-21 Completed [facility] of 00:00:00 [facility] PPD (TB) 2021-10-21 Completed [facility] of 00:00:00 [facility] PPD (TB) 2021-10-21 Completed [facility] of 00:00:00 [facility] PPD (TB) 2021-10-21 Completed [facility] of 00:00:00 [facility] PPD (TB) 2021-10-21 Completed [facility] of 00:00:00 [facility] PPD (TB) 2021-10-21 Completed [facility] of 00:00:00 [facility] PPD (TB) 2021-10-21 Completed [facility] of 00:00:00 [facility] PPD (TB) 2021-10-21 Completed University of 00:00:00 [facility] SARS-COV-2 COVID-19 2021-09-08 Completed Unive rsity of MODERNA 12+ YRS 00:00:00 [place] [facility] VACCINE [facility] SARS-COV-2 COVID-19 2021-09-08 Completed Unive rsity of MODERNA 12+ YRS 00:00:00 [place] [facility] VACCINE [facility] SARS-COV-2 COVID-19 2021-09-08 Completed Unive rsity of MODERNA 12+ YRS 00:00:00 [place] [facility] VACCINE [facility] SARS-COV-2 COVID-19 2021-09-08 Completed Unive rsity of MODERNA 12+ YRS 00:00:00 [place] [facility] VACCINE [facility] SARS-COV-2 COVID-19 2021-09-08 Completed Unive rsity of MODERNA 12+ YRS 00:00:00 [place] [facility] VACCINE [facility] SARS-COV-2 COVID-19 2021-09-08 Completed Unive rsity of MODERNA 12+ YRS 00:00:00 [place] [facility] VACCINE [facility] SARS-COV-2 COVID-19 2021-09-08 Completed Unive rsity of MODERNA 12+ YRS 00:00:00 [place] [facility] VACCINE [facility] SARS-COV-2 COVID-19 2021-09-08 Completed Unive rsity of MODERNA 12+ YRS 00:00:00 [place] [facility] VACCINE [facility] SARS-COV-2 COVID-19 2021-09-08 Completed Unive rsity of MODERNA 12+ YRS 00:00:00 [place] [facility] VACCINE [facility] SARS-COV-2 COVID-19 2021-09-08 Completed Unive rsity of MODERNA 12+ YRS 00:00:00 [place] [facility] VACCINE [facility] SARS-COV-2 COVID-19 2021-09-08 Completed Unive rsity of MODERNA 12+ YRS 00:00:00 [place] [facility] VACCINE [facility] SARS-COV-2 COVID-19 2021-09-08 Completed Unive rsity of MODERNA 12+ YRS 00:00:00 [place] [facility] VACCINE [facility] SARS-COV-2 COVID-19 2021-09-08 Completed Unive rsity of MODERNA 12+ YRS 00:00:00 [place] [facility] VACCINE [facility] SARS-COV-2 COVID-19 2021-09-08 Completed Unive rsity of MODERNA 12+ YRS 00:00:00 [place] [facility] VACCINE [facility] SARS-COV-2 COVID-19 2021-09-08 Completed Unive rsity of MODERNA 12+ YRS 00:00:00 [place] [facility] VACCINE [facility] SARS-COV-2 COVID-19 2021-09-08 Completed Unive rsity of MODERNA 12+ YRS 00:00:00 [place] [facility] VACCINE [facility] SARS-COV-2 COVID-19 2021-09-08 Completed Unive rsity of MODERNA 12+ YRS 00:00:00 [place] [facility] VACCINE [facility] SARS-COV-2 COVID-19 2021-09-08 Completed Unive rsity of MODERNA 12+ YRS 00:00:00 [place] [facility] VACCINE [facility] SARS-COV-2 COVID-19 2021-09-08 Completed Unive rsity of MODERNA 12+ YRS 00:00:00 [place] [facility] VACCINE [facility] SARS-COV-2 COVID-19 2021-09-08 Completed Unive rsity of MODERNA 12+ YRS 00:00:00 [place] [facility] VACCINE [facility] SARS-COV-2 COVID-19 2021-09-08 Completed Unive rsity of MODERNA 12+ YRS 00:00:00 [place] [facility] VACCINE [facility] SARS-COV-2 COVID-19 2021-09-08 Completed Unive rsity of MODERNA 12+ YRS 00:00:00 [place] [facility] VACCINE [facility] SARS-COV-2 COVID-19 2021-09-08 Completed Unive rsity of MODERNA 12+ YRS 00:00:00 [place] [facility] VACCINE [facility] SARS-COV-2 COVID-19 2021-09-08 Completed Unive rsity of MODERNA 12+ YRS 00:00:00 [place] [facility] VACCINE [facility] SARS-COV-2 COVID-19 2021-09-08 Completed Unive rsity of MODERNA 12+ YRS 00:00:00 [place] [facility] VACCINE [facility] SARS-COV-2 COVID-19 2021-09-08 Completed Unive rsity of MODERNA 12+ YRS 00:00:00 [place] [facility] VACCINE [facility] SARS-COV-2 COVID-19 2021-09-08 Completed Unive rsity of MODERNA 12+ YRS 00:00:00 [place] [facility] VACCINE [facility] SARS-COV-2 COVID-19 2021-09-08 Completed Unive rsity of MODERNA 12+ YRS 00:00:00 [place] [facility] VACCINE [facility] SARS-COV-2 COVID-19 2021-09-08 Completed Unive rsity of MODERNA 12+ YRS 00:00:00 [place] [facility] VACCINE [facility] SARS-COV-2 COVID-19 2021-09-08 Completed Unive rsity of MODERNA 12+ YRS 00:00:00 [place] [facility] VACCINE [facility] SARS-COV-2 COVID-19 2021-09-08 Completed Unive rsity of MODERNA 12+ YRS 00:00:00 [place] [facility] VACCINE [facility] SARS-COV-2 COVID-19 2021-09-08 Completed Unive rsity of MODERNA 12+ YRS 00:00:00 [place] [facility] VACCINE [facility] SARS-COV-2 COVID-19 2021-09-08 Completed Unive rsity of MODERNA 12+ YRS 00:00:00 [place] [facility] VACCINE [facility] SARS-COV-2 COVID-19 2021-09-08 Completed Unive rsity of MODERNA 12+ YRS 00:00:00 [place] [facility] VACCINE [facility] SARS-COV-2 COVID-19 2021-09-08 Completed Unive rsity of MODERNA 12+ YRS 00:00:00 [place] [facility] VACCINE [facility] SARS-COV-2 COVID-19 2021-09-08 Completed Unive rsity of MODERNA 12+ YRS 00:00:00 [place] [facility] VACCINE [facility] SARS-COV-2 COVID-19 2021-09-08 Completed Unive rsity of MODERNA 12+ YRS 00:00:00 [place] [facility] VACCINE [facility] SARS-COV-2 COVID-19 2021-09-08 Completed Unive rsity of MODERNA 12+ YRS 00:00:00 [place] [facility] VACCINE [facility] SARS-COV-2 COVID-19 2021-09-08 Completed Unive rsity of MODERNA 12+ YRS 00:00:00 [place] [facility] VACCINE [facility] SARS-COV-2 COVID-19 2021-09-08 Completed Unive rsity of MODERNA 12+ YRS 00:00:00 [place] [facility] VACCINE [facility] SARS-COV-2 COVID-19 2021-09-08 Completed Unive rsity of MODERNA 12+ YRS 00:00:00 [place] [facility] VACCINE [facility] SARS-COV-2 COVID-19 2021-09-08 Completed Unive rsity of MODERNA 12+ YRS 00:00:00 [place] [facility] VACCINE [facility] SARS-COV-2 COVID-19 2021-09-08 Completed Unive rsity of MODERNA 12+ YRS 00:00:00 [place] [facility] VACCINE [facility] SARS-COV-2 COVID-19 2021-09-08 Completed Unive rsity of MODERNA 12+ YRS 00:00:00 [place] [facility] VACCINE [facility] SARS-COV-2 COVID-19 2021-09-08 Completed Unive rsity of MODERNA 12+ YRS 00:00:00 [place] [facility] VACC[facility] SARS-COV-2 COVID-19 2021-09-08 Completed Unive rsity of MODERNA 12+ YRS 00:00:00 [place] [facility] SARS-COV-2 COVID-19 2021-09-08 Completed [facility] 12+ YRS 00:00:00 [place] [facility] SARS-COV-2 COVID-19 2021-09-08 Completed [facility] 12+ YRS 00:00:00 [place] [facility] SARS-COV-2 COVID-19 2021-09-08 Completed [facility] 12+ YRS 00:00:00 [place] [facility] SARS-COV-2 COVID-19 2021-09-08 Completed [facility] 12+ YRS 00:00:00 [place] [facility] SARS-COV-2 COVID-19 2021-09-08 Completed [facility] 12+ YRS 00:00:00 [place] [facility] SARS-COV-2 COVID-19 2021-09-08 Completed [facility] 12+ YRS 00:00:00 [place] [facility] SARS-COV-2 COVID-19 2021-09-08 Completed [facility] 12+ YRS 00:00:00 [place] [facility] SARS-COV-2 COVID-19 2021-09-08 Completed [facility] 12+ YRS 00:00:00 [place] [facility] SARS-COV-2 COVID-19 2021-09-08 Completed [facility] 12+ YRS 00:00:00 [place] [facility] SARS-COV-2 COVID-19 2021-09-08 Completed [facility] 12+ YRS 00:00:00 [place] [facility] SARS-COV-2 COVID-19 2021-09-08 Completed [facility] 12+ YRS 00:00:00 [place] [facility] SARS-COV-2 COVID-19 2021-09-08 Completed [facility] 12+ YRS 00:00:00 [place] [facility] SARS-COV-2 COVID-19 2021-09-08 Completed [facility] 12+ YRS 00:00:00 [facility] SARS-COV-2 COVID-19 2021-09-08 Completed [facility] 12+ YRS 00:00:00 [facility] SARS-COV-2 COVID-19 2021-09-08 Completed [facility] 12+ YRS 00:00:00 [facility] SARS-COV-2 COVID-19 2021-09-08 Completed [facility] 12+ YRS 00:00:00 [facility] SARS-COV-2 COVID-19 2021-09-08 Completed [facility] 12+ YRS 00:00:00 [facility] SARS-COV-2 COVID-19 2021-09-08 Completed [facility] 12+ YRS 00:00:00 [facility] SARS-COV-2 COVID-19 2021-09-08 Completed [facility] 12+ YRS 00:00:00 [facility] SARS-COV-2 COVID-19 2021-09-08 Completed [facility] 12+ YRS 00:00:00 [facility] SARS-COV-2 COVID-19 2021-09-08 Completed [facility] 12+ YRS 00:00:00 [facility] SARS-COV-2 COVID-19 2021-09-08 Completed [facility] 12+ YRS 00:00:00 [facility] Influenza High Dose 2021-07-04 Completed [facility] 00:00:00 [facility] Influenza High Dose 2021-07-04 Completed [facility] 00:00:00 [facility] Influenza High Dose 2021-07-04 Completed [facility] 00:00:00 [facility] Influenza High Dose 2021-07-04 Completed [facility] 00:00:00 [facility] Influenza High Dose 2021-07-04 Completed [facility] 00:00:00 [facility] Influenza High Dose 2021-07-04 Completed [facility] 00:00:00 [facility] Influenza High Dose 2021-07-04 Completed [facility] 00:00:00 [facility] Influenza High Dose 2021-07-04 Completed [facility] 00:00:00 [facility] Influenza High Dose 2021-07-04 Completed [facility] 00:00:00 [facility] Influenza High Dose 2021-07-04 Completed [facility] 00:00:00 [facility] Influenza High Dose 2021-07-04 Completed [facility] 00:00:00 [facility] Influenza High Dose 2021-07-04 Completed [facility] 00:00:00 [facility] Influenza High Dose 2021-07-04 Completed [facility] 00:00:00 [facility] Influenza High Dose 2021-07-04 Completed [facility] 00:00:00 [facility] Influenza High Dose 2021-07-04 Completed [facility] 00:00:00 [facility] Influenza High Dose 2021-07-04 Completed [facility] 00:00:00 [facility] Influenza High Dose 2021-07-04 Completed [facility] 00:00:00 [facility] Influenza High Dose 2021-07-04 Completed [facility] 00:00:00 [facility] Influenza High Dose 2021-07-04 Completed [facility] 00:00:00 [facility] Influenza High Dose 2021-07-04 Completed [facility] 00:00:00 [facility] Influenza High Dose 2021-07-04 Completed [facility] 00:00:00 [facility] Influenza High Dose 2021-07-04 Completed [facility] 00:00:00 [facility] Influenza High Dose 2021-07-04 Completed [facility] 00:00:00 [facility] Influenza High Dose 2021-07-04 Completed [facility] 00:00:00 [facility] Influenza High Dose 2021-07-04 Completed [facility] 00:00:00 [facility] Influenza High Dose 2021-07-04 Completed [facility] 00:00:00 [facility] Influenza High Dose 2021-07-04 Completed [facility] 00:00:00 [facility] Influenza High Dose 2021-07-04 Completed [facility] 00:00:00 [facility] Influenza High Dose 2021-07-04 Completed [facility] 00:00:00 [facility] Influenza High Dose 2021-07-04 Completed [facility] 00:00:00 [facility] Influenza High Dose 2021-07-04 Completed [facility] 00:00:00 [facility] Influenza High Dose 2021-07-04 Completed [facility] 00:00:00 [facility] Influenza High Dose 2021-07-04 Completed [facility] 00:00:00 [facility] Influenza High Dose 2021-07-04 Completed [facility] 00:00:00 [facility] Influenza High Dose 2021-07-04 Completed [facility] 00:00:00 [facility] Influenza High Dose 2021-07-04 Completed [facility] 00:00:00 [facility] Influenza High Dose 2021-07-04 Completed [facility] 00:00:00 [facility] Influenza High Dose 2021-07-04 Completed [facility] 00:00:00 [facility] Influenza High Dose 2021-07-04 Completed [facility] 00:00:00 [facility] Influenza High Dose 2021-07-04 Completed [facility] 00:00:00 [facility] Influenza High Dose 2021-07-04 Completed [facility] 00:00:00 [facility] Influenza High Dose 2021-07-04 Completed [facility] 00:00:00 [facility] Influenza High Dose 2021-07-04 Completed [facility] 00:00:00 [facility] Influenza High Dose 2021-07-04 Completed [facility] 00:00:00 [facility] Influenza High Dose 2021-07-04 Completed [facility] 00:00:00 [facility] Influenza High Dose 2021-07-04 Completed [facility] 00:00:00 [facility] Influenza High Dose 2021-07-04 Completed [facility] 00:00:00 [facility] Influenza High Dose 2021-07-04 Completed [facility] 00:00:00 [facility] Influenza High Dose 2021-07-04 Completed [facility] 00:00:00 [facility] Influenza High Dose 2021-07-04 Completed [facility] 00:00:00 [facility] Influenza High Dose 2021-07-04 Completed [facility] 00:00:00 [facility] Influenza High Dose 2021-07-04 Completed [facility] 00:00:00 [facility] Influenza High Dose 2021-07-04 Completed [facility] 00:00:00 [facility] Influenza High Dose 2021-07-04 Completed [facility] 00:00:00 [facility] Influenza High Dose 2021-07-04 Completed [facility] 00:00:00 [facility] Influenza High Dose 2021-07-04 Completed [facility] 00:00:00 [facility] Influenza High Dose 2021-07-04 Completed [facility] 00:00:00 [facility] Influenza High Dose 2021-07-04 Completed [facility] 00:00:00 [facility] Influenza High Dose 2021-07-04 Completed [facility] 00:00:00 [facility] Influenza High Dose 2021-07-04 Completed [facility] 00:00:00 [facility] Influenza High Dose 2021-07-04 Completed [facility] 00:00:00 [facility] Influenza High Dose 2021-07-04 Completed [facility] 00:00:00 [facility] Influenza High Dose 2021-07-04 Completed [facility] 00:00:00 [facility] Influenza High Dose 2021-07-04 Completed [facility] 00:00:00 [facility] Influenza High Dose 2021-07-04 Completed [facility] of 00:00:00 [facility] Influenza High Dose 2021-07-04 Completed [facility] of 00:00:00 [facility] Influenza High Dose 2021-07-04 Completed [facility] 00:00:00 [facility] Influenza High Dose 2021-07-04 Completed [facility] of 00:00:00 [facility] SARS-COV-2 COVID-19 2020-11-23 Completed [facility] 12+ YRS 00:00:00 [facility] SARS-COV-2 COVID-19 2020-11-23 Completed [facility] 12+ YRS 00:00:00 [facility] SARS-COV-2 COVID-19 2020-11-23 Completed [facility] 12+ YRS 00:00:00 [facility] SARS-COV-2 COVID-19 2020-11-23 Completed [facility] 12+ YRS 00:00:00 [facility] SARS-COV-2 COVID-19 2020-11-23 Completed [facility] 12+ YRS 00:00:00 [facility] SARS-COV-2 COVID-19 2020-11-23 Completed [facility] 12+ YRS 00:00:00 [facility] SARS-COV-2 COVID-19 2020-11-23 Completed [facility] 12+ YRS 00:00:00 [facility] SARS-COV-2 COVID-19 2020-11-23 Completed [facility] 12+ YRS 00:00:00 [facility] SARS-COV-2 COVID-19 2020-11-23 Completed [facility] 12+ YRS 00:00:00 [facility] SARS-COV-2 COVID-19 2020-11-23 Completed [facility] 12+ YRS 00:00:00 [facility] SARS-COV-2 COVID-19 2020-11-23 Completed [facility] 12+ YRS 00:00:00 [facility] SARS-COV-2 COVID-19 2020-11-23 Completed [facility] 12+ YRS 00:00:00 [facility] SARS-COV-2 COVID-19 2020-11-23 Completed [facility] 12+ YRS 00:00:00 [facility] SARS-COV-2 COVID-19 2020-11-23 Completed [facility] 12+ YRS 00:00:00 [facility] SARS-COV-2 COVID-19 2020-11-23 Completed [facility] 12+ YRS 00:00:00 [facility] SARS-COV-2 COVID-19 2020-11-23 Completed [facility]ER[facility] 12+ YRS 00:00:00 [facility] SARS-COV-2 COVID-19 2020-11-23 Completed [facility] 12+ YRS 00:00:00 [facility] SARS-COV-2 COVID-19 2020-11-23 Completed [facility]ERNA 12+ YRS 00:00:00 [place] [facility] SARS-COV-2 COVID-19 2020-11-23 Completed [facility] 12+ YRS 00:00:00 [facility] SARS-COV-2 COVID-19 2020-11-23 Completed [facility] 12+ YRS 00:00:00 [facility] SARS-COV-2 COVID-19 2020-11-23 Completed [facility] 12+ YRS 00:00:00 [facility] SARS-COV-2 COVID-19 2020-11-23 Completed [facility]ER[facility] 12+ YRS 00:00:00 [facility] SARS-COV-2 COVID-19 2020-11-23 Completed [facility]ERNA 12+ YRS 00:00:00 [place] [facility] SARS-COV-2 COVID-19 2020-11-23 Completed [facility]ERNA 12+ YRS 00:00:00 [place] [facility] SARS-COV-2 COVID-19 2020-11-23 Completed [facility]ERNA 12+ YRS 00:00:00 [place] [facility] SARS-COV-2 COVID-19 2020-11-23 Completed [facility]ERNA 12+ YRS 00:00:00 [facility] SARS-COV-2 COVID-19 2020-11-23 Completed [facility]ER[facility] 12+ YRS 00:00:00 [place] [facility] SARS-COV-2 COVID-19 2020-11-23 Completed [facility]ERNA 12+ YRS 00:00:00 [place] [facility] SARS-COV-2 COVID-19 2020-11-23 Completed [facility]ERNA 12+ YRS 00:00:00 [place] [facility] SARS-COV-2 COVID-19 2020-11-23 Completed [facility]ER[facility] 12+ YRS 00:00:00 [place] [facility] SARS-COV-2 COVID-19 2020-11-23 Completed [facility]ERNA 12+ YRS 00:00:00 [place] [facility] SARS-COV-2 COVID-19 2020-11-23 Completed [facility]ER[facility] 12+ YRS 00:00:00 [facility] SARS-COV-2 COVID-19 2020-11-23 Completed [facility]ERNA 12+ YRS 00:00:00 [facility] SARS-COV-2 COVID-19 2020-11-23 Completed [facility]ER[facility] 12+ YRS 00:00:00 [facility] SARS-COV-2 COVID-19 2020-11-23 Completed [facility]ERNA 12+ YRS 00:00:00 [facility] SARS-COV-2 COVID-19 2020-11-23 Completed [facility]ERNA 12+ YRS 00:00:00 [facility] SARS-COV-2 COVID-19 2020-11-23 Completed [facility] MODERNA 12+ YRS 00:00:00 [facility] SARS-COV-2 COVID-19 2020-11-23 Completed [facility] MODERNA 12+ YRS 00:00:00 [facility] SARS-COV-2 COVID-19 2020-11-23 Completed [facility]ERNA 12+ YRS 00:00:00 [facility] SARS-COV-2 COVID-19 2020-11-23 Completed [facility]ERNA 12+ YRS 00:00:00 [facility] SARS-COV-2 COVID-19 2020-11-23 Completed [facility] MODERNA 12+ YRS 00:00:00 [facility] SARS-COV-2 COVID-19 2020-11-23 Completed [facility]ERNA 12+ YRS 00:00:00 [facility] SARS-COV-2 COVID-19 2020-11-23 Completed [facility] MODERNA 12+ YRS 00:00:00 [facility] SARS-COV-2 COVID-19 2020-11-23 Completed [facility] MODERNA 12+ YRS 00:00:00 [place] [facility] SARS-COV-2 COVID-19 2020-11-23 Completed [facility] MODERNA 12+ YRS 00:00:00 [facility] SARS-COV-2 COVID-19 2020-11-23 Completed [facility] MODERNA 12+ YRS 00:00:00 [place] [facility] SARS-COV-2 COVID-19 2020-11-23 Completed [facility] MODERNA 12+ YRS 00:00:00 [facility] SARS-COV-2 COVID-19 2020-11-23 Completed [facility] MODERNA 12+ YRS 00:00:00 [place] [facility] SARS-COV-2 COVID-19 2020-11-23 Completed [facility] MODERNA 12+ YRS 00:00:00 [place] [facility] SARS-COV-2 COVID-19 2020-11-23 Completed [facility] MODERNA 12+ YRS 00:00:00 [place] [facility] SARS-COV-2 COVID-19 2020-11-23 Completed [facility] MODERNA 12+ YRS 00:00:00 [place] [facility] SARS-COV-2 COVID-19 2020-11-23 Completed [facility] MODERNA 12+ YRS 00:00:00 [place] [facility] SARS-COV-2 COVID-19 2020-11-23 Completed [facility] MODERNA 12+ YRS 00:00:00 [place] [facility] SARS-COV-2 COVID-19 2020-11-23 Completed [facility] MODERNA 12+ YRS 00:00:00 [place] [facility] SARS-COV-2 COVID-19 2020-11-23 Completed [facility] MODERNA 12+ YRS 00:00:00 [place] [facility] SARS-COV-2 COVID-19 2020-11-23 Completed [facility] MODERNA 12+ YRS 00:00:00 [place] [facility] SARS-COV-2 COVID-19 2020-11-23 Completed [facility]ERNA 12+ YRS 00:00:00 [place] [facility] SARS-COV-2 COVID-19 2020-11-23 Completed [facility] MODERNA 12+ YRS 00:00:00 [facility] SARS-COV-2 COVID-19 2020-11-23 Completed [facility]ERNA 12+ YRS 00:00:00 [facility] SARS-COV-2 COVID-19 2020-11-23 Completed [facility] MODERNA 12+ YRS 00:00:00 [facility] SARS-COV-2 COVID-19 2020-11-23 Completed [facility] MODERNA 12+ YRS 00:00:00 [facility] SARS-COV-2 COVID-19 2020-11-23 Completed [facility] MODERNA 12+ YRS 00:00:00 [facility] SARS-COV-2 COVID-19 2020-11-23 Completed [facility]ERNA 12+ YRS 00:00:00 [place] [facility] SARS-COV-2 COVID-19 2020-11-23 Completed [facility] MODERNA 12+ YRS 00:00:00 [place] [facility] SARS-COV-2 COVID-19 2020-11-23 Completed [facility]ERNA 12+ YRS 00:00:00 [facility] SARS-COV-2 COVID-19 2020-11-23 Completed [facility]ERNA 12+ YRS 00:00:00 [place] [facility] SARS-COV-2 COVID-19 2020-11-23 Completed [facility]ERNA 12+ YRS 00:00:00 [place] [facility] SARS-COV-2 COVID-19 2020-11-23 Completed [facility] MODERNA 12+ YRS 00:00:00 [facility] SARS-COV-2 COVID-19 2020-10-26 Completed [facility] MODERNA 12+ YRS 00:00:00 [place] [facility] SARS-COV-2 COVID-19 2020-10-26 Completed [facility] MODERNA 12+ YRS 00:00:00 [place] [facility] SARS-COV-2 COVID-19 2020-10-26 Completed [facility]ERNA 12+ YRS 00:00:00 [place] [facility] SARS-COV-2 COVID-19 2020-10-26 Completed [facility]ERNA 12+ YRS 00:00:00 [place] [facility] SARS-COV-2 COVID-19 2020-10-26 Completed [facility]ERNA 12+ YRS 00:00:00 [place] [facility] SARS-COV-2 COVID-19 2020-10-26 Completed [facility]ERNA 12+ YRS 00:00:00 [place] [facility] SARS-COV-2 COVID-19 2020-10-26 Completed [facility] MODERNA 12+ YRS 00:00:00 [place] [facility] SARS-COV-2 COVID-19 2020-10-26 Completed [facility]ERNA 12+ YRS 00:00:00 [place] [facility] SARS-COV-2 COVID-19 2020-10-26 Completed [facility]ERNA 12+ YRS 00:00:00 [place] [facility] SARS-COV-2 COVID-19 2020-10-26 Completed [facility] 12+ YRS 00:00:00 [place] [facility] SARS-COV-2 COVID-19 2020-10-26 Completed [facility]ERNA 12+ YRS 00:00:00 [place] [facility] SARS-COV-2 COVID-19 2020-10-26 Completed [facility]NA 12+ YRS 00:00:00 [place] [facility] SARS-COV-2 COVID-19 2020-10-26 Completed [facility]ERNA 12+ YRS 00:00:00 [place] [facility] SARS-COV-2 COVID-19 2020-10-26 Completed [facility]ERNA 12+ YRS 00:00:00 [place] [facility] SARS-COV-2 COVID-19 2020-10-26 Completed [facility] MODERNA 12+ YRS 00:00:00 [place] [facility] SARS-COV-2 COVID-19 2020-10-26 Completed [facility]ERNA 12+ YRS 00:00:00 [place] [facility] SARS-COV-2 COVID-19 2020-10-26 Completed [facility]ERNA 12+ YRS 00:00:00 [place] [facility] SARS-COV-2 COVID-19 2020-10-26 Completed [facility]ERNA 12+ YRS 00:00:00 [place] [facility] SARS-COV-2 COVID-19 2020-10-26 Completed [facility]ER[facility] 12+ YRS 00:00:00 [place] [facility] SARS-COV-2 COVID-19 2020-10-26 Completed [facility] 12+ YRS 00:00:00 [place] [facility] SARS-COV-2 COVID-19 2020-10-26 Completed [facility]ER[facility] 12+ YRS 00:00:00 [place] [facility] SARS-COV-2 COVID-19 2020-10-26 Completed [facility]NA 12+ YRS 00:00:00 [place] [facility] SARS-COV-2 COVID-19 2020-10-26 Completed [facility] 12+ YRS 00:00:00 [place] [facility] SARS-COV-2 COVID-19 2020-10-26 Completed [facility]ERNA 12+ YRS 00:00:00 [place] [facility] SARS-COV-2 COVID-19 2020-10-26 Completed [facility]ERNA 12+ YRS 00:00:00 [place] [facility] SARS-COV-2 COVID-19 2020-10-26 Completed [facility]ERNA 12+ YRS 00:00:00 [facility] SARS-COV-2 COVID-19 2020-10-26 Completed [facility]ERNA 12+ YRS 00:00:00 [facility] SARS-COV-2 COVID-19 2020-10-26 Completed [facility]ERNA 12+ YRS 00:00:00 [facility] SARS-COV-2 COVID-19 2020-10-26 Completed [facility] 12+ YRS 00:00:00 [facility] SARS-COV-2 COVID-19 2020-10-26 Completed [facility] 12+ YRS 00:00:00 [facility] SARS-COV-2 COVID-19 2020-10-26 Completed [facility]NA 12+ YRS 00:00:00 [facility] SARS-COV-2 COVID-19 2020-10-26 Completed [facility]ERNA 12+ YRS 00:00:00 [facility] SARS-COV-2 COVID-19 2020-10-26 Completed [facility]ERNA 12+ YRS 00:00:00 [facility] SARS-COV-2 COVID-19 2020-10-26 Completed [facility]ERNA 12+ YRS 00:00:00 [facility] SARS-COV-2 COVID-19 2020-10-26 Completed [facility]NA 12+ YRS 00:00:00 [facility] SARS-COV-2 COVID-19 2020-10-26 Completed [facility]NA 12+ YRS 00:00:00 [place] [facility] SARS-COV-2 COVID-19 2020-10-26 Completed [facility] 12+ YRS 00:00:00 [facility] SARS-COV-2 COVID-19 2020-10-26 Completed [facility]ERNA 12+ YRS 00:00:00 [place] [facility] SARS-COV-2 COVID-19 2020-10-26 Completed [facility]ERNA 12+ YRS 00:00:00 [place] [facility] SARS-COV-2 COVID-19 2020-10-26 Completed [facility]ERNA 12+ YRS 00:00:00 [place] [facility] SARS-COV-2 COVID-19 2020-10-26 Completed [facility]ERNA 12+ YRS 00:00:00 [place] [facility] SARS-COV-2 COVID-19 2020-10-26 Completed [facility]ERNA 12+ YRS 00:00:00 [place] [facility] SARS-COV-2 COVID-19 2020-10-26 Completed [facility]NA 12+ YRS 00:00:00 [place] [facility] SARS-COV-2 COVID-19 2020-10-26 Completed [facility]NA 12+ YRS 00:00:00 [place] [facility] SARS-COV-2 COVID-19 2020-10-26 Completed [facility]ERNA 12+ YRS 00:00:00 [place] [facility] SARS-COV-2 COVID-19 2020-10-26 Completed [facility]NA 12+ YRS 00:00:00 [place] [facility] SARS-COV-2 COVID-19 2020-10-26 Completed [facility]NA 12+ YRS 00:00:00 [facility] SARS-COV-2 COVID-19 2020-10-26 Completed [facility]ERNA 12+ YRS 00:00:00 [place] [facility] SARS-COV-2 COVID-19 2020-10-26 Completed [facility]ERNA 12+ YRS 00:00:00 [facility] SARS-COV-2 COVID-19 2020-10-26 Completed [facility]ERNA 12+ YRS 00:00:00 [facility] SARS-COV-2 COVID-19 2020-10-26 Completed [facility]ERNA 12+ YRS 00:00:00 [place] [facility] SARS-COV-2 COVID-19 2020-10-26 Completed [facility]ERNA 12+ YRS 00:00:00 [place] [facility] SARS-COV-2 COVID-19 2020-10-26 Completed [facility] MODERNA 12+ YRS 00:00:00 [facility] SARS-COV-2 COVID-19 2020-10-26 Completed [facility]ERNA 12+ YRS 00:00:00 [facility] SARS-COV-2 COVID-19 2020-10-26 Completed [facility]ERNA 12+ YRS 00:00:00 [facility] SARS-COV-2 COVID-19 2020-10-26 Completed [facility]NA 12+ YRS 00:00:00 [facility] SARS-COV-2 COVID-19 2020-10-26 Completed [facility]ERNA 12+ YRS 00:00:00 [facility] SARS-COV-2 COVID-19 2020-10-26 Completed [facility] MODERNA 12+ YRS 00:00:00 [facility] SARS-COV-2 COVID-19 2020-10-26 Completed [facility]ERNA 12+ YRS 00:00:00 [facility] SARS-COV-2 COVID-19 2020-10-26 Completed [facility]ERNA 12+ YRS 00:00:00 [place] [facility] SARS-COV-2 COVID-19 2020-10-26 Completed [facility]NA 12+ YRS 00:00:00 [place] [facility] SARS-COV-2 COVID-19 2020-10-26 Completed [facility]ERNA 12+ YRS 00:00:00 [facility] SARS-COV-2 COVID-19 2020-10-26 Completed [facility] 12+ YRS 00:00:00 [place] [facility] SARS-COV-2 COVID-19 2020-10-26 Completed [facility]ERNA 12+ YRS 00:00:00 [facility] SARS-COV-2 COVID-19 2020-10-26 Completed [facility]ERNA 12+ YRS 00:00:00 [facility] ical VACCINE Branch SARS-COV-2 COVID-19 2020-10-26 Completed [facility] MODERNA 12+ YRS 00:00:00 [facility] ical VACCINE Branch SARS-COV-2 COVID-19 2020-10-26 Completed [facility]ERNA 12+ YRS 00:00:00 [facility] ical VACCINE Branch SARS-COV-2 COVID-19 2020-10-26 Completed [facility]ERNA 12+ YRS 00:00:00 [facility] VACCINE Branch PPD (TB) 2020-10-18 Completed [facility] 00:00:00 [facility] PPD (TB) 2020-10-18 Completed [facility] 00:00:00 [facility] PPD (TB) 2020-10-18 Completed [facility] 00:00:00 [facility] PPD (TB) 2020-10-18 Completed [facility] 00:00:00 [facility] PPD (TB) 2020-10-18 Completed [facility] 00:00:00 [facility] PPD (TB) 2020-10-18 Completed [facility] 00:00:00 [facility] PPD (TB) 2020-10-18 Completed [facility] 00:00:00 [facility] PPD (TB) 2020-10-18 Completed [facility] 00:00:00 [facility] PPD (TB) 2020-10-18 Completed [facility] 00:00:00 [facility] PPD (TB) 2020-10-18 Completed [facility] 00:00:00 [facility] PPD (TB) 2020-10-18 Completed [facility] 00:00:00 [facility] PPD (TB) 2020-10-18 Completed [facility] 00:00:00 [facility] PPD (TB) 2020-10-18 Completed [facility] 00:00:00 [facility] PPD (TB) 2020-10-18 Completed [facility] 00:00:00 [facility] PPD (TB) 2020-10-18 Completed [facility] 00:00:00 [facility] PPD (TB) 2020-10-18 Completed [facility] 00:00:00 [facility] PPD (TB) 2020-10-18 Completed [facility] 00:00:00 [facility] PPD (TB) 2020-10-18 Completed [facility] 00:00:00 [facility] PPD (TB) 2020-10-18 Completed [facility] 00:00:00 [facility] PPD (TB) 2020-10-18 Completed [facility] 00:00:00 [facility] PPD (TB) 2020-10-18 Completed [facility]:00 [facility] PPD (TB) 2020-10-18 Completed [facility] 00[facility]00:00 [facility] PPD (TB) 2020-10-18 Completed [facility] 00[facility]00:00 [facility] PPD (TB) 2020-10-18 Completed [facility] 00:00:00 [facility] PPD (TB) 2020-10-18 Completed [facility] 00:00:00 [facility] PPD (TB) 2020-10-18 Completed [facility] 00:00:00 [facility] PPD (TB) 2020-10-18 Completed [facility] 00:00:00 [facility] PPD (TB) 2020-10-18 Completed [facility] 00:00:00 [facility] PPD (TB) 2020-10-18 Completed [facility] 00:00:00 [facility] PPD (TB) 2020-10-18 Completed [facility] 00:00:00 [facility] PPD (TB) 2020-10-18 Completed [facility] 00:00:00 [facility] PPD (TB) 2020-10-18 Completed [facility] 00:00:00 [facility] PPD (TB) 2020-10-18 Completed [facility] 00:00:00 [facility] PPD (TB) 2020-10-18 Completed [facility] 00:00:00 [facility] PPD (TB) 2020-10-18 Completed [facility] 00:00:00 [facility] PPD (TB) 2020-10-18 Completed [facility] 00:00:00 [facility] PPD (TB) 2020-10-18 Completed [facility] 00[facility]00:00 [facility] PPD (TB) 2020-10-18 Completed [facility] 00:00:00 [facility] PPD (TB) 2020-10-18 Completed [facility] 00:00:00 [facility] PPD (TB) 2020-10-18 Completed [facility] 00:00:00 [facility] PPD (TB) 2020-10-18 Completed [facility] 00:00:00 [facility] PPD (TB) 2020-10-18 Completed [facility] 00:00:00 [facility] PPD (TB) 2020-10-18 Completed [facility] 00:00:00 [facility] PPD (TB) 2020-10-18 Completed [facility] 00:00:00 [facility] PPD (TB) 2020-10-18 Completed [facility] 00:00:00 [facility] PPD (TB) 2020-10-18 Completed [facility] 00:00:00 [facility] PPD (TB) 2020-10-18 Completed [facility] 00:00:00 [facility] PPD (TB) 2020-10-18 Completed [facility] 00:00:00 [facility] PPD (TB) 2020-10-18 Completed [facility] 00:00:00 [facility] PPD (TB) 2020-10-18 Completed [facility] 00:00:00 [facility] PPD (TB) 2020-10-18 Completed [facility] 00:00:00 [facility] PPD (TB) 2020-10-18 Completed [facility] 00:00:00 [facility] PPD (TB) 2020-10-18 Completed [facility] 00:00:00 [facility] PPD (TB) 2020-10-18 Completed [facility] 00:00:00 [facility] PPD (TB) 2020-10-18 Completed [facility] 00:00:00 [facility] PPD (TB) 2020-10-18 Completed [facility] 00:00:00 [facility] PPD (TB) 2020-10-18 Completed [facility] 00:00:00 [facility] PPD (TB) 2020-10-18 Completed [facility] 00:00:00 [facility] PPD (TB) 2020-10-18 Completed [facility] 00:00:00 [facility] PPD (TB) 2020-10-18 Completed [facility] 00:00:00 [facility] PPD (TB) 2020-10-18 Completed [facility] 00:00:00 [facility] PPD (TB) 2020-10-18 Completed [facility] 00:00:00 [facility] PPD (TB) 2020-10-18 Completed [facility] 00:00:00 [facility] PPD (TB) 2020-10-18 Completed [facility] 00:00:00 [facility] PPD (TB) 2020-10-18 Completed [facility] 00:00:00 [facility] PPD (TB) 2020-10-18 Completed [facility] 00:00:00 [facility] PPD (TB) 2020-10-18 Completed [facility] 00:00:00 [facility] PPD (TB) 2020-10-18 Completed [facility] 00:00:00 [facility] Influenza High Dose 2020-06-09 Completed [facility] 00:00:00 [facility] Influenza High Dose 2020-06-09 Completed [facility] 00:00:00 [facility] Influenza High Dose 2020-06-09 Completed [facility] 00:00:00 [facility] Influenza High Dose 2020-06-09 Completed [facility] 00:00:00 [facility] Influenza High Dose 2020-06-09 Completed [facility] 00:00:00 [facility] Influenza High Dose 2020-06-09 Completed [facility] 00:00:00 [facility] Influenza High Dose 2020-06-09 Completed [facility] 00:00:00 [facility] Influenza High Dose 2020-06-09 Completed [facility] 00:00:00 [facility] Influenza High Dose 2020-06-09 Completed [facility] 00:00:00 [facility] Influenza High Dose 2020-06-09 Completed [facility] 00:00:00 [facility] Influenza High Dose 2020-06-09 Completed [facility] 00:00:00 [facility] Influenza High Dose 2020-06-09 Completed [facility] 00:00:00 [facility] Influenza High Dose 2020-06-09 Completed [facility] 00:00:00 [facility] Influenza High Dose 2020-06-09 Completed [facility] 00:00:00 [facility] Influenza High Dose 2020-06-09 Completed [facility] 00:00:00 [facility] Influenza High Dose 2020-06-09 Completed [facility] 00:00:00 [facility] Influenza High Dose 2020-06-09 Completed [facility] 00:00:00 [facility] Influenza High Dose 2020-06-09 Completed [facility] 00:00:00 [facility] Influenza High Dose 2020-06-09 Completed [facility] 00:00:00 [facility] Influenza High Dose 2020-06-09 Completed [facility] 00:00:00 [facility] Influenza High Dose 2020-06-09 Completed [facility] 00:00:00 [facility] Influenza High Dose 2020-06-09 Completed [facility] 00:00:00 [facility] Influenza High Dose 2020-06-09 Completed [facility] 00:00:00 [facility] Influenza High Dose 2020-06-09 Completed [facility] 00:00:00 [facility] Influenza High Dose 2020-06-09 Completed [facility] 00:00:00 [facility] Influenza High Dose 2020-06-09 Completed [facility] 00:00:00 [facility] Influenza High Dose 2020-06-09 Completed [facility] 00:00:00 [facility] Influenza High Dose 2020-06-09 Completed [facility] 00:00:00 [facility] Influenza High Dose 2020-06-09 Completed [facility] 00:00:00 [facility] Influenza High Dose 2020-06-09 Completed [facility] 00:00:00 [facility] Influenza High Dose 2020-06-09 Completed [facility] 00:00:00 [facility] Influenza High Dose 2020-06-09 Completed [facility] 00:00:00 [facility] Influenza High Dose 2020-06-09 Completed [facility] 00:00:00 [facility] Influenza High Dose 2020-06-09 Completed [facility] 00:00:00 [facility] Influenza High Dose 2020-06-09 Completed [facility] 00:00:00 [facility] Influenza High Dose 2020-06-09 Completed [facility] 00:00:00 [facility] Influenza High Dose 2020-06-09 Completed [facility] 00:00:00 [facility] Influenza High Dose 2020-06-09 Completed [facility] 00:00:00 [facility] Influenza High Dose 2020-06-09 Completed [facility] 00:00:00 [facility] Influenza High Dose 2020-06-09 Completed [facility] 00:00:00 [facility] Influenza High Dose 2020-06-09 Completed [facility] 00:00:00 [facility] Influenza High Dose 2020-06-09 Completed [facility] 00:00:00 [facility] Influenza High Dose 2020-06-09 Completed [facility] 00:00:00 [facility] Influenza High Dose 2020-06-09 Completed [facility] 00:00:00 [facility] Influenza High Dose 2020-06-09 Completed [facility] 00:00:00 [facility] Influenza High Dose 2020-06-09 Completed [facility] 00:00:00 [facility] Influenza High Dose 2020-06-09 Completed [facility] 00:00:00 [facility] Influenza High Dose 2020-06-09 Completed [facility] 00:00:00 [facility] Influenza High Dose 2020-06-09 Completed [facility] 00:00:00 [facility] Influenza High Dose 2020-06-09 Completed [facility] 00:00:00 [facility] Influenza High Dose 2020-06-09 Completed [facility] 00:00:00 [facility] Influenza High Dose 2020-06-09 Completed [facility] 00:00:00 [facility] Influenza High Dose 2020-06-09 Completed [facility] 00:00:00 [facility] Influenza High Dose 2020-06-09 Completed [facility] 00:00:00 [facility] Influenza High Dose 2020-06-09 Completed [facility] 00:00:00 [facility] Influenza High Dose 2020-06-09 Completed [facility] 00:00:00 [facility] Influenza High Dose 2020-06-09 Completed [facility] 00:00:00 [facility] Influenza High Dose 2020-06-09 Completed [facility] 00:00:00 [facility] Influenza High Dose 2020-06-09 Completed [facility] 00:00:00 [facility] Influenza High Dose 2020-06-09 Completed [facility] 00:00:00 [facility] Influenza High Dose 2020-06-09 Completed [facility] 00:00:00 [facility] Influenza High Dose 2020-06-09 Completed [facility] 00:00:00 [facility] Influenza High Dose 2020-06-09 Completed [facility] 00:00:00 [facility] Influenza High Dose 2020-06-09 Completed [facility] 00:00:00 [facility] Influenza High Dose 2020-06-09 Completed [facility] 00:00:00 [facility] Influenza High Dose 2020-06-09 Completed [facility] 00:00:00 [facility] Influenza High Dose 2020-06-09 Completed [facility] 00:00:00 [facility] Influenza High Dose 2020-06-09 Completed [facility] 00:00:00 [facility] PPD (TB) 2019-10-15 Completed [facility] 00:00:00 [facility] PPD (TB) 2019-10-15 Completed [facility] 00:00:00 [facility] PPD (TB) 2019-10-15 Completed [facility] 00:00:00 [facility] PPD (TB) 2019-10-15 Completed [facility] 00:00:00 [facility] PPD (TB) 2019-10-15 Completed [facility] 00:00:00 [facility] PPD (TB) 2019-10-15 Completed [facility] 00:00:00 [facility] PPD (TB) 2019-10-15 Completed [facility] 00:00:00 [facility] PPD (TB) 2019-10-15 Completed [facility] 00:00:00 [facility] PPD (TB) 2019-10-15 Completed [facility] 00:00:00 [facility] PPD (TB) 2019-10-15 Completed [facility] 00:00:00 [facility] PPD (TB) 2019-10-15 Completed [facility] 00:00:00 [facility] PPD (TB) 2019-10-15 Completed [facility] 00:00:00 [facility] PPD (TB) 2019-10-15 Completed [facility] 00:00:00 [facility] PPD (TB) 2019-10-15 Completed [facility] 00:00:00 [facility] PPD (TB) 2019-10-15 Completed [facility] 00:00:00 [facility] PPD (TB) 2019-10-15 Completed [facility] 00:00:00 [facility] PPD (TB) 2019-10-15 Completed [facility] 00:00:00 [facility] PPD (TB) 2019-10-15 Completed [facility] 00:00:00 [facility] PPD (TB) 2019-10-15 Completed [facility] 00:00:00 [facility] PPD (TB) 2019-10-15 Completed [facility] 00:00:00 [facility] PPD (TB) 2019-10-15 Completed [facility] 00:00:00 [facility] PPD (TB) 2019-10-15 Completed [facility] 00:00:00 [facility] PPD (TB) 2019-10-15 Completed [facility] 00:00:00 [facility] PPD (TB) 2019-10-15 Completed [facility] 00:00:00 [facility] PPD (TB) 2019-10-15 Completed [facility] 00:00:00 [facility] PPD (TB) 2019-10-15 Completed [facility] 00:00:00 [facility] PPD (TB) 2019-10-15 Completed [facility] 00:00:00 [facility] PPD (TB) 2019-10-15 Completed [facility] 00:00:00 [facility] PPD (TB) 2019-10-15 Completed [facility] 00:00:00 [facility] PPD (TB) 2019-10-15 Completed [facility] 00:00:00 [facility] PPD (TB) 2019-10-15 Completed [facility] 00:00:00 [facility] PPD (TB) 2019-10-15 Completed [facility] 00:00:00 [facility] PPD (TB) 2019-10-15 Completed [facility] 00:00:00 [facility] PPD (TB) 2019-10-15 Completed [facility] 00:00:00 [facility] PPD (TB) 2019-10-15 Completed [facility] 00:00:00 [facility] PPD (TB) 2019-10-15 Completed [facility] 00:00:00 [facility] PPD (TB) 2019-10-15 Completed [facility] 00:00:00 [facility] PPD (TB) 2019-10-15 Completed [facility] 00:00:00 [facility] PPD (TB) 2019-10-15 Completed [facility] 00:00:00 [facility] PPD (TB) 2019-10-15 Completed [facility] 00:00:00 [facility] PPD (TB) 2019-10-15 Completed [facility] 00:00:00 [facility] PPD (TB) 2019-10-15 Completed [facility] 00:00:00 [facility] PPD (TB) 2019-10-15 Completed [facility] 00:00:00 [facility] PPD (TB) 2019-10-15 Completed [facility] 00:00:00 [facility] PPD (TB) 2019-10-15 Completed [facility] 00:00:00 [facility] PPD (TB) 2019-10-15 Completed [facility] 00:00:00 [facility] PPD (TB) 2019-10-15 Completed [facility] 00:00:00 [facility] PPD (TB) 2019-10-15 Completed [facility] 00:00:00 [facility] PPD (TB) 2019-10-15 Completed [facility] 00:00:00 [facility] PPD (TB) 2019-10-15 Completed [facility] 00:00:00 [facility] PPD (TB) 2019-10-15 Completed [facility] 00:00:00 [facility] PPD (TB) 2019-10-15 Completed [facility] 00:00:00 [facility] PPD (TB) 2019-10-15 Completed [facility] 00:00:00 [facility] PPD (TB) 2019-10-15 Completed [facility] 00:00:00 [facility] PPD (TB) 2019-10-15 Completed [facility] 00:00:00 [facility] PPD (TB) 2019-10-15 Completed [facility] 00:00:00 [facility] PPD (TB) 2019-10-15 Completed [facility] 00:00:00 [facility] PPD (TB) 2019-10-15 Completed [facility] 00:00:00 [facility] PPD (TB) 2019-10-15 Completed [facility] 00:00:00 [facility] PPD (TB) 2019-10-15 Completed [facility] 00:00:00 [facility] PPD (TB) 2019-10-15 Completed [facility] 00:00:00 [facility] PPD (TB) 2019-10-15 Completed [facility] 00:00:00 [facility] PPD (TB) 2019-10-15 Completed [facility] 00:00:00 [facility] PPD (TB) 2019-10-15 Completed [facility] 00:00:00 [facility] PPD (TB) 2019-10-15 Completed [facility] 00:00:00 [facility] PPD (TB) 2019-10-15 Completed [facility] 00:00:00 [facility] PPD (TB) 2019-10-15 Completed [facility] 00:00:00 [facility] PPD (TB) 2019-10-15 Completed [facility] 00:00:00 [facility] Influenza High Dose 2019-06-09 Completed [facility] 00:00:00 [facility] Influenza High Dose 2019-06-09 Completed [facility] 00:00:00 [facility] Influenza High Dose 2019-06-09 Completed [facility] 00:00:00 [facility] Influenza High Dose 2019-06-09 Completed [facility] 00:00:00 [facility] Influenza High Dose 2019-06-09 Completed [facility] 00:00:00 [facility] Influenza High Dose 2019-06-09 Completed [facility] 00:00:00 [facility] Influenza High Dose 2019-06-09 Completed [facility] 00:00:00 [facility] Influenza High Dose 2019-06-09 Completed [facility] 00:00:00 [facility] Influenza High Dose 2019-06-09 Completed [facility] 00:00:00 [facility] Influenza High Dose 2019-06-09 Completed [facility] 00:00:00 [facility] Influenza High Dose 2019-06-09 Completed [facility] 00:00:00 [facility] Influenza High Dose 2019-06-09 Completed [facility] 00:00:00 [facility] Influenza High Dose 2019-06-09 Completed [facility] 00:00:00 [facility] Influenza High Dose 2019-06-09 Completed [facility] 00:00:00 [facility] Influenza High Dose 2019-06-09 Completed [facility] 00:00:00 [facility] Influenza High Dose 2019-06-09 Completed [facility] 00:00:00 [facility] Influenza High Dose 2019-06-09 Completed [facility] 00:00:00 [facility] Influenza High Dose 2019-06-09 Completed [facility] 00:00:00 [facility] Influenza High Dose 2019-06-09 Completed [facility] 00:00:00 [facility] Influenza High Dose 2019-06-09 Completed [facility] 00:00:00 [facility] Influenza High Dose 2019-06-09 Completed [facility] 00:00:00 [facility] Influenza High Dose 2019-06-09 Completed [facility] 00:00:00 [facility] Influenza High Dose 2019-06-09 Completed [facility] 00:00:00 [facility] Influenza High Dose 2019-06-09 Completed [facility] 00:00:00 [facility] Influenza High Dose 2019-06-09 Completed [facility] 00:00:00 [facility] Influenza High Dose 2019-06-09 Completed [facility] 00:00:00 [facility] Influenza High Dose 2019-06-09 Completed [facility] 00:00:00 [facility] Influenza High Dose 2019-06-09 Completed [facility] 00:00:00 [facility] Influenza High Dose 2019-06-09 Completed [facility] 00:00:00 [facility] Influenza High Dose 2019-06-09 Completed [facility] 00:00:00 [facility] Influenza High Dose 2019-06-09 Completed [facility] 00:00:00 [facility] Influenza High Dose 2019-06-09 Completed [facility] 00:00:00 [facility] Influenza High Dose 2019-06-09 Completed [facility] 00:00:00 [facility] Influenza High Dose 2019-06-09 Completed [facility] 00:00:00 [facility] Influenza High Dose 2019-06-09 Completed [facility] 00:00:00 [facility] Influenza High Dose 2019-06-09 Completed [facility] 00:00:00 [facility] Influenza High Dose 2019-06-09 Completed [facility] 00:00:00 [facility] Influenza High Dose 2019-06-09 Completed [facility] 00:00:00 [facility] Influenza High Dose 2019-06-09 Completed [facility] 00:00:00 [facility] Influenza High Dose 2019-06-09 Completed [facility] 00:00:00 [facility] Influenza High Dose 2019-06-09 Completed [facility] 00:00:00 [facility] Influenza High Dose 2019-06-09 Completed [facility] 00:00:00 [facility] Influenza High Dose 2019-06-09 Completed [facility] 00:00:00 [facility] Influenza High Dose 2019-06-09 Completed [facility] 00:00:00 [facility] Influenza High Dose 2019-06-09 Completed [facility] 00:00:00 [facility] Influenza High Dose 2019-06-09 Completed [facility] 00:00:00 [facility] Influenza High Dose 2019-06-09 Completed [facility] 00:00:00 [facility] Influenza High Dose 2019-06-09 Completed [facility] 00:00:00 [facility] Influenza High Dose 2019-06-09 Completed [facility] 00:00:00 [facility] Influenza High Dose 2019-06-09 Completed [facility] 00:00:00 [facility] Influenza High Dose 2019-06-09 Completed [facility] 00:00:00 [facility] Influenza High Dose 2019-06-09 Completed [facility] 00:00:00 [facility] Influenza High Dose 2019-06-09 Completed [facility] 00:00:00 [facility] Influenza High Dose 2019-06-09 Completed [facility] 00:00:00 [facility] Influenza High Dose 2019-06-09 Completed [facility] 00:00:00 [facility] Influenza High Dose 2019-06-09 Completed [facility] 00:00:00 [facility] Influenza High Dose 2019-06-09 Completed [facility] 00:00:00 [facility] Influenza High Dose 2019-06-09 Completed [facility] 00:00:00 [facility] Influenza High Dose 2019-06-09 Completed [facility] 00:00:00 [facility] Influenza High Dose 2019-06-09 Completed [facility] 00:00:00 [facility] Influenza High Dose 2019-06-09 Completed [facility] 00:00:00 [facility] Influenza High Dose 2019-06-09 Completed [facility] 00:00:00 [facility] Influenza High Dose 2019-06-09 Completed [facility] 00:00:00 [facility] Influenza High Dose 2019-06-09 Completed [facility] 00:00:00 [facility] Influenza High Dose 2019-06-09 Completed [facility] 00:00:00 [facility] Influenza High Dose 2019-06-09 Completed [facility] 00:00:00 [facility] Influenza High Dose 2019-06-09 Completed [facility] 00:00:00 [facility] Influenza High Dose 2019-06-09 Completed [facility] 00:00:00 [facility] PPD (TB) 2018-10-07 Completed [facility] 00:00:00 [facility] PPD (TB) 2018-10-07 Completed [facility] 00:00:00 [facility] PPD (TB) 2018-10-07 Completed [facility] 00:00:00 [facility] PPD (TB) 2018-10-07 Completed [facility] 00:00:00 [facility] PPD (TB) 2018-10-07 Completed [facility] 00:00:00 [facility] PPD (TB) 2018-10-07 Completed [facility] 00:00:00 [facility] PPD (TB) 2018-10-07 Completed [facility] 00:00:00 [facility] PPD (TB) 2018-10-07 Completed [facility] 00:00:00 [facility] PPD (TB) 2018-10-07 Completed [facility] 00:00:00 [facility] PPD (TB) 2018-10-07 Completed [facility] 00:00:00 [facility] PPD (TB) 2018-10-07 Completed [facility] 00:00:00 [facility] PPD (TB) 2018-10-07 Completed [facility] 00:00:00 [facility] PPD (TB) 2018-10-07 Completed [facility] 00:00:00 [facility] PPD (TB) 2018-10-07 Completed [facility] 00:00:00 [facility] PPD (TB) 2018-10-07 Completed [facility] 00:00:00 [facility] PPD (TB) 2018-10-07 Completed [facility] 00:00:00 [facility] PPD (TB) 2018-10-07 Completed [facility] 00:00:00 [facility] PPD (TB) 2018-10-07 Completed [facility] 00:00:00 [facility] PPD (TB) 2018-10-07 Completed [facility] 00:00:00 [facility] PPD (TB) 2018-10-07 Completed [facility] 00:00:00 [facility] [facility] PPD (TB) 2018-10-07 Completed [facility]00 [facility] PPD (TB) 2018-10-07 Completed [facility] 00:00:00 [facility] PPD (TB) 2018-10-07 Completed [facility] 00:00:00 [facility] PPD (TB) 2018-10-07 Completed [facility] 00:00:00 [facility] PPD (TB) 2018-10-07 Completed [facility] 00:00:00 [facility] PPD (TB) 2018-10-07 Completed [facility] 00[facility]00:00 [facility] PPD (TB) 2018-10-07 Completed [facility] 00:00:00 [facility] PPD (TB) 2018-10-07 Completed [facility] 00[facility]00:00 [facility] PPD (TB) 2018-10-07 Completed [facility] 00:00:00 [facility] PPD (TB) 2018-10-07 Completed [facility] 00:00:00 [facility] PPD (TB) 2018-10-07 Completed [facility] 00:00:00 [facility] PPD (TB) 2018-10-07 Completed [facility] 00:00:00 [facility] PPD (TB) 2018-10-07 Completed [facility] 00:00:00 [facility] PPD (TB) 2018-10-07 Completed [facility] 00:00:00 [facility] PPD (TB) 2018-10-07 Completed [facility] 00:00:00 [facility] PPD (TB) 2018-10-07 Completed [facility] 00:00:00 [facility] PPD (TB) 2018-10-07 Completed [facility] 00:00:00 [facility] PPD (TB) 2018-10-07 Completed [facility] 00:00:00 [facility] PPD (TB) 2018-10-07 Completed [facility] 00:00:00 [facility] PPD (TB) 2018-10-07 Completed [facility] 00:00:00 [facility] PPD (TB) 2018-10-07 Completed [facility] 00:00:00 [facility] PPD (TB) 2018-10-07 Completed [facility] 00:00:00 [facility] PPD (TB) 2018-10-07 Completed [facility] 00:00:00 [facility] PPD (TB) 2018-10-07 Completed [facility] 00:00:00 [facility] PPD (TB) 2018-10-07 Completed [facility] 00:00:00 [facility] PPD (TB) 2018-10-07 Completed [facility] 00:00:00 [facility] PPD (TB) 2018-10-07 Completed [facility] 00:00:00 [facility] PPD (TB) 2018-10-07 Completed [facility] 00:00:00 [facility] PPD (TB) 2018-10-07 Completed [facility] 00:00:00 [facility] PPD (TB) 2018-10-07 Completed [facility] 00:00:00 [facility] PPD (TB) 2018-10-07 Completed [facility] 00:00:00 [facility] PPD (TB) 2018-10-07 Completed [facility] 00:00:00 [facility] PPD (TB) 2018-10-07 Completed [facility] 00:00:00 [facility] PPD (TB) 2018-10-07 Completed [facility] 00:00:00 [facility] PPD (TB) 2018-10-07 Completed [facility] 00:00:00 [facility] PPD (TB) 2018-10-07 Completed [facility] 00:00:00 [facility] PPD (TB) 2018-10-07 Completed [facility] 00:00:00 [facility] PPD (TB) 2018-10-07 Completed [facility] 00:00:00 [facility] PPD (TB) 2018-10-07 Completed [facility] 00:00:00 [facility] PPD (TB) 2018-10-07 Completed [facility] 00:00:00 [facility] PPD (TB) 2018-10-07 Completed [facility] 00:00:00 [facility] PPD (TB) 2018-10-07 Completed [facility] 00:00:00 [facility] PPD (TB) 2018-10-07 Completed [facility] 00:00:00 [facility] PPD (TB) 2018-10-07 Completed [facility] 00:00:00 [facility] PPD (TB) 2018-10-07 Completed [facility] 00:00:00 [facility] PPD (TB) 2018-10-07 Completed [facility] 00:00:00 [facility] PPD (TB) 2018-10-07 Completed [facility] 00:00:00 [facility] PPD (TB) 2018-10-07 Completed [facility] 00:00:00 [facility] Influenza High Dose 2018-05-22 Completed [facility] 00:00:00 [facility] Influenza High Dose 2018-05-22 Completed [facility] 00:00:00 [facility] Influenza High Dose 2018-05-22 Completed [facility] 00:00:00 [facility] Influenza High Dose 2018-05-22 Completed [facility] 00:00:00 [facility] Influenza High Dose 2018-05-22 Completed [facility] 00:00:00 [facility] Influenza High Dose 2018-05-22 Completed [facility] 00:00:00 [facility] Influenza High Dose 2018-05-22 Completed [facility] 00:00:00 [facility] Influenza High Dose 2018-05-22 Completed [facility] 00:00:00 [facility] Influenza High Dose 2018-05-22 Completed [facility] 00:00:00 [facility] Influenza High Dose 2018-05-22 Completed [facility] 00:00:00 [facility] Influenza High Dose 2018-05-22 Completed [facility] 00:00:00 [facility] Influenza High Dose 2018-05-22 Completed [facility] 00:00:00 [facility] Influenza High Dose 2018-05-22 Completed [facility] 00:00:00 [facility] Influenza High Dose 2018-05-22 Completed [facility] 00:00:00 [facility] Influenza High Dose 2018-05-22 Completed [facility] 00:00:00 [facility] Influenza High Dose 2018-05-22 Completed [facility] 00:00:00 [facility] Influenza High Dose 2018-05-22 Completed [facility] 00:00:00 [facility] Influenza High Dose 2018-05-22 Completed [facility] 00:00:00 [facility] Influenza High Dose 2018-05-22 Completed [facility] 00:00:00 [facility] Influenza High Dose 2018-05-22 Completed [facility] 00:00:00 [facility] Influenza High Dose 2018-05-22 Completed [facility] 00:00:00 [facility] Influenza High Dose 2018-05-22 Completed [facility] 00:00:00 [facility] Influenza High Dose 2018-05-22 Completed [facility] 00:00:00 [facility] Influenza High Dose 2018-05-22 Completed [facility] 00:00:00 [facility] Influenza High Dose 2018-05-22 Completed [facility] 00:00:00 [facility] Influenza High Dose 2018-05-22 Completed [facility] 00:00:00 [facility] Influenza High Dose 2018-05-22 Completed [facility] 00:00:00 [facility] Influenza High Dose 2018-05-22 Completed [facility] 00:00:00 [facility] Influenza High Dose 2018-05-22 Completed [facility] 00:00:00 [facility] Influenza High Dose 2018-05-22 Completed [facility] 00:00:00 [facility] Influenza High Dose 2018-05-22 Completed [facility] 00:00:00 [facility] Influenza High Dose 2018-05-22 Completed [facility] 00:00:00 [facility] Influenza High Dose 2018-05-22 Completed [facility] 00:00:00 [facility] Influenza High Dose 2018-05-22 Completed [facility] 00:00:00 [facility] Influenza High Dose 2018-05-22 Completed [facility] 00:00:00 [facility] Influenza High Dose 2018-05-22 Completed [facility] 00:00:00 [facility] Influenza High Dose 2018-05-22 Completed [facility] 00:00:00 [facility] Influenza High Dose 2018-05-22 Completed [facility] 00:00:00 [facility] Influenza High Dose 2018-05-22 Completed [facility] 00:00:00 [facility] Influenza High Dose 2018-05-22 Completed [facility] 00:00:00 [facility] Influenza High Dose 2018-05-22 Completed [facility] 00:00:00 [facility] Influenza High Dose 2018-05-22 Completed [facility] 00:00:00 [facility] Influenza High Dose 2018-05-22 Completed [facility] 00:00:00 [facility] Influenza High Dose 2018-05-22 Completed [facility] 00:00:00 [facility] Influenza High Dose 2018-05-22 Completed [facility] 00:00:00 [facility] Influenza High Dose 2018-05-22 Completed [facility] 00:00:00 [facility] Influenza High Dose 2018-05-22 Completed [facility] 00:00:00 [facility] Influenza High Dose 2018-05-22 Completed [facility] 00:00:00 [facility] Influenza High Dose 2018-05-22 Completed [facility] 00:00:00 [facility] Influenza High Dose 2018-05-22 Completed [facility] 00:00:00 [facility] Influenza High Dose 2018-05-22 Completed [facility] 00:00:00 [facility] Influenza High Dose 2018-05-22 Completed [facility] 00:00:00 [facility] Influenza High Dose 2018-05-22 Completed [facility] 00:00:00 [facility] Influenza High Dose 2018-05-22 Completed [facility] 00:00:00 [facility] Influenza High Dose 2018-05-22 Completed [facility] 00:00:00 [facility] Influenza High Dose 2018-05-22 Completed [facility] 00:00:00 [facility] Influenza High Dose 2018-05-22 Completed [facility] 00:00:00 [facility] Influenza High Dose 2018-05-22 Completed [facility] 00:00:00 [facility] Influenza High Dose 2018-05-22 Completed [facility] 00:00:00 [facility] Influenza High Dose 2018-05-22 Completed [facility] 00:00:00 [facility] Influenza High Dose 2018-05-22 Completed [facility] 00:00:00 [facility] Influenza High Dose 2018-05-22 Completed [facility] 00:00:00 [facility] Influenza High Dose 2018-05-22 Completed [facility] 00:00:00 [facility] Influenza High Dose 2018-05-22 Completed [facility] 00:00:00 [facility] Influenza High Dose 2018-05-22 Completed [facility] 00:00:00 [facility] Influenza High Dose 2018-05-22 Completed [facility] 00:00:00 [facility] Influenza High Dose 2018-05-22 Completed [facility] 00:00:00 [facility] Influenza High Dose 2018-05-22 Completed [facility] 00:00:00 [facility] PPD (TB) 2017-10-15 Completed [facility] 00:00:00 [facility] PPD (TB) 2017-10-15 Completed [facility] 00:00:00 [facility] PPD (TB) 2017-10-15 Completed [facility] 00:00:00 [facility] PPD (TB) 2017-10-15 Completed [facility] 00:00:00 [facility] PPD (TB) 2017-10-15 Completed [facility] 00:00:00 [facility] PPD (TB) 2017-10-15 Completed [facility] 00:00:00 [facility] PPD (TB) 2017-10-15 Completed [facility] 00:00:00 [facility] PPD (TB) 2017-10-15 Completed [facility] 00:00:00 [facility] PPD (TB) 2017-10-15 Completed [facility] 00:00:00 [facility] PPD (TB) 2017-10-15 Completed [facility] 00:00:00 [facility] PPD (TB) 2017-10-15 Completed [facility] 00:00:00 [facility] PPD (TB) 2017-10-15 Completed [facility] 00:00:00 [facility] PPD (TB) 2017-10-15 Completed [facility] 00:00:00 [facility] PPD (TB) 2017-10-15 Completed [facility] 00:00:00 [facility] PPD (TB) 2017-10-15 Completed [facility] 00:00:00 [facility] PPD (TB) 2017-10-15 Completed [facility] 00:00:00 [facility] PPD (TB) 2017-10-15 Completed [facility] 00:00:00 [facility] PPD (TB) 2017-10-15 Completed [facility] 00:00:00 [facility] PPD (TB) 2017-10-15 Completed [facility] 00:00:00 [facility] PPD (TB) 2017-10-15 Completed [facility] 00:00:00 [facility] PPD (TB) 2017-10-15 Completed [facility] 00:00:00 [facility] PPD (TB) 2017-10-15 Completed [facility] 00:00:00 [facility] PPD (TB) 2017-10-15 Completed [facility] 00:00:00 [facility] PPD (TB) 2017-10-15 Completed [facility] 00:00:00 [facility] PPD (TB) 2017-10-15 Completed [facility] 00:00:00 [facility] PPD (TB) 2017-10-15 Completed [facility] 00:00:00 [facility] PPD (TB) 2017-10-15 Completed [facility] 00:00:00 [facility] PPD (TB) 2017-10-15 Completed [facility] 00:00:00 [facility] PPD (TB) 2017-10-15 Completed [facility] 00:00:00 [facility] PPD (TB) 2017-10-15 Completed [facility] 00:00:00 [facility] PPD (TB) 2017-10-15 Completed [facility] 00:00:00 [facility] PPD (TB) 2017-10-15 Completed [facility] 00:00:00 [facility] PPD (TB) 2017-10-15 Completed [facility] 00:00:00 [facility] PPD (TB) 2017-10-15 Completed [facility] 00:00:00 [facility] PPD (TB) 2017-10-15 Completed [facility] 00:00:00 [facility] PPD (TB) 2017-10-15 Completed [facility] 00:00:00 [facility] PPD (TB) 2017-10-15 Completed [facility] 00:00:00 [facility] PPD (TB) 2017-10-15 Completed [facility] 00:00:00 [facility] PPD (TB) 2017-10-15 Completed [facility] 00:00:00 [facility] PPD (TB) 2017-10-15 Completed [facility] 00:00:00 [facility] PPD (TB) 2017-10-15 Completed [facility] 00:00:00 [facility] PPD (TB) 2017-10-15 Completed [facility] 00:00:00 [facility] PPD (TB) 2017-10-15 Completed [facility] 00:00:00 [facility] PPD (TB) 2017-10-15 Completed [facility] 00[facility]00:00 [facility] PPD (TB) 2017-10-15 Completed [facility] 00:00:00 [facility] PPD (TB) 2017-10-15 Completed [facility] 00:00:00 [facility] PPD (TB) 2017-10-15 Completed [facility] 00:00:00 [facility] PPD (TB) 2017-10-15 Completed [facility] 00:00:00 [facility] PPD (TB) 2017-10-15 Completed [facility] 00:00:00 [facility] PPD (TB) 2017-10-15 Completed [facility] 00:00:00 [facility] PPD (TB) 2017-10-15 Completed [facility] 00:00:00 [facility] PPD (TB) 2017-10-15 Completed [facility] 00:00:00 [facility] PPD (TB) 2017-10-15 Completed [facility] 00:00:00 [facility] PPD (TB) 2017-10-15 Completed [facility] 00:00:00 [facility] PPD (TB) 2017-10-15 Completed [facility] 00:00:00 [facility] PPD (TB) 2017-10-15 Completed [facility] 00:00:00 [facility] PPD (TB) 2017-10-15 Completed [facility] 00:00:00 [facility] PPD (TB) 2017-10-15 Completed [facility] 00:00:00 [facility] PPD (TB) 2017-10-15 Completed [facility] 00:00:00 [facility] PPD (TB) 2017-10-15 Completed [facility] 00:00:00 [facility] PPD (TB) 2017-10-15 Completed [facility] 00:00:00 [facility] PPD (TB) 2017-10-15 Completed [facility] 00[facility]00:00 [facility] PPD (TB) 2017-10-15 Completed [facility] 00:00:00 [facility] PPD (TB) 2017-10-15 Completed [facility] 00:00:00 [facility] PPD (TB) 2017-10-15 Completed [facility] 00:00:00 [facility] PPD (TB) 2017-10-15 Completed [facility] 00:00:00 [facility] PPD (TB) 2017-10-15 Completed [facility] 00:00:00 [facility] PPD (TB) 2017-10-15 Completed [facility] 00:00:00 [facility] Influenza High Dose 2017-05-23 Completed [facility] 00:00:00 [facility] Influenza High Dose 2017-05-23 Completed [facility] 00:00:00 [facility] Influenza High Dose 2017-05-23 Completed [facility] 00:00:00 [facility] Influenza High Dose 2017-05-23 Completed [facility] 00:00:00 [facility] Influenza High Dose 2017-05-23 Completed [facility] 00:00:00 [facility] Influenza High Dose 2017-05-23 Completed [facility] 00:00:00 [facility] Influenza High Dose 2017-05-23 Completed [facility] 00:00:00 [facility] Influenza High Dose 2017-05-23 Completed [facility] 00:00:00 [facility] Influenza High Dose 2017-05-23 Completed [facility] 00:00:00 [facility] Influenza High Dose 2017-05-23 Completed [facility] 00:00:00 [facility] Influenza High Dose 2017-05-23 Completed [facility] 00:00:00 [facility] Influenza High Dose 2017-05-23 Completed [facility] 00:00:00 [facility] Influenza High Dose 2017-05-23 Completed [facility] 00:00:00 [facility] Influenza High Dose 2017-05-23 Completed [facility] 00:00:00 [facility] Influenza High Dose 2017-05-23 Completed [facility] 00:00:00 [facility] Influenza High Dose 2017-05-23 Completed [facility] 00:00:00 [facility] Influenza High Dose 2017-05-23 Completed [facility] 00:00:00 [facility] Influenza High Dose 2017-05-23 Completed [facility] 00:00:00 [facility] Influenza High Dose 2017-05-23 Completed [facility] 00:00:00 [facility] Influenza High Dose 2017-05-23 Completed [facility] 00:00:00 [facility] Influenza High Dose 2017-05-23 Completed [facility] 00:00:00 [facility] Influenza High Dose 2017-05-23 Completed [facility] 00:00:00 [facility] Influenza High Dose 2017-05-23 Completed [facility] 00:00:00 [facility] Influenza High Dose 2017-05-23 Completed [facility] 00:00:00 [facility] Influenza High Dose 2017-05-23 Completed [facility] 00:00:00 [facility] Influenza High Dose 2017-05-23 Completed [facility] 00:00:00 [facility] Influenza High Dose 2017-05-23 Completed [facility] 00:00:00 [facility] Influenza High Dose 2017-05-23 Completed [facility] 00:00:00 [facility] Influenza High Dose 2017-05-23 Completed [facility] 00:00:00 [facility] Influenza High Dose 2017-05-23 Completed [facility] 00:00:00 [facility] Influenza High Dose 2017-05-23 Completed [facility] 00:00:00 [facility] Influenza High Dose 2017-05-23 Completed [facility] 00:00:00 [facility] Influenza High Dose 2017-05-23 Completed [facility] 00:00:00 [facility] Influenza High Dose 2017-05-23 Completed [facility] 00:00:00 [facility] Influenza High Dose 2017-05-23 Completed [facility] 00:00:00 [facility] Influenza High Dose 2017-05-23 Completed [facility] 00:00:00 [facility] Influenza High Dose 2017-05-23 Completed [facility] 00:00:00 [facility] Influenza High Dose 2017-05-23 Completed [facility] 00:00:00 [facility] Influenza High Dose 2017-05-23 Completed [facility] 00:00:00 [facility] Influenza High Dose 2017-05-23 Completed [facility] 00:00:00 [facility] Influenza High Dose 2017-05-23 Completed [facility] 00:00:00 [facility] Influenza High Dose 2017-05-23 Completed [facility] 00:00:00 [facility] Influenza High Dose 2017-05-23 Completed [facility] 00:00:00 [facility] Influenza High Dose 2017-05-23 Completed [facility] 00:00:00 [facility] Influenza High Dose 2017-05-23 Completed [facility] 00:00:00 [facility] Influenza High Dose 2017-05-23 Completed [facility] 00:00:00 [facility] Influenza High Dose 2017-05-23 Completed [facility] 00:00:00 [facility] Influenza High Dose 2017-05-23 Completed [facility] 00:00:00 [facility] Influenza High Dose 2017-05-23 Completed [facility] 00:00:00 [facility] Influenza High Dose 2017-05-23 Completed [facility] 00:00:00 [facility] Influenza High Dose 2017-05-23 Completed [facility] 00:00:00 [facility] Influenza High Dose 2017-05-23 Completed [facility] 00:00:00 [facility] Influenza High Dose 2017-05-23 Completed [facility] 00:00:00 [facility] Influenza High Dose 2017-05-23 Completed [facility] 00:00:00 [facility] Influenza High Dose 2017-05-23 Completed [facility] 00:00:00 [facility] Influenza High Dose 2017-05-23 Completed [facility] 00:00:00 [facility] Influenza High Dose 2017-05-23 Completed [facility] 00:00:00 [facility] Influenza High Dose 2017-05-23 Completed [facility] 00:00:00 [facility] Influenza High Dose 2017-05-23 Completed [facility] 00:00:00 [facility] Influenza High Dose 2017-05-23 Completed [facility] 00:00:00 [facility] Influenza High Dose 2017-05-23 Completed [facility] 00:00:00 [facility] Influenza High Dose 2017-05-23 Completed [facility] 00:00:00 [facility] Influenza High Dose 2017-05-23 Completed [facility] 00:00:00 [facility] Influenza High Dose 2017-05-23 Completed [facility] 00:00:00 [facility] Influenza High Dose 2017-05-23 Completed [facility] 00:00:00 [facility] Influenza High Dose 2017-05-23 Completed [facility] 00:00:00 [facility] Influenza High Dose 2017-05-23 Completed [facility] 00:00:00 [facility] Influenza High Dose 2017-05-23 Completed [facility] 00:00:00 [facility] HEP B, Adult Dosage 2017-04-15 Completed [facility] 00:00:00 [facility] HEP B, Adult Dosage 2017-04-15 Completed [facility] 00:00:00 [facility] HEP B, Adult Dosage 2017-04-15 Completed [facility] 00:00:00 [facility] HEP B, Adult Dosage 2017-04-15 Completed [facility] 00:00:00 [facility] HEP B, Adult Dosage 2017-04-15 Completed [facility] 00:00:00 [facility] HEP B, Adult Dosage 2017-04-15 Completed [facility] 00:00:00 [facility] HEP B, Adult Dosage 2017-04-15 Completed [facility] 00:00:00 [facility] HEP B, Adult Dosage 2017-04-15 Completed [facility] 00:00:00 [facility] HEP B, Adult Dosage 2017-04-15 Completed [facility] 00:00:00 [facility] HEP B, Adult Dosage 2017-04-15 Completed [facility] 00:00:00 [facility] HEP B, Adult Dosage 2017-04-15 Completed [facility] 00:00:00 [facility] HEP B, Adult Dosage 2017-04-15 Completed [facility] 00:00:00 [facility] HEP B, Adult Dosage 2017-04-15 Completed [facility] 00:00:00 [facility] HEP B, Adult Dosage 2017-04-15 Completed [facility] 00:00:00 [facility] HEP B, Adult Dosage 2017-04-15 Completed [facility] 00:00:00 [facility] HEP B, Adult Dosage 2017-04-15 Completed [facility] 00:00:00 [facility] HEP B, Adult Dosage 2017-04-15 Completed [facility] 00:00:00 [facility] HEP B, Adult Dosage 2017-04-15 Completed [facility] 00:00:00 [facility] HEP B, Adult Dosage 2017-04-15 Completed [facility] 00:00:00 [facility] HEP B, Adult Dosage 2017-04-15 Completed [facility] 00:[facility]:00 [facility] HEP B, Adult Dosage 2017-04-15 Completed [facility] 00:00:00 [facility] HEP B, Adult Dosage 2017-04-15 Completed [facility] 00:00:00 [facility] HEP B, Adult Dosage 2017-04-15 Completed [facility] 00:00:00 [facility] HEP B, Adult Dosage 2017-04-15 Completed [facility] 00:00:00 [facility] HEP B, Adult Dosage 2017-04-15 Completed [facility] 00:00:00 [facility] HEP B, Adult Dosage 2017-04-15 Completed [facility] 00:00:00 [facility] HEP B, Adult Dosage 2017-04-15 Completed [facility] 00:00:00 [facility] HEP B, Adult Dosage 2017-04-15 Completed [facility] 00:00:00 [facility] HEP B, Adult Dosage 2017-04-15 Completed [facility] 00:00:00 [facility] HEP B, Adult Dosage 2017-04-15 Completed [facility] 00:00:00 [facility] HEP B, Adult Dosage 2017-04-15 Completed [facility] 00:00:00 [facility] HEP B, Adult Dosage 2017-04-15 Completed [facility] 00:00:00 [facility] HEP B, Adult Dosage 2017-04-15 Completed [facility] 00:00:00 [facility] HEP B, Adult Dosage 2017-04-15 Completed [facility] 00:00:00 [facility] HEP B, Adult Dosage 2017-04-15 Completed [facility] 00:00:00 [facility] HEP B, Adult Dosage 2017-04-15 Completed [facility] 00:00:00 [facility] HEP B, Adult Dosage 2017-04-15 Completed [facility] 00:00:00 [facility] HEP B, Adult Dosage 2017-04-15 Completed [facility] 00:00:00 [facility] HEP B, Adult Dosage 2017-04-15 Completed [facility] 00:00:00 [facility] HEP B, Adult Dosage 2017-04-15 Completed [facility] 00:00:00 [facility] HEP B, Adult Dosage 2017-04-15 Completed [facility] 00:00:00 [facility] HEP B, Adult Dosage 2017-04-15 Completed [facility] 00:00:00 [facility] HEP B, Adult Dosage 2017-04-15 Completed [facility] 00:00:00 [facility] HEP B, Adult Dosage 2017-04-15 Completed [facility] 00:00:00 [facility] HEP B, Adult Dosage 2017-04-15 Completed [facility] 00:00:00 [facility] HEP B, Adult Dosage 2017-04-15 Completed [facility] 00:00:00 [facility] HEP B, Adult Dosage 2017-04-15 Completed [facility] 00:00:00 [facility] HEP B, Adult Dosage 2017-04-15 Completed [facility] 00:00:00 [facility] HEP B, Adult Dosage 2017-04-15 Completed [facility] 00:00:00 [facility] HEP B, Adult Dosage 2017-04-15 Completed [facility] 00:00:00 [facility] HEP B, Adult Dosage 2017-04-15 Completed [facility] 00:00:00 [facility] HEP B, Adult Dosage 2017-04-15 Completed [facility] 00:00:00 [facility] HEP B, Adult Dosage 2017-04-15 Completed [facility] 00:00:00 [facility] HEP B, Adult Dosage 2017-04-15 Completed [facility] 00:00:00 [facility] HEP B, Adult Dosage 2017-04-15 Completed [facility] 00:00:00 [facility] HEP B, Adult Dosage 2017-04-15 Completed [facility] 00:00:00 [facility] HEP B, Adult Dosage 2017-04-15 Completed [facility] 00:00:00 [facility] HEP B, Adult Dosage 2017-04-15 Completed [facility] 00:00:00 [facility] HEP B, Adult Dosage 2017-04-15 Completed [facility] 00:00:00 [facility] HEP B, Adult Dosage 2017-04-15 Completed [facility] 00:00:00 [facility] HEP B, Adult Dosage 2017-04-15 Completed [facility] 00:00:00 [facility] HEP B, Adult Dosage 2017-04-15 Completed [facility] 00:00:00 [facility] HEP B, Adult Dosage 2017-04-15 Completed [facility] 00:00:00 [facility] HEP B, Adult Dosage 2017-04-15 Completed [facility] 00:00:00 [facility] HEP B, Adult Dosage 2017-04-15 Completed [facility] 00:00:00 [facility] HEP B, Adult Dosage 2017-04-15 Completed [facility] 00:00:00 [facility] HEP B, Adult Dosage 2017-04-15 Completed [facility] 00:00:00 [facility] HEP B, Adult Dosage 2017-04-15 Completed [facility] 00:00:00 [facility] HEP B, Adult Dosage 2016-12-18 Completed [facility] 00:00:00 [facility] HEP B, Adult Dosage 2016-12-18 Completed [facility] 00:00:00 [facility] HEP B, Adult Dosage 2016-12-18 Completed [facility] 00:00:00 [facility] HEP B, Adult Dosage 2016-12-18 Completed [facility] 00:00:00 [facility] HEP B, Adult Dosage 2016-12-18 Completed [facility] 00:00:00 [facility] HEP B, Adult Dosage 2016-12-18 Completed [facility] 00:00:00 [facility] HEP B, Adult Dosage 2016-12-18 Completed [facility] 00:00:00 [facility] HEP B, Adult Dosage 2016-12-18 Completed [facility] 00:00:00 [facility] HEP B, Adult Dosage 2016-12-18 Completed [facility] 00:00:00 [facility] HEP B, Adult Dosage 2016-12-18 Completed [facility] 00:00:00 [facility] HEP B, Adult Dosage 2016-12-18 Completed [facility] 00:00:00 [facility] HEP B, Adult Dosage 2016-12-18 Completed [facility] 00:00:00 [facility] HEP B, Adult Dosage 2016-12-18 Completed [facility] 00:00:00 [facility] HEP B, Adult Dosage 2016-12-18 Completed [facility] 00:00:00 [facility] HEP B, Adult Dosage 2016-12-18 Completed [facility] 00:00:00 [facility] HEP B, Adult Dosage 2016-12-18 Completed [facility] 00:00:00 [facility] HEP B, Adult Dosage 2016-12-18 Completed [facility] 00:00:00 [facility] HEP B, Adult Dosage 2016-12-18 Completed [facility] 00:00:00 [facility] HEP B, Adult Dosage 2016-12-18 Completed [facility] 00:00:00 [facility] HEP B, Adult Dosage 2016-12-18 Completed [facility] 00:00:00 [facility] HEP B, Adult Dosage 2016-12-18 Completed [facility] 00:00:00 [facility] HEP B, Adult Dosage 2016-12-18 Completed [facility] 00:00:00 [facility] HEP B, Adult Dosage 2016-12-18 Completed [facility] 00:00:00 [facility] HEP B, Adult Dosage 2016-12-18 Completed [facility] 00:00:00 [facility] HEP B, Adult Dosage 2016-12-18 Completed [facility] 00:00:00 [facility] HEP B, Adult Dosage 2016-12-18 Completed [facility] 00:00:00 [facility] HEP B, Adult Dosage 2016-12-18 Completed [facility] 00:00:00 [facility] HEP B, Adult Dosage 2016-12-18 Completed [facility] 00:00:00 [facility] HEP B, Adult Dosage 2016-12-18 Completed [facility] 00:00:00 [facility] HEP B, Adult Dosage 2016-12-18 Completed [facility] 00:00:00 [facility] HEP B, Adult Dosage 2016-12-18 Completed [facility] 00:00:00 [facility] HEP B, Adult Dosage 2016-12-18 Completed [facility] 00:00:00 [facility] HEP B, Adult Dosage 2016-12-18 Completed [facility] 00:00:00 [facility] HEP B, Adult Dosage 2016-12-18 Completed [facility] 00:00:00 [facility] HEP B, Adult Dosage 2016-12-18 Completed [facility] 00:00:00 [facility] HEP B, Adult Dosage 2016-12-18 Completed [facility] 00:00:00 [facility] HEP B, Adult Dosage 2016-12-18 Completed [facility] 00:00:00 [facility] HEP B, Adult Dosage 2016-12-18 Completed [facility] 00:00:00 [facility] HEP B, Adult Dosage 2016-12-18 Completed [facility] 00:00:00 [facility] HEP B, Adult Dosage 2016-12-18 Completed [facility] 00:00:00 [facility] HEP B, Adult Dosage 2016-12-18 Completed [facility] 00:00:00 [facility] HEP B, Adult Dosage 2016-12-18 Completed [facility] 00:00:00 [facility] HEP B, Adult Dosage 2016-12-18 Completed [facility] 00:00:00 [facility] HEP B, Adult Dosage 2016-12-18 Completed [facility] 00:00:00 [facility] HEP B, Adult Dosage 2016-12-18 Completed [facility] 00:00:00 [facility] HEP B, Adult Dosage 2016-12-18 Completed [facility] 00:00:00 [facility] HEP B, Adult Dosage 2016-12-18 Completed [facility] 00:00:00 [facility] HEP B, Adult Dosage 2016-12-18 Completed [facility] 00:00:00 [facility] HEP B, Adult Dosage 2016-12-18 Completed [facility] 00:00:00 [facility] HEP B, Adult Dosage 2016-12-18 Completed [facility] 00:00:00 [facility] HEP B, Adult Dosage 2016-12-18 Completed [facility] 00:00:00 [facility] HEP B, Adult Dosage 2016-12-18 Completed [facility] 00:00:00 [facility] HEP B, Adult Dosage 2016-12-18 Completed [facility] 00:00:00 [facility] HEP B, Adult Dosage 2016-12-18 Completed [facility] 00:00:00 [facility] HEP B, Adult Dosage 2016-12-18 Completed [facility] 00:00:00 [facility] HEP B, Adult Dosage 2016-12-18 Completed [facility] 00:00:00 [facility] HEP B, Adult Dosage 2016-12-18 Completed [facility] 00:00:00 [facility] HEP B, Adult Dosage 2016-12-18 Completed [facility] 00:00:00 [facility] HEP B, Adult Dosage 2016-12-18 Completed [facility] 00:00:00 [facility] HEP B, Adult Dosage 2016-12-18 Completed [facility] 00:00:00 [facility] HEP B, Adult Dosage 2016-12-18 Completed [facility] 00:00:00 [facility] HEP B, Adult Dosage 2016-12-18 Completed [facility] 00:00:00 [facility] HEP B, Adult Dosage 2016-12-18 Completed [facility] 00:00:00 [facility] HEP B, Adult Dosage 2016-12-18 Completed [facility] 00:00:00 [facility] HEP B, Adult Dosage 2016-12-18 Completed [facility] 00:00:00 [facility] HEP B, Adult Dosage 2016-12-18 Completed [facility] 00:00:00 [facility] HEP B, Adult Dosage 2016-12-18 Completed [facility] 00:00:00 [facility] HEP B, Adult Dosage 2016-12-18 Completed [facility] 00:00:00 [facility] HEP B, Adult Dosage 2016-11-20 Completed [facility] 00:00:00 [facility] HEP B, Adult Dosage 2016-11-20 Completed [facility] 00:00:00 [facility] HEP B, Adult Dosage 2016-11-20 Completed [facility] 00:00:00 [facility] HEP B, Adult Dosage 2016-11-20 Completed [facility] 00:00:00 [facility] HEP B, Adult Dosage 2016-11-20 Completed [facility] 00:00:00 [facility] HEP B, Adult Dosage 2016-11-20 Completed [facility] 00:00:00 [facility] HEP B, Adult Dosage 2016-11-20 Completed [facility] 00:00:00 [facility] HEP B, Adult Dosage 2016-11-20 Completed [facility] 00:00:00 [facility] HEP B, Adult Dosage 2016-11-20 Completed [facility] 00:00:00 [facility] HEP B, Adult Dosage 2016-11-20 Completed [facility] 00:00:00 [facility] HEP B, Adult Dosage 2016-11-20 Completed [facility] 00:00:00 [facility] HEP B, Adult Dosage 2016-11-20 Completed [facility] 00:00:00 [facility] HEP B, Adult Dosage 2016-11-20 Completed [facility] 00:00:00 [facility] HEP B, Adult Dosage 2016-11-20 Completed [facility] 00:00:00 [facility] HEP B, Adult Dosage 2016-11-20 Completed [facility] 00:00:00 [facility] HEP B, Adult Dosage 2016-11-20 Completed [facility] 00:00:00 [facility] HEP B, Adult Dosage 2016-11-20 Completed [facility] 00:00:00 [facility] HEP B, Adult Dosage 2016-11-20 Completed [facility] 00:00:00 [facility] HEP B, Adult Dosage 2016-11-20 Completed [facility] 00:00:00 [facility] HEP B, Adult Dosage 2016-11-20 Completed [facility] 00:00:00 [facility] HEP B, Adult Dosage 2016-11-20 Completed [facility] 00:00:00 [facility] HEP B, Adult Dosage 2016-11-20 Completed [facility] 00:00:00 [facility] HEP B, Adult Dosage 2016-11-20 Completed [facility] 00:00:00 [facility] HEP B, Adult Dosage 2016-11-20 Completed [facility] 00:00:00 [facility] HEP B, Adult Dosage 2016-11-20 Completed [facility] 00:00:00 [facility] HEP B, Adult Dosage 2016-11-20 Completed [facility] 00:00:00 [facility] HEP B, Adult Dosage 2016-11-20 Completed [facility] 00:00:00 [facility] HEP B, Adult Dosage 2016-11-20 Completed [facility] 00:00:00 [facility] HEP B, Adult Dosage 2016-11-20 Completed [facility] 00:00:00 [facility] HEP B, Adult Dosage 2016-11-20 Completed [facility] 00:00:00 [facility] HEP B, Adult Dosage 2016-11-20 Completed [facility] 00:00:00 [facility] HEP B, Adult Dosage 2016-11-20 Completed [facility] 00:00:00 [facility] HEP B, Adult Dosage 2016-11-20 Completed [facility] 00:00:00 [facility] HEP B, Adult Dosage 2016-11-20 Completed [facility] 00:00:00 [facility] HEP B, Adult Dosage 2016-11-20 Completed [facility] 00:00:00 [facility] HEP B, Adult Dosage 2016-11-20 Completed [facility] 00:00:00 [facility] HEP B, Adult Dosage 2016-11-20 Completed [facility] 00:00:00 [facility] HEP B, Adult Dosage 2016-11-20 Completed [facility] 00:00:00 [facility] HEP B, Adult Dosage 2016-11-20 Completed [facility] 00:00:00 [facility] HEP B, Adult Dosage 2016-11-20 Completed [facility] 00:00:00 [facility] HEP B, Adult Dosage 2016-11-20 Completed [facility] 00:00:00 [facility] HEP B, Adult Dosage 2016-11-20 Completed [facility] 00:00:00 [facility] HEP B, Adult Dosage 2016-11-20 Completed [facility] 00:00:00 [facility] HEP B, Adult Dosage 2016-11-20 Completed [facility] 00:00:00 [facility] HEP B, Adult Dosage 2016-11-20 Completed [facility] 00:00:00 [facility] HEP B, Adult Dosage 2016-11-20 Completed [facility] 00:00:00 [facility] HEP B, Adult Dosage 2016-11-20 Completed [facility] 00:00:00 [facility] HEP B, Adult Dosage 2016-11-20 Completed [facility] 00:00:00 [facility] HEP B, Adult Dosage 2016-11-20 Completed [facility] 00:00:00 [facility] HEP B, Adult Dosage 2016-11-20 Completed [facility] 00:00:00 [facility] HEP B, Adult Dosage 2016-11-20 Completed [facility] 00:00:00 [facility] HEP B, Adult Dosage 2016-11-20 Completed [facility] 00:00:00 [facility] HEP B, Adult Dosage 2016-11-20 Completed [facility] 00:00:00 [facility] HEP B, Adult Dosage 2016-11-20 Completed [facility] 00:00:00 [facility] HEP B, Adult Dosage 2016-11-20 Completed [facility] 00:00:00 [facility] HEP B, Adult Dosage 2016-11-20 Completed [facility] 00:00:00 [facility] HEP B, Adult Dosage 2016-11-20 Completed [facility] 00:00:00 [facility] HEP B, Adult Dosage 2016-11-20 Completed [facility] 00:00:00 [facility] HEP B, Adult Dosage 2016-11-20 Completed [facility] 00:00:00 [facility] HEP B, Adult Dosage 2016-11-20 Completed [facility] 00:00:00 [facility] HEP B, Adult Dosage 2016-11-20 Completed [facility] 00:00:00 [facility] HEP B, Adult Dosage 2016-11-20 Completed [facility] 00:00:00 [facility] HEP B, Adult Dosage 2016-11-20 Completed [facility] 00:00:00 [facility] HEP B, Adult Dosage 2016-11-20 Completed [facility] 00:00:00 [facility] HEP B, Adult Dosage 2016-11-20 Completed [facility] 00:00:00 [facility] HEP B, Adult Dosage 2016-11-20 Completed [facility] 00:00:00 [facility] HEP B, Adult Dosage 2016-11-20 Completed [facility] 00:00:00 [facility] HEP B, Adult Dosage 2016-11-20 Completed [facility] 00:00:00 [facility] HEP B, Adult Dosage 2016-10-15 Completed [facility] 00:00:00 [facility] PPD (TB) 2016-10-15 Completed [facility] 00:00:00 [facility] HEP B, Adult Dosage 2016-10-15 Completed [facility] 00:00:00 [facility] PPD (TB) 2016-10-15 Completed [facility] 00:00:00 [facility] HEP B, Adult Dosage 2016-10-15 Completed [facility] 00:00:00 [facility] PPD (TB) 2016-10-15 Completed [facility] 00:00:00 [facility] HEP B, Adult Dosage 2016-10-15 Completed [facility] 00:00:00 [facility] PPD (TB) 2016-10-15 Completed [facility] 00:00:00 [facility] HEP B, Adult Dosage 2016-10-15 Completed [facility] 00:00:00 [facility] PPD (TB) 2016-10-15 Completed [facility] 00:00:00 [facility] HEP B, Adult Dosage 2016-10-15 Completed [facility] 00:00:00 [facility] PPD (TB) 2016-10-15 Completed [facility] 00:00:00 [facility] HEP B, Adult Dosage 2016-10-15 Completed [facility] 00:00:00 [facility] PPD (TB) 2016-10-15 Completed [facility] 00:00:00 [facility] HEP B, Adult Dosage 2016-10-15 Completed [facility] 00:00:00 [facility] PPD (TB) 2016-10-15 Completed [facility] 00:00:00 [facility] HEP B, Adult Dosage 2016-10-15 Completed [facility] 00:00:00 [facility] PPD (TB) 2016-10-15 Completed [facility] 00:00:00 [facility] HEP B, Adult Dosage 2016-10-15 Completed [facility] 00:00:00 [facility] PPD (TB) 2016-10-15 Completed [facility] 00:00:00 [facility] HEP B, Adult Dosage 2016-10-15 Completed [facility] 00:00:00 [facility] PPD (TB) 2016-10-15 Completed [facility] 00:00:00 [facility] HEP B, Adult Dosage 2016-10-15 Completed [facility] 00:00:00 [facility] PPD (TB) 2016-10-15 Completed [facility] 00:00:00 [facility] HEP B, Adult Dosage 2016-10-15 Completed [facility] 00:00:00 [facility] PPD (TB) 2016-10-15 Completed [facility] 00:00:00 [facility] HEP B, Adult Dosage 2016-10-15 Completed [facility] 00:00:00 [facility] PPD (TB) 2016-10-15 Completed [facility] 00:00:00 [facility] HEP B, Adult Dosage 2016-10-15 Completed [facility] 00:00:00 [facility] PPD (TB) 2016-10-15 Completed [facility] 00:00:00 [facility] HEP B, Adult Dosage 2016-10-15 Completed [facility] 00:00:00 [facility] PPD (TB) 2016-10-15 Completed [facility] 00:00:00 [facility] HEP B, Adult Dosage 2016-10-15 Completed [facility] 00:00:00 [facility] PPD (TB) 2016-10-15 Completed [facility] 00:00:00 [facility] HEP B, Adult Dosage 2016-10-15 Completed [facility] 00:00:00 [facility] PPD (TB) 2016-10-15 Completed [facility] 00:00:00 [facility] HEP B, Adult Dosage 2016-10-15 Completed [facility] 00:00:00 [facility] PPD (TB) 2016-10-15 Completed [facility] 00:00:00 [facility] HEP B, Adult Dosage 2016-10-15 Completed [facility] 00:00:00 [facility] PPD (TB) 2016-10-15 Completed [facility] 00:00:00 [facility] HEP B, Adult Dosage 2016-10-15 Completed [facility] 00:00:00 [facility] PPD (TB) 2016-10-15 Completed [facility] 00:00:00 [facility] HEP B, Adult Dosage 2016-10-15 Completed [facility] 00:00:00 [facility] PPD (TB) 2016-10-15 Completed [facility] 00:00:00 [facility] HEP B, Adult Dosage 2016-10-15 Completed [facility] 00:00:00 [facility] PPD (TB) 2016-10-15 Completed [facility] 00:00:00 [facility] HEP B, Adult Dosage 2016-10-15 Completed [facility] 00:00:00 [facility] PPD (TB) 2016-10-15 Completed [facility] 00:00:00 [facility] HEP B, Adult Dosage 2016-10-15 Completed [facility] 00:00:00 [facility] PPD (TB) 2016-10-15 Completed [facility] 00:00:00 [facility] HEP B, Adult Dosage 2016-10-15 Completed [facility] 00:00:00 [facility] PPD (TB) 2016-10-15 Completed [facility] 00:00:00 [facility] HEP B, Adult Dosage 2016-10-15 Completed [facility] 00:00:00 [facility] PPD (TB) 2016-10-15 Completed [facility] 00:00:00 [facility] HEP B, Adult Dosage 2016-10-15 Completed [facility] 00:00:00 [facility] PPD (TB) 2016-10-15 Completed [facility] 00:00:00 [facility] HEP B, Adult Dosage 2016-10-15 Completed [facility] 00:00:00 [facility] PPD (TB) 2016-10-15 Completed [facility] 00:00:00 [facility] HEP B, Adult Dosage 2016-10-15 Completed [facility] 00:00:00 [facility] PPD (TB) 2016-10-15 Completed [facility] 00:00:00 [facility] HEP B, Adult Dosage 2016-10-15 Completed [facility] 00:00:00 [facility] PPD (TB) 2016-10-15 Completed [facility] 00:00:00 [facility] HEP B, Adult Dosage 2016-10-15 Completed [facility] 00:00:00 [facility] PPD (TB) 2016-10-15 Completed [facility] 00:00:00 [facility] HEP B, Adult Dosage 2016-10-15 Completed [facility] 00:00:00 [facility] PPD (TB) 2016-10-15 Completed [facility] 00:00:00 [facility] HEP B, Adult Dosage 2016-10-15 Completed [facility] 00:00:00 [facility] PPD (TB) 2016-10-15 Completed [facility] 00:00:00 [facility] HEP B, Adult Dosage 2016-10-15 Completed [facility] 00:00:00 [facility] PPD (TB) 2016-10-15 Completed [facility] 00:00:00 [facility] HEP B, Adult Dosage 2016-10-15 Completed [facility] 00:00:00 [facility] PPD (TB) 2016-10-15 Completed [facility] 00:00:00 [facility] HEP B, Adult Dosage 2016-10-15 Completed [facility] 00:00:00 [facility] PPD (TB) 2016-10-15 Completed [facility] 00:00:00 [facility] HEP B, Adult Dosage 2016-10-15 Completed [facility] 00:00:00 [facility] PPD (TB) 2016-10-15 Completed [facility] 00:00:00 [facility] HEP B, Adult Dosage 2016-10-15 Completed [facility] 00:00:00 [facility] PPD (TB) 2016-10-15 Completed [facility] 00:00:00 [facility] HEP B, Adult Dosage 2016-10-15 Completed [facility] 00:00:00 [facility] PPD (TB) 2016-10-15 Completed [facility] 00:00:00 [facility] HEP B, Adult Dosage 2016-10-15 Completed [facility] 00:00:00 [facility] PPD (TB) 2016-10-15 Completed [facility] 00:00:00 [facility] HEP B, Adult Dosage 2016-10-15 Completed [facility] 00:00:00 [facility] PPD (TB) 2016-10-15 Completed [facility] 00:00:00 [facility] HEP B, Adult Dosage 2016-10-15 Completed [facility] 00:00:00 [facility] PPD (TB) 2016-10-15 Completed [facility] 00:00:00 [facility] HEP B, Adult Dosage 2016-10-15 Completed [facility] 00:00:00 [facility] PPD (TB) 2016-10-15 Completed [facility] 00:00:00 [facility] HEP B, Adult Dosage 2016-10-15 Completed [facility] 00:00:00 [facility] PPD (TB) 2016-10-15 Completed [facility] 00:00:00 [facility] HEP B, Adult Dosage 2016-10-15 Completed [facility] 00:00:00 [facility] PPD (TB) 2016-10-15 Completed [facility] 00:00:00 [facility] HEP B, Adult Dosage 2016-10-15 Completed [facility] 00:00:00 [facility] PPD (TB) 2016-10-15 Completed [facility] 00:00:00 [facility] HEP B, Adult Dosage 2016-10-15 Completed [facility] 00:00:00 [facility] PPD (TB) 2016-10-15 Completed [facility] 00:[facility]:00 [facility] HEP B, Adult Dosage 2016-10-15 Completed [facility] 00:00:00 [facility] PPD (TB) 2016-10-15 Completed [facility] 00:00:00 [facility] HEP B, Adult Dosage 2016-10-15 Completed [facility] 00:00:00 [facility] PPD (TB) 2016-10-15 Completed [facility] 00:00:00 [facility] HEP B, Adult Dosage 2016-10-15 Completed [facility] 00:00:00 [facility] PPD (TB) 2016-10-15 Completed [facility] 00:00:00 [facility] HEP B, Adult Dosage 2016-10-15 Completed [facility] 00:00:00 [facility] PPD (TB) 2016-10-15 Completed [facility] 00:00:00 [facility] HEP B, Adult Dosage 2016-10-15 Completed [facility] 00:00:00 [facility] PPD (TB) 2016-10-15 Completed [facility] 00:00:00 [facility] HEP B, Adult Dosage 2016-10-15 Completed [facility] 00:00:00 [facility] PPD (TB) 2016-10-15 Completed [facility] 00:00:00 [facility] HEP B, Adult Dosage 2016-10-15 Completed [facility] 00:00:00 [facility] PPD (TB) 2016-10-15 Completed [facility] 00:00:00 [facility] HEP B, Adult Dosage 2016-10-15 Completed [facility] 00:00:00 [facility] PPD (TB) 2016-10-15 Completed [facility] 00:00:00 [facility] HEP B, Adult Dosage 2016-10-15 Completed [facility] 00:00:00 [facility] PPD (TB) 2016-10-15 Completed [facility] 00:00:00 [facility] HEP B, Adult Dosage 2016-10-15 Completed [facility] 00:00:00 [facility] PPD (TB) 2016-10-15 Completed [facility] 00:00:00 [facility] HEP B, Adult Dosage 2016-10-15 Completed [facility] 00:00:00 [facility] PPD (TB) 2016-10-15 Completed [facility] 00:00:00 [facility] HEP B, Adult Dosage 2016-10-15 Completed [facility] 00:00:00 [facility] PPD (TB) 2016-10-15 Completed [facility] 00:00:00 [facility] HEP B, Adult Dosage 2016-10-15 Completed [facility] 00:00:00 [facility] PPD (TB) 2016-10-15 Completed [facility] 00:00:00 [facility] HEP B, Adult Dosage 2016-10-15 Completed [facility] 00:00:00 [facility] PPD (TB) 2016-10-15 Completed [facility] 00:00:00 [facility] HEP B, Adult Dosage 2016-10-15 Completed [facility] 00:00:00 [facility] PPD (TB) 2016-10-15 Completed [facility] 00:00:00 [facility] HEP B, Adult Dosage 2016-10-15 Completed [facility] 00:00:00 [facility] PPD (TB) 2016-10-15 Completed [facility] 00:00:00 [facility] HEP B, Adult Dosage 2016-10-15 Completed [facility] 00:00:00 [facility] PPD (TB) 2016-10-15 Completed [facility] 00:00:00 [facility] HEP B, Adult Dosage 2016-10-15 Completed [facility] 00:00:00 [facility] PPD (TB) 2016-10-15 Completed [facility] 00:00:00 [facility] HEP B, Adult Dosage 2016-10-15 Completed [facility] 00:00:00 [facility] PPD (TB) 2016-10-15 Completed [facility] 00:00:00 [facility] HEP B, Adult Dosage 2016-10-15 Completed [facility] 00:00:00 [facility] PPD (TB) 2016-10-15 Completed [facility] 00:00:00 [facility] Pneumococcal 2016-10-03 Completed [facility] o f Polysaccharide, 00:00:00 [place] [facility] PPSV23 (PNEUMOVAX) Branch Pneumococcal 2016-10-03 Completed [facility] o f Polysaccharide, 00:00:00 [place] [facility] PPSV23 (PNEUMOVAX) Branch Pneumococcal 2016-10-03 Completed [facility] Polysaccharide, 00:00:00 [place] [facility] PPSV23 (PNEUMOVAX) Branch Pneumococcal 2016-10-03 Completed [facility] Polysaccharide, 00:00:00 [place] [facility] PPSV23 (PNEUMOVAX) Branch Pneumococcal 2016-10-03 Completed [facility] Polysaccharide, 00:00:00 [place] [facility] PPSV23 (PNEUMOVAX) Branch Pneumococcal 2016-10-03 Completed [facility] Polysaccharide, 00:00:00 [place] [facility] PPSV23 (PNEUMOVAX) Branch Pneumococcal 2016-10-03 Completed [facility] Polysaccharide, 00:00:00 [place] [facility] PPSV23 (PNEUMOVAX) Branch Pneumococcal 2016-10-03 Completed [facility] f Polysaccharide, 00:00:00 [place] [facility] PPSV23 (PNEUMOVAX) Branch Pneumococcal 2016-10-03 Completed [facility] f Polysaccharide, 00:00:00 [place] [facility] PPSV23 (PNEUMOVAX) Branch Pneumococcal 2016-10-03 Completed [facility] Polysaccharide, 00:00:00 [place] [facility] PPSV23 (PNEUMOVAX) Branch Pneumococcal 2016-10-03 Completed [facility] f Polysaccharide, 00:00:00 [place] [facility] PPSV23 (PNEUMOVAX) Branch Pneumococcal 2016-10-03 Completed [facility] f Polysaccharide, 00:00:00 [place] [facility] PPSV23 (PNEUMOVAX) Branch Pneumococcal 2016-10-03 Completed [facility] f Polysaccharide, 00:00:00 [place] [facility] PPSV23 (PNEUMOVAX) Branch Pneumococcal 2016-10-03 Completed [facility] f Polysaccharide, 00:00:00 [place] [facility] PPSV23 (PNEUMOVAX) Branch Pneumococcal 2016-10-03 Completed [facility] f Polysaccharide, 00:00:00 [place] [facility] PPSV23 (PNEUMOVAX) Branch Pneumococcal 2016-10-03 Completed [facility] Polysaccharide, 00:00:00 [place] [facility] PPSV23 (PNEUMOVAX) Branch Pneumococcal 2016-10-03 Completed [facility] f Polysaccharide, 00:00:00 [place] [facility] PPSV23 (PNEUMOVAX) Branch Pneumococcal 2016-10-03 Completed [facility] Polysaccharide, 00:00:00 [place] [facility] PPSV23 (PNEUMOVAX) Branch Pneumococcal 2016-10-03 Completed [facility] f Polysaccharide, 00:00:00 [place] [facility] PPSV23 (PNEUMOVAX) Branch Pneumococcal 2016-10-03 Completed [facility] Polysaccharide, 00:00:00 [place] [facility] PPSV23 (PNEUMOVAX) Branch Pneumococcal 2016-10-03 Completed [facility] f Polysaccharide, 00:00:00 [place] [facility] PPSV23 (PNEUMOVAX) Branch Pneumococcal 2016-10-03 Completed [facility] f Polysaccharide, 00:00:00 [place] [facility] PPSV23 (PNEUMOVAX) Branch Pneumococcal 2016-10-03 Completed [facility] f Polysaccharide, 00:00:00 [place] [facility] PPSV23 (PNEUMOVAX) Branch Pneumococcal 2016-10-03 Completed [facility] f Polysaccharide, 00:00:00 [place] [facility] PPSV23 (PNEUMOVAX) Branch Pneumococcal 2016-10-03 Completed [facility] f Polysaccharide, 00:00:00 [place] [facility] PPSV23 (PNEUMOVAX) Branch Pneumococcal 2016-10-03 Completed [facility] f Polysaccharide, 00:00:00 [place] [facility] PPSV23 (PNEUMOVAX) Branch Pneumococcal 2016-10-03 Completed [facility] f Polysaccharide, 00:00:00 [place] [facility] PPSV23 (PNEUMOVAX) Branch Pneumococcal 2016-10-03 Completed [facility] f Polysaccharide, 00:00:00 [place] [facility] PPSV23 (PNEUMOVAX) Branch Pneumococcal 2016-10-03 Completed [facility] Polysaccharide, 00:00:00 [place] [facility] PPSV23 (PNEUMOVAX) Branch Pneumococcal 2016-10-03 Completed [facility] f Polysaccharide, 00:00:00 [place] [facility] PPSV23 (PNEUMOVAX) Branch Pneumococcal 2016-10-03 Completed [facility] f Polysaccharide, 00:00:00 [place] [facility] PPSV23 (PNEUMOVAX) Branch Pneumococcal 2016-10-03 Completed [facility] f Polysaccharide, 00:00:00 [place] [facility] PPSV23 (PNEUMOVAX) Branch Pneumococcal 2016-10-03 Completed [facility] f Polysaccharide, 00:00:00 [place] [facility] PPSV23 (PNEUMOVAX) Branch Pneumococcal 2016-10-03 Completed [facility] Polysaccharide, 00:00:00 [place] [facility] PPSV23 (PNEUMOVAX) Branch Pneumococcal 2016-10-03 Completed [facility] f Polysaccharide, 00:00:00 [place] [facility] PPSV23 (PNEUMOVAX) Branch Pneumococcal 2016-10-03 Completed [facility] f Polysaccharide, 00:00:00 [place] [facility] PPSV23 (PNEUMOVAX) Branch Pneumococcal 2016-10-03 Completed [facility] f Polysaccharide, 00:00:00 [place] [facility] PPSV23 (PNEUMOVAX) Branch Pneumococcal 2016-10-03 Completed [facility] f Polysaccharide, 00:00:00 [place] [facility] PPSV23 (PNEUMOVAX) Branch Pneumococcal 2016-10-03 Completed [facility] f Polysaccharide, 00:00:00 [place] [facility] PPSV23 (PNEUMOVAX) Branch Pneumococcal 2016-10-03 Completed [facility] f Polysaccharide, 00:00:00 [place] [facility] PPSV23 (PNEUMOVAX) Branch Pneumococcal 2016-10-03 Completed [facility] f Polysaccharide, 00:00:00 [place] [facility] PPSV23 (PNEUMOVAX) Branch Pneumococcal 2016-10-03 Completed [facility] f Polysaccharide, 00:00:00 [place] [facility] PPSV23 (PNEUMOVAX) Branch Pneumococcal 2016-10-03 Completed [facility] f Polysaccharide, 00:00:00 [place] [facility] PPSV23 (PNEUMOVAX) Branch Pneumococcal 2016-10-03 Completed [facility] f Polysaccharide, 00:00:00 [place] [facility] PPSV23 (PNEUMOVAX) Branch Pneumococcal 2016-10-03 Completed [facility] f Polysaccharide, 00:00:00 [place] [facility] PPSV23 (PNEUMOVAX) Branch Pneumococcal 2016-10-03 Completed [facility] f Polysaccharide, 00:00:00 [place] [facility] PPSV23 (PNEUMOVAX) Branch Pneumococcal 2016-10-03 Completed [facility] o f Polysaccharide, 00:00:00 [place] [facility] PPSV23 (PNEUMOVAX) Branch Pneumococcal 2016-10-03 Completed [facility] f Polysaccharide, 00:00:00 [place] [facility] PPSV23 (PNEUMOVAX) Branch Pneumococcal 2016-10-03 Completed [facility] f Polysaccharide, 00:00:00 [place] [facility] PPSV23 (PNEUMOVAX) Branch Pneumococcal 2016-10-03 Completed [facility] f Polysaccharide, 00:00:00 [place] [facility] PPSV23 (PNEUMOVAX) Branch Pneumococcal 2016-10-03 Completed [facility] f Polysaccharide, 00:00:00 [place] [facility] PPSV23 (PNEUMOVAX) Branch Pneumococcal 2016-10-03 Completed [facility] f Polysaccharide, 00:00:00 [place] [facility] PPSV23 (PNEUMOVAX) Branch Pneumococcal 2016-10-03 Completed [facility] f Polysaccharide, 00:00:00 [place] [facility] PPSV23 (PNEUMOVAX) Branch Pneumococcal 2016-10-03 Completed [facility] f Polysaccharide, 00:00:00 [place] [facility] PPSV23 (PNEUMOVAX) Branch Pneumococcal 2016-10-03 Completed [facility] f Polysaccharide, 00:00:00 [place] [facility] PPSV23 (PNEUMOVAX) Branch Pneumococcal 2016-10-03 Completed [facility] o f Polysaccharide, 00:00:00 [place] [facility] PPSV23 (PNEUMOVAX) Branch Pneumococcal 2016-10-03 Completed [facility] o f Polysaccharide, 00:00:00 [place] [facility] PPSV23 (PNEUMOVAX) Branch Pneumococcal 2016-10-03 Completed [facility] f Polysaccharide, 00:00:00 [place] [facility] PPSV23 (PNEUMOVAX) Branch Pneumococcal 2016-10-03 Completed [facility] o f Polysaccharide, 00:00:00 [place] [facility] PPSV23 (PNEUMOVAX) Branch Pneumococcal 2016-10-03 Completed [facility] f Polysaccharide, 00:00:00 [place] [facility] PPSV23 (PNEUMOVAX) Branch Pneumococcal 2016-10-03 Completed [facility] o f Polysaccharide, 00:00:00 [place] [facility] PPSV23 (PNEUMOVAX) Branch Pneumococcal 2016-10-03 Completed [facility] f Polysaccharide, 00:00:00 [place] [facility] PPSV23 (PNEUMOVAX) Branch Pneumococcal 2016-10-03 Completed [facility] o f Polysaccharide, 00:00:00 [place] [facility] PPSV23 (PNEUMOVAX) Branch Pneumococcal 2016-10-03 Completed [facility] o f Polysaccharide, 00:00:00 [place] [facility] PPSV23 (PNEUMOVAX) Branch Pneumococcal 2016-10-03 Completed [facility] o f Polysaccharide, 00:00:00 [place] [facility] PPSV23 (PNEUMOVAX) Branch Pneumococcal 2016-10-03 Completed [facility] o f Polysaccharide, 00:00:00 [place] [facility] PPSV23 (PNEUMOVAX) Branch Pneumococcal 2016-10-03 Completed [facility] o f Polysaccharide, 00:00:00 [place] [facility] PPSV23 (PNEUMOVAX) Branch Pneumococcal 2016-10-03 Completed [facility] o f Polysaccharide, 00:00:00 [place] [facility] PPSV23 (PNEUMOVAX) Branch PPD (TB) 2016-10-01 Completed [facility] 00:00:00 [facility] PPD (TB) 2016-10-01 Completed [facility] 00:00:00 [facility] PPD (TB) 2016-10-01 Completed [facility] 00:00:00 [facility] PPD (TB) 2016-10-01 Completed [facility] 00:00:00 [facility] PPD (TB) 2016-10-01 Completed [facility] 00:00:00 [facility] PPD (TB) 2016-10-01 Completed [facility] 00:00:00 [facility] PPD (TB) 2016-10-01 Completed [facility] 00:00:00 [facility] PPD (TB) 2016-10-01 Completed [facility] 00:00:00 [facility] PPD (TB) 2016-10-01 Completed [facility] 00:00:00 [facility] PPD (TB) 2016-10-01 Completed [facility] 00:00:00 [facility] PPD (TB) 2016-10-01 Completed [facility] 00:00:00 [facility] PPD (TB) 2016-10-01 Completed [facility] 00:00:00 [facility] PPD (TB) 2016-10-01 Completed [facility] 00:00:00 [facility] PPD (TB) 2016-10-01 Completed [facility] 00:00:00 [facility] PPD (TB) 2016-10-01 Completed [facility] 00:00:00 [facility] PPD (TB) 2016-10-01 Completed [facility] 00:00:00 [facility] PPD (TB) 2016-10-01 Completed [facility] 00:00:00 [facility] PPD (TB) 2016-10-01 Completed [facility] 00:00:00 [facility] PPD (TB) 2016-10-01 Completed [facility] 00:00:00 [facility] PPD (TB) 2016-10-01 Completed [facility] 00:00:00 [facility] PPD (TB) 2016-10-01 Completed [facility] 00:00:00 [facility] PPD (TB) 2016-10-01 Completed [facility] 00:00:00 [facility] PPD (TB) 2016-10-01 Completed [facility] 00:00:00 [facility] PPD (TB) 2016-10-01 Completed [facility] of 00:00:00 [facility] PPD (TB) 2016-10-01 Completed [facility] 00:00:00 [facility] PPD (TB) 2016-10-01 Completed [facility] of 00:00:00 [facility] PPD (TB) 2016-10-01 Completed [facility] of 00:00:00 [facility] PPD (TB) 2016-10-01 Completed [facility] of 00:00:00 [facility] PPD (TB) 2016-10-01 Completed [facility] 00:00:00 [facility] PPD (TB) 2016-10-01 Completed [facility] 00:00:00 [facility] PPD (TB) 2016-10-01 Completed [facility] 00:00:00 [facility] PPD (TB) 2016-10-01 Completed [facility] 00:00:00 [facility] PPD (TB) 2016-10-01 Completed [facility] 00:00:00 [facility] PPD (TB) 2016-10-01 Completed [facility] of 00:00:00 [facility] PPD (TB) 2016-10-01 Completed [facility] of 00:00:00 [facility] PPD (TB) 2016-10-01 Completed [facility] 00:00:00 [facility] PPD (TB) 2016-10-01 Completed [facility] of 00:00:00 [facility] PPD (TB) 2016-10-01 Completed [facility] of 00:00:00 [facility] PPD (TB) 2016-10-01 Completed [facility] of 00:00:00 [facility] PPD (TB) 2016-10-01 Completed [facility] 00:00:00 [facility] PPD (TB) 2016-10-01 Completed [facility] 00:00:00 [facility] PPD (TB) 2016-10-01 Completed [facility] 00:00:00 [facility] PPD (TB) 2016-10-01 Completed [facility] 00:00:00 [facility] PPD (TB) 2016-10-01 Completed [facility] 00:00:00 [facility] PPD (TB) 2016-10-01 Completed [facility] 00:00:00 [facility] PPD (TB) 2016-10-01 Completed [facility] 00:00:00 [facility] PPD (TB) 2016-10-01 Completed [facility] 00:00:00 [facility] PPD (TB) 2016-10-01 Completed [facility] 00:00:00 [facility] PPD (TB) 2016-10-01 Completed [facility] 00:00:00 [facility] PPD (TB) 2016-10-01 Completed [facility] 00:00:00 [facility] PPD (TB) 2016-10-01 Completed [facility] 00:00:00 [facility] PPD (TB) 2016-10-01 Completed [facility] 00:00:00 [facility] PPD (TB) 2016-10-01 Completed [facility] 00:00:00 [facility] PPD (TB) 2016-10-01 Completed [facility] 00:00:00 [facility] PPD (TB) 2016-10-01 Completed [facility] 00:00:00 [facility] PPD (TB) 2016-10-01 Completed [facility] 00:00:00 [facility] PPD (TB) 2016-10-01 Completed [facility] 00:00:00 [facility] PPD (TB) 2016-10-01 Completed [facility] 00:00:00 [facility] PPD (TB) 2016-10-01 Completed [facility] 00:00:00 [facility] PPD (TB) 2016-10-01 Completed [facility] 00:00:00 [facility] PPD (TB) 2016-10-01 Completed [facility] of 00:00:00 [facility] PPD (TB) 2016-10-01 Completed [facility] 00:00:00 [facility] PPD (TB) 2016-10-01 Completed [facility] 00:00:00 [facility] PPD (TB) 2016-10-01 Completed [facility] 00:00:00 [facility] PPD (TB) 2016-10-01 Completed [facility] 00:00:00 [facility] PPD (TB) 2016-10-01 Completed [facility] 00:00:00 [facility] PPD (TB) 2016-10-01 Completed [facility] 00:00:00 [facility] PPD (TB) 2016-10-01 Completed [facility] 00:00:00 [facility] Influenza High Dose 2016-07-11 Completed [facility] 00:00:00 [facility] Influenza High Dose 2016-07-11 Completed [facility] 00:00:00 [facility] Influenza High Dose 2016-07-11 Completed [facility] 00:00:00 [facility] Influenza High Dose 2016-07-11 Completed [facility] 00:00:00 [facility] Influenza High Dose 2016-07-11 Completed [facility] 00:00:00 [facility] Influenza High Dose 2016-07-11 Completed [facility] 00:00:00 [facility] Influenza High Dose 2016-07-11 Completed [facility] 00:00:00 [facility] Influenza High Dose 2016-07-11 Completed [facility] 00:00:00 [facility] Influenza High Dose 2016-07-11 Completed [facility] 00:00:00 [facility] Influenza High Dose 2016-07-11 Completed [facility] 00:00:00 [facility] Influenza High Dose 2016-07-11 Completed [facility] 00:00:00 [facility] Influenza High Dose 2016-07-11 Completed [facility] 00:00:00 [facility] Influenza High Dose 2016-07-11 Completed [facility] 00:00:00 [facility] Influenza High Dose 2016-07-11 Completed [facility] 00:00:00 [facility] Influenza High Dose 2016-07-11 Completed [facility] 00:00:00 [facility] Influenza High Dose 2016-07-11 Completed [facility] 00:00:00 [facility] Influenza High Dose 2016-07-11 Completed [facility] 00:00:00 [facility] Influenza High Dose 2016-07-11 Completed [facility] 00:00:00 [facility] Influenza High Dose 2016-07-11 Completed [facility] 00:00:00 [facility] Influenza High Dose 2016-07-11 Completed [facility] 00:00:00 [facility] Influenza High Dose 2016-07-11 Completed [facility] 00:00:00 [facility] Influenza High Dose 2016-07-11 Completed [facility] 00:00:00 [facility] Influenza High Dose 2016-07-11 Completed [facility] 00:00:00 [facility] Influenza High Dose 2016-07-11 Completed [facility] 00:00:00 [facility] Influenza High Dose 2016-07-11 Completed [facility] 00:00:00 [facility] Influenza High Dose 2016-07-11 Completed [facility] 00:00:00 [facility] Influenza High Dose 2016-07-11 Completed [facility] 00:00:00 [facility] Influenza High Dose 2016-07-11 Completed [facility] 00:00:00 [facility] Influenza High Dose 2016-07-11 Completed [facility] 00:00:00 [facility] Influenza High Dose 2016-07-11 Completed [facility] 00:00:00 [facility] Influenza High Dose 2016-07-11 Completed [facility] 00:00:00 [facility] Influenza High Dose 2016-07-11 Completed [facility] 00:00:00 [facility] Influenza High Dose 2016-07-11 Completed [facility] 00:00:00 [facility] Influenza High Dose 2016-07-11 Completed [facility] 00:00:00 [facility] Influenza High Dose 2016-07-11 Completed [facility] 00:00:00 [facility] Influenza High Dose 2016-07-11 Completed [facility] 00:00:00 [facility] Influenza High Dose 2016-07-11 Completed [facility] 00:00:00 [facility] Influenza High Dose 2016-07-11 Completed [facility] 00:00:00 [facility] Influenza High Dose 2016-07-11 Completed [facility] 00:00:00 [facility] Influenza High Dose 2016-07-11 Completed [facility] 00:00:00 [facility] Influenza High Dose 2016-07-11 Completed [facility] 00:00:00 [facility] Influenza High Dose 2016-07-11 Completed [facility] 00:00:00 [facility] Influenza High Dose 2016-07-11 Completed [facility] 00:00:00 [facility] Influenza High Dose 2016-07-11 Completed [facility] 00:00:00 [facility] Influenza High Dose 2016-07-11 Completed [facility] 00:00:00 [facility] Influenza High Dose 2016-07-11 Completed [facility] 00:00:00 [facility] Influenza High Dose 2016-07-11 Completed [facility] 00:00:00 [facility] Influenza High Dose 2016-07-11 Completed [facility] 00:00:00 [facility] Influenza High Dose 2016-07-11 Completed [facility] 00:00:00 [facility] Influenza High Dose 2016-07-11 Completed [facility] 00:00:00 [facility] Influenza High Dose 2016-07-11 Completed [facility] 00:00:00 [facility] Influenza High Dose 2016-07-11 Completed [facility] 00:00:00 [facility] Influenza High Dose 2016-07-11 Completed [facility] 00:00:00 [facility] Influenza High Dose 2016-07-11 Completed [facility] 00:00:00 [facility] Influenza High Dose 2016-07-11 Completed [facility] 00:00:00 [facility] Influenza High Dose 2016-07-11 Completed [facility] 00:00:00 [facility] Influenza High Dose 2016-07-11 Completed [facility] 00:00:00 [facility] Influenza High Dose 2016-07-11 Completed [facility] 00:00:00 [facility] Influenza High Dose 2016-07-11 Completed [facility] 00:00:00 [facility] Influenza High Dose 2016-07-11 Completed [facility] 00:00:00 [facility] Influenza High Dose 2016-07-11 Completed [facility] 00:00:00 [facility] Influenza High Dose 2016-07-11 Completed [facility] 00:00:00 [facility] Influenza High Dose 2016-07-11 Completed [facility] 00:00:00 [facility] Influenza High Dose 2016-07-11 Completed [facility] 00:00:00 [facility] Influenza High Dose 2016-07-11 Completed [facility] 00:00:00 [facility] Influenza High Dose 2016-07-11 Completed [facility] 00:00:00 [facility] Influenza High Dose 2016-07-11 Completed [facility] 00:00:00 [facility] Influenza High Dose 2016-07-11 Completed [facility] 00:00:00 [facility] Influenza High Dose 2015-07-20 Completed [facility] 00:00:00 [facility] Pneumococcal 13 2015-07-20 Completed [facility] Conjugate, PCV13 00:00:00 [facility] (Prevnar 13) [place] Influenza High Dose 2015-07-20 Completed [facility] 00:00:00 [facility] Pneumococcal 13 2015-07-20 Completed [facility] Conjugate, PCV13 00:00:00 [place] [facility] (Prevnar 13) Branch Influenza High Dose 2015-07-20 Completed [facility] 00:00:00 [facility] Pneumococcal 13 2015-07-20 Completed [facility] Conjugate, PCV13 00:00:00 [place] [facility] (Prevnar 13) Branch Influenza High Dose 2015-07-20 Completed [facility] 00:00:00 [facility] Pneumococcal 13 2015-07-20 Completed [facility] Conjugate, PCV13 00:00:00 [place] [facility] (Prevnar 13) [facility] Influenza High Dose 2015-07-20 Completed [facility] 00:00:00 [facility] Pneumococcal 13 2015-07-20 Completed [facility] Conjugate, PCV13 00:00:00 [place] [facility] (Prevnar 13) [facility] Influenza High Dose 2015-07-20 Completed [facility] 00:00:00 [facility] Pneumococcal 13 2015-07-20 Completed [facility] Conjugate, PCV13 00:00:00 [place] [facility] (Prevnar 13) [facility] Influenza High Dose 2015-07-20 Completed [facility] 00:00:00 [facility] Pneumococcal 13 2015-07-20 Completed [facility] Conjugate, PCV13 00:00:00 [place] [facility] (Prevnar 13) [facility] Influenza High Dose 2015-07-20 Completed [facility] 00:00:00 [facility] Pneumococcal 13 2015-07-20 Completed [facility] Conjugate, PCV13 00:00:00 [place] [facility] (Prevnar 13) Branch Influenza High Dose 2015-07-20 Completed [facility] 00:00:00 [facility] Pneumococcal 13 2015-07-20 Completed [facility] Conjugate, PCV13 00:00:00 [place] [facility] (Prevnar 13) [facility] Influenza High Dose 2015-07-20 Completed [facility] 00:00:00 [facility] Pneumococcal 13 2015-07-20 Completed [facility] Conjugate, PCV13 00:00:00 [place] [facility] (Prevnar 13) Branch Influenza High Dose 2015-07-20 Completed [facility] 00:00:00 [facility] Pneumococcal 13 2015-07-20 Completed [facility] Conjugate, PCV13 00:00:00 [place] [facility] (Prevnar 13) Branch Influenza High Dose 2015-07-20 Completed [facility] 00:00:00 [facility] Pneumococcal 13 2015-07-20 Completed [facility] Conjugate, PCV13 00:00:00 [place] [facility] (Prevnar 13) Branch Influenza High Dose 2015-07-20 Completed [facility] 00:00:00 [facility] Pneumococcal 13 2015-07-20 Completed [facility] Conjugate, PCV13 00:00:00 [place] [facility] (Prevnar 13) Branch Influenza High Dose 2015-07-20 Completed [facility] 00:00:00 [facility] Pneumococcal 13 2015-07-20 Completed [facility] Conjugate, PCV13 00:00:00 [place] [facility] (Prevnar 13) Branch Influenza High Dose 2015-07-20 Completed [facility] 00:00:00 [facility] Pneumococcal 13 2015-07-20 Completed [facility] Conjugate, PCV13 00:00:00 [place] [facility] (Prevnar 13) Branch Influenza High Dose 2015-07-20 Completed [facility] 00:00:00 [facility] Pneumococcal 13 2015-07-20 Completed [facility] Conjugate, PCV13 00:00:00 [place] [facility] (Prevnar 13) Branch Influenza High Dose 2015-07-20 Completed [facility] 00:00:00 [facility] Pneumococcal 13 2015-07-20 Completed [facility] Conjugate, PCV13 00:00:00 [place] [facility] (Prevnar 13) Branch Influenza High Dose 2015-07-20 Completed [facility] 00:00:00 [facility] Pneumococcal 13 2015-07-20 Completed [facility] Conjugate, PCV13 00:00:00 [place] [facility] (Prevnar 13) Branch Influenza High Dose 2015-07-20 Completed [facility] 00:00:00 [facility] Pneumococcal 13 2015-07-20 Completed [facility] Conjugate, PCV13 00:00:00 [place] [facility] (Prevnar 13) Branch Influenza High Dose 2015-07-20 Completed [facility] 00:00:00 [facility] Pneumococcal 13 2015-07-20 Completed [facility] Conjugate, PCV13 00:00:00 [place] [facility] (Prevnar 13) Branch Influenza High Dose 2015-07-20 Completed [facility] 00:00:00 [facility] Pneumococcal 13 2015-07-20 Completed [facility] Conjugate, PCV13 00:00:00 [place] [facility] (Prevnar 13) Branch Influenza High Dose 2015-07-20 Completed [facility] 00:00:00 [facility] Pneumococcal 13 2015-07-20 Completed [facility] Conjugate, PCV13 00:00:00 [place] [facility] (Prevnar 13) Branch Influenza High Dose 2015-07-20 Completed [facility] 00:00:00 [facility] Pneumococcal 13 2015-07-20 Completed [facility] Conjugate, PCV13 00:00:00 [place] [facility] (Prevnar 13) Branch Influenza High Dose 2015-07-20 Completed [facility] 00:00:00 [facility] Pneumococcal 13 2015-07-20 Completed [facility] Conjugate, PCV13 00:00:00 [place] [facility] (Prevnar 13) Branch Influenza High Dose 2015-07-20 Completed [facility] 00:00:00 [facility] Pneumococcal 13 2015-07-20 Completed [facility] Conjugate, PCV13 00:00:00 [place] [facility] (Prevnar 13) Branch Influenza High Dose 2015-07-20 Completed [facility] 00:00:00 [facility] Pneumococcal 13 2015-07-20 Completed [facility] Conjugate, PCV13 00:00:00 [place] [facility] (Prevnar 13) Branch Influenza High Dose 2015-07-20 Completed [facility] 00:00:00 [facility] Pneumococcal 13 2015-07-20 Completed [facility] Conjugate, PCV13 00:00:00 [place] [facility] (Prevnar 13) Branch Influenza High Dose 2015-07-20 Completed [facility] 00:00:00 [facility] Pneumococcal 13 2015-07-20 Completed [facility] Conjugate, PCV13 00:00:00 [place] [facility] (Prevnar 13) Branch Influenza High Dose 2015-07-20 Completed [facility] 00:00:00 [facility] Pneumococcal 13 2015-07-20 Completed [facility] Conjugate, PCV13 00:00:00 [place] [facility] (Prevnar 13) Branch Influenza High Dose 2015-07-20 Completed [facility] 00:00:00 [facility] Pneumococcal 13 2015-07-20 Completed [facility] Conjugate, PCV13 00:00:00 [place] [facility] (Prevnar 13) Branch Influenza High Dose 2015-07-20 Completed [facility] 00:00:00 [facility] Pneumococcal 13 2015-07-20 Completed [facility] Conjugate, PCV13 00:00:00 [place] [facility] (Prevnar 13) Branch Influenza High Dose 2015-07-20 Completed [facility] 00:00:00 [facility] Pneumococcal 13 2015-07-20 Completed [facility] Conjugate, PCV13 00:00:00 [place] [facility] (Prevnar 13) Branch Influenza High Dose 2015-07-20 Completed [facility] 00:00:00 [facility] Pneumococcal 13 2015-07-20 Completed [facility] Conjugate, PCV13 00:00:00 [place] [facility] (Prevnar 13) Branch Influenza High Dose 2015-07-20 Completed [facility] 00:00:00 [facility] Pneumococcal 13 2015-07-20 Completed [facility] Conjugate, PCV13 00:00:00 [place] [facility] (Prevnar 13) Branch Influenza High Dose 2015-07-20 Completed [facility] 00:00:00 [facility] Pneumococcal 13 2015-07-20 Completed [facility] Conjugate, PCV13 00:00:00 [place] [facility] (Prevnar 13) Branch Influenza High Dose 2015-07-20 Completed [facility] 00:00:00 [facility] Pneumococcal 13 2015-07-20 Completed [facility] Conjugate, PCV13 00:00:00 [place] [facility] (Prevnar 13) Branch Influenza High Dose 2015-07-20 Completed [facility] 00:00:00 [facility] Pneumococcal 13 2015-07-20 Completed [facility] Conjugate, PCV13 00:00:00 [place] [facility] (Prevnar 13) Branch Influenza High Dose 2015-07-20 Completed [facility] 00:00:00 [facility] Pneumococcal 13 2015-07-20 Completed [facility] Conjugate, PCV13 00:00:00 [place] [facility] (Prevnar 13) Branch Influenza High Dose 2015-07-20 Completed [facility] 00:00:00 [facility] Pneumococcal 13 2015-07-20 Completed [facility] Conjugate, PCV13 00:00:00 [place] [facility] (Prevnar 13) Branch Influenza High Dose 2015-07-20 Completed [facility] 00:00:00 [facility] Pneumococcal 13 2015-07-20 Completed [facility] Conjugate, PCV13 00:00:00 [place] [facility] (Prevnar 13) Branch Influenza High Dose 2015-07-20 Completed [facility] 00:00:00 [facility] Pneumococcal 13 2015-07-20 Completed [facility] Conjugate, PCV13 00:00:00 [place] [facility] (Prevnar 13) Branch Influenza High Dose 2015-07-20 Completed [facility] 00:00:00 [facility] Pneumococcal 13 2015-07-20 Completed [facility] Conjugate, PCV13 00:00:00 [place] [facility] (Prevnar 13) Branch Influenza High Dose 2015-07-20 Completed [facility] 00:00:00 [facility] Pneumococcal 13 2015-07-20 Completed [facility] Conjugate, PCV13 00:00:00 [place] [facility] (Prevnar 13) Branch Influenza High Dose 2015-07-20 Completed [facility] 00:00:00 [facility] Pneumococcal 13 2015-07-20 Completed [facility] Conjugate, PCV13 00:00:00 [place] [facility] (Prevnar 13) Branch Influenza High Dose 2015-07-20 Completed [facility] 00:00:00 [facility] Pneumococcal 13 2015-07-20 Completed [facility] Conjugate, PCV13 00:00:00 [place] [facility] (Prevnar 13) Branch Influenza High Dose 2015-07-20 Completed [facility] 00:00:00 [facility] Pneumococcal 13 2015-07-20 Completed [facility] Conjugate, PCV13 00:00:00 [place] [facility] (Prevnar 13) Branch Influenza High Dose 2015-07-20 Completed [facility] 00:00:00 [facility] Pneumococcal 13 2015-07-20 Completed [facility] Conjugate, PCV13 00:00:00 [place] [facility] (Prevnar 13) Branch Influenza High Dose 2015-07-20 Completed [facility] 00:00:00 [facility] Pneumococcal 13 2015-07-20 Completed [facility] Conjugate, PCV13 00:00:00 [place] [facility] (Prevnar 13) Branch Influenza High Dose 2015-07-20 Completed [facility] 00:00:00 [facility] Pneumococcal 13 2015-07-20 Completed [facility] Conjugate, PCV13 00:00:00 [place] [facility] (Prevnar 13) Branch Influenza High Dose 2015-07-20 Completed [facility] 00:00:00 [facility] Pneumococcal 13 2015-07-20 Completed [facility] Conjugate, PCV13 00:00:00 [place] [facility] (Prevnar 13) Branch Influenza High Dose 2015-07-20 Completed [facility] 00:00:00 [facility] Pneumococcal 13 2015-07-20 Completed [facility] Conjugate, PCV13 00:00:00 [place] [facility] (Prevnar 13) Branch Influenza High Dose 2015-07-20 Completed [facility] 00:00:00 [facility] Pneumococcal 13 2015-07-20 Completed [facility] Conjugate, PCV13 00:00:00 [place] [facility] (Prevnar 13) Branch Influenza High Dose 2015-07-20 Completed [facility] 00:00:00 [facility] Pneumococcal 13 2015-07-20 Completed [facility] Conjugate, PCV13 00:00:00 [place] [facility] (Prevnar 13) Branch Influenza High Dose 2015-07-20 Completed [facility] 00:00:00 [facility] Pneumococcal 13 2015-07-20 Completed [facility] Conjugate, PCV13 00:00:00 [place] [facility] (Prevnar 13) Branch Influenza High Dose 2015-07-20 Completed [facility] 00:00:00 [facility] Pneumococcal 13 2015-07-20 Completed [facility] Conjugate, PCV13 00:00:00 [place] [facility] (Prevnar 13) Branch Influenza High Dose 2015-07-20 Completed [facility] 00:00:00 [facility] Pneumococcal 13 2015-07-20 Completed [facility] Conjugate, PCV13 00:00:00 [place] [facility] (Prevnar 13) Branch Influenza High Dose 2015-07-20 Completed [facility] 00:00:00 [facility] Pneumococcal 13 2015-07-20 Completed [facility] Conjugate, PCV13 00:00:00 [place] [facility] (Prevnar 13) Branch Influenza High Dose 2015-07-20 Completed [facility] 00:00:00 [facility] Pneumococcal 13 2015-07-20 Completed [facility] Conjugate, PCV13 00:00:00 [place] [facility] (Prevnar 13) Branch Influenza High Dose 2015-07-20 Completed [facility] 00:00:00 [facility] Pneumococcal 13 2015-07-20 Completed [facility] Conjugate, PCV13 00:00:00 [place] [facility] (Prevnar 13) Branch Influenza High Dose 2015-07-20 Completed [facility] 00:00:00 [facility] Pneumococcal 13 2015-07-20 Completed [facility] Conjugate, PCV13 00:00:00 [place] [facility] (Prevnar 13) Branch Influenza High Dose 2015-07-20 Completed [facility] 00:00:00 [facility] Pneumococcal 13 2015-07-20 Completed [facility] Conjugate, PCV13 00:00:00 [place] [facility] (Prevnar 13) Branch Influenza High Dose 2015-07-20 Completed [facility] 00:00:00 [facility] Pneumococcal 13 2015-07-20 Completed [facility] Conjugate, PCV13 00:00:00 [place] [facility] (Prevnar 13) Branch Influenza High Dose 2015-07-20 Completed [facility] 00:00:00 [facility] Pneumococcal 13 2015-07-20 Completed [facility] Conjugate, PCV13 00:00:00 [place] [facility] (Prevnar 13) Branch Influenza High Dose 2015-07-20 Completed [facility] 00:00:00 [facility] Pneumococcal 13 2015-07-20 Completed [facility] Conjugate, PCV13 00:00:00 [place] [facility] (Prevnar 13) Branch Influenza High Dose 2015-07-20 Completed [facility] 00:00:00 [facility] Pneumococcal 13 2015-07-20 Completed [facility] Conjugate, PCV13 00:00:00 [place] [facility] (Prevnar 13) Branch Influenza High Dose 2015-07-20 Completed [facility] 00:00:00 [facility] Pneumococcal 13 2015-07-20 Completed [facility] Conjugate, PCV13 00:00:00 [place] [facility] (Prevnar 13) Branch Influenza High Dose 2015-07-20 Completed [facility] 00:00:00 [facility] Pneumococcal 13 2015-07-20 Completed [facility] Conjugate, PCV13 00:00:00 [place] [facility] (Prevnar 13) Branch Influenza High Dose 2015-07-20 Completed [facility] 00:00:00 [facility] Pneumococcal 13 2015-07-20 Completed [facility] Conjugate, PCV13 00:00:00 [place] [facility] (Prevnar 13) [place] Influenza High Dose 2014-08-18 Completed [facility] 00:00:00 [facility] Influenza High Dose 2014-08-18 Completed [facility] 00:00:00 [facility] Influenza High Dose 2014-08-18 Completed [facility] 00:00:00 [facility] Influenza High Dose 2014-08-18 Completed [facility] 00:00:00 [facility] Influenza High Dose 2014-08-18 Completed [facility] 00:00:00 [facility] Influenza High Dose 2014-08-18 Completed [facility] 00:00:00 [facility] Influenza High Dose 2014-08-18 Completed [facility] 00:00:00 [facility] Influenza High Dose 2014-08-18 Completed [facility] 00:00:00 [facility] Influenza High Dose 2014-08-18 Completed [facility] 00:00:00 [facility] Influenza High Dose 2014-08-18 Completed [facility] 00:00:00 [facility] Influenza High Dose 2014-08-18 Completed [facility] 00:00:00 [facility] Influenza High Dose 2014-08-18 Completed [facility] 00:00:00 [facility] Influenza High Dose 2014-08-18 Completed [facility] 00:00:00 [facility] Influenza High Dose 2014-08-18 Completed [facility] 00:00:00 [facility] Influenza High Dose 2014-08-18 Completed [facility] 00:00:00 [facility] Influenza High Dose 2014-08-18 Completed [facility] 00:00:00 [facility] Influenza High Dose 2014-08-18 Completed [facility] 00:00:00 [facility] Influenza High Dose 2014-08-18 Completed [facility] 00:00:00 [facility] Influenza High Dose 2014-08-18 Completed [facility] 00:00:00 [facility] Influenza High Dose 2014-08-18 Completed [facility] 00:00:00 [facility] Influenza High Dose 2014-08-18 Completed [facility] 00:00:00 [facility] Influenza High Dose 2014-08-18 Completed [facility] 00:00:00 [facility] Influenza High Dose 2014-08-18 Completed [facility] 00:00:00 [facility] Influenza High Dose 2014-08-18 Completed [facility] 00:00:00 [facility] Influenza High Dose 2014-08-18 Completed [facility] 00:00:00 [facility] Influenza High Dose 2014-08-18 Completed [facility] 00:00:00 [facility] Influenza High Dose 2014-08-18 Completed [facility] 00:00:00 [facility] Influenza High Dose 2014-08-18 Completed [facility] 00:00:00 [facility] Influenza High Dose 2014-08-18 Completed [facility] 00:00:00 [facility] Influenza High Dose 2014-08-18 Completed [facility] 00:00:00 [facility] Influenza High Dose 2014-08-18 Completed [facility] 00:00:00 [facility] Influenza High Dose 2014-08-18 Completed [facility] 00:00:00 [facility] Influenza High Dose 2014-08-18 Completed [facility] 00:00:00 [facility] Influenza High Dose 2014-08-18 Completed [facility] 00:00:00 [facility] Influenza High Dose 2014-08-18 Completed [facility] 00:00:00 [facility] Influenza High Dose 2014-08-18 Completed [facility] 00:00:00 [facility] Influenza High Dose 2014-08-18 Completed [facility] 00:00:00 [facility] Influenza High Dose 2014-08-18 Completed [facility] 00:00:00 [facility] Influenza High Dose 2014-08-18 Completed [facility] 00:00:00 [facility] Influenza High Dose 2014-08-18 Completed [facility] 00:00:00 [facility] Influenza High Dose 2014-08-18 Completed [facility] 00:00:00 [facility] Influenza High Dose 2014-08-18 Completed [facility] 00:00:00 [facility] Influenza High Dose 2014-08-18 Completed [facility] 00:00:00 [facility] Influenza High Dose 2014-08-18 Completed [facility] 00:00:00 [facility] Influenza High Dose 2014-08-18 Completed [facility] 00:00:00 [facility] Influenza High Dose 2014-08-18 Completed [facility] 00:00:00 [facility] Influenza High Dose 2014-08-18 Completed [facility] 00:00:00 [facility] Influenza High Dose 2014-08-18 Completed [facility] 00:00:00 [facility] Influenza High Dose 2014-08-18 Completed [facility] 00:00:00 [facility] Influenza High Dose 2014-08-18 Completed [facility] 00:00:00 [facility] Influenza High Dose 2014-08-18 Completed [facility] 00:00:00 [facility] Influenza High Dose 2014-08-18 Completed [facility] 00:00:00 [facility] Influenza High Dose 2014-08-18 Completed [facility] 00:00:00 [facility] Influenza High Dose 2014-08-18 Completed [facility] 00:00:00 [facility] Influenza High Dose 2014-08-18 Completed [facility] 00:00:00 [facility] Influenza High Dose 2014-08-18 Completed [facility] 00:00:00 [facility] Influenza High Dose 2014-08-18 Completed [facility] 00:00:00 [facility] Influenza High Dose 2014-08-18 Completed [facility] 00:00:00 [facility] Influenza High Dose 2014-08-18 Completed [facility] 00:00:00 [facility] Influenza High Dose 2014-08-18 Completed [facility] 00:00:00 [facility] Influenza High Dose 2014-08-18 Completed [facility] 00:00:00 [facility] Influenza High Dose 2014-08-18 Completed [facility] 00:00:00 [facility] Influenza High Dose 2014-08-18 Completed [facility] 00:00:00 [facility] Influenza High Dose 2014-08-18 Completed [facility] 00:00:00 [facility] Influenza High Dose 2014-08-18 Completed [facility] 00:00:00 [facility] Influenza High Dose 2014-08-18 Completed [facility] 00:00:00 [facility] Influenza High Dose 2014-08-18 Completed [facility] 00:00:00 [facility] Influenza High Dose 2014-08-18 Completed [facility] 00:00:00 [facility] Influenza High Dose 2013-07-29 Completed [facility] 00:00:00 [facility] Influenza High Dose 2013-07-29 Completed [facility] 00:00:00 [facility] Influenza High Dose 2013-07-29 Completed [facility] 00:00:00 [facility] Influenza High Dose 2013-07-29 Completed [facility] 00:00:00 [facility] Influenza High Dose 2013-07-29 Completed [facility] 00:00:00 [facility] Influenza High Dose 2013-07-29 Completed [facility] 00:00:00 [facility] Influenza High Dose 2013-07-29 Completed [facility] 00:00:00 [facility] Influenza High Dose 2013-07-29 Completed [facility] 00:00:00 [facility] Influenza High Dose 2013-07-29 Completed [facility] 00:00:00 [facility] Influenza High Dose 2013-07-29 Completed [facility] 00:00:00 [facility] Influenza High Dose 2013-07-29 Completed [facility] 00:00:00 [facility] Influenza High Dose 2013-07-29 Completed [facility] 00:00:00 [facility] Influenza High Dose 2013-07-29 Completed [facility] 00:00:00 [facility] Influenza High Dose 2013-07-29 Completed [facility] 00:00:00 [facility] Influenza High Dose 2013-07-29 Completed [facility] 00:00:00 [facility] Influenza High Dose 2013-07-29 Completed [facility] 00:00:00 [facility] Influenza High Dose 2013-07-29 Completed [facility] 00:00:00 [facility] Influenza High Dose 2013-07-29 Completed [facility] 00:00:00 [facility] Influenza High Dose 2013-07-29 Completed [facility] 00:00:00 [facility] Influenza High Dose 2013-07-29 Completed [facility] 00:00:00 [facility] Influenza High Dose 2013-07-29 Completed [facility] 00:00:00 [facility] Influenza High Dose 2013-07-29 Completed [facility] 00:00:00 [facility] Influenza High Dose 2013-07-29 Completed [facility] 00:00:00 [facility] Influenza High Dose 2013-07-29 Completed [facility] 00:00:00 [facility] Influenza High Dose 2013-07-29 Completed [facility] 00:00:00 [facility] Influenza High Dose 2013-07-29 Completed [facility] 00:00:00 [facility] Influenza High Dose 2013-07-29 Completed [facility] 00:00:00 [facility] Influenza High Dose 2013-07-29 Completed [facility] 00:00:00 [facility] Influenza High Dose 2013-07-29 Completed [facility] 00:00:00 [facility] Influenza High Dose 2013-07-29 Completed [facility] 00:00:00 [facility] Influenza High Dose 2013-07-29 Completed [facility] 00:00:00 [facility] Influenza High Dose 2013-07-29 Completed [facility] 00:00:00 [facility] Influenza High Dose 2013-07-29 Completed [facility] 00:00:00 [facility] Influenza High Dose 2013-07-29 Completed [facility] 00:00:00 [facility] Influenza High Dose 2013-07-29 Completed [facility] 00:00:00 [facility] Influenza High Dose 2013-07-29 Completed [facility] 00:00:00 [facility] Influenza High Dose 2013-07-29 Completed [facility] 00:00:00 [facility] Influenza High Dose 2013-07-29 Completed [facility] 00:00:00 [facility] Influenza High Dose 2013-07-29 Completed [facility] 00:00:00 [facility] Influenza High Dose 2013-07-29 Completed [facility] 00:00:00 [facility] Influenza High Dose 2013-07-29 Completed [facility] 00:00:00 [facility] Influenza High Dose 2013-07-29 Completed [facility] 00:00:00 [facility] Influenza High Dose 2013-07-29 Completed [facility] of 00:00:00 [facility] Influenza High Dose 2013-07-29 Completed [facility] 00:00:00 [facility] Influenza High Dose 2013-07-29 Completed [facility] 00:00:00 [facility] Influenza High Dose 2013-07-29 Completed [facility] of 00:00:00 [facility] Influenza High Dose 2013-07-29 Completed [facility] of 00:00:00 [facility] Influenza High Dose 2013-07-29 Completed [facility] of 00:00:00 [facility] Influenza High Dose 2013-07-29 Completed [facility] of 00:00:00 [facility] Influenza High Dose 2013-07-29 Completed [facility] 00:00:00 [facility] Influenza High Dose 2013-07-29 Completed [facility] of 00:00:00 [facility] Influenza High Dose 2013-07-29 Completed [facility] of 00:00:00 [facility] Influenza High Dose 2013-07-29 Completed [facility] 00:00:00 [facility] Influenza High Dose 2013-07-29 Completed [facility] of 00:00:00 [facility] Influenza High Dose 2013-07-29 Completed [facility] 00:00:00 [facility] Influenza High Dose 2013-07-29 Completed [facility] of 00:00:00 [facility] Influenza High Dose 2013-07-29 Completed [facility] 00:00:00 [facility] Influenza High Dose 2013-07-29 Completed [facility] of 00:00:00 [facility] Influenza High Dose 2013-07-29 Completed [facility] 00:00:00 [facility] Influenza High Dose 2013-07-29 Completed [facility] 00:00:00 [facility] Influenza High Dose 2013-07-29 Completed [facility] of 00:00:00 [facility] Influenza High Dose 2013-07-29 Completed [facility] 00:00:00 [facility] Influenza High Dose 2013-07-29 Completed [facility] of 00:00:00 [facility] Influenza High Dose 2013-07-29 Completed [facility] 00:00:00 [facility] Influenza High Dose 2013-07-29 Completed [facility] 00:00:00 [facility] Influenza High Dose 2013-07-29 Completed [facility] 00:00:00 [facility] Influenza High Dose 2013-07-29 Completed [facility] 00:00:00 [facility] Influenza High Dose 2013-07-29 Completed [facility] 00:00:00 [facility] Influenza High Dose 2012-06-30 Completed [facility] 00:00:00 [facility] Influenza High Dose 2012-06-30 Completed [facility] 00:00:00 [facility] Influenza High Dose 2012-06-30 Completed [facility] 00:00:00 [facility] Influenza High Dose 2012-06-30 Completed [facility] 00:00:00 [facility] Influenza High Dose 2012-06-30 Completed [facility] 00:00:00 [facility] Influenza High Dose 2012-06-30 Completed [facility] 00:00:00 [facility] Influenza High Dose 2012-06-30 Completed [facility] 00:00:00 [facility] Influenza High Dose 2012-06-30 Completed [facility] 00:00:00 [facility] Influenza High Dose 2012-06-30 Completed [facility] 00:00:00 [facility] Influenza High Dose 2012-06-30 Completed [facility] 00:00:00 [facility] Influenza High Dose 2012-06-30 Completed [facility] 00:00:00 [facility] Influenza High Dose 2012-06-30 Completed [facility] 00:00:00 [facility] Influenza High Dose 2012-06-30 Completed [facility] 00:00:00 [facility] Influenza High Dose 2012-06-30 Completed [facility] 00:00:00 [facility] Influenza High Dose 2012-06-30 Completed [facility] 00:00:00 [facility] Influenza High Dose 2012-06-30 Completed [facility] 00:00:00 [facility] Influenza High Dose 2012-06-30 Completed [facility] 00:00:00 [facility] Influenza High Dose 2012-06-30 Completed [facility] 00:00:00 [facility] Influenza High Dose 2012-06-30 Completed [facility] 00:00:00 [facility] Influenza High Dose 2012-06-30 Completed [facility] 00:00:00 [facility] Influenza High Dose 2012-06-30 Completed [facility] 00:00:00 [facility] Influenza High Dose 2012-06-30 Completed [facility] 00:00:00 [facility] Influenza High Dose 2012-06-30 Completed [facility] 00:00:00 [facility] Influenza High Dose 2012-06-30 Completed [facility] 00:00:00 [facility] Influenza High Dose 2012-06-30 Completed [facility] 00:00:00 [facility] Influenza High Dose 2012-06-30 Completed [facility] 00:00:00 [facility] Influenza High Dose 2012-06-30 Completed [facility] 00:00:00 [facility] Influenza High Dose 2012-06-30 Completed [facility] 00:00:00 [facility] Influenza High Dose 2012-06-30 Completed [facility] 00:00:00 [facility] Influenza High Dose 2012-06-30 Completed [facility] 00:00:00 [facility] Influenza High Dose 2012-06-30 Completed [facility] 00:00:00 [facility] Influenza High Dose 2012-06-30 Completed [facility] 00:00:00 [facility] Influenza High Dose 2012-06-30 Completed [facility] 00:00:00 [facility] Influenza High Dose 2012-06-30 Completed [facility] 00:00:00 [facility] Influenza High Dose 2012-06-30 Completed [facility] 00:00:00 [facility] Influenza High Dose 2012-06-30 Completed [facility] 00:00:00 [facility] Influenza High Dose 2012-06-30 Completed [facility] 00:00:00 [facility] Influenza High Dose 2012-06-30 Completed [facility] 00:00:00 [facility] Influenza High Dose 2012-06-30 Completed [facility] 00:00:00 [facility] Influenza High Dose 2012-06-30 Completed [facility] 00:00:00 [facility] Influenza High Dose 2012-06-30 Completed [facility] 00:00:00 [facility] Influenza High Dose 2012-06-30 Completed [facility] 00:00:00 [facility] Influenza High Dose 2012-06-30 Completed [facility] 00:00:00 [facility] Influenza High Dose 2012-06-30 Completed [facility] 00:00:00 [facility] Influenza High Dose 2012-06-30 Completed [facility] 00:00:00 [facility] Influenza High Dose 2012-06-30 Completed [facility] 00:00:00 [facility] Influenza High Dose 2012-06-30 Completed [facility] 00:00:00 [facility] Influenza High Dose 2012-06-30 Completed [facility] 00:00:00 [facility] Influenza High Dose 2012-06-30 Completed [facility] 00:00:00 [facility] Influenza High Dose 2012-06-30 Completed [facility] 00:00:00 [facility] Influenza High Dose 2012-06-30 Completed [facility] 00:00:00 [facility] Influenza High Dose 2012-06-30 Completed [facility] 00:00:00 [facility] Influenza High Dose 2012-06-30 Completed [facility] 00:00:00 [facility] Influenza High Dose 2012-06-30 Completed [facility] 00:00:00 [facility] Influenza High Dose 2012-06-30 Completed [facility] 00:00:00 [facility] Influenza High Dose 2012-06-30 Completed [facility] 00:00:00 [facility] Influenza High Dose 2012-06-30 Completed [facility] 00:00:00 [facility] Influenza High Dose 2012-06-30 Completed [facility] 00:00:00 [facility] Influenza High Dose 2012-06-30 Completed [facility] 00:00:00 [facility] Influenza High Dose 2012-06-30 Completed [facility] 00:00:00 [facility] Influenza High Dose 2012-06-30 Completed [facility] 00:00:00 [facility] Influenza High Dose 2012-06-30 Completed [facility] 00:00:00 [facility] Influenza High Dose 2012-06-30 Completed [facility] 00:00:00 [facility] Influenza High Dose 2012-06-30 Completed [facility] 00:00:00 [facility] Influenza High Dose 2012-06-30 Completed [facility] 00:00:00 [facility] Influenza High Dose 2012-06-30 Completed [facility] 00:00:00 [facility] Influenza High Dose 2012-06-30 Completed [facility] 00:00:00 [facility] Influenza High Dose 2012-06-30 Completed [facility] 00:00:00 [facility] Influenza High Dose 2011-07-02 Completed [facility] 00:00:00 [facility] Influenza High Dose 2011-07-02 Completed [facility] 00:00:00 [facility] Influenza High Dose 2011-07-02 Completed [facility] 00:00:00 [facility] Influenza High Dose 2011-07-02 Completed [facility] 00:00:00 [facility] Influenza High Dose 2011-07-02 Completed [facility] 00:00:00 [facility] Influenza High Dose 2011-07-02 Completed [facility] 00:00:00 [facility] Influenza High Dose 2011-07-02 Completed [facility] 00:00:00 [facility] Influenza High Dose 2011-07-02 Completed [facility] 00:00:00 [facility] Influenza High Dose 2011-07-02 Completed [facility] 00:00:00 [facility] Influenza High Dose 2011-07-02 Completed [facility] 00:00:00 [facility] Influenza High Dose 2011-07-02 Completed [facility] 00:00:00 [facility] Influenza High Dose 2011-07-02 Completed [facility] 00:00:00 [facility] Influenza High Dose 2011-07-02 Completed [facility] 00:00:00 [facility] Influenza High Dose 2011-07-02 Completed [facility] 00:00:00 [facility] Influenza High Dose 2011-07-02 Completed [facility] 00:00:00 [facility] Influenza High Dose 2011-07-02 Completed [facility] 00:00:00 [facility] Influenza High Dose 2011-07-02 Completed [facility] 00:00:00 [facility] Influenza High Dose 2011-07-02 Completed [facility] 00:00:00 [facility] Influenza High Dose 2011-07-02 Completed [facility] 00:00:00 [facility] Influenza High Dose 2011-07-02 Completed [facility] 00:00:00 [facility] Influenza High Dose 2011-07-02 Completed [facility] 00:00:00 [facility] Influenza High Dose 2011-07-02 Completed [facility] 00:00:00 [facility] Influenza High Dose 2011-07-02 Completed [facility] 00:00:00 [facility] Influenza High Dose 2011-07-02 Completed [facility] 00:00:00 [facility] Influenza High Dose 2011-07-02 Completed [facility] 00:00:00 [facility] Influenza High Dose 2011-07-02 Completed [facility] 00:00:00 [facility] Influenza High Dose 2011-07-02 Completed [facility] 00:00:00 [facility] Influenza High Dose 2011-07-02 Completed [facility] 00:00:00 [facility] Influenza High Dose 2011-07-02 Completed [facility] 00:00:00 [facility] Influenza High Dose 2011-07-02 Completed [facility] 00:00:00 [facility] Influenza High Dose 2011-07-02 Completed [facility] 00:00:00 [facility] Influenza High Dose 2011-07-02 Completed [facility] 00:00:00 [facility] Influenza High Dose 2011-07-02 Completed [facility] 00:00:00 [facility] Influenza High Dose 2011-07-02 Completed [facility] 00:00:00 [facility] Influenza High Dose 2011-07-02 Completed [facility] 00:00:00 [facility] Influenza High Dose 2011-07-02 Completed [facility] 00:00:00 [facility] Influenza High Dose 2011-07-02 Completed [facility] 00:00:00 [facility] Influenza High Dose 2011-07-02 Completed [facility] 00:00:00 [facility] Influenza High Dose 2011-07-02 Completed [facility] 00:00:00 [facility] Influenza High Dose 2011-07-02 Completed [facility] 00:00:00 [facility] Influenza High Dose 2011-07-02 Completed [facility] 00:00:00 [facility] Influenza High Dose 2011-07-02 Completed [facility] 00:00:00 [facility] Influenza High Dose 2011-07-02 Completed [facility] 00:00:00 [facility] Influenza High Dose 2011-07-02 Completed [facility] 00:00:00 [facility] Influenza High Dose 2011-07-02 Completed [facility] 00:00:00 [facility] Influenza High Dose 2011-07-02 Completed [facility] 00:00:00 [facility] Influenza High Dose 2011-07-02 Completed [facility] 00:00:00 [facility] Influenza High Dose 2011-07-02 Completed [facility] 00:00:00 [facility] Influenza High Dose 2011-07-02 Completed [facility] 00:00:00 [facility] Influenza High Dose 2011-07-02 Completed [facility] 00:00:00 [facility] Influenza High Dose 2011-07-02 Completed [facility] 00:00:00 [facility] Influenza High Dose 2011-07-02 Completed [facility] 00:00:00 [facility] Influenza High Dose 2011-07-02 Completed [facility] 00:00:00 [facility] Influenza High Dose 2011-07-02 Completed [facility] 00:00:00 [facility] Influenza High Dose 2011-07-02 Completed [facility] 00:00:00 [facility] Influenza High Dose 2011-07-02 Completed [facility] 00:00:00 [facility] Influenza High Dose 2011-07-02 Completed [facility] 00:00:00 [facility] Influenza High Dose 2011-07-02 Completed [facility] 00:00:00 [facility] Influenza High Dose 2011-07-02 Completed [facility] 00:00:00 [facility] Influenza High Dose 2011-07-02 Completed [facility] 00:00:00 [facility] Influenza High Dose 2011-07-02 Completed [facility] 00:00:00 [facility] Influenza High Dose 2011-07-02 Completed [facility] 00:00:00 [facility] Influenza High Dose 2011-07-02 Completed [facility] 00:00:00 [facility] Influenza High Dose 2011-07-02 Completed [facility] 00:00:00 [facility] Influenza High Dose 2011-07-02 Completed [facility] 00:00:00 [facility] Influenza High Dose 2011-07-02 Completed [facility] 00:00:00 [facility] Influenza High Dose 2011-07-02 Completed [facility] 00:00:00 [facility] Influenza High Dose 2011-07-02 Completed [facility] 00:00:00 [facility] Influenza Virus 2010-08-21 Completed [facility] Vaccine 00:00:00 [facility] Influenza Virus 2010-08-21 Completed [facility] Vaccine 00:00:00 [facility] Influenza Virus 2010-08-21 Completed [facility] Vaccine 00:00:00 [facility] Influenza Virus 2010-08-21 Completed [facility] Vaccine 00:00:00 [facility] Influenza Virus 2010-08-21 Completed [facility] Vaccine 00:00:00 [facility] Influenza Virus 2010-08-21 Completed [facility] Vaccine 00:00:00 [facility] Influenza Virus 2010-08-21 Completed [facility] Vaccine 00:00:00 [facility] Influenza Virus 2010-08-21 Completed [facility] Vaccine 00:00:00 [facility] Influenza Virus 2010-08-21 Completed [facility] Vaccine 00:00:00 [facility] Influenza Virus 2010-08-21 Completed [facility] Vaccine 00:00:00 [facility] Influenza Virus 2010-08-21 Completed [facility] Vaccine 00:00:00 [facility] Influenza Virus 2010-08-21 Completed [facility] Vaccine 00:00:00 [facility] Influenza Virus 2010-08-21 Completed [facility] Vaccine 00:00:00 [facility] Influenza Virus 2010-08-21 Completed [facility] Vaccine 00:00:00 [facility] Influenza Virus 2010-08-21 Completed [facility] Vaccine 00:00:00 [facility] Influenza Virus 2010-08-21 Completed [facility] Vaccine 00:00:00 [facility] Influenza Virus 2010-08-21 Completed [facility] Vaccine 00:00:00 [facility] Influenza Virus 2010-08-21 Completed [facility] Vaccine 00:00:00 [facility] Influenza Virus 2010-08-21 Completed [facility] Vaccine 00:00:00 [facility] Influenza Virus 2010-08-21 Completed [facility] Vaccine 00:00:00 [facility] Influenza Virus 2010-08-21 Completed [facility] Vaccine 00:00:00 [facility] Influenza Virus 2010-08-21 Completed [facility] Vaccine 00:00:00 [facility] Influenza Virus 2010-08-21 Completed [facility] Vaccine 00:00:00 [facility] Influenza Virus 2010-08-21 Completed [facility] Vaccine 00:00:00 [facility] Influenza Virus 2010-08-21 Completed [facility] Vaccine 00:00:00 [facility] Influenza Virus 2010-08-21 Completed [facility] Vaccine 00:00:00 [facility] Influenza Virus 2010-08-21 Completed [facility] Vaccine 00:00:00 [facility] Influenza Virus 2010-08-21 Completed [facility] Vaccine 00:00:00 [facility] Influenza Virus 2010-08-21 Completed [facility] Vaccine 00:00:00 [facility] Influenza Virus 2010-08-21 Completed [facility] Vaccine 00:00:00 [facility] Influenza Virus 2010-08-21 Completed [facility] Vaccine 00:00:00 [facility] Influenza Virus 2010-08-21 Completed [facility] Vaccine 00:00:00 [facility] Influenza Virus 2010-08-21 Completed [facility] Vaccine 00:00:00 [facility] Influenza Virus 2010-08-21 Completed [facility] Vaccine 00:00:00 [facility] Influenza Virus 2010-08-21 Completed [facility] Vaccine 00:00:00 [facility] Influenza Virus 2010-08-21 Completed [facility] Vaccine 00:00:00 [facility] Influenza Virus 2010-08-21 Completed [facility] Vaccine 00:00:00 [facility] Influenza Virus 2010-08-21 Completed [facility] Vaccine 00:00:00 [facility] Influenza Virus 2010-08-21 Completed [facility] Vaccine 00:00:00 [facility] Influenza Virus 2010-08-21 Completed [facility] Vaccine 00:00:00 [facility] Influenza Virus 2010-08-21 Completed [facility] Vaccine 00:00:00 [facility] Influenza Virus 2010-08-21 Completed [facility] Vaccine 00:00:00 [facility] Influenza Virus 2010-08-21 Completed [facility] Vaccine 00:00:00 [facility] Influenza Virus 2010-08-21 Completed [facility] Vaccine 00:00:00 [facility] Influenza Virus 2010-08-21 Completed [facility] Vaccine 00:00:00 [facility] Influenza Virus 2010-08-21 Completed [facility] Vaccine 00:00:00 [facility] Influenza Virus 2010-08-21 Completed [facility] Vaccine 00:00:00 [facility] Influenza Virus 2010-08-21 Completed [facility] Vaccine 00:00:00 [facility] Influenza Virus 2010-08-21 Completed [facility] Vaccine 00:00:00 [facility] Influenza Virus 2010-08-21 Completed [facility] Vaccine 00:00:00 [facility] Influenza Virus 2010-08-21 Completed [facility] Vaccine 00:00:00 [facility] Influenza Virus 2010-08-21 Completed [facility] Vaccine 00:00:00 [facility] Influenza Virus 2010-08-21 Completed [facility] Vaccine 00:00:00 [facility] Influenza Virus 2010-08-21 Completed [facility] Vaccine 00:00:00 [facility] Influenza Virus 2010-08-21 Completed [facility] Vaccine 00:00:00 [facility] Influenza Virus 2010-08-21 Completed [facility] Vaccine 00:00:00 [facility] Influenza Virus 2010-08-21 Completed [facility] Vaccine 00:00:00 [facility] Influenza Virus 2010-08-21 Completed [facility] Vaccine 00:00:00 [facility] Influenza Virus 2010-08-21 Completed [facility] Vaccine 00:00:00 [facility] Influenza Virus 2010-08-21 Completed [facility] Vaccine 00:00:00 [facility] Influenza Virus 2010-08-21 Completed [facility] Vaccine 00:00:00 [facility] Influenza Virus 2010-08-21 Completed [facility] Vaccine 00:00:00 [facility] Influenza Virus 2010-08-21 Completed [facility] Vaccine 00:00:00 [facility] Influenza Virus 2010-08-21 Completed [facility] Vaccine 00:00:00 [facility] Influenza Virus 2010-08-21 Completed [facility] Vaccine 00:00:00 [facility] Influenza Virus 2010-08-21 Completed [facility] Vaccine 00:00:00 [facility] Influenza Virus 2010-08-21 Completed [facility] Vaccine 00:00:00 [facility] Influenza Virus 2010-08-21 Completed [facility] Vaccine 00:00:00 [facility] Influenza Virus 2006-08-09 Completed [facility] Vaccine 00:00:00 [facility] Pneumococcal 7 2006-08-09 Completed [facility] of Conjugate, PCV7 00:00:00 [facility] (Prevnar7) [place] Influenza Virus 2006-08-09 Completed [facility] Vaccine 00:00:00 [facility] Pneumococcal 7 2006-08-09 Completed [facility] Conjugate, PCV7 00:00:00 [facility] [place] Influenza Virus 2006-08-09 Completed [facility] Vaccine 00:00:00 [facility] Pneumococcal 7 2006-08-09 Completed [facility] Conjugate, PCV7 00:00:00 [facility] (Prevnar7) [place] Influenza Virus 2006-08-09 Completed [facility] Vaccine 00:00:00 [facility] Pneumococcal 7 2006-08-09 Completed [facility] Conjugate, PCV7 00:00:00 [facility] (Prevnar7) [place] Influenza Virus 2006-08-09 Completed [facility] Vaccine 00:00:00 [facility] Pneumococcal 7 2006-08-09 Completed [facility] Conjugate, PCV7 00:00:00 [facility] (Prevnar7) [place] Influenza Virus 2006-08-09 Completed [facility] Vaccine 00:00:00 [facility] Pneumococcal 7 2006-08-09 Completed [facility] Conjugate, PCV7 00:00:00 [facility] ical (Prevnar7) [place] Influenza Virus 2006-08-09 Completed [facility] Vaccine 00:00:00 [facility] Pneumococcal 7 2006-08-09 Completed [facility] Conjugate, PCV7 00:00:00 [facility] ical (Prevnar7) [place] Influenza Virus 2006-08-09 Completed [facility] Vaccine 00:00:00 [facility] Pneumococcal 7 2006-08-09 Completed [facility] Conjugate, PCV7 00:00:00 [facility] ical (Prevnar7) [place] Influenza Virus 2006-08-09 Completed [facility] Vaccine 00:00:00 [facility] Pneumococcal 7 2006-08-09 Completed [facility] Conjugate, PCV7 00:00:00 [facility] (Prevnar7) [place] Influenza Virus 2006-08-09 Completed [facility] Vaccine 00:00:00 [facility] Pneumococcal 7 2006-08-09 Completed [facility] Conjugate, PCV7 00:00:00 [facility] (Prevnar7) [place] Influenza Virus 2006-08-09 Completed [facility] Vaccine 00:00:00 [facility] Pneumococcal 7 2006-08-09 Completed [facility] Conjugate, PCV7 00:00:00 [facility] (Prevnar7) [place] Influenza Virus 2006-08-09 Completed [facility] Vaccine 00:00:00 [facility] Pneumococcal 7 2006-08-09 Completed [facility] Conjugate, PCV7 00:00:00 [facility] (Prevnar7) [place] Influenza Virus 2006-08-09 Completed [facility] Vaccine 00:00:00 [facility] Pneumococcal 7 2006-08-09 Completed [facility] Conjugate, PCV7 00:00:00 [place] [facility] (Prevnar7) [place] Influenza Virus 2006-08-09 Completed Universit y of Vaccine 00:00:00 [facility] Pneumococcal 7 2006-08-09 Completed University of Conjugate, PCV7 00:00:00 [place] [facility] (Prevnar7) [place] Influenza Virus 2006-08-09 Completed Universit y of Vaccine 00:00:00 [facility] Pneumococcal 7 2006-08-09 Completed University of Conjugate, PCV7 00:00:00 [place] [facility] (Prevnar7) [place] Influenza Virus 2006-08-09 Completed Universit y of Vaccine 00:00:00 [facility] Pneumococcal 7 2006-08-09 Completed University of Conjugate, PCV7 00:00:00 [facility] ical (Prevnar7) [place] Influenza Virus 2006-08-09 Completed Universit y of Vaccine 00:00:00 [facility] Pneumococcal 7 2006-08-09 Completed University of Conjugate, PCV7 00:00:00 [facility] ical (Prevnar7) [place] Influenza Virus 2006-08-09 Completed Universit y of Vaccine 00:00:00 [facility] Pneumococcal 7 2006-08-09 Completed University of Conjugate, PCV7 00:00:00 [facility] ical (Prevnar7) [place] Influenza Virus 2006-08-09 Completed Universit y of Vaccine 00:00:00 [facility] Pneumococcal 7 2006-08-09 Completed University of Conjugate, PCV7 00:00:00 [place] [facility] (Prevnar7) [place] Influenza Virus 2006-08-09 Completed Universit y of Vaccine 00:00:00 [facility] Pneumococcal 7 2006-08-09 Completed University of Conjugate, PCV7 00:00:00 [place] [facility] (Prevnar7) [place] Influenza Virus 2006-08-09 Completed Universit y of Vaccine 00:00:00 [facility] Pneumococcal 7 2006-08-09 Completed University of Conjugate, PCV7 00:00:00 [place] [facility] (Prevnar7) [place] Influenza Virus 2006-08-09 Completed Universit y of Vaccine 00:00:00 [facility] Pneumococcal 7 2006-08-09 Completed University of Conjugate, PCV7 00:00:00 [place] [facility] (Prevnar7) [place] Influenza Virus 2006-08-09 Completed Universit y of Vaccine 00:00:00 [facility] Pneumococcal 7 2006-08-09 Completed University of Conjugate, PCV7 00:00:00 [place] [facility] (Prevnar7) [place] Influenza Virus 2006-08-09 Completed Universit y of Vaccine 00:00:00 [facility] Pneumococcal 7 2006-08-09 Completed University of Conjugate, PCV7 00:00:00 [place] [facility] (Prevnar7) [place] Influenza Virus 2006-08-09 Completed Universit y of Vaccine 00:00:00 [facility] Pneumococcal 7 2006-08-09 Completed University of Conjugate, PCV7 00:00:00 [place] [facility] (Prevnar7) [place] Influenza Virus 2006-08-09 Completed Universit y of Vaccine 00:00:00 [facility] Pneumococcal 7 2006-08-09 Completed University of Conjugate, PCV7 00:00:00 [facility] ical (Prevnar7) [place] Influenza Virus 2006-08-09 Completed Universit y of Vaccine 00:00:00 [facility] Pneumococcal 7 2006-08-09 Completed University of Conjugate, PCV7 00:00:00 [facility] ical (Prevnar7) [place] Influenza Virus 2006-08-09 Completed Universit y of Vaccine 00:00:00 [facility] Pneumococcal 7 2006-08-09 Completed University of Conjugate, PCV7 00:00:00 [facility] ical (Prevnar7) [place] Influenza Virus 2006-08-09 Completed Universit y of Vaccine 00:00:00 [facility] Pneumococcal 7 2006-08-09 Completed University of Conjugate, PCV7 00:00:00 [place] [facility] (Prevnar7) [place] Influenza Virus 2006-08-09 Completed Universit y of Vaccine 00:00:00 [facility] Pneumococcal 7 2006-08-09 Completed University of Conjugate, PCV7 00:00:00 [place] [facility] (Prevnar7) [place] Influenza Virus 2006-08-09 Completed Universit y of Vaccine 00:00:00 [facility] Pneumococcal 7 2006-08-09 Completed University of Conjugate, PCV7 00:00:00 [place] [facility] (Prevnar7) [place] Influenza Virus 2006-08-09 Completed Universit y of Vaccine 00:00:00 [facility] Pneumococcal 7 2006-08-09 Completed University of Conjugate, PCV7 00:00:00 [place] [facility] (Prevnar7) [place] Influenza Virus 2006-08-09 Completed [facility]it y of Vaccine 00:00:00 [facility] Pneumococcal 7 2006-08-09 Completed University of Conjugate, PCV7 00:00:00 [place] [facility] (Prevnar7) [place] Influenza Virus 2006-08-09 Completed [facility]it y of Vaccine 00:00:00 [facility] Pneumococcal 7 2006-08-09 Completed University of Conjugate, PCV7 00:00:00 [place] [facility] (Prevnar7) [place] Influenza Virus 2006-08-09 Completed Universit y of Vaccine 00:00:00 [facility] Pneumococcal 7 2006-08-09 Completed University of Conjugate, PCV7 00:00:00 [place] [facility] (Prevnar7) [place] Influenza Virus 2006-08-09 Completed Universit y of Vaccine 00:00:00 [facility] Pneumococcal 7 2006-08-09 Completed University of Conjugate, PCV7 00:00:00 [facility] ical (Prevnar7) [place] Influenza Virus 2006-08-09 Completed Universit y of Vaccine 00:00:00 [facility] Pneumococcal 7 2006-08-09 Completed University of Conjugate, PCV7 00:00:00 [facility] ical (Prevnar7) [place] Influenza Virus 2006-08-09 Completed Universit y of Vaccine 00:00:00 [facility] Pneumococcal 7 2006-08-09 Completed University of Conjugate, PCV7 00:00:00 [facility] ical (Prevnar7) [place] Influenza Virus 2006-08-09 Completed Universit y of Vaccine 00:00:00 [facility] Pneumococcal 7 2006-08-09 Completed University of Conjugate, PCV7 00:00:00 [place] [facility] (Prevnar7) [place] Influenza Virus 2006-08-09 Completed Universit y of Vaccine 00:00:00 [facility] Pneumococcal 7 2006-08-09 Completed University of Conjugate, PCV7 00:00:00 [place] [facility] (Prevnar7) [place] Influenza Virus 2006-08-09 Completed [facility]it y of Vaccine 00:00:00 [facility] Pneumococcal 7 2006-08-09 Completed University of Conjugate, PCV7 00:00:00 [place] [facility] (Prevnar7) [place] Influenza Virus 2006-08-09 Completed Universit y of Vaccine 00:00:00 [facility] Pneumococcal 7 2006-08-09 Completed University of Conjugate, PCV7 00:00:00 [place] [facility] (Prevnar7) [place] Influenza Virus 2006-08-09 Completed Universit y of Vaccine 00:00:00 [facility] Pneumococcal 7 2006-08-09 Completed University of Conjugate, PCV7 00:00:00 [place] [facility] (Prevnar7) [place] Influenza Virus 2006-08-09 Completed Universit y of Vaccine 00:00:00 [facility] Pneumococcal 7 2006-08-09 Completed University of Conjugate, PCV7 00:00:00 [place] [facility] (Prevnar7) [place] Influenza Virus 2006-08-09 Completed Universit y of Vaccine 00:00:00 [facility] Pneumococcal 7 2006-08-09 Completed University of Conjugate, PCV7 00:00:00 [place] [facility] (Prevnar7) [place] Influenza Virus 2006-08-09 Completed Universit y of Vaccine 00:00:00 [facility] Pneumococcal 7 2006-08-09 Completed University of Conjugate, PCV7 00:00:00 [facility] ical (Prevnar7) [place] Influenza Virus 2006-08-09 Completed Universit y of Vaccine 00:00:00 [facility] Pneumococcal 7 2006-08-09 Completed University of Conjugate, PCV7 00:00:00 [facility] ical (Prevnar7) [place] Influenza Virus 2006-08-09 Completed Universit y of Vaccine 00:00:00 [facility] Pneumococcal 7 2006-08-09 Completed University of Conjugate, PCV7 00:00:00 [facility] ical (Prevnar7) [place] Influenza Virus 2006-08-09 Completed Universit y of Vaccine 00:00:00 [facility] Pneumococcal 7 2006-08-09 Completed University of Conjugate, PCV7 00:00:00 [place] [facility] (Prevnar7) [place] Influenza Virus 2006-08-09 Completed Universit y of Vaccine 00:00:00 [facility] Pneumococcal 7 2006-08-09 Completed University of Conjugate, PCV7 00:00:00 [place] [facility] (Prevnar7) [place] Influenza Virus 2006-08-09 Completed Universit y of Vaccine 00:00:00 [facility] Pneumococcal 7 2006-08-09 Completed University of Conjugate, PCV7 00:00:00 [place] [facility] (Prevnar7) [place] Influenza Virus 2006-08-09 Completed Universit y of Vaccine 00:00:00 [facility] Pneumococcal 7 2006-08-09 Completed University of Conjugate, PCV7 00:00:00 [place] [facility] (Prevnar7) [place] Influenza Virus 2006-08-09 Completed Universit y of Vaccine 00:00:00 [facility] Pneumococcal 7 2006-08-09 Completed University of Conjugate, PCV7 00:00:00 [place] [facility] (Prevnar7) [place] Influenza Virus 2006-08-09 Completed Universit y of Vaccine 00:00:00 [facility] Pneumococcal 7 2006-08-09 Completed University of Conjugate, PCV7 00:00:00 [place] [facility] (Prevnar7) [place] Influenza Virus 2006-08-09 Completed Universit y of Vaccine 00:00:00 [facility] Pneumococcal 7 2006-08-09 Completed University of Conjugate, PCV7 00:00:00 [place] [facility] (Prevnar7) [place] Influenza Virus 2006-08-09 Completed Universit y of Vaccine 00:00:00 [facility] Pneumococcal 7 2006-08-09 Completed University of Conjugate, PCV7 00:00:00 [facility] ical (Prevnar7) [place] Influenza Virus 2006-08-09 Completed Universit y of Vaccine 00:00:00 [facility] Pneumococcal 7 2006-08-09 Completed University of Conjugate, PCV7 00:00:00 [facility] ical (Prevnar7) [place] Influenza Virus 2006-08-09 Completed Universit y of Vaccine 00:00:00 [facility] Pneumococcal 7 2006-08-09 Completed University of Conjugate, PCV7 00:00:00 [facility] ical (Prevnar7) [place] Influenza Virus 2006-08-09 Completed Universit y of Vaccine 00:00:00 [facility] Pneumococcal 7 2006-08-09 Completed University of Conjugate, PCV7 00:00:00 [place] [facility] (Prevnar7) [place] Influenza Virus 2006-08-09 Completed Universit y of Vaccine 00:00:00 [facility] Pneumococcal 7 2006-08-09 Completed University of Conjugate, PCV7 00:00:00 [place] [facility] (Prevnar7) [place] Influenza Virus 2006-08-09 Completed Universit y of Vaccine 00:00:00 [facility] Pneumococcal 7 2006-08-09 Completed University of Conjugate, PCV7 00:00:00 [place] [facility] (Prevnar7) [place] Influenza Virus 2006-08-09 Completed Universit y of Vaccine 00:00:00 [facility] Pneumococcal 7 2006-08-09 Completed University of Conjugate, PCV7 00:00:00 [place] [facility] (Prevnar7) [place] Influenza Virus 2006-08-09 Completed Universit y of Vaccine 00:00:00 [facility] Pneumococcal 7 2006-08-09 Completed University of Conjugate, PCV7 00:00:00 [place] [facility] (Prevnar7) [place] Influenza Virus 2006-08-09 Completed Universit y of Vaccine 00:00:00 [facility] Pneumococcal 7 2006-08-09 Completed University of Conjugate, PCV7 00:00:00 [place] [facility] (Prevnar7) [place] Influenza Virus 2006-08-09 Completed Universit y of Vaccine 00:00:00 [facility] Pneumococcal 7 2006-08-09 Completed University of Conjugate, PCV7 00:00:00 [place] [facility] (Prevnar7) [place] Influenza Virus 2006-08-09 Completed Universit y of Vaccine 00:00:00 [facility] Pneumococcal 7 2006-08-09 Completed University of Conjugate, PCV7 00:00:00 [place] [facility] (Prevnar7) [place] Influenza Virus 2006-08-09 Completed Universit y of Vaccine 00:00:00 [facility] Pneumococcal 7 2006-08-09 Completed University of Conjugate, PCV7 00:00:00 [place] [facility] (Prevnar7) [place] Influenza Virus 2006-08-09 Completed Universit y of Vaccine 00:00:00 [facility] Pneumococcal 7 2006-08-09 Completed University of Conjugate, PCV7 00:00:00 [place] [facility] (Prevnar7) [place] Vital Signs Vital Name Observation Time Observation Value Comments Source Systolic blood 2023-05-24 15:15:00 193 mm[Hg] Univer sity of pressure [facility] Diastolic blood 2023-05-24 15:15:00 72 mm[Hg] Unive rsity of pressure [facility] Heart rate 2023-05-24 15:15:00 71 /min [facility] Body height 2023-05-24 15:15:00 147.3 cm [facility] Body weight 2023-05-24 15:15:00 62.052 kg [facility] BMI 2023-05-24 15:15:00 28.59 kg/m2 [facility] Systolic blood 2023-04-25 04:35:00 143 mm[Hg] Univer sity of pressure [facility] Diastolic blood 2023-04-25 04:35:00 56 mm[Hg] Unive rsity of pressure [facility] Heart rate 2023-04-25 04:35:00 66 /min [facility] Respiratory rate 2023-04-25 04:35:00 16 /min Univ ersity [facility] Oxygen saturation in 2023-04-25 04:35:00 97 /min University of Arterial blood by [place] [facility] Pulse oximetry Branch Body temperature 2023-04-25 00:49:00 36.67 Vida Univ ers[facility] Body height 2023-04-25 00:49:00 147.3 cm [facility] Body weight 2023-04-25 00:49:00 59.421 kg [facility] BMI 2023-04-25 00:49:00 27.38 kg/m2 [facility] Systolic blood 2023-02-27 19:58:00 199 mm[Hg] Univer sity of pressure [facility] Diastolic blood 2023-02-27 19:58:00 81 mm[Hg] Unive rsity of pressure [facility] Heart rate 2023-02-27 19:58:00 60 /min [facility] Body temperature 2023-02-27 19:56:00 36.28 Vida Univ ers[facility] Respiratory rate 2023-02-27 19:56:00 16 /min [facility] Body weight 2023-02-27 19:56:00 59.421 kg [facility] BMI 2023-02-27 19:56:00 27.38 kg/m2 [facility] Oxygen saturation in 2023-02-27 19:56:00 99 /min room air University of Arterial blood by [facility] Pulse oximetry Branch Systolic blood 2023-02-15 16:31:00 188 mm[Hg] Univer sity of pressure [facility] Diastolic blood 2023-02-15 16:31:00 79 mm[Hg] Unive rsity of pressure [facility] Heart rate 2023-02-15 16:28:00 67 /min [facility] Respiratory rate 2023-02-15 16:28:00 18 /min Univ [facility] Body height 2023-02-15 16:28:00 147.3 cm [facility] Body weight 2023-02-15 16:28:00 59.829 kg [facility] BMI 2023-02-15 16:28:00 27.57 kg/m2 Universi ty of [facility] Branch Oxygen saturation in 2023-02-15 16:28:00 98 /min University of Arterial blood by [facility] alo Pulse oximetry Branch Body weight 2023-01-10 18:37:00 59.875 kg [facility] BMI 2023-01-10 18:37:00 27.59 kg/m2 [facility] Body weight 2022-12-10 15:20:00 59.875 kg [facility] BMI 2022-12-10 15:20:00 27.59 kg/m2 [facility] Systolic blood 2022-11-26 17:14:00 168 mm[Hg] Univer sity of pressure [facility] Diastolic blood 2022-11-26 17:14:00 66 mm[Hg] Unive rsity of pressure [facility] Heart rate 2022-11-26 17:14:00 63 /min [facility] Oxygen saturation in 2022-11-26 17:14:00 98 /min University of Arterial blood by [facility] Pulse oximetry Branch Body height 2022-11-26 17:11:00 147.3 cm [facility] Body weight 2022-11-26 17:11:00 60.238 kg [facility] [place] [facility] BMI 2022-11-26 17:11:00 27.76 kg/m2 [facility] Body weight 2022-10-10 15:19:00 60.328 kg [facility] BMI 2022-10-10 15:19:00 27.80 kg/m2 [facility] Systolic blood 2022-08-13 20:25:00 201 mm[Hg] Univer sity of pressure [facility] Diastolic blood 2022-08-13 20:25:00 80 mm[Hg] Unive rsity of pressure [facility] Heart rate 2022-08-13 20:18:00 71 /min [facility] [place] [facility] Body weight 2022-08-13 20:18:00 60.737 kg [facility] BMI 2022-08-13 20:18:00 27.99 kg/m2 [facility] Oxygen saturation in 2022-08-13 20:18:00 98 /min [facility] Arterial blood by [place] [facility] Pulse oximetry Branch Body height 2022-08-13 16:02:00 147.3 cm [facility] Body weight 2022-08-13 16:02:00 59.875 kg [facility] BMI 2022-08-13 16:02:00 27.59 kg/m2 [facility] Body weight 2022-08-08 16:29:00 59.875 kg [facility] BMI 2022-08-08 16:29:00 27.59 kg/m2 [facility] Systolic blood 2022-07-25 21:02:00 124 mm[Hg] Univer sity of pressure [facility] Diastolic blood 2022-07-25 21:02:00 63 mm[Hg] Unive rsity of pressure [facility] Heart rate 2022-07-25 21:02:00 68 /min [facility] Body temperature 2022-07-25 21:02:00 36.33 Vida Univ ers[facility] [place] [facility] Respiratory rate 2022-07-25 21:02:00 17 /min Univ [facility] [place] [facility] Body height 2022-07-25 21:02:00 147.3 cm [facility] Body weight 2022-07-25 21:02:00 59.875 kg [facility] [place] [facility] BMI 2022-07-25 21:02:00 27.59 kg/m2 [facility] Oxygen saturation in 2022-07-25 21:02:00 95 /min room air University of Arterial blood by [place] [facility] alo Pulse oximetry Branch Systolic blood 2022-06-04 16:06:00 211 mm[Hg] Univer sity of pressure [facility] Diastolic blood 2022-06-04 16:06:00 80 mm[Hg] Unive rsity of pressure [facility] Heart rate 2022-06-04 16:05:00 71 /min [facility] Body temperature 2022-06-04 16:05:00 36.17 [facility]ida [facility] 2022-06-04 16:05:00 147.3 cm [facility] Body weight 2022-06-04 16:05:00 60.328 kg [facility] BMI 2022-06-04 16:05:00 27.80 kg/m2 [facility] Oxygen saturation in 2022-06-04 16:05:00 99 /min [facility] Arterial blood by [facility] Pulse oximetry [place] Procedures Procedure Date / Time Performing Clinician Source Performed POCT HEMOGLOBIN A1C TEST 2023-05-24 15:21:00 [facility] DME/SUPPLY JUSTIFICATION 2023-05-13 05:01:00 Doctor Unassigned, No [facility] DME/SUPPLY JUSTIFICATION 2023-05-02 05:01:00 Doctor Unassigned, No [facility] POCT GLUCOSE (AUTOMATED) 2023-04-25 04:20:00 Namita Clinton [facility] CONSENT/REFUSAL FOR 2023-04-25 00:30:12 [facility]igned[facility] AUTHORIZATION FOR 2023-04-22 05:01:00 Doctor Unassigned, No [facility] FERRITIN SERUM 2023-02-28 15:41:00 Alyson Sam [facility] COMP. METABOLIC PANEL 2023-02-28 15:41:00 Alyson Sam [facility] ([id number]) [facility] IRON PANEL 2023-02-28 15:41:00 Alyson Sam [facility] CBC WITH DIFF 2023-02-28 15:41:00 Alyson Sam [facility] POCT HEMOGLOBIN A1C TEST 2023-02-15 16:36:00 Marta [facility] EXTERNAL PROVIDER 2023-02-11 05:01:00 Doctor Unassigned, No [facility] [place] RECORDS Name Medical Branch EXTERNAL PROVIDER 2023-01-15 05:01:00 Doctor Unassigned, No [facility] [place] REC[facility] Name Medical Branch HOME HEALTH - OTHER 2022-12-10 05:01:00 Doctor Unassigned, No [facility] [place] Name Medical Branch OU SPECTRALIS JUN 20232022-12-10 00:00:00 Annetta Pulido [facility] [place], BOTH EYES Medical Branch [facility] - OTHER 2022-11-19 06:01:00 Doctor Unassigned, No [facility] [place] Name Medical [facility] EXTERNAL PROVIDER 2022-10-22 06:01:00 Doctor Unassigned, No [facility] [place] [facility] Name Medical Branch DISCLOSURE AND CONSENT, 2022-10-10 06:01:00 Doctor Unassigned, N o University [facility] MEDICAL AND SURGICAL Name Medical Bra nch PROCEDURES HOME HEALTH - OTHER 2022-09-21 06:01:00 Doctor Unassigned, No Un [facility]ity of [facility] Medical Branch OU SPECTRALIS JUN 20222022-08-13 00:00:00 Clarice Pena [facility] [place], BOTH EYES Medical Branch OPHTHALMOLOGY DIAGNOSTIC 2022-08-08 06:01:00 Doctor Unassigned, No [facility] TEST Name Medical Branch OU CIRRUS OCT OPTIC 2022-08-08 00:00:00 Constance Herrera [facility] NERVE, BOTH EYES ([id number]) Medical Branch SARS-COV-2 COVID-19 2022-07-25 22:20:56 Alyson Sam [facility] [place] VACCINE 12 YRS+, Medical Branch BIVALENT 0.5ML, IM (MODERNA BOOSTER) POCT HEMOGLOBIN A1C TEST 2022-07-25 21:25:00 Alyson Sam [facility] HEALTH - OTHER 2022-06-06 05:01:00 Doctor Unassigned, No Un iversity of [facility] Medical Branch Encounters Start End Encounter Admission Attending Care Care Encounter Source Date/Time Date/Time Type Type Clinicians Facility Department ID 2021-07-24 Emergency [facility] [id number] Univers 07:16:05 ity of [facility] 2021-07-22 Emergency [facility] [id number] Univers 04:21:[address] [facility] [place] [place] 2023-11-27 2023-11-27 Outpatient R YAW [facility] [id number] Univers 11:00:00 11:00:00 RADHA ity o f [facility] 2023-07-10 2023-07-10 [facility] [id number] Univers 10:00:00 10:00:[address] [facility] [place] [place] 2023-06-10 2023-06-10 Outpatient R SHAHZAD [facility] [id number] Univers 09:15:00 09:15:[address] [facility] [place] [place] 2023-05-24 2023-05-24 [facility] [id number] Univers 10:00:00 10:54:59 MARTA [facility] 2023-05-24 2023-05-24 Office [facility] [id number] Univers 10:00:00 10:54:59 Visit [facility] [id number] it y of [place] [id number] [place]?BLEA [phone] [facility] [address] [place] MEDICAL OFFICE BUILDING 2023-05-22 2023-05-22 Telephone [facility] [id number] Univers 00:00:00 00:00:00 Marta PRIMARY [id number] [id number] [id number] [facility] [address] [place] 2023-05-17 2023-05-17 Telephone [facility] [id number] Univers 00:00:00 00:00:00 Alyson A PRIMARY [id number] [id number] [id number] [facility] [address] [place] 2023-05-13 2023-05-13 Orders Doctor PATRICIA [id number] Univers 00:00:00 00:00:00 Only Unassigned, KARLA [id number] ity of [place] [facility] [id number] [place] [phone] [facility] [address] [place] 2023-05-02 2023-05-02 Orders Doctor PATRICIA [id number] Univers 00:00:00 00:00:00 Only Unassigned, KARLA [id number] ity of [place] [facility] [id number] [place] [id number] [address] 2023-04-24 2023-04-24 Emergency [facility] E[facility] [id number] Univers 20:03:00 23:45:00 NAMITA ity of [facility] 2023-04-24 2023-04-24 Emergency [facility] 1.2.840.114 10 [id number] Univers 20:03:00 23:45:00 Namita CASTILLO 350.1.13.10 ity of [place] [phone] [facility] [address] 2023-04-23 2023-04-23 Telephone [facility] 1.2.940.087 [id number] 81131 Univers 00:00:00 00:00:00 Marta HEALTH 350.1.13.10 it y of [place] 4.2.7.2.686 Truong as LOURDES?BLEA [id number] Vt dical KN [address] MEDICAL OFFICE BUILDING 2023-04-22 2023-04-22 Orders Doctor GOMEZ 1.2.840.114 [id number] 060 Univers 00:00:00 00:00:00 Only Unassigned, KARLA 350.1.13.10 ity of [facility] 4.2.7.2.686 Truong as [phone] [address] 2023-04-19 2023-04-19 Telephone [facility] 1.2.840.114 105 [id number] Univers 00:00:00 00:00:00 Alyson A PRIMARY 350.1.13.10 it[place] of [place] 180.2081641 Vt dicwv [address] 2023-04-11 2023-04-11 [facility] 1.2.840.114 [id number] 1769 Univers 00:00:00 00:00:00 Alyson A PRIMARY 350.1.13.10 it[place] [id number] [facility] [address] 2023-02-28 2023-02-28 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, 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 - Db [facility] 1.2.840.1 14 [id number] Univers 10:30:00 10:46:11 Visit Neto Matute Torri Gotcha Ninjas 350.1.13.10 ity [facility] 4.2.7.2.686 [place] as LOURDES?BLEA [phone] [facility] 353 [facility] OFFICE [facility] 2023-02-28 2023-02-28 Outpatient R JUJU [facility] [id number] Univers 10:30:00 10:30:00 [facility] 2023-02-27 2023-02-27 Outpatient R FLACO [facility] [id number] Univers 14:45:00 16:09:32 ALYSON [facility] 2023-02-27 2023-02-27 Office [facility] 1.2.840.114 [id number] 2141 Univers 14:45:00 16:09:32 Visit Alyson A PRIMARY 350.1.13.10 it[place] of [place] [phone] [address] 2023-02-15 2023-02-15 Outpatient R JUJU [facility] [id number] Univers 11:30:00 12:27:26 [facility] 2023-02-15 2023-02-15 Office Marta Nobles [facility] 1.2.840.114 9 [id number] Univers 11:30:00 12:27:26 Visit JujuNeto HEALTH 350.1.13.10 ity of [place] 4.2.7.2.686 [place] as LOURDES?BLEA [phone] [facility] [address] MEDICAL OFFICE BUILDING 2023-02-11 2023-02-11 Orders Doctor GOMEZ 1.2.840.114 [id number] Univers 00:00:00 00:00:00 Only Unassigned, KARLA 350.1.13.10 ity of [facility] 4.2.7.2.686 Truong as [id number] [facility] [address] 2023-02-11 2023-02-11 Telephone [facility] 1.2.840.114 103 [id number] Univers 00:00:00 00:00:00 Alyson A PRIMARY 350.1.13.10 ity of [place] 903.8188325 Vt dical [address] 2023-02-07 2023-02-07 [facility] 1.2.840.114 [id number] 3887 Univers 00:00:00 00:00:00 Alyson A PRIMARY 350.1.13.10 ity of [place].2.[place] 403.3146746 Vt dical [address] 2023-01-15 2023-01-15 Orders Doctor PATRICIA 1.2.840.114 [id number] [facility] [place] [facility] 00:00:00 00:00:00 Only Unassigned, KARLA 350.1.13.10 ity of [facility] 4.2.7.2.686 Truong as [phone] [facility] [address] 2023-01-12 2023-01-12 [facility] 1.2.840.114 [id number] 6246 Univers 00:00:00 00:00:00 Alyson A PRIMARY 350.1.13.10 ity of [place].2.[place] 892.9811152 Vt dical [address] 2023-01-11 2023-01-11 [facility] 1.2.840.114 102 [id number] Univers 00:00:00 00:00:00 Alyson A PRIMARY 350.1.13.10 ity of [place].2.[place] 988.2924613 Vt dical [address] 2023-01-10 2023-01-10 Office CLAUDIA Herrera 1.2.840.114 100 [id number] Univers 13:15:00 13:30:00 Visit Constance Flores 350.1.13.10 ity of NATIONAL 4.2.7.2.686 Truong as BANK [phone] [facility] BLDG. [address] 2023-01-10 2023-01-10 Outpatient R SHARON [facility] [id number] 0362 Univers 13:15:00 13:15:00 CONSTANCE ity of [facility] 2023-01-04 2023-01-04 Telephone [facility] 1.2.840.114 102 [id number] Univers 00:00:00 00:00:00 Alyson A PRIMARY 350.1.13.10 ity of [place] 253.4469047 Vt dical [address] 2022-12-26 2022-12-26 Telephone [facility] 1.2.840.114 102 [id number] Univers 00:00:00 00:00:00 Alyson A PRIMARY 350.1.13.10 ity of [place].2.[place] 931.3406765 Vt dical [address] 2022-12-26 2022-12-26 Refill [facility] 1.2.840.114 74432 3050 Univers 00:00:00 00:00:00 Alyson A PRIMARY 350.1.13.10 ity of [place].2.[place] 297.6814379 Vt dical [address] 2022-12-23 2022-12-23 Patient [facility] 1.2.840.114 [id number] 648 Univers 00:00:00 00:00:00 Secure Msg Radha CASTILLO 350.1.13.10 ity of [place] 514.9810833 Vt dical NAL 059 [facility] 2022-12-21 2022-12-21 [facility] [id number] Univers 11:53:43 23:59:00 RADHA ko o f [facility] 2022-12-19 2022-12-19 [facility] [id number] Univers 14:00:00 14:00:00 RADHA ko o f [facility] 2022-12-19 2022-12-19 Outpatient R FLACO [facility] [id number] Univers 12:45:00 12:45:00 ALYSON ity of [facility] 2022-12-18 2022-12-18 Telephone [facility] 1.2.997.163 0986 [id number] Univers 00:00:00 00:00:00 Radha [place] 350.1.13.10 ity [facility] 4.2.7.2.[place] [id number] Vt ricardo CONTRERAS 059 [facility] 2022-12-10 2022-12-10 Outpatient R SHAHZAD [facility] [id number] Univers 09:30:00 11:57:[address] [facility] [place] [place] 2022-12-10 2022-12-10 Office CLAUDIA Hong 1.2.903.582 [id number] [id number] [facility] [place] [facility] 09:30:00 11:57:38 Visit Toinna Y 350.1.13.10 it y of [facility] 4.2.7.2.686 Truong as BANK [phone] [facility] BLDG. [address] 2022-12-10 2022-12-10 Telephone [facility] 1.2.840.114 10 [id number] Univers 00:00:00 00:00:00 [facility] 350.1.13.10 it y of [place] 4.2.7.2.686 Truong as LOURDES?BLEA 536.3288835 Vt dical KNEY [address] MEDICAL OFFICE [facility] 2022-12-10 2022-12-10 Orders Doctor PATRICIA 1.2.840.114 [id number] Univers 00:00:00 00:00:00 Only Unassigned, KARLA 350.1.13.10 ity of [place] [facility] 4.2.7.2.686 Truong as [id number] [facility] [address] 2022-11-26 2022-11-26 Outpatient R YAW [facility] [id number] Univers 11:00:00 11:25:19 RADAH ko o f [facility] 2022-11-26 2022-11-26 Office [facility] 1.2.840.114 [id number] Univers 11:00:00 11:25:19 Visit Radha CASTILLO 350.1.13.10 ity of [place]2.7.2.[place] AM[place] 684.3093781 Vt dical NAL 059 [facility] 2022-11-26 2022-11-26 [facility] [id number] Univers 11:00:00 11:00:00 RADHA maryadam o [facility] 2022-11-26 2022-11-26 Outpatient [facility] [id number] Univers 11:00:00 11:00:00 NEOMAILE maikel o [facility] 2022-11-19 2022-11-19 Telephone [facility] 1.2.840.114 101 [id number] Univers 00:00:00 00:00:00 Alyson CHRISTENSEN 350.1.13.10 ity of [facility] 4.2.7.2.[place] AIS[place] 994.7968603 Vt dical [address] 2022-11-19 2022-11-19 Orders Doctor PATRICIA 1.2.840.114 [id number] Univers 00:00:00 00:00:00 Only Unassigned, KARLA 350.1.13.10 ity of [place] [facility] 4.2.7.2.686 Truong as [id number] [address] 2022-11-07 2022-11-07 [facility] [id number] Univers 09:15:00 09:15:[address] [facility] [place] [place] 2022-10-29 2022-10-29 Outpatient [facility] [id number] Univers 11:15:00 11:15:[address] [facility] [place] [place] 2022-10-23 2022-10-23 Telephone [facility] 1.2.840.114 10 [id number] Univers 00:00:00 00:00:00 [facility] 350.1.13.10 it y of [place] 4.2.7.2.686 Truong as LOURDES?BLEA [phone] Vt dical KNEY [address] MEDICAL OFFICE BUILDING 2022-10-22 2022-10-22 Orders Doctor PATRICIA 1.2.840.114 [id number] Univers 00:00:00 00:00:00 Only Unassigned, KARLA 350.1.13.10 ity of [facility] 4.2.7.2.686 Truong as [id number] [address] 2022-10-10 2022-10-10 Outpatient R SHARON [facility] [id number] Univers 09:00:00 10:37:06 CONSTANCE ity of [facility] 2022-10-10 2022-10-10 Office MANOJ Herrera 1.2.840.114 [id number] [id number] Univers 09:00:00 10:37:06 Visit Constance Y 350.1.13.10 ity of [place] 4.2.7.2.686 Truong as [facility] [phone] [facility] BLDG. [address] 2022-10-10 2022-10-10 Orders Doctor PATRICIA 1.2.840.114 [id number] Univers 00:00:00 00:00:00 Only Unassigned, KARLA 350.1.13.10 ity of [facility] 4.2.7.2.686 Truong as [phone] [address] 2022-09-21 2022-09-21 Orders Doctor PATRICIA 1.2.840.114 [id number] Univers 00:00:00 00:00:00 Only Unassigned, KARLA 350.1.13.10 ity of [facility] 4.2.7.2.686 Truong as [phone] [address] 2022-09-08 2022-09-08 Refill [facility] 1.2.840.114 [id number] 412 Univers 00:00:00 00:00:00 Alyson CHRISTENSEN 350.1.13.10 ity of [place]2.[place].2.686 [place] LEONARD 204.8855985 Vt dical [address] 2022-08-23 2022-08-23 Telephone [facility] 1.2.840.114 [id number] [id number] Univers 00:00:00 00:00:00 Alyson A PRIMARY 350.1.13.10 ity of [place].2.686 [place] LEONARD 263.3239958 Vt ricardo [address] 2022-08-13 2022-08-13 Outpatient R JUJU [facility] [id number] Univers 14:30:00 14:53:[address] [facility] [place] 2022-08-13 2022-08-13 Office Juju [facility] 1.2.550.251 [id number] 1161 Univers 14:30:00 14:53:17 Visit Neto Wild [facility] 350.1.13.10 it y of [place] 4.2.7.2.686 Truong as LOURDES?BLEA 776.5409923 Vt dickalpesh KN [address] MEDICAL OFFICE BUILDING 2022-08-13 2022-08-13 Office MANOJ HongIT 1.2.889.666 6598 5449 Univers 09:30:00 11:45:21 Visit Ernesto Flores 350.1.13.10 it y of [place] 4.2.7.2.686 Truong as BANK [id number] [facility] alo BLDG. [address] [place] 2022-08-09 2022-08-09 Telephone CLAUDIA Herrera 1.2.840.114 9 [id number] Univers 00:00:00 00:00:00 Constance Flores 350.1.13.10 ity of [place]ATIONAL 4.2.7.2.686 Truong as BANK [phone] [facility] alo BLDG. [address] [place] 2022-08-08 2022-08-08 Outpatient R SHARON [facility] [id number] Univers 10:00:00 11:15:[address] [facility] [place] [place] 2022-08-08 2022-08-08 Office Sharon [facility] 1.2.840.114 [id number] [id number] Univers 10:00:00 11:15:29 Visit Constance Flores 350.1.13.10 ity of [place] 4.2.7.2.686 Truong as BANK [phone] [facility] alo BLDG. [address] [place] 2022-08-08 2022-08-08 Orders Doctor GOMEZ 1.2.840.114 [id number] Univers 00:00:00 00:00:00 Only Unassigned, KARLA 350.1.13.10 ity of [facility] 4.2.7.2.686 Truong as [phone] [address] 2022-08-07 2022-08-07 Telephone [facility] 1.2.840.114 [id number] [id number] Univers 00:00:00 00:00:00 Alyson A PRIMARY 350.1.13.10 it[place] of [place] 053.8011610 Vt dical [address] 2022-07-25 2022-07-25 Outpatient R [facility] [id number] Univers 15:45:00 16:46:42 ALYSON ity of [facility] 2022-07-25 2022-07-25 Office [facility] 1.2.840.114 84953 546 Univers 15:45:00 16:46:42 Visit Alyson A PRIMARY 350.1.13.10 ity of [place].2.[place] 040.8678428 Vt dical [address] 2022-07-23 2022-07-23 Refill [facility] 1.2.840.114 [id number] 025 Univers 00:00:00 00:00:00 Alyson A PRIMARY 350.1.13.10 ity of [place].2.[place] 354.8350172 Vt dical [address] 2022-07-04 2022-07-04 Telephone [facility] 1.2.840.114 97 [id number] Univers 00:00:00 00:00:00 [employer] 350.1.13.10 it y of [place] 4.2.7.2.686 Truong as LOURDES?BLEA 150.2779892 Vt dical [facility] [address] MEDICAL OFFICE BUILDING 2022-06-11 2022-06-11 Telephone [facility] 1.2.840.114 [id number] [id number] Univers 00:00:00 00:00:00 Alyson A PRIMARY 350.1.13.10 ity of [place]2.[place].2.[place] 540.3501216 Vt dical [address] 2022-06-06 2022-06-06 Orders Doctor PATRICIA 1.2.840.114 [id number] Univers 00:00:00 00:00:00 Only Unassigned, KARLA 350.1.13.10 ity of [facility] 4.2.7.2.686 Truong as 592.3802559 [facility] [address] 2022-06-04 2022-06-04 Office [facility] 1.2.840.114 04121 690 Univers 10:45:00 12:21:27 Visit Alyson Lester PRIMARY 350.1.13.10 ity of [place]2.[place].2.[place] HUANKAEL [id number] [address] 2022-06-04 2022-06-04 [facility] [id number] Univers 10:45:00 12:21:27 ALYSON ity of [facility] 2022-05-18 2022-05-18 Orders Doctor PATRICIA 1.2.840.114 [id number] Univers 00:00:00 00:00:00 Only Unassigned, KARLA 350.1.13.10 ity of [facility] 4.2.7.2.686 Truong as [phone] [facility] [address] 2022-04-28 2022-04-28 Letter PATRICIA Fuller 1.2.840.114 [id number] Univers 00:00:00 00:00:00 (Out) Tessy TAO 350.1.13.10 it y of HOSPITAL 4.2.7.2.686 Truong as 478.3585698 [facility] [address] [place] 2022-04-27 2022-04-27 Laboratory Only, Ang Db Test [facility] 1.2.8 40.114 [id number] Univers 14:45:00 15:00:00 Only Bailey Rojas [facility] 350.1.13.10 ity of [place] 4.2.7.2.686 Truong as LOURDES?BLEA [phone] [address] MEDICAL OFFICE BUILDING 2022-04-27 2022-04-27 Outpatient R BOB [facility] [id number] Univers 14:45:00 14:45:00 BAILEY ity of [facility] 2022-04-20 2022-04-20 Telephone Joyce Barnes 1.2.840.114 [id number] Univers 00:00:00 00:00:00 KARLA 350.1.13.10 it y of [facility] 4.2.7.2.686 Truong as 412.1767590 [facility] [address] [place] 2022-04-19 2022-04-19 Laboratory Only, Ang Db Test [facility] 1.2.8 40.114 [id number] Univers 18:30:00 18:45:00 Only Antionette Jorgensen [facility] 350.1.13.10 ity of [place] 4.2.7.2.686 Truong as LOURDES?BLEA 827.6822655 [address] MEDICAL OFFICE [facility] 2022-04-19 2022-04-19 Outpatient R JAMEEL [facility] [id number] Univers 18:30:00 18:30:00 ANTIONETTE hernandezy o f [facility] 2022-04-18 2022-04-18 Outpatient R FLACO [facility] [id number] Univers 10:45:00 10:45:[address] [facility] [place] 2022-04-14 2022-04-14 Orders Doctor PATRICIA 1.2.840.114 [id number] Univers 00:00:00 00:00:00 Only Unassigned, KARLA 350.1.13.10 ity of [place] [facility] 4.2.7.2.686 Truong as [id number] [facility] [address] 2022-04-09 2022-04-09 Outpatient R SHAHZAD [facility] [id number] Univers 10:00:00 12:22:[address] [facility] [place] [place] 2022-04-09 2022-04-09 Office CLAUDIA Hong 1.2.188.076 [id number] 1577 Univers 10:00:00 12:22:45 Visit Touka Y 350.1.13.10 it y of [facility] 4.2.7.2.686 Truong as BANK [phone] [facility] BLDG. [address] [place] 2022-04-06 2022-04-06 Telephone [facility] 1.2.840.114 [id number] Univers 00:00:00 00:00:00 Alyson A PRIMARY 350.1.13.10 it[place].2.[place] 592.1479804 [facility] [address] 2022-03-30 2022-03-30 Office [facility] 1.2.219.661 1405 2512 Univers 09:00:00 10:38:28 Visit Neto [facility] 350.1.13.10 it y [facility] 4.2.7.2.686 Truong as LOURDES?BLEA 499.7828659 [address] MEDICAL OFFICE [facility] 2022-03-30 2022-03-30 [facility] [id number] Univers 09:00:00 10:38:28 [facility] 2022-03-30 2022-03-30 [facility]patient [facility] [id number] Univers 09:00:00 09:00:00 [facility] 2022-03-30 2022-03-30 Outpatient [facility] [id number] Univers 09:00:00 09:00:00 [facility] 2022-03-30 2022-03-30 Orders Doctor PATRICIA 1.2.840.114 [id number] Univers 00:00:00 00:00:00 Only Unassigned, KARLA 350.1.13.10 ity of [place] [facility] 4.2.7.2.686 Truong as [phone] [address] 2022-03-12 2022-03-12 Telephone [facility] 1.2.840.114 [id number] [id number] Univers 00:00:00 00:00:00 Alyson A PRIMARY 350.1.13.10 ity of [place] 688.3564121 [facility] [address] 2022-03-05 2022-03-05 Orders Doctor PATRICIA 1.2.840.114 [id number] Univers 00:00:00 00:00:00 Only Unassigned, KARLA 350.1.13.10 ity of [facility] 4.2.7.2.686 Truong as 245.4041591 [facility] [address] 2022-02-07 2022-02-07 Outpatient R HUSSEIN EH [facility] [id number] Univers 14:00:00 15:17:29 ity of [facility] 2022-02-07 2022-02-07 Office Hussein Eh [facility] 1.2.840.114 [id number] Univers 14:00:00 15:17:29 Visit Angela Flores 350.1.13.10 it y of [facility] 4.2.7.2.686 Truong as BANK [phone] [facility] BLDG. [address] [place] 2022-02-07 2022-02-07 Outpatient R HUSSEIN [facility] [id number] Univers 14:00:00 14:00:00 ity of [facility] 2022-02-07 2022-02-07 Orders Doctor GOMEZ 1.2.840.114 [id number] Univers 00:00:00 00:00:00 Only Unassigned, KARLA 350.1.13.10 ity of [facility] 4.2.7.2.686 Truong as [phone] [address] 2022-01-28 2022-01-28 Orders Doctor GOMEZ 1.2.840.114 [id number] Univers 00:00:00 00:00:00 Only Unassigned, KARLA 350.1.13.10 ity of [facility] 4.2.7.2.686 Truong as [id number] [address] 2022-01-26 2022-01-26 Outpatient R YAW [facility] [id number] Univers 11:00:00 11:17:57 RADHA ko o f [facility] 2022-01-26 2022-01-26 [facility] 1.2.840.114 [id number] Univers 11:00:00 11:17:57 Visit Radha CASTILLO 350.1.13.10 ity of [place] [phone] Vt dical [facility] 059 [facility] 2022-01-19 2022-01-19 Case [facility] 1.2.840.114 [id number] Univers 00:00:00 00:00:00 Management Sheila F PRIMARY 350.1.13.10 it[place] of [place] 452.8911832 Vt dicwv [address] 2022-01-18 2022-01-18 Telephone Flaco [facility] 1.2.840.114 [id number] Univers 00:00:00 00:00:00 Alyson A PRIMARY 350.1.13.10 ity of [place].2.[place] 008.2677808 Vt dicwv [address] 2022-01-15 2022-01-15 Office Leena [facility] 1.2.840.114 [id number] Univers 16:00:00 16:55:15 Visit [facility] 350.1.13.10 ity of [place] 4.2.7.2.686 Truong as LOURDES?BLEA 461.0503092 Vt dickalpesh KN [address] [place] MEDICAL OFFICE [facility] 2022-01-15 2022-01-15 Outpatient FRANKY TINCOO [facility] [id number] Univers 16:00:00 16:55:15 FRANKY STERN [facility] 2022-01-15 2022-01-15 Outpatient FRANKY TINOCO [facility] [id number] Univers 16:00:00 16:00:00 FRANKY STERN [facility] 2022-01-15 2022-01-15 Outpatient Gibson SAM [facility] [id number] Univers 10:45:00 11:28:54 ALYSON [facility] 2022-01-15 2022-01-15 Office [facility] 1.2.840.114 [id number] Univers 10:45:00 11:28:54 Visit Alyson Lester PRIMARY 350.1.13.10 it[place] of [place].2.[place] 748.2676810 Vt dicwv [address] 2022-01-15 2022-01-15 Orders Doctor GOMEZ 1.2.840.114 [id number] Univers 00:00:00 00:00:00 Only Unassigned, KARLA 350.1.13.10 ity of [facility] 4.2.7.2.686 Truong as [id number] [address] 2022-01-01 2022-01-01 Outpatient R LEENA FRANKY [facility] [id number] Univers 15:40:00 15:40:00 LEENAFRANKY Noel adam [facility] [place] [place] 2021-12-29 2021-12-29 Orders Doctor GOMEZ 1.2.840.114 [id number] Univers 00:00:00 00:00:00 Only Unassigned, KARLA 350.1.13.10 ity of [facility] 4.2.7.2.686 [place] [phone] [address] 2021-12-15 2021-12-15 Office Juju [facility] 1.2.983.418 [id number] Univers 13:00:00 14:14:53 Visit Neto CANDIDO 350.1.13.10 it y of [place] 4.2.7.2.686 [place]?BLEA [phone] [address] MEDICAL OFFICE [facility] 2021-12-15 2021-12-15 Outpatient R JUJU [facility] [id number] Univers 13:00:00 14:14:[address] [facility] [place] [place] 2021-12-15 2021-12-15 Outpatient R JUJU [facility] [id number] Univers 13:00:00 13:00:[address] [facility] [place] [place] 2021-12-15 2021-12-15 Outpatient R RICH [facility] [id number] Univers 09:30:00 10:35:[address] [facility] [place] [place] 2021-12-15 2021-12-15 Office Lm Carrion [facility] 1.2.840.114 [id number] Univers 09:30:00 10:35:15 Visit Cielo Villanueva 350.1.13.10 [place] [phone] [address] 2021-12-15 2021-12-15 Office CarrionLm [facility] 1.2.840.114 [id number] Univers 09:30:00 10:35:15 Visit Rich Cielo Gala [facility] 350.1.13.10 [place] [phone] Vt dicwv [address] 2021-12-15 2021-12-15 Outpatient R [facility] [id number] Univers 09:30:00 10:35:15 CIELO ity of [facility] 2021-12-15 2021-12-15 Office Lm Carrion [facility] 1.2.840.114 [id number] Univers 09:30:00 10:35:15 Visit Cielo Villanueva PRIMARY 350.1.13.10 [place] [phone] [address] 2021-12-15 2021-12-15 Outpatient R [facility] [id number] Univers 09:30:00 09:30:00 ity of [facility] 2021-12-12 2021-12-12 Telephone [facility] 1.2.840.114 [id number] Univers 00:00:00 00:00:00 Alyson A PRIMARY 350.1.13.10 [place] [id number] [address] 2021-12-11 2021-12-11 Telephone [facility] 1.2.840.114 [id number] Univers 00:00:00 00:00:00 Alyson A PRIMARY 350.1.13.10 [place] [phone] [address] 2021-12-11 2021-12-11 [facility] 1.2.840.114 [id number] Univers 00:00:00 00:00:00 Alyson A PRIMARY 350.1.13.10 [place] [phone] [address] 2021-12-11 2021-12-11 Transition TERE [place] 1.2.840.114 [id number] Univers 00:00:00 00:00:00 of Care Yang Lester CARTAGENA 350.1.13.10 [place] [phone] [facility] [address] 2021-12-11 2021-12-11 Telephone [facility] 1.2.840.114 [id number] Univers 00:00:00 00:00:00 Alyson A PRIMARY 350.1.13.10 [place] [phone] Vt dical [address] 2021-12-11 2021-12-11 Refill [facility] 1.2.840.114 [id number] Univers 00:00:00 00:00:00 Alyson A PRIMARY 350.1.13.10 [place] [phone] Vt dical [address] 2021-12-11 2021-12-11 Transition TERE [place] 1.2.840.114 [id number] Univers 00:00:00 00:00:00 of Care Yang Lester [place] 350.1.13.10 [place] [phone] [facility] [address] 2021-12-11 2021-12-11 Telephone [facility] 1.2.840.114 [id number] Univers 00:00:00 00:00:00 Alyson A PRIMARY 350.1.13.10 it[place] [phone] Vt dical [address] 2021-12-06 2021-12-09 Inpatient X PRANAV [facility] NATALY [id number] Univers 20:41:00 18:01:00 JOSE ity of [facility] 2021-12-06 2021-12-09 [facility] Namita [place] 1.2.84 0.114 [id number] Univers 20:41:00 18:01:00 Anne Burgos [place] KARLA 350.1.13.10 ity of [facility] 4.2.7.2.686 [place] [phone] [facility] [address] [place] 2021-12-06 2021-12-09 Inpatient X [facility] NATALY [id number] Univers 20:41:00 18:01:[address] [facility] [place] [place] 2021-12-04 2021-12-04 [facility] [id number] Univers 09:45:00 13:30:[address] [facility] [place] [place] 2021-12-04 2021-12-04 Office CLAUDIA Hong 1.2.260.413 [id number] Univers 09:45:00 13:30:59 Visit Ernesto Y 350.1.13.10 it y of [facility] 4.2.7.2.686 [place] BANK [phone] [facility] BLDG. [address] [place] 2021-12-04 2021-12-04 Outpatient R SHAHZAD [facility] [id number] Univers 09:45:00 13:30:[address] [facility] [place] [place] 2021-11-08 2021-11-08 [facility] 1.2.840.114 [id number] Univers 13:45:00 14:26:21 Visit Alyson CHRISTENSEN 350.1.13.10 ity of CARE 4.2.7.2.686 Jevon LEONARD [phone] Vt dical [address] [place] 2021-11-08 2021-11-08 Outpatient Gibson SAM [facility] [id number] Univers 13:45:00 14:26:[address] [facility] [place] [place] 2021-11-08 2021-11-08 Outpatient [facility] [id number] Univers 13:45:00 13:45:[address] [facility] [place] [place] 2021-11-08 2021-11-08 Orders Doctor GOMEZ 1.2.840.114 [id number] Univers 00:00:00 00:00:00 Only Unassigned, KARLA 350.1.13.10 ity of [place] [facility] 4.2.7.2.686 [place] [phone] [facility] [address] 2021-09-19 2021-09-19 Emergency [facility] ERT [id number] Univers 21:41:00 23:45:[address] [facility] [place] [place] 2021-09-19 2021-09-19 Emergency [facility] 1.2.201.654 [id number] Univers 21:41:00 23:45:00 Laura CASTILLO 350.1.13.10 i ty of [place].2.7.2.[place] [phone] [facility] [address] [place] 2021-08-30 2021-08-30 Office [facility] 1.2.840.114 [id number] Univers 14:45:00 15:28:10 Visit Alyson Lester PRIMARY 350.1.13.10 ity of [facility] 4.2.7.2.686 [place] [facility] [phone] Vt dical [address] [place] 2021-08-30 2021-08-30 [facility] [id number] Univers 14:45:00 15:28:10 [facility] 2021-08-30 2021-08-30 [facility]patient [facility] [id number] Univers 14:45:00 14:45:00 [facility] 2021-08-30 2021-08-30 [facility] [id number] Univers 14:45:00 14:45:00 ALYSON [facility] 2021-08-29 2021-08-29 Office Eh Savage UNIVERSIT 1.2.840.114 [id number] Univers 13:15:56 13:30:56 Visit Angela Flores 350.1.13.10 it y of NATIONAL 4.2.7.2.686 [place] BANK [phone] [facility] BLDG. [address] [place] 2021-08-29 2021-08-29 Outpatient R EH SAVAGE [facility] [id number] Univers 13:15:00 13:15:[address] [facility] [place] [place] 2021-08-29 2021-08-29 Orders Doctor GOMEZ 1.2.840.114 [id number] Univers 00:00:00 00:00:00 Only Unassigned, KARLA 350.1.13.10 ity of [facility] 4.2.7.2.686 [place] [phone] [facility] [address] [place] 2021-08-29 2021-08-29 [facility] 1.2.840.114 [id number] Univers 00:00:00 00:00:00 Radha CASTILLO 350.1.13.10 ity of [place].2.7.2.[place] [phone] Vt dical NAL 059 [facility] 2021-08-25 2021-08-25 Telephone [facility] 1.2.840.114 [id number] Univers 00:00:00 00:00:00 Alyson A PRIMARY 350.1.13.10 ity of [place].2.[place] [phone] Vt dical [address] [place] 2021-08-16 2021-08-16 Outpatient R EH SAVAGE [facility] [id number] Univers 13:00:00 13:00:00 ity of [facility] 2021-07-28 2021-07-28 Orders Doctor PATRICIA 1.2.840.114 [id number] Univers 00:00:00 00:00:00 Only Unassigned, KARLA 350.1.13.10 ity of [facility] 4.2.7.2.686 [place] [phone] [address] 2021-07-27 2021-07-27 Telephone [facility] 1.2.840.114 [id number] Univers 00:00:00 00:00:00 Alyson A PRIMARY 350.1.13.10 ity of [place].2.[place] [phone] Vt dical [address] [place] 2021-07-26 2021-07-26 Office CLAUDIA Hong 1.2.170.548 [id number] Univers 09:15:54 10:40:49 Visit Touka Y 350.1.13.10 it y of NATIONAL 4.2.7.2.686 [place] BANK [phone] [facility]. [address] 2021-07-26 2021-07-26 Outpatient R SHAHZAD [facility] [id number] Univers 09:00:00 10:40:49 TOUKA ity of [facility] 2021-07-26 2021-07-26 Refill [facility] 1.2.840.114 [id number] Univers 00:00:00 00:00:00 Alyson A PRIMARY 350.1.13.10 ity of [place] [phone] Vt dical [address] 2021-05-31 2021-05-31 Telephone Eh Savage MANOJ 1.2.840.11 [id number] Univers 00:00:00 00:00:00 Angela Y 350.1.13.10 it y of [facility] 4.2.7.2.686 [place] BANK [phone] [facility]. [address] 2021-05-01 2021-05-01 Telephone [facility] 1.2.840.114 [id number] Univers 00:00:00 00:00:00 Alyson A PRIMARY 350.1.13.10 ity of [place].2.[place] [phone] Vt dicwv [address] [place] 2021-05-01 2021-05-01 Orders Doctor PATRICIA 1.2.840.114 [id number] Univers 00:00:00 00:00:00 Only Unassigned, KARLA 350.1.13.10 ity of [place] [facility] 4.2.7.2.686 [place] as [phone] [facility] [address] 2021-04-26 2021-04-26 Office [facility] 1.2.840.114 [id number] Univers 15:31:06 16:40:37 Visit Alyson A PRIMARY 350.1.13.10 ity of [place].2.[place] [phone] [facility] [address] 2021-04-26 2021-04-26 Office [facility] 1.2.840.114 [id number] Univers 15:31:06 16:40:37 Visit Alyson CHRISTENSEN 350.1.13.10 ity of [facility] 4.2.7.2.[place] HUANILLION [phone] Vt dical [address] [place] 2021-04-26 2021-04-26 [facility] [id number] Univers 15:15:00 16:40:[address] [facility] [place] [place] 2021-04-26 2021-04-26 Office [facility] 1.2.840.114 [id number] Univers 10:53:26 11:16:14 Visit Radha Castillo 350.1.13.10 ity [facility] 4.2.7.2.[place] ess[place] [phone] [facility] nal 9 [facility] 2021-04-26 2021-04-26 [facility] [id number] Univers 11:00:00 11:00:00 RADHA ko o f [facility] 2021-04-05 2021-04-05 Outpatient [facility] [id number] Univers 15:00:00 15:00:[address] [facility] [place] [place] 2021-04-01 2021-04-01 Emergency [facility] 1.2.840.114 [id number] Univers 10:09:00 13:14:00 Namita Castillo 350.1.13.10 ity of [place].2.[place] [phone] [facility] [address] [place] 2021-03-02 2021-03-02 [facility]ill [facility] 1.2.840.114 [id number] Univers 00:00:00 00:00:00 Radha Castillo 350.1.13.10 ity of [place]2.7.2.686 [place] Profess[place] [phone] Vt dical nal 059 [facility] 2021-02-24 2021-02-24 [facility] 1.2.926.260 [id number] Univers 08:45:51 23:59:00 Encounter Alyson Castillo 350.1.13.10 ity of [place]2.[place].2.[place] [phone] [facility] [address] 2021-02-24 2021-02-24 Outpatient R FLACO [facility] [id number] Univers 00:00:00 00:00:[address] 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 [place] [place] 2021-01-23 2021-01-23 Office CLAUDIA Whitehead 1.2.220.062 [id number] Univers 08:53:50 10:33:40 Visit Hay Flores 350.1.13.10 ity of NATIONAL 4.2.7.2.686 [place] as BANK [phone] [facility] BLDG. [address] 2021-01-23 2021-01-23 Outpatient Gibson WHITEHEAD [facility] [id number] Univers 08:45:00 08:45:[address] [facility] [place] [place] 2021-01-04 2021-01-04 Outpatient R EH SAVAGE [facility] [id number] Univers 14:30:00 14:30:[address] [facility] [place] [place] 2021-01-04 2021-01-04 Office Eh Savage UNIVERSIT 1.2.840.114 [id number] Univers 14:13:15 14:28:15 Visit Angela Flores 350.1.13.10 it y of [facility] 4.2.7.2.686 [place] BANK [phone] [facility] BLDG. 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 Lab Main [facility] 1.2.8 40.114 [id number] Univers 14:30:16 14:45:16 Visit Neo Tidwellgretelmaile [place] 350.1.13.10 ity of [place].7.2.[place] [phone] Vt dical nal 353 [facility] 2020-10-26 2020-10-26 Office [facility] 1.2.840.114 [id number] Univers 13:31:43 14:06:00 Visit Radha Castillo 350.1.13.10 ity of [place]2.7.2.[place] [phone] Vt dical nal 059 [facility] 2020-10-26 2020-10-26 [facility] [id number] Univers 13:20:00 13:20:00 RADHA ko o f [facility] 2020-10-26 2020-10-26 Orders Doctor GOMEZ 1.2.840.114 [id number] Univers 00:00:00 00:00:00 Only Unassigned, KARLA 350.1.13.10 ity of [place] [facility] 4.2.7.2.686 [place] as [phone] [facility] [address] 2020-10-15 2020-10-15 Patient [facility] 1.2.840.114 [id number] Univers 00:00:00 00:00:00 Outreach Maximino CHRISTENSEN 350.1.13.[address] [facility] 4.2.7.2.[place] [phone] Vt dical [address] 2020-09-28 2020-09-28 Outpatient R [facility] [id number] Univers 10:20:00 10:20:00 RADHA hernandezy o f [facility] 2020-08-31 2020-08-31 Office [facility] 1.2.840.114 [id number] Univers 13:16:21 14:38:20 Visit Angela Flores 350.1.13.10 it y of [facility] 4.2.7.2.686 [place] BANK [phone] [facility] BLDG. [address] 2020-08-31 2020-08-31 Outpatient R HUSSEIN EH [facility] [id number] Univers 13:15:00 13:15:00 ity of [facility] 2020-08-31 2020-08-31 Orders Doctor PATRICIA 1.2.840.114 [id number] Univers 00:00:00 00:00:00 Only Unassigned, KARLA 350.1.13.10 ity of [place] [facility] 4.2.7.2.686 [place] as [phone] [facility] [address] 2020-08-25 2020-08-25 Refill [facility] 1.2.840.114 [id number] Univers 00:00:00 00:00:00 Radha Castillo 350.1.13.10 ity of [place].2.[place] [phone] Vt dical nal [address] Building 2020-08-24 2020-08-24 [facility] 1.2.840.114 [id number] Univers 08:10:42 23:59:00 Encounter Radha Castillo 350.1.13.10 ity of [place].7.2.[place] [phone] [facility] [address] 2020-08-24 2020-08-24 [facility] 1.2.840.114 [id number] 056 Univers 08:01:10 08:09:00 Encounter Neogretelmaile Jonathan 350.1.13.10 ity of [place] 4.2.7.2.686 [place] [facility] [phone] [facility] [address] [place] 2020-08-24 2020-08-24 [facility] 1.2.840.114 [id number] 055 Univers 07:59:39 08:00:00 Encounter Neogretelmaile [place] 350.1.13.10 ity of [place]2.7.2.[place] [phone] [facility] [address] [place] [address] 2020-08-24 2020-08-24 [facility] 1.2.840.114 [id number] 054 Univers 07:58:02 07:58:02 Encounter Neogretelmaile [place] 350.1.13.10 ity of [place]2.7.2.[place] [phone] [address] 2020-08-24 2020-08-24 Outpatient R [facility] [id number] Univers 07:58:02 07:58:02 RADHA ko o f [facility] 2020-08-24 2020-08-24 Orders Doctor PATRICIA 1.2.840.114 [id number] Univers 00:00:00 00:00:00 Only Unassigned, KARLA 350.1.13.10 ity of [facility] 4.2.7.2.686 [place] as [phone] [facility] [address] [place] 2020-08-10 2020-08-10 Die Cutter Operator Pc, Adc Vascular Room 1 - [facility] 1.2.840.114 [id number] Univers 13:54:53 14:15:49 Visit Dary Goldman 350.1.13. 10 ity of [place]2.7.2.686 [place] Profess[place] [phone] Vt dical nal 059 [facility] 2020-08-10 2020-08-10 [facility] [id number] Univers 14:00:00 14:00:00 SENDSAVANNAH ko of [facility] 2020-08-09 2020-08-09 Office [facility] 1.2.840.114 [id number] Univers 14:01:51 14:44:57 Visit Radha Castillo 350.1.13.10 ity of [place] 4.2.7.2.686 [place] [facility] [phone] Vt dical nal 059 [facility] 2020-08-09 2020-08-09 [facility] [id number] Univers 14:00:00 14:00:00 RADHA ko o f [facility] 2020-08-03 2020-08-03 Office [facility] 1.2.875.960 [id number] Univers 14:05:42 16:06:14 Visit Hay Flores 350.1.13.10 ity [facility] 4.2.7.2.686 [place] as BANK [phone] [facility] BLDG. [address] [place] 2020-08-03 2020-08-03 [facility] [id number] Univers 14:00:00 14:00:[address] [facility] [place] [place] 2020-08-02 2020-08-02 Emergency [facility] 1.2.061.412 [id number] Univers 09:49:00 12:11:00 Mega Castillo 350.1.13.10 i ty [facility] 4.2.7.2.686 [place] [phone] [facility] [address] 2020-07-19 2020-07-19 Outpatient [facility] [id number] Univers 16:20:00 16:20:00 RADHA ok o f [facility] 2020-07-06 2020-07-06 Telephone [facility] 1.2.040.894 [id number] Univers 00:00:00 00:00:00 Radha Castillo 350.1.13.10 ity [facility] 4.2.7.2.686 [place] [facility] [phone] Vt dical nal 059 [facility] 2020-07-04 2020-07-04 Telephone [facility] 1.2.840.114 [id number] Univers 00:00:00 00:00:00 Alyson A PRIMARY 350.1.13.10 ity of [place] 4.2.7.2.[place] [id number] [facility] [address] [place] 2020-07-01 2020-07-01 Telephone [facility] 1.2.840.114 [id number] [id number] Univers 00:00:00 00:00:00 Alyson A PRIMARY 350.1.13.10 ity of [place] 4[place]2.7.2.[place] [id number] [address] 2020-06-16 2020-06-16 Orders Doctor PATRICIA 1.2.840.114 [id number] Univers 00:00:00 00:00:00 Only Unassigned, KARLA 350.1.13.10 ity of [place] [facility] 4.2.7.2.686 [place] as [id number] [address] 2020-06-13 2020-06-13 Outpatient R EH SAVAGE [facility] [id number] Univers 14:30:00 14:30:[address] [facility] [place] [place] 2020-06-01 2020-06-01 Outpatient R MILLI [facility] [id number] Univers 14:45:00 14:45:[address] [facility] [place] [place] 2020-05-19 2020-05-19 [facility] 1.2.840.114 [id number] Univers 00:00:00 00:00:00 Alyson A PRIMARY 350.1.13.10 ity of [place] 4[place]2.7.2.[place] [phone] [address] 2020-05-17 2020-05-17 Outpatient R ESTEBAN [facility] [id number] Univers 14:00:00 14:00:[address] [facility] [place] [place] 2020-05-13 2020-05-13 [facility] 1.2.840.114 [id number] Univers 00:00:00 00:00:00 Alyson A PRIMARY 350.1.13.10 ity of [place] 4.2.7.2.[place] [phone] [address] 2020-04-12 2020-04-12 Telephone [facility] 1.2.840.114 [id number] Univers 00:00:00 00:00:00 Alyson A PRIMARY 350.1.13.10 ity of [place] 4.2.7.2.686 [place] 950.7451408 Vt dical [address] [place] 2020-03-28 2020-03-28 Telemedici [facility] 1.2.840.114 [id number] Univers 09:01:19 09:21:19 ne Visit Radha Jonathan 350.1.13.10 ity of [place] 4.2.7.2.686 [place] Profess[place] [phone] [facility] nal 059 [facility] 2020-03-28 2020-03-28 Outpatient [facility] [id number] Univers 09:20:00 09:20:00 RADHA ity o f [facility] 2020-03-17 2020-03-17 Outpatient R HUSSEIN, [facility] [id number] Univers 13:00:00 13:00:00 ity of [facility] 2020-03-02 2020-03-02 Outpatient R HUSSEIN, [facility] [id number] [id number] Univers 08:45:00 08:45:[address] [facility] [place] [place] 2020-03-02 2020-03-02 [facility]ill [facility] 1.2.840.114 [id number] Univers 00:00:00 00:00:00 Jeetmaile Jonathan 350.1.13.10 ity of [place] 4.2.7.2.686 [place] Profess[place] [phone] [facility] 059 [facility] 2020-02-05 2020-02-05 Orders Doctor PATRICIA 1.2.840.114 [id number] Univers 00:00:00 00:00:00 Only Unassigned, KARLA 350.1.13.10 ity of [facility] 4.2.7.2.686 [place] [phone] [address] 2020-01-04 2020-01-04 Patient Doctor [facility] 1.2.840.114 [id number] Univers 00:00:00 00:00:00 Secure Msg Unassigned, PRIMARY 350.1.13.10 ity of [place] [facility] 4.2.7.2.686 [place] PAVILL[place] [phone] Vt dical [address] [place] 2020-01-04 2020-01-04 Telephone Flaco [place] 1.2.840.114 [id number] Univers 00:00:00 00:00:00 Alyson A PRIMARY 350.1.13.10 ity of C[place] 4.2.7.2.686 [place] PAV[place] 767.0569757 Vt dical [address] [place] 2020-01-04 2020-01-04 Orders Doctor PATRICIA 1.2.840.114 [id number] Univers 00:00:00 00:00:00 Only Unassigned, KARLA 350.1.13.10 ity of [facility] 4.2.7.2.686 [place] [phone] [address] 2019-12-26 2019-12-26 Patient Doctor PATRICIA 1.2.840.114 [id number] Univers 00:00:00 00:00:00 Secure Msg Unassigned, KARLA 350.1.13.10 ity of [facility] 4.2.7.2.686 [place] as [phone] [facility] [address] [place] 2019-12-23 2019-12-23 Telephone Hussein, Eh UN[facility]ERSIT 1.2.840.11 [id number] Univers 00:00:00 00:00:00 Angela Y 350.1.13.10 it y of [place] 4.2.7.2.686 [place] BANK [phone] [facility]. [address] [place] 2019-12-23 2019-12-23 Telephone Hussein, Eh [facility] 1.2.840.11 [id number] Univers 00:00:00 00:00:00 Angela Y 350.1.13.10 it y of [place] 4.2.7.2.686 [place] BANK [id number] [facility]. [address] [place] 2019-12-08 2019-12-08 Orders Doctor PATRICIA 1.2.840.114 [id number] Univers 00:00:00 00:00:00 Only Unassigned, KARLA 350.1.13.10 ity of [facility] 4.2.7.2.686 [place] [phone] [address] 2019-11-27 2019-11-27 Telephone [facility] 1.2.840.114 [id number] [id number] Univers 00:00:00 00:00:00 Alyson A PRIMARY 350.1.13.10 ity of [place]2.7.2.[place] 349.1584252 Vt dicwv [address] 2019-11-13 2019-11-13 Telephone [facility] 1.2.644.499 [id number] [id number] Univers 00:00:00 00:00:00 Joyce MULTISPEC 350.1.13.10 ity of [place].2.7.2.686 [place] CENTER [phone] [facility] [place] [address] [facility] 2019-11-12 2019-11-12 Telephone [facility] 1.2.840.114 [id number] [id number] Univers 00:00:00 00:00:00 Alyson A PRIMARY 350.1.13.10 ity of C[place] 4.2.7.2.[place] PAVILL[place] [phone] [facility] [address] [place] 2019-11-10 2019-11-10 [facility] 1.2.840.114 [id number] [id number] Univers 00:00:00 00:00:00 Alyson A PRIMARY 350.1.13.10 ity of [place] 4.2.7.2.[place] PAVILL[place] [phone] Vt dicwv [address] [place] 2019-11-09 2019-11-09 Office [facility] 1.2.840.114 [id number] [facility] Univers 10:13:21 11:39:50 Visit Alyson A PRIMARY 350.1.13.10 ity of C[place] 4.2.7.2.686 [place] PAV[place] [phone] Vt dical [address] 2019-10-22 2019-10-22 [facility] 1.2.840.114 [id number] 51 Univers 00:00:00 00:00:00 Radha Castillo 350.1.13.10 ity of [place]2.7.2.686 [place] Profess[place] [phone] Vt dical nal 059 [facility] 2019-10-15 2019-10-15 [facility] 1.2.557.656 [id number] [id number] Univers 09:46:00 23:59:00 Encounter Alyson Siuton 350.1.13.10 ity of [place] 4.2.7.2.686 [place] [facility] [phone] [facility] [address] [place] 2019-10-15 2019-10-15 [facility] 1.2.284.377 [id number] Univers 09:45:00 09:45:00 Encounter Alyson Csatillo 350.1.13.10 [place] of [place] 4.2.7.2.686 [facility] [phone] [facility] [address] [place] 2019-10-09 2019-10-09 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 [facility] 1.2.840.114 [id number] Univers 15:54:11 16:04:11 Visit Alyson Sam PRIMARY 350.1.13.10 [place] [phone] Vt dical [address] 2019-10-09 2019-10-09 Office [facility] 1.2.840.114 [id number] Univers 14:44:01 15:51:43 Visit Alyson Lester PRIMARY 350.1.13.10 [place] [phone] Vt dical [address] 2019-09-24 2019-09-24 Orders Doctor GOMEZ 1.2.840.114 [id number] Univers 00:00:00 00:00:00 Only Unassigned, KARLA 350.1.13.10 ity of [facility] 4.2.7.2.686 [place] [phone] [facility] [address] 2019-05-20 2019-05-20 Office Eh Savage [facility] 1.2.840.114 [id number] Univers 14:15:35 15:25:22 Visit Angela Flores 350.1.13.10 it y of [place] 4.2.7.2.686 [place] [phone] [facility] BLDG. [address] 2019-05-20 2019-05-20 Orders Doctor GOMEZ 1.2.840.114 [id number] Univers 00:00:00 00:00:00 Only Unassigned, KARLA 350.1.13.10 ity of [facility] 4.2.7.2.686 [place] [phone] [facility] [address] 2019-05-15 2019-05-15 Office Vargas Mirza [facility] 1.2.504.191 [id number] Univers 08:26:54 09:10:57 Visit Gabino Chuy MULTISPEC 350.1.13.10 [place] [phone] [facility] AND GUTIERREZ [address] [facility] 2019-04-14 2019-04-14 Patient Yaw, [facility] 1.2.840.114 [id number] Univers 00:00:00 00:00:00 Secure Msg Radha Castillo 350.1.13.10 [place] [phone] Vt dical nal 059 [facility] Results Test Description Test Time Test Comments Results Result Comments Source POCT HEMOGLOBIN A1C TEST 2023-05-24 15:21:00 Test Item Value Reference Range Interpretation Comme nts POCT HBA1C (test code = 4548-4) 10.1 % 4-6 A Lab Interpretation (test code = 61203-1) Abnormal [facility] HEMOGLOBIN A1C [id number] 15:21:00 Test Item Value Reference Range Interpretation Comments POCT HBA1C (test code = 4548-4) 10.1 % 4-6 A Lab Interpretation (test code = Abnormal 41130-9) [facility] GLUCOSE (AUTOMATED)2023-04-25 04:20:59 Test Item Value Reference Range Interpretation Comments POCT GLU (test code = 6184950155) 120 mg/dL 70-110 H Lab Interpretation (test code = Abnormal 27473-0) [id number] 03:24:17 Test Item Value Reference Range Interpretation Comments FERRITIN (test code = 747.0 ng/mL 11.0-264.0 H 9265409971) ADÁN (test code = ADÁN) Biotin has been reported to cause a negative bias, interpret results relative to patient's use of biotin. Lab Interpretation (test Abnormal code = 75580-2) [id number]58[facility]15 Test Item Value Reference Range Interpretation Comments IRON (test code = 5099733377) 61 ug/dL 50-160 TIBC (test code = 3366944335) 287 ug/dL 250-410 % FE SAT (test code = 1456421747) 21 % 20-50 Lab Interpretation (test code = Normal 78532-3) [facility]. METABOLIC PANEL (10798)2023-03-01 02:49:17 Test Item Value Reference Range Interpretation Comments NA (test code = 137 mmol/L 135-145 1350574038) K (test code = 5.2 mmol/L 3.5-5.0 H 9176175958) CL (test code = 103 mmol/L 98-108 1837512543) CO2 TOTAL (test code = 23 mmol/L 23-31 8797496672) AGAP (test code = 11 2-16 2630192830) BUN (test code = 25 mg/dL 7-23 H 5089186641) GLUCOSE (test code = 143 mg/dL 70-110 H 9945459775) CREATININE (test code = 3.31 mg/dL 0.50-1.04 H 5849575196) TOTAL BILI (test code = 0.5 mg/dL 0.1-1.4 4458193965) CALCIUM (test code = 9.2 mg/dL 8.6-10.6 6137124876) T PROTEIN (test code = 7.5 g/dL 6.3-8.2 7359924084) ALBUMIN (test code = 4.2 g/dL 3.5-5.0 8027936263) ALK PHOS (test code = 125 U/L 34-122 H 7888682292) ALTv (test code = 32 U/L 5-35 1742-6) AST(SGOT) (test code = 41 U/L 13-40 H 0933305572) eGFR (test code = 13.4 mL/min/1.73m2 7151398755) ADÁN (test code = ADÁN) Association of Glomerular Filtration Rate (GFR) and Staging of Kidney Disease* + --+ --+ ------+| GFR (mL/min/1.73 m2) ?| With Kidney Damage ?| ?Without Kidney Damage+ --------+ --------+ +| ?>90 ?| ?Stage one ?| ? Normal ?+ ---+ ---+ -------+| ?60-89 ?| ?Stage two ?| ? Decreased GFR ? + --+ --+ ------+| ?30-59 ?| ?Stage three ?| ? Stage three ? + --+ --+ ------+| ?15-29 ?| ?Stage four ? | ? Stage four ?+ ---+ ---+ -------+| ?<15 (or dialysis) ? ?| ?Stage five ? | ? Stage five ?+ ---+ ---+ -------+ *Each stage assumes the associated GFR level has been in effect for at least three months. ?Stages 1 to 5, with or without kidney disease, indicate chronic kidney disease. Notes: Determination of stages one and two (with eGFR >59mL/min/1.73 m2) requires estimation of kidney damage for at least three months as defined by structural or functional abnormalities of the kidney, manifested by either:Pathological abnormalities or Markers of kidney damage (including abnormalities in the composition of the blood or urine or abnormalities in imaging tests). Lab Interpretation Abnormal (test code = 01013-7) [facility] WITH [id number] 19:54:56 Test Item Value Reference Range Interpretation Comments WBC (test code = 5.06 See_Comment [Automated 7435-2) message] The sy stem which generated this result transmitted reference range : 4.30 - 11.10 10*3/?L. The reference range was not used to interpret this result as normal/abnormal . RBC (test code = 3.95 See_Comment [Automated 616-8) message] The sy stem which generated this result transmitted reference range : 3.93 - 5.25 10*6/?L. The reference range was not used to interpret this result as normal/abnormal . HGB (test code = 12.8 g/dL 11.6-15.0 718-7) HCT (test code = 40.1 % 35.7-45.2 4544-3) MCV (test code = 101.5 fL 80.6-95.5 H 787-2) MCH (test code = 32.4 pg 25.9-32.8 785-6) MCHC (test code = 31.9 g/dL 31.6-35.1 786-4) RDW-SD (test code = 52.8 fL 39.0-49.9 H 28710-3) RDW-CV (test code = 14.0 % 12.0-15.5 788-0) PLT (test code = 119 See_Comment L [Automated 777-3) message] The sy stem which generated this result transmitted reference range : 166 - 358 10*3/ ?L. The reference r rigoberto was not used to interpret this result as normal/abnormal . MPV (test code = 12.6 fL 9.5-12.9 45197-4) NRBC/100 WBC (test 0.0 See_Comment [Automat ed code = 8674980168) message] The system which generated this result transmitted reference range : 0.0 - 10.0 /100 WBCs. The refer ence range was not u sed to interpret th is result as normal/abnormal . NRBC x10^3 (test code See_Comment [Auto mated = 5038084223) message] The s ystem which generated this result transmitted reference range : 10*3/?L. The reference range was not used to interpret this result as normal/abnormal . GRAN MAT (NEUT) % 69.3 % (test code = 770-8) IMM GRAN % (test code 0.60 % = 2895976320) LYMPH % (test code = 15.2 % 736-9) MONO % (test code = 11.3 % 5905-5) EOS % (test code = 3.0 % 713-8) BASO % (test code = 0.6 % 706-2) GRAN MAT x10^3(ANC) 3.51 10*3/uL 1.88-7.09 (test code = 0097955315) IMM GRAN x10^3 (test 0.03 10*3/uL 0.00-0.06 code = 3865775691) LYMPH x10^3 (test code 0.77 10*3/uL 1.32-3.29 L = 731-0) MONO x10^3 (test code 0.57 10*3/uL 0.33-0.92 = 742-7) EOS x10^3 (test code = 0.15 10*3/uL 0.03-0.39 711-2) BASO x10^3 (test code 0.03 10*3/uL 0.01-0.07 = 704-7) Lab Interpretation Abnormal (test code = 68655-5) [facility] HEMOGLOBIN A1C [id number] 16:43:00 Test Item Value Reference Range Interpretation Comments POCT HBA1C (test code = 4548-4) 9.6 % 4-6 A Lab Interpretation (test code = Abnormal 61244-9) [facility] HEMOGLOBIN A1C [id number] 16:43:00 Test Item Value Reference Range Interpretation Comments POCT HBA1C (test code = 4548-4) 9.6 % 4-6 A Lab Interpretation (test code = Abnormal 60328-7) [facility] SPECTRALIS OCT MACULA, BOTH [id number] 00:00:00 Test Item Value Reference Range Interpretation Comments IMP (test code = IMP) OCT 12/10/2022OD: ILH , irregular inner retinal layers temporally, NCI IRF vs continuation of LH OS: atrophy, ERM with DRIL Lab Interpretation (test Abnormal code = 62494-0) [facility] S[facility]RALIS OCT MACULA, BOTH [id number] 00:00:00 Test Item Value Reference Range Interpretation Comments IMP (test code = IMP) OCT 12/10/2022OD: ILH , irregular inner retinal layers temporally, NCI IRF vs continuation of LH OS: atrophy, ERM with DRIL Lab Interpretation (test Abnormal code = 54452-2) [facility] SPECTRALIS OCT MACULA, BOTH [id number] 00:00:00 Test Item Value Reference Range Interpretation Comments IMP (test code = IMP) OD: ILH , irregular inner retinal layers temporally, CMT 240 - stableOS: atrophy, ERM with DRIL, CMT 287 - stable Lab Interpretation (test Abnormal code = 39573-1) [facility] S[facility]RALIS OCT MACULA, BOTH [id number] 00:00:00 Test Item Value Reference Range Interpretation Comments IMP (test code = IMP) OD: ILH , irregular inner retinal layers temporally, CMT 240 - stableOS: atrophy, ERM with DRIL, CMT 287 - stable Lab Interpretation (test Abnormal code = 85540-6) [facility] HEMOGLOBIN A1C [id number] 21:36:00 Test Item Value Reference Range Interpretation Comments POCT HBA1C (test code = 4548-4) 7.9 % 4-6 A Lab Interpretation (test code = Abnormal 86778-2) [facility] HEMOGLOBIN A1C [id number] 21:36:00 Test Item Value Reference Range Interpretation Comments POCT HBA1C (test code = 4548-4) 7.9 % 4-6 A Lab Interpretation (test code = Abnormal 80897-5) [facility] Notes Date/Time Note Provider Source 2023-05-22 [facility] 12:20:46-00:00 Routing to endo nurse Electronically signed by Ann Zamarripa LVN at 0 05/22/2023 12:22 PM CDT 2023-05-22 Formatting of this note might be differe nt from the original. Snehal Amaya [facility] 09:51:13-00:00 Lexi Clark is a 82 year old female Lorna w/[facility] called regarding the Freestyle Fozia 2 order. 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 She states that it needs to be one or th e other, it can't be both. Requesting order to b e faxed Please advise Lorna zule[facility] FAX to [phone] Electronically signed by Snehal Amaya at 9:54 AM CDT 2023-05-22 Formatting of this note might be differe nt from the original. Yenifer Dickey [facility] 09:50:35-00:00 Form signed by provider and faxed to [phone] RN 2023-05-22 Formatting of this note might be differe nt from the original. Namita Hart [facility] 09:44:54-00:00 Lexi Clark is a 82 year old female Pt's daughter is calling reg arding the form for the pt's sensors. The company said that it only should have one DX on it and it now says DM Type 1 and 2. Please change it to one or the other DX Please advise Pt is out of sensors Electronically signed by Namita Hart at 9:47 AM CDT 2023-05-21 Formatting of this note might be differe nt from the original. Yenifer Dickey [facility] 14:45:28-00:00 Form awaiting providers signature. RN 2023-05-21 Formatting of this note might be differe nt from the original. Lachelle Herndon RN [facility] 14:42:52-00:00 Sending to endocrinology to assist in this matter since they treat pts diabetes Electronically signed by Lachelle Herndon RN at 2:43 PM CDT 2023-05-17 Formatting of this note might be differe nt from the original. Yenifer Cruz [facility] 15:34:28-00:00 Lexi Clark is a 82 year old female Lexi pts daughter is callin g to request provider to send new script for Sensor Fozia, Pts daughter states, [facility] has not received a response, Please advise Ph: Electronically signed by Yenifer Cruz at 3:37 PM CDT 2023-05-09 Formatting of this note might be differe nt from the original. Yenifer Dickey [facility] 16:01:04-00:00 [facility] physician order/ prescription form received. RN Form filled out and placed in provider folder fo r review and signature. Will fax to [phone] once signed by provider . 2023-05-07 Formatting of this note might be differe nt from the original. Jaimie Mascorro LVN [facility] 13:40:15-00:00 Fax never received. Sudarshan macdonald edical records from 02/15/23 to [facility] per request 2023-05-06 Formatting of this note might be differe nt from the original. Snehal Amaya [facility] 13:34:00-00:00 Sierra zuleta/ [facility] called to check status of fax sent on 04/19/23 and on 04/23/23 for medical record request and for Rx for Fozia 2. She had the fax number to in ternal medicine instead of for Endo and was given the correct fax number for Dr. Nobles. She stated that she will re-fax over the form of request right now. Please advise Sierra zuleta/ [facility] P h- [phone] Electronically signed by Snehal Amaya at 1:40 PM CDT 2023-04-24 Formatting of this note might be differe nt from the original. Sierra Shelton [facility] 23:43:34-00:00 Pt discharged with diagnosis of complication associated with dialysis catheter. Printed and verbal instructions reviewed with and given to pt. Pt verbalized understanding of teaching and recommended fol RN low-up. Denies questions or concerns at this time. Pt assisted to POV in personal wheelchair/walker via pt son at discharge. Appears in no apparent distress. Accompanied by daughter and son. 2023-04-24 Formatting of this note might be differe nt from the original. Bailey Clinton [facility] 19:53:02-00:00 Pt brought in by daughter re porting that pt had dialysis catheter replaced this afternoon around 3 pm. Upon returning home site began to bleed and she wanted to make sure that pt was ok. Doug martinez RN ng site is visibly soaked @ this time. Pt rating pain 8 @ this time, HD T//Sa 2023-04-24 Formatting of this note is different from the or iginal. [facility] 19:29:00-00:00 Images from the original note were not included. [facility] Emergency Department Note Patient Name: Lexi Clark Date of : 1940 82 year old female Treatment Room: TX2/TX2 Primary Care Physician: Alyson Sam Patient Escorted by: Family [5] Mode of Arrival: Personal means [1] EMS Treatment Prior to ED Arrival: IT CONSULTING MANAGER treatment: None Travel and Exposure Screening: Symptoms Does patient have any of these symptoms?: (not r ecorded) Exposure Screening Has patient had contact with someone with a communicable disease in the last month?: (not recorded) Diseases exposed to:: (not recorded) Is Patient ?: (not recorded) Exposure Date: (not recorded) Chief Complaint: Chief Complaint Patient presents with Other Dialysis catheter bleeding History of Present Illness: The patient presented home f or evaluation for bleeding from her newly placed left chest wall dialysis catheter. She was discharged around 5 PM after having it replaced earlier today. When she went home there was no bleeding. It st arted bleeding when she arrived at home. She does take Plavix daily. No other blood thinners. They applied a dressing and came to the ER for evaluation. She does receive dial ysis every Saturday, and Saturday. Today is Saturday. She did not receive dialysis yesterday as her previous access site was not working. She is scheduled to receive dialysis tomorrow. She denies other complaints. Here for evaluation. Past Medical History/Immunizations: Past Medical History: Diagnosis Date AORTOCORONARY BYPASS STATUS 01/08/20042003 [facility] BENIGN HYPERTENSION 08/09/2006 Depression DIABETES MELLITUS TYPE II-UNCOMPL 08/09/19901989 Dialysis patient HYPERLIPIDEMIA NEC/NOS 08/09/2006 Ischemic cardiomyopathy 09/05/2015 Keloid scar Tetanus received in last 5 years: No Allergies: Allergies Allergen Reactions Byetta [Exenatide] Nausea and/or Vomiting Wellbutrin [Bupropion] Nausea and/or Vomiting Past Social History: Tobacco Use Never smoked or used smokeless tobacco. Alcohol Use Yes; 0.0 standard drinks of alcohol per week; 0 Standard drinks or equivalent. Comments: every third year Sexual Activity Comments: Past Surgical History: Past Surgical History: Procedure Laterality Date ABDOMINAL HYSTERECTOMY 1986 metrorrhagia. Normal pap until 2000 ANGIOPLASTY Left 12/23/2018 Surgeon: Kristal Servin MD; Location: [facility] ARTERIOVENOUS FISTULA CREATION Left 09/20/2016 Surgeon: Terence Roberts MD; [facility] CORONARY ARTERY BYPASS GRAFT December 2003 CYCLOPHOTOCOAGULATION Left 02/09/2014 Surgeon: Mike Pittman MD; Location: [facility] ENDOLASER PHOTOCOAGULATION Left 02/09/2014 Surgeon: Mike Pittman MD; Location: [facility] ENDOVASCULAR UPPER EXTREMITY ANGIOPLASTY Left 1 Surgeon: Terence Roberts MD; Location: [facility] EXTRACAPSULAR CATARACT EXTRACTION WITH INTRAOCU LAR LENS IMPLANT FISTULOGRAM Left 12/14/2016 Surgeon: Terence Roberts MD; Location: [facility] FISTULOGRAM Left 12/23/2018 Surgeon: Kristal Servin MD; Location: [facility] INTRAPERITONEAL CATHETER PLACEMENT N/A 09/14/20 16 Surgeon: Gerardo Thomas MD; Location: [facility] OTHER cataract removed, both eyes PARS PLANA VITRECTOMY Left 02/09/2014 Surgeon: Mike Pittman MD; Location: [facility] PERMACATH PLACEMENT Right 09/20/2016 Surgeon: Terence Roberts MD; Location: [facility] SILICONE OIL PLACEMENT Left 02/09/2014 Surgeon: Mike Pittman MD; Location: [facility] EVA TUBAL LIGATION 1978 VASCULAR STENTING Left 12/23/2018 Surgeon: Kristal Servin MD; Location: [facility] VEIN TRANSPOSITION Left 12/14/2016 Surgeon: Terence Roberts MD; Location: [facility] VENOUS THROMBECTOMY N/A 12/23/2018 Surgeon: Kristal Servin MD; Location: [facility] Review of Systems: Review of Systems Constitutional: Negative for chills and fever. Respiratory: Negative for cough and shortness of breath. Cardiovascular: Negative for chest pain. Gastrointestinal: Negative for abdominal pain an d vomiting. Genitourinary: Negative for dysuria. Musculoskeletal: Negative for neck pain and neck stiffness. Skin: Positive for wound. Neurological: Negative for dizziness. Psychiatric/Behavioral: Negative for agitation. Endocrine: Negative for goiter. Physical Exam: ED Triage Vitals [04/24/231948] Weight 59.4 kg (131 lb) Actual or estimated Estimated by patient/family report Height 1.473 m (4' 10") BP (!) 145/72 Pulse 72 Resp 20 Temp 36.7 ?C (98 ?F) Temp source Oral SpO2 98 % Measured on Room air Physical Exam Vitals and nursing note reviewed. Constitutional: Appearance: Normal appearance. She is normal we ight. HENT: Head: Normocephalic and atraumatic. Cardiovascular: Rate and Rhythm: Normal rate. Pulmonary: Effort: Pulmonary effort is normal. No respirat ory distress. Chest: Abdominal: General: There is no distension. Musculoskeletal: General: Normal range of motion. Cervical back: Normal range of motion and neck supple. Skin: General: Skin is warm and dry. Neurological: General: No focal deficit present. Mental Status: She is alert. Radiology: No orders to display Lab Results: Lab Results - No data to display EKG: If EKG completed, see Procedure Note. Orders and Treatments: No orders of the defined types were placed in th is encounter. No orders of the defined types were placed in th is encounter. First Provider Eval: ED Events Date/Time Event User Comments 04/24/231942 Medical Screening Begins NAMITA CLINTON DO -- 04/24/231942 First Provider Evaluation NAMITA FRANK DO -- No notes of EC Admission Criteria type on file. ED COURSE Diagnosis/Impression as of 04/24/232126 Complication associated with dialysis catheter Procedures: Procedures MDM: Medical Decision Making The patient presents from [facility] for evaluation for bleeding from her newly placed dialysis catheter site to her left chest wall. It was placed today after her previous access site was no longer functiona l. She was discharged around 5 PM without any bleeding. Bleeding started upon getting home. She does take Plavix daily but no other blood thinners. Vital signs are stable in the ER. She is a hematoma to her left chest wall above t he newly placed catheter. There is a small amount of active bleeding from the site. A piece of Surgicel was plac ed both below and on top of the catheter as well as a dressing. We will monitor for recurrence of bleeding. Anticipate discharge home later. 2126 -the patient is doing well here in the ER. She has had no bleeding from her dialysis catheter site since the dressing placed above. She remained stable here in the ER and is okay for discharge home with PCP follow-up. Problems Addressed: Complication associated with dialysis catheter: acute illness or injury Amount and/or Complexity of Data Reviewed Independent Historian: Details: daughter Flowsheet Documentation: Scoring Tools: No data recorded Disposition/Condition: ED Disposition ED Disposition Disch - Home Condition Stable Comment -- Discharge Medications: Patient's Medications START taking these medications No medications on file CONTINUE taking these medications which have NOT CHANGED ASPIRIN 81 MG CHEWABLE TABLET Take 1 tablet by mouth daily. ATORVASTATIN 40 MG TABLET Take 1 tablet by mout h at bedtime. B,C/FOLIC/ZINC/SELENOMETH/D3/E (RENAPLEX-D ORAL ) Take by mouth. CLOPIDOGREL 75 MG TABLET Take 1 tablet by mouth daily. FUROSEMIDE 20 MG TABLET NAYA E TWO (2) TABLET(S) BY MOUTH EVERY MORNING AND ONE (1) TABLET BY MOUTH EVERY EVENING. HYDRALAZINE 25 MG TABLET Take 1 tablet by mouth every 8 (eight) hours. INSULIN GLARGINE (LANTUS SO LOSTAR U-100 INSULIN) 100 UNIT/ML (3 ML) INJECTION inject 17 Units under the skin daily. LISINOPRIL 40 MG TABLET TAKE ONE (1) TABLET(S) BY MOUTH ONCE A DAY. METOPROLOL TARTRATE 50 MG T ABLET TAKE ONE-HALF (1/2) TABLET(S) BY MOUTH TWICE A DAY. NITROGLYCERIN 0.4 MG SUBLIN GUAL TABLET Place 1 tablet under the tongue every 5 (five) minutes as needed for Chest pain. PIOGLITAZONE (ACTOS) 15 MG TABLET Take 1 tablet by mouth daily. START taking Modified Medications as Prescribed No medications on file STOP taking these medications No medications on file Follow-up: Electronically signed by: Namita Clinton DO 04/24/232126 2023-04-23 [facility] 14:47:54-00:00 Pt seen in endo for DM, routing to endo Electronically signed by Ann Zamarripa LVN at 0 04/23/2023 2:51 PM CDT 2023-04-23 [facility] 13:12:25-00:00 Lexi Clark is a 82 year old female Sierra zuleta/ [facility] called to check status of fax sent on 04/19/23 for medical record request and for Rx for Fozia 2. She stated that she will re-fax over the form of request right now. Please advise Sierra zuleta/ [facility] P h- [phone] Electronically signed by Snehal Amaya at 09/2022 1:15 PM CDT 2023-04-19 Formatting of this note might be differe nt from the original. April Elizabeth [facility] 14:55:01-00:00 Lexi Clark is a 82 year old female Daughter (Lexi) calling [facility] will be handling pt diabetes sensors. Will be sending over Rx and forms. Please advisee Electronically signed by April Elizabeth at 2:59 PM CDT
[2023-05-28 10:07] LABS: Absolute Lymphocytes (CBC) 0.5 K/uL (0.7-4.9); Hematocrit 27.6 % (36.0-45.0); Lymphocytes % 10.9 % (15.3-44.8); MCV 95.2 fL (80-100); MPV 9.9 fL (7.6-11.3); Platelets 103 thou/uL (152-406)
[2023-05-28 10:09] LABS: Protime INR 1.12
--- NOTE | 2023-05-28 10:16 | RAD REPORT ---
EXAM DESCRIPTION: RAD - Chest Single View - 05/28/2023 10:08 am CLINICAL HISTORY: CHEST PAIN Chest pain. COMPARISON: No comparisons FINDINGS: Portable technique limits examination quality. Mild interstitial pulmonary edema. The heart is moderately enlarged. Sternotomy wires.Left-sided veno us catheter tip in the right atrium. IMPRESSION: Mild CHF versus volume overload.
--- NOTE | 2023-05-28 10:21 | RAD REPORT ---
EXAM DESCRIPTION: CT - Head Brain Wo Cont - 05/28/2023 10:00 am CLINICAL HISTORY: HTN, dizziness Headache, drowsiness COMPARISON: No comparisons TECHNIQUE: All CT scans are performed using dose optimization technique as appropriate and may inclu de automated exposure control or mA/KV adjustment according to patient size. FINDINGS: No intracranial hemorrhage, hydrocephalus or extra-axial fluid collection.No areas of brai n edema or evidence of midline shift. The paranasal sinuses and mastoids are clear. Left vitreous hyperdensity noted. The calvarium is inta ct. IMPRESSION: No acute intracranial abnormality. 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
[2023-05-28 10:38] LABS: Potassium 3.8 mEq/L (3.5-5.1)
[2023-05-28 10:41] LABS: Troponin High Sensitivity 78.7 pg/mL (<58.9)
--- NOTE | 2023-05-28 11:20 | EDPHYS ---
Physician Documentation [facility] Name: Lexi Clark Age: 82 yrs Sex: Female : 1940 Arrival Date: 05/28/2023 Time: 09:46 Bed 6 Private MD: ED Physician Matthew Dumont HPI: 05/28 10:44 This 82 yrs old Female presents to ER via EMS with complaints of Chest Pain. rn 10:44 The patient or guardian reports chest pain that is located primarily in the substernal rn area. Onset: just prior to arrival. The pain does not radiate. Associated signs and symptoms: Pertinent positives: shortness of breath, Pertinent negatives: abdominal pain, cough, palpitations. The chest pain is described as a heaviness, a pressure. Duration: The patient or guardian reports a single episode, that is still ongoing. Modifying factors: The symptoms are alleviated by NTG, the symptoms are aggravated by nothing. Severity of pain: At its worst the pain was moderate in the emergency department the pain has improved. The patient has not experienced similar symptoms in the past. The patient has not recently seen a physician. Patient reports at end of dialysis began to feel chest pain and shortness of breath. Given nitro and aspirin by dialysis staff as well as EMS with improvement of symptoms. Still having mild chest pressure. No recent illness. No cough. No fever. No abdominal pain.. Historical: - Allergies: 09:50 Wellbutrin; 09:50 Byetta; 7 - Home Meds: 09:50 Lantus Sub-Q [Active]; Actos Oral [Active]; 16:45 aspirin 81 mg Oral capsule daily [Active]; atorvastatin 40 mg oral tablet [Active]; 7 Plavix 75 mg Oral tablet [Active]; Lasix 20 mg Oral tablet [Active]; Lantus U-100 Insulin 100 unit/mL Sub-Q solution 17 units every evening [Active]; metoprolol tartrate 25 mg oral tablet 2 times per day [Active]; lisinopril 40 mg Oral tablet [Active]; 17:11 hydralazine 25 mg oral tablet [Active]; 7 - PMHx: 09:50 ESRD; dialysis T-T-S; Left upper arm fistula; Diabetes mellitus; 16:45 Congestive heart failure; Hypercholesterolemia; Hypertensive disorder; jl7 - Immunization history:: Adult Immunizations up to date. - Social history:: Smoking status: Patient denies any tobacco usage or history of. - Family history:: not pertinent. - Hospitalizations: : No recent hospitalization is reported. ROS: 10:44 Constitutional: Negative for fever, chills, and weight loss, Eyes: Negative for injury, rn pain, redness, and discharge, Neck: Negative for injury, pain, and swelling, Cardiovascular: Positive for chest pain Respiratory: Positive for shortness of breath Abdomen/GI: Negative for abdominal pain, nausea, vomiting, diarrhea, and constipation, MS/Extremity: Negative for injury and deformity, Skin: Negative for injury, rash, and discoloration, Neuro: Negative for headache, weakness, numbness, tingling, and seizure. Exam: 10:44 Constitutional: This is a well developed, well nourished patient who is awake, alert, rn and in no acute distress. Head/Face: Normocephalic, atraumatic. Cardiovascular: Regular rate and rhythm. No pulse deficits. Respiratory: No increased work of breathing, no retractions or nasal flaring. Abdomen/GI: Soft, non-tender Skin: Warm, dry MS/ Extremity: Pulses equal, no cyanosis. Neuro: Awake and alert, GCS 15 13:49 ECG was reviewed by the Attending Physician. rn Vital Signs: 09:50 BP 126 / 66; Pulse 82; Resp 15; Temp 97.9; Pulse Ox 99% ; Weight 63.05 kg; jl7 10:52 BP 163 / 65; Pulse 75; Resp 18; Pulse Ox 97% on R/A; ld1 12:27 BP 182 / 69; Pulse 73; Resp 18; Pulse Ox 96% on R/A; ld1 14:08 BP 182 / 69; Pulse 72; Resp 18; Pulse Ox 99% ; ld1 15:46 BP 182 / 69; Pulse 73; Resp 18; Pulse Ox 99% on R/A; ld1 16:45 BP 174 / 73; Pulse 72; Resp 15; Pulse Ox 98% ; jl7 MDM: 09:50 Patient medically screened. rn 11:18 Differential diagnosis: acute myocardial infarction, acute pericarditis, coronary rn artery disease congestive heart failure pleurisy, pneumonia, pneumothorax, stable angina, unstable angina. Data reviewed: vital signs, nurses notes, lab test result(s), EKG, radiologic studies, plain films, and as a result, I will admit patient. Consideration of Admission/Observation Patient was admitted/placed on observation. Escalation of care including admission/observation considered. Management of patient was discussed with the following: Hospitalist: . Independent interpretation of the following test(s) in the Emergency Department EKG: See my EKG interpretation above X-Ray: My interpretation is Chest x-ray images show pulmonary edema per my interpretation.. Counseling: I had a detailed discussion with the patient and/or guardian regarding the historical points, exam findings, and any diagnostic results supporting the discharge/admit diagnosis, lab results, radiology results, the need for further work-up and treatment in the hospital. 05/28 09:51 Order name: Basic Metabolic Panel; Complete Time: 10:48 rn 05/28 09:51 Order name: CBC with Diff; Complete Time: 10:38 rn 05/28 09:51 Order name: NT PRO-BNP; Complete Time: 10:48 rn 05/28 09:51 Order name: PT-INR; Complete Time: 10:38 rn 05/28 09:51 Order name: Troponin HS; Complete Time: 10:48 rn 05/28 17:25 Order name: Troponin High Sensitivity EDMS 05/28 09:51 Order name: XRAY Chest (1 view); Complete Time: 10:38 rn 05/28 09:51 Order name: CT Head Brain wo Cont; Complete Time: 10:38 rn 05/28 09:51 Order name: EKG; Complete Time: 09:51 rn 05/28 09:51 Order name: Cardiac monitoring; Complete Time: 54 05/28 09:51 Order name: EKG - Nurse/Tech; Complete Time: :54 05/28 09:51 Order name: IV Saline Lock; Complete Time: :54 05/28 09:51 Order name: Labs collected and sent; Complete Time: :54 rn 05/28 09:51 Order name: O2 Per Protocol; Complete Time: 05/28 09:51 Order name: O2 Sat Monitoring; Complete Time: :54 rn EC:49 Rate is 85 beats/min. Rhythm is regular. QRS [place] is Normal. MI interval is normal. QRS rn interval is prolonged at 146 msec. QT interval is normal. No Q waves. T waves are Normal. No ST changes noted. Clinical impression: NSR w/ Non-specific ST/T Changes. Interpreted by me. Reviewed by me. Administered Medications: 11:43 Drug: Furosemide IVP 40 mg Route: IVP; Site: right antecubital; jl7 17:14 Follow up: Urine output 400 ml; Response: No adverse reaction jl7 17:03 Drug: Metoprolol PO 25 mg Route: PO; jl7 17:13 Follow up: Response: No adverse reaction jl7 17:03 Drug: HydrALAZINE PO 25 mg Route: PO; jl7 17:13 Follow up: Response: No adverse reaction jl7 Disposition Summary: 05/28/23 11:20 Hospitalization Ordered Hospitalization Status: Inpatient Admission rn Provider: Jazmine Harp rn Location: Telemetry/MedSurg (Inpatient) rn Condition: Stable rn Problem: new rn Symptoms: have improved rn Bed/Room Type: Standard rn Room Assignment: 405(05/28/23 16:19) 1 Diagnosis - Chest pain, unspecified rn - End stage renal disease rn - Acute pulmonary edema rn Forms: - Medication Reconciliation Form rn - SBAR form rn - Leadership Thank You Letter rn Signatures: Dispatcher [employer] EDMatthew Richard MD MD rn Leal, Jahala, RN RN Sathish Sibley RN RN ll1 Corrections: (The following items were deleted from the chart) 10:06 09:50 Allergies: Biaxin; jl7 jl7 10:06 09:50 Home Meds: Byetta subcutaneous; jl7 jl7 16:19 11:20 rn ll1 17:11 16:45 Home Meds: Hydralazine Oral; jl7 jl7
--- NOTE | 2023-05-28 11:20 | ER ---
Nurse's Notes [facility] Name: Lexi Clark Age: 82 yrs Sex: Female : 1940 Arrival Date: 05/28/2023 Time: 09:46 Bed 6 Private MD: Diagnosis: Chest pain, unspecified;End stage renal disease;Acute pulmonary edema Presentation: 05/28 09:50 Chief complaint: EMS states: Toned out for CP post dialysis, 2 nitros and 324 Aspirin jl7 given prior to arrival to ED with some improvement in symptoms. Continued chest pressure. Coronavirus screen: At this time, the client does not indicate any symptoms associated with coronavirus-19. Ebola Screen: No symptoms or risks identified at this time. Initial Sepsis Screen: Does the patient meet any 2 criteria? No. Patient's initial sepsis screen is negative. Does the patient have a suspected source of infection? No. Patient's initial sepsis screen is negative. Risk Assessment: Do you want to hurt yourself or someone else? Patient reports no desire to harm self or others. Onset of symptoms was May 28, 2023 at 09:00. 09:50 Method Of Arrival: EMS: [facility] jl7 09:50 Acuity: ARLINE 2 jl7 Triage Assessment: 09:50 General: Appears in no apparent distress. uncomfortable, Behavior is calm, cooperative, jl7 appropriate for age. Pain: Complains of pain in chest Pain radiates to back. Neuro: Level of Consciousness is awake, alert, obeys commands, Oriented to person, place, time, situation. Cardiovascular: Patient's skin is warm and dry. Respiratory: Airway is patent Respiratory effort is even, unlabored, Respiratory pattern is regular, symmetrical. Derm: Skin is pink, warm \T\ dry. Historical: - Allergies: 09:50 Wellbutrin; jl7 09:50 Byetta; jl7 - Home Meds: 09:50 Lantus Sub-Q [Active]; Actos Oral [Active]; jl7 16:45 aspirin 81 mg Oral capsule daily [Active]; atorvastatin 40 mg oral tablet [Active]; jl7 Plavix 75 mg Oral tablet [Active]; Lasix 20 mg Oral tablet [Active]; Lantus U-100 Insulin 100 unit/mL Sub-Q solution 17 units every evening [Active]; metoprolol tartrate 25 mg oral tablet 2 times per day [Active]; lisinopril 40 mg Oral tablet [Active]; 17:11 hydralazine 25 mg oral tablet [Active]; jl7 - PMHx: 09:50 ESRD; dialysis T-T-S; Left upper arm fistula; Diabetes mellitus; jl7 16:45 Congestive heart failure; Hypercholesterolemia; Hypertensive disorder; jl7 - Immunization history:: Adult Immunizations up to date. - Social history:: Smoking status: Patient denies any tobacco usage or history of. - Family history:: not pertinent. - Hospitalizations: : No recent hospitalization is reported. Screenin:08 [facility] ED Fall Risk Assessment (Adult) History of falling in the last 3 months, ld1 including since admission No falls in past 3 months (0 pts). Abuse screen: Denies threats or abuse. Denies injuries from another. Nutritional screening: No deficits noted. Tuberculosis screening: No symptoms or risk factors identified. Assessment: 09:50 General: See triage assessment. jl7 10:07 Reassessment: Daughter at bedside. jl7 11:00 Reassessment: Patient appears in no apparent distress at this time. No changes from jl7 previously documented assessment. Patient and/or family updated on plan of care and expected duration. Pain level reassessed. Patient is alert, oriented x 3, equal unlabored respirations, skin warm/dry/pink. 11:45 Reassessment: Pt medicated with lasix as ordered. Family at bedside. Bedside commode jl7 placed for safety. Family report they can assist pt. 14:08 Reassessment: Patient appears in no apparent distress at this time. No changes from ld1 previously documented assessment. Patient and/or family updated on plan of care and expected duration. Pain level reassessed. 14:08 General: Appears in no apparent distress. comfortable, Behavior is calm, cooperative, ld1 appropriate for age. Pain: Complains of pain in chest Pain does not radiate. Pain currently is 8 out of 10 on a pain scale. Quality of pain is described as pressure. Neuro: Level of Consciousness is awake, alert, obeys commands, Oriented to person, place, time, situation. Cardiovascular: Capillary refill < 3 seconds Patient's skin is warm and dry. Respiratory: Airway is patent Respiratory effort is even, unlabored. GI: Abdomen is flat, non-distended. : No signs and/or symptoms were reported regarding the genitourinary system. EENT: No signs and/or symptoms were reported regarding the EENT system. Derm: No signs and/or symptoms reported regarding the dermatologic system. Musculoskeletal: No signs and/or symptoms reported regarding the musculoskeletal system. 15:46 Reassessment: Patient appears in no apparent distress at this time. No changes from ld1 previously documented assessment. Patient and/or family updated on plan of care and expected duration. Pain level reassessed. 16:05 Reassessment: Son upset about patients BP, possible transfer, delay in getting bed, ll1 etc. Explained reason for delay in bed, still upset. Kept interrupting my answers and asking new questions before I could finish my sentence. complaint evaluation supervisor contacted, will come talk to family. RN informed so she can check on BP and BP meds. 16:20 Reassessment: No changes from previously documented assessment. Room for patient ll1 assigned by night warehouse selector. 16:51 Reassessment: Hospitalist JOHN Pizarro notified of current BP, see MAR for orders. jl7 Vital Signs: 09:50 BP 126 / 66; Pulse 82; Resp 15; Temp 97.9; Pulse Ox 99% ; Weight 63.05 kg; jl7 10:52 BP 163 / 65; Pulse 75; Resp 18; Pulse Ox 97% on R/A; ld1 12:27 BP 182 / 69; Pulse 73; Resp 18; Pulse Ox 96% on R/A; ld1 14:08 BP 182 / 69; Pulse 72; Resp 18; Pulse Ox 99% ; ld1 15:46 BP 182 / 69; Pulse 73; Resp 18; Pulse Ox 99% on R/A; ld1 16:45 BP 174 / 73; Pulse 72; Resp 15; Pulse Ox 98% ; jl7 ED Course: 09:50 Patient arrived in ED. rn 09:50 Matthew Dumont MD is Attending Physician. rn 09:50 Arm band placed on right wrist. jl7 09:54 Ofelia Oliva, CHAIM is Primary Nurse. jl7 09:54 Maintain EMS IV. Dressing intact. Good blood return noted. Site clean \T\ dry. Gauge \T\ ld 1 site: 20G RAC. 09:58 Triage completed. jl7 10:01 CT Head Brain wo Cont In Process Unspecified. EDMS 10:08 XRAY Chest (1 view) In Process Unspecified. EDMS 11:19 Jazmine Harp MD is Hospitalizing Provider. rn 14:08 No provider procedures requiring assistance completed. ld1 14:08 Patient has correct armband on for positive identification. Placed in gown. Bed in low ld1 position. Call light in reach. Side rails up X2. alarm security or surveillance monitor on. Pulse ox on. NIBP on. Door closed. Noise minimized. Warm blanket given. 14:15 Provided Education on: use of call chavarria. jl7 17:25 Patient admitted, IV remains in place. intact, No redness/swelling at site. jl7 Administered Medications: 11:43 Drug: Furosemide IVP 40 mg Route: IVP; Site: right antecubital; jl7 17:14 Follow up: Urine output 400 ml; Response: No adverse reaction jl7 17:03 Drug: Metoprolol PO 25 mg Route: PO; jl7 17:13 Follow up: Response: No adverse reaction jl7 17:03 Drug: HydrALAZINE PO 25 mg Route: PO; jl7 17:13 Follow up: Response: No adverse reaction jl7 Medication: 10:07 VIS not applicable for this client. jl7 Output: 17:14 Urine: 400ml; Total: 400ml. jl7 Outcome: 11:20 Decision to Hospitalize by Provider. rn 17:21 Admitted to Tele accompanied by tech, family with patient, via stretcher, room 405, jl7 with chart, Report called to CHAIM Mi 17:21 Condition: stable 17:21 Discharge instructions given to patient, family, Instructed on the need for admit, Demonstrated understanding of instructions. 17:38 Patient left the ED. jl7 Signatures: Dispatcher [employer] EDMS Matthew Dumont MD MD rn Leal, Jahala, RN RN jl7 Sathish Fernandez RN RN ll1 Sandra Butler RN RN ld1 Corrections: (The following items were deleted from the chart) 10:06 09:50 Allergies: Biaxin; jl7 jl7 10:06 09:50 Home Meds: Byetta subcutaneous; jl7 jl7 17:11 16:45 Home Meds: Hydralazine Oral; nilo7 jl7 17:13 09:50 Chief complaint: EMS states: Toned out for CP post dialysis, 2 nitros and 324 jl7 given prior to arrival to ED with some improvement in symptoms. Continued chest pressure. jl7
[2023-05-28] MEDS ORDERED: FUROSEMIDE 40 MG/4 ML VIAL ONE (11:43)
[2023-05-28] MEDS ORDERED: ACETAMINOPHEN 325 MG TABLET PO PRN (12:35)
[2023-05-28] MEDS ORDERED: HYDROCODONE/APAP 5/325 MG TAB PO PRN (12:35)
--- NOTE | 2023-05-28 16:42 | EKG ---
Test Date: 2023-05-28 Test Time: 09:51:50 Linux System Administrator: GALDINO MEASUREMENT RESULTS: Intervals: Rate: 85 ID: [id number] QRSD: 146 QT: 446 QTc: 530 [place]: P: 26 ID: [id number] QRS: 265 T: 50 INTERPRETIVE STATEMENTS: Normal sinus rhythm Right bundle branch block, plus right ventricular hypertrophy Abnormal ECG Compared to ECG 10/26/2002 21:02:00 Right bundle-branch block now present Right ventricular hypertrophy now present Sinus tachycardia no longer present Atrial abnormality no longer present ST (T wave) deviation no longer present Electronically Signed On 05-28-23 16:41:40 CDT by Oscar Vences
[2023-05-28] MEDS ORDERED: ONDANSETRON 4 MG/2 ML VIAL IV PRN (17:09)
[2023-05-28] MEDS ORDERED: HYDRALAZINE HCL 25 MG TABLET ONE (17:11)
[2023-05-28] MEDS ORDERED: METOPROLOL TAR 25 MG TAB ONE (17:12)
[2023-05-28] MEDS ORDERED: HYDRALAZINE HCL 20 MG/ML VIAL IV PRN (17:13)
--- NOTE | 2023-05-28 17:15 | P.HP ---
Certification for Inpatient Patient admitted to: Inpatient With expected LOS: >2 Midnights Patient will require the following post-hospital care: None Practitioner: I am a practitioner with admitting privileges, knowledge of patient current condition, hospital course, and medical plan of care. Services: Services provided to patient in accordance with Admission requirements found in Title 42 Section 412.3 of the Code of Federal Regulations Patient History Date of Service: 05/28/23 Reason for admission: Chest pain History of Present Illness: Patient is an 82-year-old female with a past medical history significant for ESRD, CHF, HLD, hypertension who presents with complaint of chest pain. Patient reported that she was at dialysis today when her blood pressure dropped to 64/36 and shortly after patient started having substernal chest pain which radiates to the back and jaws. Patient rated pain as 10/10 in severity and described pain as pressure in quality. Patient reported associated signs and symptoms of dizziness, headache and shortness of breath. Patient denies any other signs and symptoms. Symptoms are aggravated or relieved by nothing. Patient was sent by her industrial safety engineer to the ER for further evaluation. Allergies bupropion [From Wellbutrin] Allergy (Verified 05/28/23 12:44) UNK exenatide [From Byetta] Allergy (Verified 05/28/23 12:44) UNK - Past Medical/Surgical History -: HTN -: DM 2 -: ESRD -: CHF -: HLD -: CABG x4 -: Hysterectomy. - Family History Family History: Reviewed- Non-Contributory - Social History Smoking Status: Never smoker Alcohol use: No CD- Drugs: No Caffeine use: Yes Place of Residence: Home Review of Systems General: Unremarkable Eyes: Unremarkable ENT: Unremarkable Respiratory: Shortness of Breath Cardiovascular: Chest Pain Gastrointestinal: Unremarkable Genitourinary: Unremarkable Musculoskeletal: Back Pain, Other (Jaw pain) Integumentary: Unremarkable Neurological: Other (Dizziness, headache) Lymphatics: Unremarkable Physical Examination - Physical Exam General: Alert, In no apparent distress, Oriented x3, Cooperative HEENT: Atraumatic, PERRLA, Mucous membr. moist/pink, EOMI, Sclerae nonicteric Neck: Supple, 2+ carotid pulse no bruit, No LAD, Without JVD or thyroid abnormality Respiratory: Clear to auscultation bilaterally, Normal air movement Cardiovascular: No edema, Regular rate/rhythm, Normal S1 S2 Capillary refill: <2 Seconds Gastrointestinal: Normal bowel sounds, Non-distended, No tenderness Musculoskeletal: No clubbing, No contractures, No tenderness Integumentary: No rashes, No significant lesion Neurological: Normal speech, Normal tone, Normal affect Lymphatics: No axilla or inguinal lymphadenopathy - Studies Laboratory Data (last 24 hrs) 05/28/23 05/28/23 05/28/23 09:54 09:54 09:54 WBC 5.00 Hgb 9.2 L Hct 27.6 L Plt Count 103 L PT 12.3 INR 1.12 Sodium 136 Potassium 3.8 BUN 21 H Creatinine 2.89 H Glucose 245 H Assessment and Plan - Plan --Chest pain. We will trend serial troponins. Currently mildly elevated. Cardiology consulted. Echocardiogram pending to assess cardiac structures and function. Telemetry to monitor for any significant arrhythmia. Further management per perinatal instructor. -- ESRD. Nephrology consulted. We will await further recommendations. --Acute on chronic diastolic or systolic CHF exacerbation. Echocardiogram pending. Dialysis schedule per industrial safety engineer. Daily weight and strict I/O. Continue supportive care. --History of CABG. Continue aspirin, Plavix and statin. --Hypertension. Poorly controlled.. Continue home medications and hydralazine as needed. --Hyperlipidemia. Continue statin. --DM2. BS monitoring with sliding scale insulin and Lantus. --DVT prophylaxis with heparin subQ. Discharge Plan: Home Plan to discharge in: Greater than 2 days - Advance Directives Does patient have a Living Will: No Does patient have a Durable POA for Healthcare: No - Code Status/Comfort Care Code Status Assessed: Yes Physician Review: Patient Assessed, Agree with Above Assessment and Plan Critical Care: No
[2023-05-28 17:57] LABS: Magnesium 2.2 mg/dL (1.6-2.4); Phosphorus 3.8 mg/dL (2.5-4.9); Thyroid Stimulating Hormone 2.79 uIU/mL (0.358-3.740)
[2023-05-28 18:44] VITALS: BMI 28.4
--- NOTE | 2023-05-28 19:03 | CON ---
Date of Consultation: 05/28/2023 Reason For Consultation: Elevated troponin with chest pain. History Of Present Illness: An 82-year-old female with history of end-stage renal disease, on hemodi alysis, diabetes, hypertension, dyslipidemia, coronary artery disease, status post quadruple bypass i n 2003. She was having dialysis. At the end of the dialysis, she had a drop in her blood pressure a nd started having chest pain, retrosternal, radiates to her left arm, and pain is resolved right now, and troponin is borderline elevated. Past Medical History: As outlined above in the HPI. Medications: Refer to reconciliation sheet for detailed list. Allergies: BUPROPION AND EXENATIDE. Family History: No premature coronary artery disease or cancer. Social History: She does not smoke or drink. Does not use any drugs. Review of Systems: All systems reviewed and they were negative except what mentioned in HPI. Physical Examination: Vital Signs: Reviewed. Head and Neck: Pupils are equal, reactive to light. Intact eye movements. No JVD. No cervical lym phadenopathy. Neck is supple. Thyroid is not enlarged. Lungs: Clear to auscultation bilaterally. No rhonchi, wheezing, or crackles. No accessory muscle u se. Heart: Irregular. No extra sounds. Abdomen: Soft, nontender. Bowel sounds positive. No organomegaly. No masses or hernia. No rigidi ty or rebound. Extremities: No edema, clubbing, or cyanosis. Intact pulses. Skin: No rash. Neurologic: Alert, awake, oriented x3. No acute focal deficits appreciated. Investigations: Chest x-ray showed mild CHF. BUN is 21, creatinine 2.89, and hemoglobin is 9.2. Assessment And Recommendations: 1.Chest pain with elevated troponin, known history of coronary artery disease. Obtain a Lexiscan nu clear stress test tomorrow morning as well as an echo to further evaluate, and trend troponin at leas t 2 more sets, and continue baby aspirin. Plan will be dictated further after the above workup. 2.Hypertension. Blood pressure is high. Resume home medications, adjust as needed. 3.End-stage renal disease, on hemodialysis. Likely will have hemodialysis in-house. 4.Dyslipidemia. Recommend high dose statin and Lipitor 40 mg at bedtime. SR/MODL Voice ID: [id number] Report ID: [id number]
[2023-05-28] MEDS ORDERED: GLUCAGON 1 MG/VIAL IM PRN (19:32)
[2023-05-28] MEDS ORDERED: D50W 25 GM/50 ML SYRINGE IV PRN (19:32)
[2023-05-28] MEDS: HEPARIN 5000 UNIT/ML 1 ML VIAL SQ SCH (20:55)
[2023-05-28] MEDS ORDERED: INSULIN GLARGINE 100 UNIT/ML SQ SCH (21:00)
[2023-05-28] MEDS: INSULIN -REGULAR HUMAN 50 UNIT/0.5 ML ML SQ SCH (21:23)
[2023-05-29 05:10] LABS: Specific Gravity 1.005 (1.005-1.030); Urine Bacteria >50 /HPF (<20); Urine Bilirubin NEGATIVE (Negative); Urine Blood 1+ (Negative); Urine Clarity Extremely Turbid (Clear); Urine Color Colorless (Yellow); Urine Glucose 3+ (Negative); Urine Protein 2+ (Negative); Urine RBC <5 /HPF (None Seen); Urine Urobilinogen Normal (Normal)
[2023-05-29 06:56] LABS: Absolute Lymphocytes (CBC) 1.1 K/uL (0.7-4.9); Hematocrit 35.8 % (36.0-45.0); Lymphocytes % 18.4 % (15.3-44.8); MCV 94.9 fL (80-100); MPV 9.8 fL (7.6-11.3); Platelets 134 thou/uL (152-406); RBC Red Blood Cell Count 3.78 M/uL (3.86-4.86)
[2023-05-29] MEDS: INSULIN -REGULAR HUMAN 50 UNIT/0.5 ML ML SQ SCH ×2 (07:30→11:30)
[2023-05-29] MEDS ORDERED: REGADENOSON 0.4 MG/5 ML SYR IV ONE (07:59)
[2023-05-29] MEDS ORDERED: ASPIRIN 81 MG CHEWABLE TABLET PO SCH (09:00)
[2023-05-29] MEDS: HEPARIN 5000 UNIT/ML 1 ML VIAL SQ SCH (09:00)
[2023-05-29 09:14] VITALS: O2SAT 97
--- NOTE | 2023-05-29 09:36 | RAD REPORT ---
EXAM DESCRIPTION: NM - Rest Stress Cardiac Imaging - 05/29/2023 9:20 am CLINICAL HISTORY: Elevated troponin COMPARISON: None. TECHNIQUE: The patient was administered 10.6 mCi of Tc 99m Sestamibi prior to resting SPECT imaging of the heart. The patient was then administered 30.2 mCi of Tc 99m Sestamibi following exercise or ph armacologic stress. Multiplanar SPECT images were reviewed. FINDINGS: Moderate area of diminished radiotracer activity involves the lateral left ventricular inge cardium on rest and stress images. There is uniformity of radiotracer uptake involving the remainder of the left ventricular myocardium on rest and stress sequences The left ventricular ejection fraction equals 42% IMPRESSION: Moderate fixed perfusion defect lateral left ventricular myocardium probably infarct No evidence of stress-induced ischemia
[2023-05-29 12:55] VITALS: TEMP 97.8
--- NOTE | 2023-05-29 14:15 | CON ---
Date of Consultation: 05/29/2023 Reason For Consultation: Elevated BUN and creatinine, end-stage renal disease. History Of Present Illness: This is a pleasant 82-year-old female, well known to me from dialysis, w ith significant past medical history of end-stage renal disease, on hemodialysis TTS; CAD; congestive heart failure, and patient is on dialysis TTS at [facility]. Patient during lucero lysis had chest tightness and dropped her blood pressure. For that reason, we sent the patient to [facility]. Primary workup showed EKG changes and elevation in troponin. Patient was admitted. Stefani king was seen by Cardiology. Workup is still pending. Patient still has on an off chest tightness. Ejection fraction of 42%. Past Medical History: Includes: 1.CAD, status post CABG. 2.Diabetes complicated with neuropathy and nephropathy. 3.Hypertension. 4.Congestive heart failure. 5.Hyperlipidemia. Past Surgical History: Includes: 1.Hysterectomy. 2.CABG, PTCA. 3.AV fistula creation. Allergies: BUPROPION AND KATHLEEN. Social History: Lives with family. Denied smoking. Denied drinking. Denied drugs abuse. Family History: Positive for CAD, hypertension, and diabetes. Review of Systems: Head and Neck: No red eye. No ear pain. GI: No nausea, no vomiting. : No polyuria, no dysuria, no hematuria. 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 Respiratory: Has shortness of breath. Cardiovascular: Has chest tightness. Endocrine: No polydipsia. Skin: No rash. Neuro: Has neuropathy. Musculoskeletal: Generalized fatigue. Physical Examination: Vital Signs: Blood pressure 150/69, pulse of 70, afebrile. Chest: Clear to auscultation. Heart: S1, S2. Systolic murmur. Abdomen: Soft, nontender. Extremities: No edema. Neurologic: No focality. Laboratory Data: Hemoglobin 11.8. Sodium 138, potassium 4, bicarb 21, BUN 34, creatinine 4.7, calci um 9.6. Troponin 94. Current Medications: The patient on include: 1.Aspirin. 2.Hydralazine p.r.n. 3.Zofran. 4.Insulin. 5.Hydrocodone. Assessment And Plan: 1.End-stage renal disease, stable, normal volume. I am going to continue the patient on dialysis. Patient is going to be scheduled for dialysis tomorrow. We will continue dialysis as TTS. 2.Hypertension, controlled. I am going to add low dose of ARDEN inhibitor given the congestive heart failure. 3.Non-ST elevation myocardial infarction. Nuclear medicine stress test positive. We will follow up with Cardiology. Follow up echocardiogram. 4.Secondary hyperparathyroidism. We will follow up phosphorus. 5.Anemia of chronic kidney disease. No need for JEAN PAUL. 6.Diabetes as by primary. 7.Congestive heart failure with ejection fraction of 42%. We will follow up with Cardiology. Curre ntly, normal volume. No need for diuresis or fluid challenge. Thank you Dr. Harp for allowing us to participate in the care of your patient. BINDU/MONICA Voice ID: [id number] Report ID: [id number]
[2023-05-29 15:05] VITALS: BP 139/60
--- NOTE | 2023-05-29 21:37 | PN ---
Date of Progress Note: 05/29/2023 Subjective: Patient was seen by bedside. She had a stress test and no stress-induced ischemia was f ound. Review of Systems: No chest pain, shortness of breath, orthopnea, cough. No nausea, vomiting, diarrhea. All other syst ems reviewed are negative. Physical Examination: Vital signs: Reviewed. Head and Neck: Pupils are equal, reactive to light. Intact eye movements. No JVD. No cervical lym phadenopathy. Neck is supple. Thyroid is not enlarged. Lungs: Clear to auscultation bilaterally. No rhonchi, wheezing, or crackles. No accessory muscle u se. Heart: Regular rate and rhythm. No extra sounds. Abdomen: Soft, nontender. Bowel sounds positive. No organomegaly. No masses or hernia. No rigidi ty or rebound. Extremities: No clubbing, cyanosis. Intact pulses. Skin: No rash. Neurologic: Alert, awake, oriented x3. No acute focal deficits appreciated. Lymph Nodes: No cervical or axillary lymphadenopathy. Investigations: Labs were reviewed. Assessment/recommendations: 1.Elevated troponin with chest pain that has been after a drop in blood pressure during dialysis. S tress test was negative for stress-induced ischemia. Normal ejection fraction on echo. No further c ardiac workup is needed. Patient can be discharged from Cardiology standpoint. 2.Hypertension. Blood pressure is stable. Continue current management. 3.End-stage renal disease, on hemodialysis. 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 /MONICA Voice ID: [id number] Report ID: [id number]
--- NOTE | 2023-05-30 06:51 | TREADPHA ---
DX: ELEVATED TROPONIN Date of Study: 05/29/2023 Ht: 4' 10 " Wt: 136 lb 0.023 oz Consulting Physician: ENRIKE MEDICATIONS: TYLENOL, NORCO, ASPIRIN, DEXTROSE, GLUCAGEN, HEPARIN, APRESOLINE, SEMGLEE, NOVOLIN-R, ZOFRAN HISTORY: 82 YEAR OLD FEMALE HERE FOR ELEVATED TROPONIN. PHYSICIAL EXAMINATION: RESTING B.P.: 178/79 RESTING H.R.: 74 RESTING EKG: NORMAL SINUS RHYTHM, RIGHT BUNDLE BRANCH BLOCK PROTOCOL: PHARMACOLIGIC EXERCISE TIME: 3:30 B.P. AT PEAK STRESS: 127/45 IMPRESSION: LEXISCAN INJECTED. CARDIOLITE INJECTED (SEE NUCLEAR MEDICINE REPORT). COMPLAINTS OF DIZZINESS. PREMATURE VENTRICULAR COMPLEXES NOTED DURING TEST. ELECTROCARDIOGRAM IS NON-DIAGNOSTIC DUE TO ABNORMAL BASELINE.
--- NOTE | 2023-05-30 07:06 | ECHO ---
HEIGHT: 4 ft 10 in WEIGHT: 136 lb 0.023 oz DATE OF STUDY: 05/29/[address]: Oscar Vences 2-DIMENSIONAL: YES M.MODE: YES DOPPLER: YES COLOR FLOW: YES TDS: PORTABLE: YES DEFINITY: BUBBLE STUDY: DIAGNOSIS: CHEST PAIN CARDIAC HISTORY: CATHERIZATION: YES SURGERY: CABG X4 PROSTHETIC VALVE: PACEMAKER: MEASUREMENTS (cm) DIASTOLIC (NORMALS) SYSTOLIC (NORMALS) IVSd 1.2 (0.6-1.2) LA Diam 4.0 (1.9-4.0) LVEF 55% LVIDd 4.1 (3.5-5.7) LVIDs 3.3 (2.0-3.5) %FS 19% LVPWd 1.4 (0.6-1.2) Ao Diam 2.4 (2.0-3.7) 2 DIMENSIONAL ASSESSMENT: RIGHT ATRIUM: NORMAL LEFT ATRIUM: ENLARGED RIGHT VENTRICLE: NORMAL LEFT VENTRICLE: LEFT VENTRICULAR HYPERTROPHY TRICUSPID VALVE: MILD TRICUSPID REGURGITATION MITRAL VALVE: MILD MITRAL REGURGITATION PULMONIC VALVE: MILD PULMONIC INSUFFICIENCY AORTIC VALVE: MILD AORTIC INSUFFICIENCY PERICARDIAL EFFUSION: NONE AORTIC ROOT: NORMAL LEFT VENTRICULAR WALL MOTION: NORMAL DOPPLER/COLOR FLOW: SEE BELOW COMMENTS: 1. NORMAL LEFT VENTRICULAR EJECTION FRACTION 55-60% WITH NORMAL WALL MOTION 2. MODERATE DIASTOLIC DYSFUNCTION 3. 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 LEFT ATRIAL ENLARGEMENT 5. MILD CONCENTRIC LEFT VENTRICULAR HYPERTROPHY 6. 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 MILD TRICUSPID REGURGITATION, PULMONIC INSUFFICIENCY, AORTIC INSUFFICIENCY TECHNOLOGIST: FABIO RDZ
[2023-05-30] MEDS ORDERED: lisinopriL 5 MG TAB PO SCH (09:00)
== END 2023-05-29 15:57 | disposition home or self-care (01) ==
LOC: ER 09:46 → ERHOLD 12:34 → INTOOBSV 12:34 → 4TH 16:47
PROVIDERS: ADMIT Hospitalist; ATTEND Hospitalist
DX: I50.9 Heart failure, unspecified (principal); I21.4 Non-ST elevation (NSTEMI) myocardial infarction; I25.10 Atherosclerotic heart disease of native coronary artery without angina pectoris; N18.6 End stage renal disease; E78.5 Hyperlipidemia, unspecified; I10 Essential (primary) hypertension; E11.9 Type 2 diabetes mellitus without complications; R77.8 Other specified abnormalities of plasma proteins; E21.3 Hyperparathyroidism, unspecified; D63.1 Anemia in chronic kidney disease; Z79.82 Long term (current) use of aspirin; Z95.1 Presence of aortocoronary bypass graft; Z99.2 Dependence on renal dialysis
CPT/HCPCS: 93005; 93017; 93306; 87088; 85025 ×2; 81001; 87086; 80048 ×2; 36415; 83735; 84100; 85610; 80061; 82947 ×3; 84443; 84484 ×3; 84439; 83880; 70450; 71045; 78452; 96374; 99285; J1815; J1644; J2785; J0360; J1940; A9500; G0378